=== PATIENT | female | born 1940 | race Caucasian/White ===

== ENCOUNTER → 2017-01-30 | Outpatient (CLI) | payer MEDICARE, BC, OTHER ==
[2016-08-16 10:01] VITALS: BP 105/57
[~2017-01-30] MED LIST: ALPR1TAB2 PO; ASPI-252 PO; ASPI-612 PO; ASPI-630 PO; ATOR10TA PO; ATOR20TA PO; CALC-337 PO; CARV12.5 PO; CHOL100013 PO; ESTR42.53 VG; ESTR50GE TD; IOHEXOL 300 MG/ML 75 ML VIAL. IV ONE; IOHEXOL 300 MG/ML 75 ML VIAL. ONE; IPRA3AMP NEB; IRBE300T PO; LEVO175T2 PO; LEVO75TA PO; MELA1TAB13 PO; MULT-245 PO; NITR50CA11 PO; QUET50TA5 PO; QUET50TA8 PO; RIVA10TA PO; RIVA15TA PO; SERT50TA PO; SPIR25TA PO; TIOT18CA IH
--- NOTE | 2017-01-30 11:18 | RAD ---
CT angiography chest 01/30/2017 at 1054 hours Indication: History of pulmonary embolism. Comparison: CT chest 08/14/2016 Technique: Multiple axial CT images of the chest were obtained after the administration of 75 mL's of Omnipaque 300 intravenously. Coronal and sagittal reformats are provided. Maximum intensity projection images are provided. Findings: The thyroid gland is within normal limits. There are no axillary, mediastinal or hilar lymph nodes that are pathologically enlarged. Heart size is within normal limits. No pericardial effusion. Thoracic aorta is normal in course and caliber. Scattered atherosclerotic calcification is noted. There is adequate opacification of the pulmonary arterial system. Previously noted filling defects within the pulmonary arterial system are not seen on the current examination compatible with resolution of pulmonary emboli. There is mild centrilobular pulmonary emphysema. There is scarring and/or subsegmental atelectasis involving the right middle lobe and posterior basal right lower lobe. No suspicious pulmonary infiltrate. There is groundglass attenuation in the posterior basal right lower lobe (series 4, image 111) which may be related to atelectasis versus inflammatory changes. No suspicious pulmonary nodules. Simple appearing hepatic cysts are identified in the visualized portions of the liver. Simple appearing renal cysts are noted. Otherwise, visualized portions of the upper abdomen are within normal limits. Impression: 1. Interval resolution of filling defects within the pulmonary arterial system compatible with resolution of pulmonary emboli. No significant residual pulmonary was. 2. Patchy areas of subsegmental atelectasis and/or scarring are noted in the right middle and lower lobes. Alternatively, these areas may represent sequela of small pulmonary infarcts. 3. Mild centrilobular pulmonary emphysema. PQRS Compliance Statement: One or more of the following individualized dose reduction techniques were utilized for this examination: 1. Automated exposure control 2. Adjustment of the mA and/or kV according to patient size 3. Use of iterative reconstruction technique
== END | disposition home or self-care (01) ==
LOC: CT 10:29
PROVIDERS: ATTEND Physician Assistant
DX: J43.2 Centrilobular emphysema (principal); I70.0 Atherosclerosis of aorta; J98.11 Atelectasis; K76.89 Other specified diseases of liver; N28.1 Cyst of kidney, acquired; I11.0 Hypertensive heart disease with heart failure; I50.9 Heart failure, unspecified; Z86.711 Personal history of pulmonary embolism
CPT/HCPCS: 71275; Q9967

== ENCOUNTER 2018-01-14 21:39 | Inpatient (IN) | payer MEDICARE, BC, OTHER ==
[~2018-01-14] VITALS: Ht 167.6 cm; Wt 93.0 kg
[~2018-01-14 21:39] MED LIST changes: -IOHEXOL 300 MG/ML 75 ML VIAL. IV ONE; -IOHEXOL 300 MG/ML 75 ML VIAL. ONE; -IPRA3AMP NEB; +IPRA3AMP29 NEB
--- NOTE | 2018-01-14 22:03 | ED.ADGEN ---
Past History Past Medical History: Arthritis, CHF, COPD, Hypertension, Hyperthyroid, Hypothyroid, Other Past Surgical History: Cholecystectomy, Tonsillectomy, Tubal ligation, Other Alcohol Use: None Drug Use: None Adult General Chief Complaint Chief Complaint "... I was leaving my granddaughter birthday republican and I got short of breath.. ".. Then I got really anxious.. I ve been off a little the last couple days... ".. " They recently started reducing my Xanax.. because everyone worried about drug abuse..." HPI HPI Patient is a 77 year old female who presents with above history and complaints. She reports malaise last couple days. Patient attributed to reduction and her Xanax dosages. However tonight when leaving her granddaughter pretty republican developed increased dyspnea. Patient denies any fever, chills, cough. Patient has extensive medical history with history of hypertension, CHF, COPD oxygen dependent 2 lits, elevated cholesterol, hyperparathyroid, pulmonary embolism, DVT, recurrent urinary tract infections,rheumatic fever and arthritis. She recently has had a reduction in her Xanax and started on buspirone . No only other med changes. She normally follows Dr. Michelle. Review of Systems Review of Systems Constitutional: Denies fever or chills [] Eyes: Denies change in visual acuity, redness, or eye pain [] HENT: Denies nasal congestion or sore throat [] Respiratory: Complaitns of shortness of breath [] Cardiovascular: No additional information not addressed in HPI [] GI: Denies abdominal pain, nausea, vomiting, bloody stools or diarrhea [] : Denies dysuria or hematuria [] Musculoskeletal: Denies back pain or joint pain [] Integument: Denies rash or skin lesions [] Neurologic: Denies headache, focal weakness or sensory changes [] Endocrine: Denies polyuria or polydipsia [] All other systems were reviewed and found to be within normal limits, except as documented in this note. Family History Family History Noncontributory Current Medications Current Medications Current Medications Medications (Trade) Dose Ordered Sig/Miguel Start Time Stop Time Status Last Admin Dose Admin Albuterol/ Ipratropium (Duoneb) 3 ml 1X ONCE 01/14/18 23:00 01/14/18 23:01 DC 01/14/18 23:04 3 ML Alprazolam (Xanax) 0.5 mg 1X ONCE 01/14/18 22:15 01/14/18 22:16 DC 01/14/18 22:35 0.5 MG Aspirin (Children'S Aspirin) 324 mg 1X ONCE 01/14/18 22:15 01/14/18 22:16 DC 01/14/18 22:35 324 MG Azithromycin (Zithromax) 500 mg 1X ONCE 01/14/18 23:00 01/14/18 23:01 DC 01/15/18 00:23 500 MG Methylprednisolone Sodium Succinate (SOLU-Medrol 125MG VIAL) 125 mg 1X ONCE 01/14/18 23:00 01/14/18 23:01 DC 01/15/18 00:22 125 MG Ondansetron HCl (Zofran) 4 mg PRN Q4HRS PRN 01/14/18 23:00 01/15/18 22:59 Sodium Chloride 1,000 ml @ 1,000 mls/hr 1X ONCE 01/14/18 22:30 01/15/18 01:20 DC 01/14/18 22:34 1,000 MLS/HR Allergies Allergies Allergies Coded Allergies Type Severity Reaction Last Updated Verified fenofibrate Allergy Severe 10/13/14 Yes simvastatin Allergy Severe 10/13/14 Yes morphine Allergy Intermediate Rash 10/13/14 Yes sulfamethoxazole Allergy Intermediate Rash 10/13/14 Yes trimethoprim Allergy Intermediate Rash 10/13/14 Yes Physical Exam Physical Exam Constitutional: Moderate distress, non-toxic appearance. [] HENT: Normocephalic, atraumatic, bilateral external ears normal, oropharynx moist, no oral exudates, nose normal. [] Eyes: PERRLA, EOMI, conjunctiva normal, no discharge. [] Neck: Normal range of motion, no tenderness, supple, no stridor. [] Cardiovascular: Tachycardia Heart rate regular rhythm, , aortic murmur . Lungs & Thorax: Bilateral breath sounds equal at apexes with scattered wheezes and some basilar crackles on auscultation [] Abdomen: Bowel sounds normal, soft, no tenderness, no masses, no pulsatile masses. [] Multiple old surgery scars. Skin: Warm, dry, no erythema, no rash. Poor turgor Back: No tenderness, no CVA tenderness. [] Extremities: No tenderness, no cyanosis, no clubbing, ROM intact, no edema. [] Arthritic changes Neurologic: Alert and oriented X 3, normal motor function, normal sensory function, no focal deficits noted. [] Psychologic: Affect very anxious, judgement normal, mood normal. [] Current Patient Data Vital Signs Vital Signs Date Time Temp Pulse Resp B/P (MAP) Pulse Ox O2 Delivery O2 Flow Rate FiO2 01/14/18 21:56 98.2 99 20 93 Nasal Cannula 2.0 Lab Results Laboratory Tests Test 01/14/18 22:09 White Blood Count 6.9 x10^3/uL (4.0-11.0) Red Blood Count 3.71 x10^6/uL (3.50-5.40) Hemoglobin 12.0 g/dL (12.0-15.5) Hematocrit 35.0 % (36.0-47.0) L Mean Corpuscular Volume 94 fL (79-100) Mean Corpuscular Hemoglobin 32 pg (25-35) Mean Corpuscular Hemoglobin Concent 34 g/dL (31-37) Red Cell Distribution Width 12.5 % (11.5-14.5) Platelet Count 259 x10^3/uL (140-400) Neutrophils (%) (Auto) 61 % (31-73) Lymphocytes (%) (Auto) 25 % (24-48) Monocytes (%) (Auto) 8 % (0-9) Eosinophils (%) (Auto) 6 % (0-3) H Basophils (%) (Auto) 1 % (0-3) Neutrophils # (Auto) 4.2 x10^3uL (1.8-7.7) Lymphocytes # (Auto) 1.7 x10^3/uL (1.0-4.8) Monocytes # (Auto) 0.5 x10^3/uL (0.0-1.1) Eosinophils # (Auto) 0.4 x10^3/uL (0.0-0.7) Basophils # (Auto) 0.0 x10^3/uL (0.0-0.2) Prothrombin Time 11.9 SEC (9.4-11.4) H Prothrombin Time INR 1.2 (0.9-1.1) H PTT 32 SEC (23-33) D-Dimer (Suly) 0.35 mg/L (0.00-0.50) Sodium Level 130 mmol/L (136-145) L Potassium Level 4.5 mmol/L (3.5-5.1) Chloride Level 95 mmol/L (98-107) L Carbon Dioxide Level 30 mmol/L (21-32) Anion Gap 5 (6-14) L Blood Urea Nitrogen 16 mg/dL (7-20) Creatinine 1.1 mg/dL (0.6-1.0) H Estimated GFR (Cockcroft-Gault) 48.3 BUN/Creatinine Ratio 15 (6-20) Glucose Level 115 mg/dL (70-99) H Calcium Level 9.6 mg/dL (8.5-10.1) Magnesium Level 1.6 mg/dL (1.8-2.4) L Total Bilirubin 0.2 mg/dL (0.2-1.0) Direct Bilirubin 0.1 mg/dL (0.0-0.2) Aspartate Amino Transferase (AST) 21 U/L (15-37) Alanine Aminotransferase (ALT) 29 U/L (14-59) Alkaline Phosphatase 96 U/L (46-116) Creatine Kinase 117 U/L (26-192) Creatine Kinase MB (Mass) 2.5 ng/mL (0.0-3.6) Creatine Kinase MB Relative Index 2.1 % (0-4) Troponin I Quantitative < 0.017 ng/mL (0-0.055) GV-Iyh-I-Type Natriuretic Peptide 105 pg/mL (0-449) Total Protein 8.0 g/dL (6.4-8.2) Albumin 3.5 g/dL (3.4-5.0) Albumin/Globulin Ratio 0.8 (1.0-1.7) L Lipase 248 U/L (73-393) EKG EKG My interpretation EKG shows a sinus rhythm at 91 bpm. With intraventricular block.[] Radiology/Procedures Radiology/Procedures I interpretation of chest x-ray shows COPD changes. Cardiomegaly. Has flattening of the diaphragm and basilar scaring. Vertebral compression fractures and spurring. Has osteopenic findings[] Course & Med Decision Making Course & Med Decision Making Pertinent Labs and Imaging studies reviewed. (See chart for details) Discussed presentation, testing and treatment plan- Will admit to Dr. Wilson for evaluation and treatment. UA still pending at time of admit. [] Final Impression Final Impression 1. Dyspnea 2. Anxiety[] 3. Hyponatremia 4. Hypomagnesemia 5. COPD exacerbation Dragon Disclaimer Dragon Disclaimer This electronic medical record was generated, in whole or in part, using a voice recognition dictation system. RHONDA TSAI MD Jan 14, 2018 22:03
[2018-01-14] MEDS ORDERED: ASPIRIN 81 MG TAB.CHEW PO ONE (22:15)
[2018-01-14] MEDS ORDERED: ALPRAZolam 0.25 MG TABLET PO ONE (22:15)
[2018-01-14 22:26] LABS: BASO % 1 % (0-3); EOS # 0.4 x10^3/uL (0.0-0.7); EOS % 6 % (0-3); LYMPH # 1.7 x10^3/uL (1.0-4.8); LYMPH % 25 % (24-48); MEAN CORPUSCULAR HEMOGLOBIN 32 pg (25-35); MEAN CORPUSCULAR HGB CONC 34 g/dL (31-37); MEAN CORPUSCULAR VOLUME 94 fL (79-100); MONO # 0.5 x10^3/uL (0.0-1.1); MONO % 8 % (0-9); NEUT # 4.2 x10^3uL (1.8-7.7); NEUT % 61 % (31-73); PLATELET COUNT 259 x10^3/uL (140-400); RED BLOOD COUNT 3.71 x10^6/uL (3.50-5.40); RED CELL DISTRIBUTION WIDTH 12.5 % (11.5-14.5); WHITE BLOOD COUNT 6.9 x10^3/uL (4.0-11.0)
[2018-01-14] MEDS ORDERED: IV NORMAL SALINE 1,000ML 1,000 ML IV ONE (22:30)
[2018-01-14] MEDS: IV NORMAL SALINE 1,000ML 1,000 ML IV SCH (22:34)
--- NOTE | 2018-01-14 22:47 | RAD ---
EXAM: CHEST 2 VIEWS. HISTORY: Dyspnea, chronic obstructive pulmonary disease. COMPARISON: August 14, 2016. FINDINGS: Frontal and lateral views of the chest are obtained. Hyperinflation is consistent with chronic obstructive pulmonary disease. An opacity in the left lung base corresponds with an epicardial fat pad and scarring in the lingula on CT of January 30, 2017. There is mild atelectasis or scarring in the bases. Scarring in the right base is stable. There are atherosclerotic calcifications of the aorta. There is no pneumothorax or pleural effusion. The heart is not enlarged. Cholecystectomy clips are noted. IMPRESSION: 1. Chronic obstructive pulmonary disease. Stable bibasilar scarring. Electronically signed by: Avery Ruiz MD (01/14/2018 10:43 PM) [facility]
[2018-01-14 22:50] LABS: ALBUMIN 3.5 g/dL (3.4-5.0); ALBUMIN/GLOBULIN RATIO 0.8 (1.0-1.7); CALCIUM 9.6 mg/dL (8.5-10.1); CREATININE 1.1 mg/dL (0.6-1.0); DIRECT BILIRUBIN 0.1 mg/dL (0.0-0.2); GFR 48.3; MAGNESIUM 1.6 mg/dL (1.8-2.4); POTASSIUM 4.5 mmol/L (3.5-5.1); TOTAL BILIRUBIN 0.2 mg/dL (0.2-1.0)
[2018-01-14] MEDS ORDERED: IPRATRPIUM/ALBUTEROL 0.5/2.5MG 3 ML NEBU. NEB ONE (23:00)
[2018-01-14] MEDS ORDERED: ONDANSETRON PF 4 MG/2 ML VIAL. IV PRN (23:00)
[2018-01-14] MEDS ORDERED: methylPREDNISolone SOD SUCC PF 125 MG/2 ML VIAL. IV ONE (23:00)
[2018-01-14] MEDS ORDERED: AZITHROMYCIN 250 MG TABLET. PO ONE (23:00)
[2018-01-14] MEDS ORDERED: MAGNESIUM SULFATE 2GM 50 ML IV ONE (23:15)
[2018-01-15] MEDS: IV NORMAL SALINE 1,000ML 1,000 ML IV SCH (00:10)
[2018-01-15 00:55] VITALS: BP 158/74
[2018-01-15] MEDS ORDERED: CALCIUM CARBONATE 500 MG TAB.CHEW PO PRN (01:00)
[2018-01-15 01:24] LABS: AMPHETAMINE/METHAMPHETAMINE NEG (NEG); BARBITURATES NEG (NEG); BENZODIAZEPINES POS (NEG); CANNABINOIDS NEG (NEG); COCAINE NEG (NEG); METHADONE NEG (NEG); OPIATES NEG (NEG); PHENCYCLIDINE NEG (NEG)
[2018-01-15 01:30] LABS: BACTERIA,URINE FEW /HPF (0-FEW); BILIRUBIN,URINE NEG (NEG); CLARITY,URINE HAZY; COLOR,URINE YELLOW; GLUCOSE,URINE NEG (NEG); NITRITE,URINE NEG (NEG); RBC,URINE 0 /HPF (0-2); SQUAMOUS EPITHELIAL CELL,UR OCC /LPF; UROBILINOGEN,URINE 0.2 mg/dL (0.2 mg/dL); WBC,URINE OCC /HPF (0-4)
[2018-01-15] MEDS ORDERED: MOME13HF IH (02:06)
[2018-01-15] MEDS ORDERED: BUSP5TAB PO (02:06)
[2018-01-15] MEDS ORDERED: LEVO150T5 PO (02:06)
[2018-01-15] MEDS ORDERED: TIOT4MIS3 IH (02:06)
[2018-01-15] MEDS ORDERED: MELA3TAB2 PO (02:06)
[2018-01-15] MEDS ORDERED: OMEG-33 PO (02:06)
[2018-01-15] MEDS ORDERED: PSYL0.5215 PO (02:06)
[2018-01-15] MEDS ORDERED: IPRATRPIUM/ALBUTEROL 0.5/2.5MG 3 ML NEBU. ONE (04:59)
[2018-01-15] MEDS: LEVOTHYROXINE 150 MCG TABLET PO SCH (06:03)
[2018-01-15] MEDS ORDERED: ESTRADIOL TD SCH (06:30)
--- NOTE | 2018-01-15 06:38 | EKG ---
[address] [address] Test Date: 2018-01-14 Test Time: 22:22:10 Pat Name: MICHELLE MARTINEZ Department: Room: Gender: F Director Process Engineering: : [id number] Requested By: RHONDA TSAI Order Number: [id number] Reading MD: Measurements Intervals [place] Rate: 91 P: 65 [place]: 186 QRS: -41 QRSD: 156 T: 54 QT: 376 QTc: 464 Interpretive Statements SINUS RHYTHM COMPLEX(ES) WITH ABERRANT INTRAVENTRICULAR CONDUCTION ABNORMAL LEFT AXIS DEVIATION NON SPECIFIC INTRAVENTRICULAR BLOCK ABNORMAL ECG RI6.01 Unconfirmed report No previous ECG available for comparison
[2018-01-15] MEDS ORDERED: MELATONIN 3 MG TABLET PO PRN (07:45)
[2018-01-15] MEDS ORDERED: IPRATRPIUM/ALBUTEROL 0.5/2.5MG 3 ML NEBU. NEB SCH ×2 (08:00)
[2018-01-15 08:08] LABS: BASO % 0 % (0-3); EOS % 0 % (0-3); HEMATOCRIT 32.7 % (36.0-47.0); HEMOGLOBIN 11.2 g/dL (12.0-15.5); LYMPH # 0.5 x10^3/uL (1.0-4.8); LYMPH % 12 % (24-48); MEAN CORPUSCULAR HEMOGLOBIN 32 pg (25-35); MEAN CORPUSCULAR HGB CONC 34 g/dL (31-37); MEAN CORPUSCULAR VOLUME 94 fL (79-100); MONO % 1 % (0-9); NEUT # 3.8 x10^3uL (1.8-7.7); NEUT % 87 % (31-73); PLATELET COUNT 222 x10^3/uL (140-400); RED BLOOD COUNT 3.46 x10^6/uL (3.50-5.40); RED CELL DISTRIBUTION WIDTH 12.6 % (11.5-14.5); WHITE BLOOD COUNT 4.4 x10^3/uL (4.0-11.0)
[2018-01-15 08:17] LABS: CALCIUM 8.8 mg/dL (8.5-10.1); CREATININE 1.1 mg/dL (0.6-1.0); GFR 48.3; POTASSIUM 4.6 mmol/L (3.5-5.1)
[2018-01-15] MEDS ORDERED: NON FORMULARY ITEM (Mometasone/Formoterol (Dulera 200 Mcg/5 Mcg Inhaler) 2 PUFF) IH SCH (09:00)
[2018-01-15] MEDS ORDERED: methylPREDNISolone SOD SUCC PF 125 MG/2 ML VIAL. IV SCH (09:00)
[2018-01-15] MEDS ORDERED: NON FORMULARY ITEM (Tiotropium Br/Olodaterol HCl (Stiolto Respimat Inhal Spray) 2 PUFF) IH SCH (09:00)
[2018-01-15 09:01] LABS: % BANDS 3 % (0-9); % LYMPHS 11 % (24-48); % METAS 1 % (0-0); % SEGS 85 % (35-66)
[2018-01-15 09:02] LABS: PLT ESTIMATE ADEQUATE (ADEQUATE); TOXIC GRANULATION SLIGHT
[2018-01-15 09:03] LABS: POLYCHROMASIA SLIGHT
[2018-01-15] MEDS: CALCIUM CARB/VIT D3 500/200 TABLET PO SCH ×2 (09:35→18:35)
[2018-01-15] MEDS: AZITHROMYCIN 250 MG TABLET. PO SCH (09:36)
[2018-01-15] MEDS: busPIRone 5 MG TABLET. PO SCH (09:36)
[2018-01-15] MEDS: OMEGA-3 FATTY ACIDS/FISH OIL 1,000 MG CAPSULE. PO SCH (09:36)
[2018-01-15] MEDS: RIVAROXABAN 10 MG TABLET. PO SCH (09:36)
[2018-01-15] MEDS: MULTIVITAMIN with MINERAL TABLET. PO SCH (09:37)
[2018-01-15] MEDS: CARVEDILOL 12.5 MG TABLET PO SCH ×2 (09:37→18:35)
[2018-01-15] MEDS: ASPIRIN 81 MG TAB.CHEW PO SCH (09:38)
[2018-01-15] MEDS: NITROFURANTOIN MONOHYD/M-CRYST 100 MG CAPSULE. PO SCH (09:38)
[2018-01-15] MEDS: SPIRONOLACTONE 25 MG TABLET PO SCH (09:38)
[2018-01-15] MEDS: PSYLLIUM SEED (WITH SUGAR) PACKET. PO SCH (09:39)
[2018-01-15] MEDS: LACTOBACILLUS RHAMNOSUS GG 1 CAPSULE. PO SCH ×2 (09:40→20:02)
[2018-01-15] MEDS: BUDESONIDE 0.5 MG/2 ML NEBU NEB SCH ×2 (09:45→20:49)
[2018-01-15] MEDS: IPRATRPIUM/ALBUTEROL 0.5/2.5MG 3 ML NEBU. NEB SCH ×3 (09:46→20:48)
--- NOTE | 2018-01-15 09:54 | PDOC2 ---
CONSULT Date of Admission DATE: 01/15/18 TIME: 09:46 Reason for Consult: elevated troponin Problem List Problems Medical Problems: (1) COPD with acute exacerbation Status: Acute History of Present Illness Ms Knowles is a 77 year old female with history of NICM with normalized LV function, heart failure, COPD, Hypertension, who presents with complaints of shortness of breath. She reports of her about 1 year ago and states that she has declined since that time. She reports dyspnea on exertion and fatigue to the point that she is most comfortable in her bed. She denies congestive symptoms such as orthopnea or PND. She reports being at a granddaughters birthday democrat yesterday and feeling at baseline. Upon leaving and walking to the car she had sudden onset of increased shortness of breath unrelieved with inhalers. Her daughter (a nurse) took her blood pressure which was significantly elevated (180's systolic) for her. She was admitted for evaluation and noted to have a mildly elevated troponin so consult was called. She normally follows with [facility] for her cardiology care. She reports normal heart cath >20 years ago, last stress test about 2 years ago and echo at that same time. She denies chest pain or discomfort. She denies palpitations. She does report some lightheadedness associated with increased dyspnea but denies any syncope. Her functional capacity is significantly limited with inability to walk to her mail box and lately dyspnea just moving about in the house. 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 Past Surgical History see above Family History cancer Social History [id number] history of smoking, Denies alcohol or drug use. Current Medications Current Medications Aspirin (Children'S Aspirin) 324 mg 1X ONCE PO Last administered on 01/14/18at 22:35; Start 01/14/18 at 22:15; Stop 01/14/18 at 22:16; Status DC Sodium Chloride 1,000 ml @ 100 mls/hr Q10H IV Last administered on 01/15/18at 00 :10; Start 01/14/18 at 22:30; Stop 01/15/18 at 08:29; Status DC Alprazolam (Xanax) 0.5 mg 1X ONCE PO Last administered on 01/14/18at 22:35; Start 01/14/18 at 22:15; Stop 01/14/18 at 22:16; Status DC Albuterol/ Ipratropium (Duoneb) 3 ml 1X ONCE NEB Last administered on at 23:04; Start 01/14/18 at 23:00; Stop 01/14/18 at 23:01; Status DC Methylprednisolone Sodium Succinate (SOLU-Medrol 125MG VIAL) 125 mg 1X ONCE IV Last administered on 01/15/18at 00:22; Start 01/14/18 at 23:00; Stop 01/14/18 at 23:01; Status DC Azithromycin (Zithromax) 500 mg 1X ONCE PO Last administered on 01/15/18at 00:23 ; Start 01/14/18 at 23:00; Stop 01/14/18 at 23:01; Status DC Ondansetron HCl (Zofran) 4 mg PRN Q4HRS PRN IV NAUSEA/VOMITING; Start 01/14/18 at 23:00; Stop 01/15/18 at 22:59 Albuterol/ Ipratropium (Duoneb) 3 ml RTQID NEB Last administered on 01/15/18at 05 :25; Start 01/15/18 at 08:00; Stop 01/15/18 at 08:00; Status DC Azithromycin (Zithromax) 250 mg DAILY PO Last administered on 01/15/18at 09:36; Start 01/15/18 at 09:00 Methylprednisolone Sodium Succinate (SOLU-Medrol 125MG VIAL) 125 mg DAILY IV ; Start 01/15/18 at 09:00 Aspirin (Children'S Aspirin) 81 mg DAILY PO ; Start 01/15/18 at 09:00 Magnesium Sulfate 50 ml @ 25 mls/hr 1X ONCE IV Last administered on 01/15/18at 00:22; Start 01/14/18 at 23:15; Stop 01/15/18 at 01:14; Status DC Sodium Chloride 1,000 ml @ 1,000 mls/hr 1X ONCE IV Last administered on at 22:34; Start 01/14/18 at 22:30; Stop 01/15/18 at 01:20; Status DC Calcium Carbonate/ Glycine (Tums) 500 mg PRN AFTMEALHC PRN PO INDIGESTION; Start 01/15/18 at 01:00 Levothyroxine Sodium (Synthroid) 150 mcg DAILY07 PO Last administered on at 06:03; Start 01/15/18 at 07:00 Albuterol/ Ipratropium (Duoneb) 3 ml STK-MED ONCE .ROUTE Last administered on at 04:59; Start 01/15/18 at 04:59; Stop 01/15/18 at 05:00; Status DC Atorvastatin Calcium (Lipitor) 20 mg QHS PO ; Start 01/15/18 at 21:00 Albuterol/ Ipratropium (Duoneb) 3 ml RTQID NEB Last administered on 01/15/18at 09 :46; Start 01/15/18 at 08:00 Rivaroxaban (Xarelto) 20 mg DAILY PO Last administered on 01/15/18at 09:36; Start 01/15/18 at 09:00 Alprazolam (Xanax) 1 mg PRN TID PRN PO ANXIETY; Start 01/15/18 at 06:30 Buspirone HCl (Buspar) 7.5 mg DAILY PO Last administered on 01/15/18at 09:36; Start 01/15/18 at 09:00 Calcium/Vitamin D (Oscal D 500mg/ 200uts) 1 tab BIDWMEALS PO Last administered on 01/15/18at 09:35; Start 01/15/18 at 08:00 Carvedilol (Coreg) 12.5 mg BIDWMEALS PO ; Start 01/15/18 at 08:00 Non-Formulary Medication (Estradiol (Estrogel)) 50 gm TWICE WEEKLY TD ; Start at 06:30; Status UNV Losartan Potassium (Cozaar) 100 mg QHS PO ; Start 01/15/18 at 21:00 Melatonin 3 mg PRN QHS PRN PO INSOMNIA; Start 01/15/18 at 07:45; Stop 01/15/18 at 07:45; Status DC Non-Formulary Medication (Mometasone/ Formoterol (Dulera 200 Mcg/5 Mcg Inhaler) ) 2 puff BID IH ; Start 01/15/18 at 09:00; Status UNV Multivitamins/ Calcium (Thera-M Plus) 1 tab DAILY PO ; Start 01/15/18 at 09:00 Nitrofurantoin Macrocrystals (Macrobid) 100 mg QMTH@0900 PO ; Start 01/15/18 at 09:00 Fish Oil (Fish Oil) 1,000 mg DAILY PO Last administered on 01/15/18at 09:36; Start 01/15/18 at 09:00 Psyllium Hydrophilic Mucilloid (Metamucil) 1 pkt DAILY PO ; Start 01/15/18 at 09: 00 Quetiapine Fumarate (SEROquel) 50 mg QHS PO ; Start 01/15/18 at 21:00 Spironolactone (Aldactone) 12.5 mg DAILY PO ; Start 01/15/18 at 09:00 Non-Formulary Medication (Tiotropium Br/ Olodaterol HCl (Stiolto Respimat Inhal [place])) 2 puff DAILY IH ; Start 01/15/18 at 09:00; Status UNV Melatonin 3 mg QHS PO ; Start 01/15/18 at 21:00 Albuterol/ Ipratropium (Duoneb) 3 ml RTQID NEB ; Start 01/15/18 at 08:00; Status Cancel Budesonide (Pulmicort) 0.5 mg RTBID NEB Last administered on 01/15/18at 09:45; Start 01/15/18 at 08:00 Lactobacillus Rhamnosus (Culturelle) 1 cap BID PO ; Start 01/15/18 at 09:00 Active Scripts Active Xarelto (Rivaroxaban) 10 Mg Tablet 20 Mg PO DAILY Duoneb 0.5-3(2.5) Mg/3 Ml (Albuterol/Ipratropium) 3 Ml Ampul.neb 3 Ml NEB RTQID Reported [place] 3 1,000 Mg Softgel ([place]-3 Fatty Acids/Fish Oil) 1 Each Capsule 1 Each PO DAILY Metamucil (Psyllium Husk) 0.52 Gm Capsule 0.52 Gm PO DAILY Stiolto Respimat Inhal [place] (Tiotropium Br/Olodaterol HCl) 4 Gm Mist.inhal 2 Puff IH DAILY Buspirone Hcl 5 Mg Tablet 7.5 Mg PO DAILY Dulera 200 Mcg/5 Mcg Inhaler (Mometasone/Formoterol) 13 Gm Hfa.aer.ad 2 Puff IH BID Levothyroxine Sodium 150 Mcg Tablet 150 Mcg PO DAILY07 Melatonin 3 Mg Tablet 1 Tab PO QHS Seroquel (Quetiapine Fumarate) 50 Mg Tablet 1 Tab PO QHS Avapro (Irbesartan) 300 Mg Tablet 300 Mg PO HS Estrogel (Estradiol) 50 Gm Gel.midlevel provider 50 Gm TD TWICE WEEKLY Lipitor (Atorvastatin Calcium) 20 Mg Tablet 20 Mg PO QHS last dose: yesterday evening next dose: tonight pm Macrodantin (Nitrofurantoin Macrocrystal) 50 Mg Capsule 50 Mg PO TWICE WEEKLY TAKEN ON SATURDAY AND SATURDAY Aldactone (Spironolactone) 25 Mg Tablet 12.5 Mg PO DAILY last dose: today am next dose: tomorrow am Multi Vitamin Daily (Multivitamin) 1 Each Tablet 1 Each PO DAILY Supplement next dose: today am next dose: tomorrow am El-Citrate Plus Vitamin D Tab (Calcium Citrate/Vitamin D2) 1 Each Tablet 1 Each PO BID Last dose: today 9am next dose tonight pm Xanax (Alprazolam) 1 Mg Tablet 1 Tab PO PRN TID PRN last dose this morning next dose this afternoon Coreg (Carvedilol) 12.5 Mg Tablet 1 Tab PO BIDWMEALS for heart and blood pressure last dose: today 9am next dose: tonight pm Allergies: Coded Allergies: fenofibrate (Verified Allergy, Severe, 10/13/14) Lung infection simvastatin (Verified Allergy, Severe, 10/13/14) Lung infection morphine (Verified Allergy, Intermediate, Rash, 10/13/14) sulfamethoxazole (Verified Allergy, Intermediate, Rash, 10/13/14) trimethoprim (Verified Allergy, Intermediate, Rash, 10/13/14) Review of System as per HPI General: Alert, Oriented X3, Cooperative, No acute distress HEENT: Atraumatic, EOMI, Mucous membr. moist/pink, Other (No JVD/HJR) Lungs: Other (decresed bases with no wheezing currently, no rhonchi or crackles ) Heart: Regular rate, Normal S1, Normal S2, Other (no gallops, clicks or rubs) Abdomen: Normal bowel sounds, Soft, No tenderness Extremities: No cyanosis, Other (trace non pitting edema, 2+ pulse left dorsalis pedis, 1+ right dorsalis pedis, 2+ bilateral radial) Neuro: Normal speech, Strength at 5/5 X4 ext Psych/Mental Status: Mental status NL, Mood NL VITALS Vital Signs Date Time Temp Pulse Resp B/P (MAP) Pulse Ox O2 Delivery O2 Flow Rate FiO2 01/15/18 05:26 Nasal Cannula 2.0 01/15/18 00:55 98.4 98 24 158/74 (102) 94 Labs Laboratory Tests Test 01/14/18 22:09 01/15/18 00:45 01/15/18 01:56 01/15/18 07:59 White Blood Count 6.9 x10^3/uL (4.0-11.0) 4.4 x10^3/uL (4.0-11.0) Red Blood Count 3.71 x10^6/uL (3.50-5.40) 3.46 x10^6/uL (3.50-5.40) Hemoglobin 12.0 g/dL (12.0-15.5) 11.2 g/dL (12.0-15.5) Hematocrit 35.0 % (36.0-47.0) 32.7 % (36.0-47.0) Mean Corpuscular Volume 94 fL (79-100) 94 fL (79-100) Mean Corpuscular Hemoglobin 32 pg (25-35) 32 pg (25-35) Mean Corpuscular Hemoglobin Concent 34 g/dL (31-37) 34 g/dL (31-37) Red Cell Distribution Width 12.5 % (11.5-14.5) 12.6 % (11.5-14.5) Platelet Count 259 x10^3/uL (140-400) 222 x10^3/uL (140-400) Neutrophils (%) (Auto) 61 % (31-73) 87 % (31-73) Lymphocytes (%) (Auto) 25 % (24-48) 12 % (24-48) Monocytes (%) (Auto) 8 % (0-9) 1 % (0-9) Eosinophils (%) (Auto) 6 % (0-3) 0 % (0-3) Basophils (%) (Auto) 1 % (0-3) 0 % (0-3) Neutrophils # (Auto) 4.2 x10^3uL (1.8-7.7) 3.8 x10^3uL (1.8-7.7) Lymphocytes # (Auto) 1.7 x10^3/uL (1.0-4.8) 0.5 x10^3/uL (1.0-4.8) Monocytes # (Auto) 0.5 x10^3/uL (0.0-1.1) 0.0 x10^3/uL (0.0-1.1) Eosinophils # (Auto) 0.4 x10^3/uL (0.0-0.7) 0.0 x10^3/uL (0.0-0.7) Basophils # (Auto) 0.0 x10^3/uL (0.0-0.2) 0.0 x10^3/uL (0.0-0.2) Prothrombin Time 11.9 SEC (9.4-11.4) Prothromb Time International Ratio 1.2 (0.9-1.1) Activated Partial Thromboplast Time 32 SEC (23-33) D-Dimer (Suly) 0.35 mg/L (0.00-0.50) Sodium Level 130 mmol/L (136-145) 131 mmol/L (136-145) Potassium Level 4.5 mmol/L (3.5-5.1) 4.6 mmol/L (3.5-5.1) Chloride Level 95 mmol/L (98-107) 100 mmol/L (98-107) Carbon Dioxide Level 30 mmol/L (21-32) 26 mmol/L (21-32) Anion Gap 5 (6-14) 5 (6-14) Blood Urea Nitrogen 16 mg/dL (7-20) 13 mg/dL (7-20) Creatinine 1.1 mg/dL (0.6-1.0) 1.1 mg/dL (0.6-1.0) Estimated GFR (Cockcroft-Gault) 48.3 48.3 BUN/Creatinine Ratio 15 (6-20) Glucose Level 115 mg/dL (70-99) 149 mg/dL (70-99) Calcium Level 9.6 mg/dL (8.5-10.1) 8.8 mg/dL (8.5-10.1) Magnesium Level 1.6 mg/dL (1.8-2.4) Total Bilirubin 0.2 mg/dL (0.2-1.0) Direct Bilirubin 0.1 mg/dL (0.0-0.2) Aspartate Amino Transf (AST/SGOT) 21 U/L (15-37) Alanine Aminotransferase (ALT/SGPT) 29 U/L (14-59) Alkaline Phosphatase 96 U/L (46-116) Creatine Kinase 117 U/L (26-192) Creatine Kinase MB (Mass) 2.5 ng/mL (0.0-3.6) Creatine Kinase MB Relative Index 2.1 % (0-4) Troponin I Quantitative < 0.017 ng/mL (0-0.055) 0.086 ng/mL (0-0.055) 0.071 ng/mL (0-0.055) GT-Abs-N-Type Natriuretic Peptide 105 pg/mL (0-449) Total Protein 8.0 g/dL (6.4-8.2) Albumin 3.5 g/dL (3.4-5.0) Albumin/Globulin Ratio 0.8 (1.0-1.7) Lipase 248 U/L (73-393) Urine Collection Type Unknown Urine Color Yellow Urine Clarity Hazy Urine pH 7.0 Urine Specific [place] 1.010 Urine Protein Neg (NEG-TRACE) Urine Glucose (UA) Neg mg/dL (NEG) Urine Ketones (Stick) Neg mg/dL (NEG) Urine Blood Small (NEG) Urine Nitrite Neg (NEG) Urine Bilirubin Neg (NEG) Urine Urobilinogen Dipstick 0.2 mg/dL (0.2 mg/dL) Urine Leukocyte Esterase Small (NEG) Urine RBC 0 /HPF (0-2) Urine WBC Occ /HPF (0-4) Urine Squamous Epithelial Cells Occ /LPF Urine Bacteria Few /HPF (0-FEW) Urine Opiates Screen Neg (NEG) Urine Methadone Screen Neg (NEG) Urine Barbiturates Neg (NEG) Urine Phencyclidine Screen Neg (NEG) Urine Amphetamine/Methamphetamine Neg (NEG) Urine Benzodiazepines Screen Pos (NEG) Urine Cocaine Screen Neg (NEG) Urine Cannabinoids Screen Neg (NEG) Urine Ethyl Alcohol Neg (NEG) Segmented Neutrophils % 85 % (35-66) Band Neutrophils % 3 % (0-9) Lymphocytes % 11 % (24-48) Metamyelocytes % 1 % (0-0) Toxic Granulation Slight Platelet Estimate Adequate (ADEQUATE) Large Platelets Occ Polychromasia Slight Images EKG - sinus rhythm, ILBBB, no acute ischemic changes CXR - IMPRESSION: 1. Chronic obstructive pulmonary disease. Stable bibasilar scarring. Assessment/Plan 1. elevated troponin - peak 0.086 2. respiratory insufficiency - likely multifactorial. Recent PEs, on anticoagulation and with normal D Dimer. COPD mgmt per PCP. History of congestive heart failure with no overt signs of HF, no congestion on xray, and normal BNP. Progressive dyspnea on exertion, unrelieved with inhalers, possibly an anginal equivalent 3. history of NICM with reportedly normalized EF 4. hypertension - reportedly accelerated prior to arrival with sbp 180's, highest reading since admission 150s systolic, currently well controlled 5. hyperlipidemia - check lipids 6. CKD class 3 - cr 1.1 and stable. 7. anxiety - per PCP Will check echocardiogram, check lipids and request records from [facility]. Discussed options of MPI vs cardiac cath. She prefers MPI first and at this time states desire to transfer to [facility] if cardiac cath is required. Will schedule for dobutamine MPI in am as she reports significant side effects with lexiscan. ZONIA HORN APRN Jan 15, 2018 09:54
[2018-01-15] MEDS: ALPRAZolam 0.5 MG TABLET PO PRN ×2 (10:47→18:37)
[2018-01-15 11:06] VITALS: BP 129/78
[2018-01-15 15:22] VITALS: BP 123/76
--- NOTE | 2018-01-15 17:12 | CARD ---
MR#: [id number] Date of Study: 01/15/2018 Ordering Physician: ZONIA HORN, Referring Physician: JUANIS HERNANDEZ, Tech: JULIA Womack APPROVED REPORT EXAM: Two-dimensional and M-mode echocardiogram with Doppler and color Doppler. Other Information HR: 84bpm INDICATION Elevated Troponin 2D DIMENSIONS RVDd3.3 (2.9-3.5cm)Left Atrium(2D)3.5 (1.6-4.0cm) IVSd1.0 (0.7-1.1cm)Aortic Root(2D)2.9 (2.0-3.7cm) LVDd4.4 (3.9-5.9cm)LVOT Diameter2.0 (1.8-2.4cm) PWd1.1 (0.7-1.1cm)LVDs2.9 (2.5-4.0cm) FS (%) 34.3 %SV57.0 ml LVEF(%)63.5 (>50%) Aortic Valve AoV Peak Vladimir.150.8cm/sAoV VTI26.2cm AO Peak GR.9.1mmHgLVOT Peak Vladimir.116.4cm/s LVOT VTI 19.88cmAO Mean GR.6mmHg JAGJIT (VMAX)2.68rc0EVA (VTI)2.27cm2 AI P 1/2 Gdrm861te Mitral Valve MV E Enmgnynd770.3cm/sMV DECEL MEOD504dx MV A Sbyqeojk01.7cm/sE/A Ratio1.6 Pulmonary Valve PV Peak Gkwdtziq362.6cm/sPV Peak Grad.11mmHg Tricuspid Valve TR P. Fwjrfpml544bj/sRAP VXSETQWE7mdAp TR Peak Gr.86usIlAJSO12ddKi Pulmonary Vein S1 Tbgixqrz62.1cm/sD2 Vfseqrtx32.6cm/s LEFT VENTRICLE The left ventricle is normal size. There is normal left ventricular wall thickness. The left ventricu lar systolic function is normal and the ejection fraction is within normal range. EF65% There is norm al LV segmental wall motion. Tissue Doppler imaging reveals mild left ventricular diastolic dysfuncti on. RIGHT VENTRICLE The right ventricle is normal size. The right ventricular systolic function is normal. ATRIA The left atrium size is normal. The right atrium size is normal. The interatrial septum is intact wit h no evidence for an atrial septal defect or patent foramen ovale as noted on 2-D or Doppler imaging. AORTIC VALVE The aortic valve is thickened but opens well. Doppler and Color Flow revealed no significant aortic r egurgitation. There is no significant aortic valvular stenosis. There is no aortic valvular vegetatio n. MITRAL VALVE The mitral valve is normal in structure. There is no evidence of mitral valve prolapse. There is no m itral valve stenosis. Doppler and Color-flow revealed trace mitral regurgitation. TRICUSPID VALVE The tricuspid valve is not well visualized. Doppler and Color Flow revealed trace tricuspid regurgita tion. There is no pulmonary hypertension. The PA pressure was estimated at 24 mmHg. There is no tricu spid valve stenosis. PULMONIC VALVE The pulmonic valve is not well visualized. Doppler and Color Flow revealed no pulmonic valvular regur gitation. There is no pulmonic valvular stenosis. GREAT VESSELS The aortic root is normal in size. The IVC is dilated. The IVC collapses >50% with inspiration. PERICARDIAL EFFUSION There is no pleural effusion. There is no evidence of significant pericardial effusion. Critical Notification Critical Value: No <Conclusion> The left ventricular systolic function is normal and the ejection fraction is within normal range. EF 65% There is normal LV segmental wall motion. Signed by : Felipe Griffith, Electronically Approved : 01/15/2018 17:10:48
[2018-01-15 19:22] VITALS: BP 101/63
[2018-01-15] MEDS: QUEtiapine 50 MG TABLET. PO SCH (20:02)
[2018-01-15] MEDS: MELATONIN 3 MG TABLET PO SCH (20:02)
[2018-01-15] MEDS: LOSARTAN 50 MG TABLET. PO SCH (20:02)
[2018-01-15] MEDS: ATORVASTATIN CALCIUM 20 MG TABLET PO SCH (20:02)
[2018-01-15 22:38] VITALS: BP 102/65
[2018-01-16] MEDS: ALPRAZolam 0.5 MG TABLET PO PRN ×3 (00:27→18:48)
--- NOTE | 2018-01-16 00:33 | HP ---
ADMIT DATE: 01/14/2018 HISTORY OF PRESENT ILLNESS: A 77-year-old female came in through the Emergency Room with marked increased shortness of breath, dyspnea for the last couple of days prior to admission. The patient claimed that it was related to a decrease of Xanax and the patient was having difficulty in breathing, has a history of exacerbation of COPD. As a result of her increased shortness of breath and the possibility of high risk for coronary artery disease, the patient was admitted to the hospital for evaluation of her acute exacerbation of COPD ____. PAST MEDICAL HISTORY: The patient had a history of cataracts, tonsillectomy, heart murmur, congestive heart failure, cardiomyopathy, hypertension, COPD, pulmonary embolus, abdominal surgery, cholecystectomy, obesity, tubal ligation, urinary tract infection, musculoskeletal disorders. Orthopedic Surgery on the left knee x 2 fractures of the feet, herniated disk, Yaya's disease, hypothyroidism, depression, panic disorder, and anxiety. SOCIAL HISTORY: The patient smokes about 1-2 cigarettes daily for the last 2 years. The patient has dentures. Influenza and pneumococcal vaccinations up-to-date. The patient has also history of anemia. ALLERGIES: To FENOFIBRATE, MORPHINE, SIMVASTATIN, SULFA, TRIMETHOPRIM. HOME MEDICATIONS: Include that of Macrodantin 50 mg twice weekly, DuoNeb treatments 3 times a day, Xarelto 20 mg daily, Lipitor 20 mg daily, omega 3 one capsule daily, Coreg 12.5 mg b.i.d., Avapro 300 mg at bedtime, spironolactone 25 mg, Seroquel 50 mg daily, Xanax 1 mg, buspirone 7.5 mg 3 times a day, calcium citrate nasal spray, ____ oral spray, estradiol 50 g gel pump, Metamucil, levothyroxine 150 mcg, multivitamins, melatonin 3 mg at bedtime. FAMILY HISTORY: Cancer in her daughter, father, and brother. REVIEW OF SYSTEMS: Outside of her shortness of breath, some chest tightness. The patient denies any headaches, visual changes, blurred vision, double vision. Denies abdominal pain. Denies any melena, hematochezia, or hematemesis and neurologically stable. PHYSICAL EXAMINATION: GENERAL: This is a pleasant white female in moderate amount of distress, having difficulty with her breathing with minimal exertion. VITAL SIGNS: The patient's blood pressure 100/58, respiratory rate 26, pulse 98, afebrile. HEENT: The patient's head was atraumatic, normocephalic. Eyes: PERRLA without jaundice. Mouth and throat were normal. NECK: Supple, without JVD, carotid bruits. No thyromegaly. LUNGS: Diminished throughout, poor movement of air, decreased in the bases. CARDIOVASCULAR: Regular sinus rhythm, S1, S2, without murmur, rub, or extra heart sounds. ABDOMEN: Soft, nontender, no rebound or guarding. Positive bowel sounds, no hepatosplenomegaly. EXTREMITIES: No clubbing, cyanosis, some pitting edema in the feet, ankle area, otherwise unremarkable. NEUROLOGIC: The patient is alert and oriented x 3. Speech fluent, spontaneous, appropriate. Cranial nerves 2-12 are grossly intact. The patient was admitted for acute exacerbation of COPD, chest tightness. Echocardiogram with ejection fraction of 65%. The patient continued to be monitored carefully, make further evaluation on her acute exacerbation of COPD, and we will make adjustments accordingly on medication as deemed necessary. JUANIS HERNANDEZ MD DR: SABINO/molly JOB#: [id number] / [id number]
[2018-01-16] MEDS: BUDESONIDE 0.5 MG/2 ML NEBU NEB SCH ×2 (05:32→21:37)
[2018-01-16] MEDS: IPRATRPIUM/ALBUTEROL 0.5/2.5MG 3 ML NEBU. NEB SCH ×4 (05:32→21:36)
[2018-01-16] MEDS: LEVOTHYROXINE 150 MCG TABLET PO SCH (05:38)
[2018-01-16 05:57] VITALS: BP 108/66
[2018-01-16] MEDS: OMEGA-3 FATTY ACIDS/FISH OIL 1,000 MG CAPSULE. PO SCH (08:47)
[2018-01-16] MEDS: MULTIVITAMIN with MINERAL TABLET. PO SCH (08:48)
[2018-01-16] MEDS: CALCIUM CARB/VIT D3 500/200 TABLET PO SCH ×2 (08:48→18:42)
[2018-01-16] MEDS: ASPIRIN 81 MG TAB.CHEW PO SCH (08:48)
[2018-01-16] MEDS: AZITHROMYCIN 250 MG TABLET. PO SCH (08:49)
[2018-01-16] MEDS: LACTOBACILLUS RHAMNOSUS GG 1 CAPSULE. PO SCH ×2 (08:49→22:11)
[2018-01-16] MEDS: RIVAROXABAN 10 MG TABLET. PO SCH (08:49)
[2018-01-16] MEDS: NITROFURANTOIN MONOHYD/M-CRYST 100 MG CAPSULE. PO SCH (08:49)
[2018-01-16] MEDS: busPIRone 5 MG TABLET. PO SCH (08:49)
[2018-01-16] MEDS: SPIRONOLACTONE 25 MG TABLET PO SCH (08:49)
[2018-01-16] MEDS: CARVEDILOL 12.5 MG TABLET PO SCH ×2 (08:49→18:42)
[2018-01-16] MEDS: PSYLLIUM SEED (WITH SUGAR) PACKET. PO SCH (08:53)
[2018-01-16] MEDS ORDERED: methylPREDNISolone SOD SUCC PF 125 MG/2 ML VIAL. IV SCH (09:00)
--- NOTE | 2018-01-16 09:09 | PDOC ---
PROGRESS NOTES Diagnosis Problem Problems Medical Problems: (1) COPD with acute exacerbation Status: Acute Assessment Problems Medical Problems: (1) COPD with acute exacerbation Status: Acute 1. elevated troponin - peak 0.086. Normal EF and wall motion by Echo. no acute EKG changes. 2. respiratory insufficiency - improved. 3. history of NICM with EF now 65% 4. hypertension - well controlled 5. hyperlipidemia - well controlled, continue current therapy. 6. CKD class 3 - stable 7. anxiety - per PCP Continue current medical mgmt. follow up with primary crystallographer for further evaluation. Subjective feeling better, "ready to go home", no chest pain and breathing easily. Objective Vital Signs Date Time Temp Pulse Resp B/P (MAP) Pulse Ox O2 Delivery O2 Flow Rate FiO2 01/16/18 08:49 82 108/66 01/16/18 05:57 97.8 18 92 Room Air 01/16/18 05:33 2.0 Intake and Output 01/16/18 07:00 Intake Total 1080 ml Output Total 900 ml Balance 180 ml Intake Oral 1080 ml Output Urine Total 900 ml # Voids 4 Abdomen: Normal bowel sounds, Soft Heart: Regular rate, Normal S1, Normal S2 Extremities: No cyanosis, Normal pulses, Other (trace pedal edema) General: Alert, Oriented X3, Cooperative HEENT: Atraumatic, EOMI, Mucous membr. moist/pink Lungs: Clear to auscultation Neuro: Normal speech, Strength at 5/5 X4 ext Psych/Mental Status: Mental status NL, Mood NL Review of Relevant I have reviewed the following items toshia (where applicable) has been applied. Labs Laboratory Tests Test 01/14/18 22:09 01/15/18 00:45 01/15/18 01:56 01/15/18 07:59 White Blood Count 6.9 x10^3/uL (4.0-11.0) 4.4 x10^3/uL (4.0-11.0) Red Blood Count 3.71 x10^6/uL (3.50-5.40) 3.46 x10^6/uL (3.50-5.40) Hemoglobin 12.0 g/dL (12.0-15.5) 11.2 g/dL (12.0-15.5) Hematocrit 35.0 % (36.0-47.0) 32.7 % (36.0-47.0) Mean Corpuscular Volume 94 fL (79-100) 94 fL (79-100) Mean Corpuscular Hemoglobin 32 pg (25-35) 32 pg (25-35) Mean Corpuscular Hemoglobin Concent 34 g/dL (31-37) 34 g/dL (31-37) Red Cell Distribution Width 12.5 % (11.5-14.5) 12.6 % (11.5-14.5) Platelet Count 259 x10^3/uL (140-400) 222 x10^3/uL (140-400) Neutrophils (%) (Auto) 61 % (31-73) 87 % (31-73) Lymphocytes (%) (Auto) 25 % (24-48) 12 % (24-48) Monocytes (%) (Auto) 8 % (0-9) 1 % (0-9) Eosinophils (%) (Auto) 6 % (0-3) 0 % (0-3) Basophils (%) (Auto) 1 % (0-3) 0 % (0-3) Neutrophils # (Auto) 4.2 x10^3uL (1.8-7.7) 3.8 x10^3uL (1.8-7.7) Lymphocytes # (Auto) 1.7 x10^3/uL (1.0-4.8) 0.5 x10^3/uL (1.0-4.8) Monocytes # (Auto) 0.5 x10^3/uL (0.0-1.1) 0.0 x10^3/uL (0.0-1.1) Eosinophils # (Auto) 0.4 x10^3/uL (0.0-0.7) 0.0 x10^3/uL (0.0-0.7) Basophils # (Auto) 0.0 x10^3/uL (0.0-0.2) 0.0 x10^3/uL (0.0-0.2) Prothrombin Time 11.9 SEC (9.4-11.4) Prothromb Time International Ratio 1.2 (0.9-1.1) Activated Partial Thromboplast Time 32 SEC (23-33) D-Dimer (Suly) 0.35 mg/L (0.00-0.50) Sodium Level 130 mmol/L (136-145) 131 mmol/L (136-145) Potassium Level 4.5 mmol/L (3.5-5.1) 4.6 mmol/L (3.5-5.1) Chloride Level 95 mmol/L (98-107) 100 mmol/L (98-107) Carbon Dioxide Level 30 mmol/L (21-32) 26 mmol/L (21-32) Anion Gap 5 (6-14) 5 (6-14) Blood Urea Nitrogen 16 mg/dL (7-20) 13 mg/dL (7-20) Creatinine 1.1 mg/dL (0.6-1.0) 1.1 mg/dL (0.6-1.0) Estimated GFR (Cockcroft-Gault) 48.3 48.3 BUN/Creatinine Ratio 15 (6-20) Glucose Level 115 mg/dL (70-99) 149 mg/dL (70-99) Calcium Level 9.6 mg/dL (8.5-10.1) 8.8 mg/dL (8.5-10.1) Magnesium Level 1.6 mg/dL (1.8-2.4) Total Bilirubin 0.2 mg/dL (0.2-1.0) Direct Bilirubin 0.1 mg/dL (0.0-0.2) Aspartate Amino Transf (AST/SGOT) 21 U/L (15-37) Alanine Aminotransferase (ALT/SGPT) 29 U/L (14-59) Alkaline Phosphatase 96 U/L (46-116) Creatine Kinase 117 U/L (26-192) Creatine Kinase MB (Mass) 2.5 ng/mL (0.0-3.6) Creatine Kinase MB Relative Index 2.1 % (0-4) Troponin I Quantitative < 0.017 ng/mL (0-0.055) 0.086 ng/mL (0-0.055) 0.071 ng/mL (0-0.055) HJ-Cis-O-Type Natriuretic Peptide 105 pg/mL (0-449) Total Protein 8.0 g/dL (6.4-8.2) Albumin 3.5 g/dL (3.4-5.0) Albumin/Globulin Ratio 0.8 (1.0-1.7) Lipase 248 U/L (73-393) Thyroid Stimulating Hormone (TSH) 0.543 uIU/mL (0.358-3.740) Urine Collection Type Unknown Urine Color Yellow Urine Clarity Hazy Urine pH 7.0 Urine Specific [place] 1.010 Urine Protein Neg (NEG-TRACE) Urine Glucose (UA) Neg mg/dL (NEG) Urine Ketones (Stick) Neg mg/dL (NEG) Urine Blood Small (NEG) Urine Nitrite Neg (NEG) Urine Bilirubin Neg (NEG) Urine Urobilinogen Dipstick 0.2 mg/dL (0.2 mg/dL) Urine Leukocyte Esterase Small (NEG) Urine RBC 0 /HPF (0-2) Urine WBC Occ /HPF (0-4) Urine Squamous Epithelial Cells Occ /LPF Urine Bacteria Few /HPF (0-FEW) Urine Opiates Screen Neg (NEG) Urine Methadone Screen Neg (NEG) Urine Barbiturates Neg (NEG) Urine Phencyclidine Screen Neg (NEG) Urine Amphetamine/Methamphetamine Neg (NEG) Urine Benzodiazepines Screen Pos (NEG) Urine Cocaine Screen Neg (NEG) Urine Cannabinoids Screen Neg (NEG) Urine Ethyl Alcohol Neg (NEG) Segmented Neutrophils % 85 % (35-66) Band Neutrophils % 3 % (0-9) Lymphocytes % 11 % (24-48) Metamyelocytes % 1 % (0-0) Toxic Granulation Slight Platelet Estimate Adequate (ADEQUATE) Large Platelets Occ Polychromasia Slight Triglycerides Level 25 mg/dL (0-150) Cholesterol Level 144 mg/dL (0-200) LDL Cholesterol, Calculated 61 mg/dL (0-100) VLDL Cholesterol, Calculated 5 mg/dL (0-40) Non-HDL Cholesterol Calculated 66 mg/dL (0-129) HDL Cholesterol 78 mg/dL (40-60) Cholesterol/HDL Ratio 1.0 Vitamin B12 Level 1162 pg/mL (247-911) Medications Current Medications Aspirin (Children'S Aspirin) 324 mg 1X ONCE PO Last administered on 01/14/18at 22:35; Start 01/14/18 at 22:15; Stop 01/14/18 at 22:16; Status DC Sodium Chloride 1,000 ml @ 100 mls/hr Q10H IV Last administered on 01/15/18at 00 :10; Start 01/14/18 at 22:30; Stop 01/15/18 at 08:29; Status DC Alprazolam (Xanax) 0.5 mg 1X ONCE PO Last administered on 01/14/18at 22:35; Start 01/14/18 at 22:15; Stop 01/14/18 at 22:16; Status DC Albuterol/ Ipratropium (Duoneb) 3 ml 1X ONCE NEB Last administered on at 23:04; Start 01/14/18 at 23:00; Stop 01/14/18 at 23:01; Status DC Methylprednisolone Sodium Succinate (SOLU-Medrol 125MG VIAL) 125 mg 1X ONCE IV Last administered on 01/15/18at 00:22; Start 01/14/18 at 23:00; Stop 01/14/18 at 23:01; Status DC Azithromycin (Zithromax) 500 mg 1X ONCE PO Last administered on 01/15/18at 00:23 ; Start 01/14/18 at 23:00; Stop 01/14/18 at 23:01; Status DC Ondansetron HCl (Zofran) 4 mg PRN Q4HRS PRN IV NAUSEA/VOMITING; Start 01/14/18 at 23:00; Stop 01/15/18 at 23:00; Status DC Albuterol/ Ipratropium (Duoneb) 3 ml RTQID NEB Last administered on 01/15/18at 05 :25; Start 01/15/18 at 08:00; Stop 01/15/18 at 08:00; Status DC Azithromycin (Zithromax) 250 mg DAILY PO Last administered on 01/16/18at 08:49; Start 01/15/18 at 09:00 Methylprednisolone Sodium Succinate (SOLU-Medrol 125MG VIAL) 125 mg DAILY IV Last administered on 01/15/18at 09:38; Start 01/15/18 at 09:00; Stop 01/15/18 at 21: 44; Status DC Aspirin (Children'S Aspirin) 81 mg DAILY PO Last administered on 01/16/18at 08:48 ; Start 01/15/18 at 09:00 Magnesium Sulfate 50 ml @ 25 mls/hr 1X ONCE IV Last administered on 01/15/18at 00:22; Start 01/14/18 at 23:15; Stop 01/15/18 at 01:14; Status DC Sodium Chloride 1,000 ml @ 1,000 mls/hr 1X ONCE IV Last administered on at 22:34; Start 01/14/18 at 22:30; Stop 01/15/18 at 01:20; Status DC Calcium Carbonate/ Glycine (Tums) 500 mg PRN AFTMEALHC PRN PO INDIGESTION; Start 01/15/18 at 01:00 Levothyroxine Sodium (Synthroid) 150 mcg DAILY07 PO Last administered on at 05:38; Start 01/15/18 at 07:00 Albuterol/ Ipratropium (Duoneb) 3 ml STK-MED ONCE .ROUTE Last administered on 04:59; Start 01/15/18 at 04:59; Stop 01/15/18 at 05:00; Status DC Atorvastatin Calcium (Lipitor) 20 mg QHS PO Last administered on 01/15/18 20:02 ; Start 01/15/18 at 21:00 Albuterol/ Ipratropium (Duoneb) 3 ml RTQID NEB Last administered on 01/16/18 05 :32; Start 01/15/18 at 08:00 Rivaroxaban (Xarelto) 20 mg DAILY PO Last administered on 01/16/18 08:49; Start 01/15/18 at 09:00 Alprazolam (Xanax) 1 mg PRN TID PRN PO ANXIETY Last administered on 01/16/18 08 :49; Start 01/15/18 at 06:30 Buspirone HCl (Buspar) 7.5 mg DAILY PO Last administered on 01/16/18 08:49; Start 01/15/18 at 09:00 Calcium/Vitamin D (Oscal D 500mg/ 200uts) 1 tab BIDWMEALS PO Last administered on 01/16/18 08:48; Start 01/15/18 at 08:00 Carvedilol (Coreg) 12.5 mg BIDWMEALS PO Last administered on 01/16/18 08:49; Start 01/15/18 at 08:00 Non-Formulary Medication (Estradiol (Estrogel)) 50 gm TWICE WEEKLY TD ; Start at 06:30; Status UNV Losartan Potassium (Cozaar) 100 mg QHS PO Last administered on 01/15/18at 20:02; Start 01/15/18 at 21:00 Melatonin 3 mg PRN QHS PRN PO INSOMNIA; Start 01/15/18 at 07:45; Stop 01/15/18 at 07:45; Status DC Non-Formulary Medication (Mometasone/ Formoterol (Dulera 200 Mcg/5 Mcg Inhaler) ) 2 puff BID IH ; Start 01/15/18 at 09:00; Status UNV Multivitamins/ Calcium (Thera-M Plus) 1 tab DAILY PO Last administered on 08:48; Start 01/15/18 at 09:00 Nitrofurantoin Macrocrystals (Macrobid) 100 mg QMTH@0900 PO Last administered on 01/16/18 08:49; Start 01/15/18 at 09:00 Fish Oil (Fish Oil) 1,000 mg DAILY PO Last administered on 01/16/18 08:47; Start 01/15/18 at 09:00 Psyllium Hydrophilic Mucilloid (Metamucil) 1 pkt DAILY PO Last administered on 01/15/18at 09:39; Start 01/15/18 at 09:00 Quetiapine Fumarate (SEROquel) 50 mg QHS PO Last administered on 01/15/18 20:02 ; Start 01/15/18 at 21:00 Spironolactone (Aldactone) 12.5 mg DAILY PO Last administered on 01/16/18 08:49 ; Start 01/15/18 at 09:00 Non-Formulary Medication (Tiotropium Br/ Olodaterol HCl (Stiolto Respimat Inhal [place])) 2 puff DAILY IH ; Start 01/15/18 at 09:00; Status UNV Melatonin 3 mg QHS PO Last administered on 01/15/18at 20:02; Start 01/15/18 at 21: 00 Albuterol/ Ipratropium (Duoneb) 3 ml RTQID NEB ; Start 01/15/18 at 08:00; Status Cancel Budesonide (Pulmicort) 0.5 mg RTBID NEB Last administered on 01/16/18 05:32; Start 01/15/18 at 08:00 Lactobacillus Rhamnosus (Culturelle) 1 cap BID PO Last administered on at 08:49; Start 01/15/18 at 09:00 Methylprednisolone Sodium Succinate (SOLU-Medrol 125MG VIAL) 40 mg BID IV Last administered on 01/16/18at 08:50; Start 01/16/18 at 09:00 Active Scripts Active Xarelto (Rivaroxaban) 10 Mg Tablet 20 Mg PO DAILY Duoneb 0.5-3(2.5) Mg/3 Ml (Albuterol/Ipratropium) 3 Ml Ampul.neb 3 Ml NEB RTQID Reported [place] 3 1,000 Mg Softgel ([place]-3 Fatty Acids/Fish Oil) 1 Each Capsule 1 Each PO DAILY Metamucil (Psyllium Husk) 0.52 Gm Capsule 0.52 Gm PO DAILY Stiolto Respimat Inhal [place] (Tiotropium Br/Olodaterol HCl) 4 Gm Mist.inhal 2 Puff IH DAILY Buspirone Hcl 5 Mg Tablet 7.5 Mg PO DAILY Dulera 200 Mcg/5 Mcg Inhaler (Mometasone/Formoterol) 13 Gm Hfa.aer.ad 2 Puff IH BID Levothyroxine Sodium 150 Mcg Tablet 150 Mcg PO DAILY07 Melatonin 3 Mg Tablet 1 Tab PO QHS Seroquel (Quetiapine Fumarate) 50 Mg Tablet 1 Tab PO QHS Avapro (Irbesartan) 300 Mg Tablet 300 Mg PO HS Estrogel (Estradiol) 50 Gm Gel.grievance coordinator 50 Gm TD TWICE WEEKLY Lipitor (Atorvastatin Calcium) 20 Mg Tablet 20 Mg PO QHS last dose: yesterday evening next dose: tonight pm Macrodantin (Nitrofurantoin Macrocrystal) 50 Mg Capsule 50 Mg PO TWICE WEEKLY TAKEN ON SATURDAY AND SATURDAY Aldactone (Spironolactone) 25 Mg Tablet 12.5 Mg PO DAILY last dose: today am next dose: tomorrow am Multi Vitamin Daily (Multivitamin) 1 Each Tablet 1 Each PO DAILY Supplement next dose: today am next dose: tomorrow am El-Citrate Plus Vitamin D Tab (Calcium Citrate/Vitamin D2) 1 Each Tablet 1 Each PO BID Last dose: today 9am next dose tonight pm Xanax (Alprazolam) 1 Mg Tablet 1 Tab PO PRN TID PRN last dose this morning next dose this afternoon Coreg (Carvedilol) 12.5 Mg Tablet 1 Tab PO BIDWMEALS for heart and blood pressure last dose: today 9am next dose: tonight pm Vitals/I & O Vital Sign - Last 24 Hours 01/15/18 01/15/18 01/15/18 01/15/18 09:37 09:48 11:06 15:22 Temp 97.7 99.0 Pulse 98 94 88 Resp 24 24 B/P (MAP) 158/74 129/78 (95) 123/76 (92) Pulse Ox 97 96 95 O2 Delivery Nasal Cannula Nasal Cannula Nasal Cannula O2 Flow Rate 2.0 2.0 2.0 01/15/18 01/15/18 01/15/18 01/15/18 16:01 18:35 19:22 20:00 Temp 99.0 Pulse 88 91 Resp 20 B/P (MAP) 123/76 101/63 (76) Pulse Ox 95 95 O2 Delivery Nasal Cannula Nasal Cannula Nasal Cannula O2 Flow Rate 2.0 2.0 2.0 01/15/18 01/15/18 01/15/18 01/16/18 20:02 20:50 22:38 05:33 Temp 98.5 Pulse 91 91 Resp 24 B/P (MAP) 101/63 102/65 (77) Pulse Ox 94 O2 Delivery Nasal Cannula Nasal Cannula Nasal Cannula O2 Flow Rate 2.0 2.0 2.0 01/16/18 01/16/18 05:57 08:49 Temp 97.8 Pulse 18 82 Resp 18 B/P (MAP) 108/66 (80) 108/66 Pulse Ox 92 O2 Delivery Room Air Intake and Output 01/15/18 01/15/18 01/16/18 15:00 23:00 07:00 Intake Total 480 ml 240 ml 360 ml Output Total 600 ml 300 ml Balance -120 ml -60 ml 360 ml ZONIA HORN APRN Jan 16, 2018 09:09
[2018-01-16 10:53] VITALS: BP 118/71
[2018-01-16 15:19] VITALS: BP 105/64
[2018-01-16 20:27] VITALS: BP 132/72
[2018-01-16] MEDS: buPROPion SR 150 MG TABLET.SA PO SCH (22:11)
[2018-01-16] MEDS: QUEtiapine 50 MG TABLET. PO SCH (22:11)
[2018-01-16] MEDS: MELATONIN 3 MG TABLET PO SCH (22:11)
[2018-01-16] MEDS: ATORVASTATIN CALCIUM 20 MG TABLET PO SCH (22:11)
[2018-01-16] MEDS: LOSARTAN 50 MG TABLET. PO SCH (22:15)
--- NOTE | 2018-01-16 22:59 | PN ---
DATE: 01/16/2018 SUBJECTIVE: The patient is in with acute exacerbation of chronic obstructive pulmonary disease, generalized malaise, depression. OBJECTIVE: VITAL SIGNS: Blood pressure 105/60, pulse 110, respiratory rate 20, afebrile. GENERAL: The patient is alert and oriented. LUNGS: Diminished, somewhat improved breathing. Prednisone has been helping her, she says. She is making fairly good progress. We will try to get her up and move around, start her on Wellbutrin. IMPRESSION: Acute on top of chronic COPD as well as acute bronchitis, anemia of chronic disease, elevated troponin levels, chronic kidney disease, stage 3. PLAN: Continue to monitor the patient and accordingly make further evaluation on her COPD. Taper down on prednisone and hopefully ready for discharge here soon. JUANIS HERNANDEZ MD DR: SABINO/molly JOB#: [id number] / [id number]
[2018-01-16 23:43] VITALS: BP 119/69
[2018-01-17] MEDS: ALPRAZolam 0.5 MG TABLET PO PRN ×2 (02:48→08:45)
[2018-01-17] MEDS: IPRATRPIUM/ALBUTEROL 0.5/2.5MG 3 ML NEBU. NEB SCH ×2 (05:01→11:33)
[2018-01-17 05:42] VITALS: BP 115/70
[2018-01-17] MEDS: LEVOTHYROXINE 150 MCG TABLET PO SCH (06:15)
[2018-01-17] MEDS: BUDESONIDE 0.5 MG/2 ML NEBU NEB SCH (08:00)
[2018-01-17] MEDS: SPIRONOLACTONE 25 MG TABLET PO SCH (08:33)
[2018-01-17] MEDS: busPIRone 5 MG TABLET. PO SCH (08:33)
[2018-01-17] MEDS: RIVAROXABAN 10 MG TABLET. PO SCH (08:34)
[2018-01-17] MEDS: LACTOBACILLUS RHAMNOSUS GG 1 CAPSULE. PO SCH (08:34)
[2018-01-17] MEDS: buPROPion SR 150 MG TABLET.SA PO SCH (08:34)
[2018-01-17] MEDS: ASPIRIN 81 MG TAB.CHEW PO SCH (08:34)
[2018-01-17] MEDS: OMEGA-3 FATTY ACIDS/FISH OIL 1,000 MG CAPSULE. PO SCH (08:35)
[2018-01-17] MEDS: MULTIVITAMIN with MINERAL TABLET. PO SCH (08:35)
[2018-01-17] MEDS: AZITHROMYCIN 250 MG TABLET. PO SCH (08:35)
[2018-01-17] MEDS: PSYLLIUM SEED (WITH SUGAR) PACKET. PO SCH (08:36)
[2018-01-17 08:44] VITALS: BP 115/70
[2018-01-17] MEDS: CARVEDILOL 12.5 MG TABLET PO SCH (08:44)
[2018-01-17] MEDS: CALCIUM CARB/VIT D3 500/200 TABLET PO SCH (08:44)
[2018-01-17] MEDS ORDERED: predniSONE 20 MG TABLET PO SCH (09:00)
[2018-01-17] MEDS ORDERED: PRED-220 PO (09:45)
== END 2018-01-17 10:45 | disposition home or self-care (01) | DRG 189 ==
LOC: ER 21:39 → 1 SOUTH 23:00
PROVIDERS: ADMIT Family Medicine; ATTEND Family Medicine
DX: J96.20 Acute and chronic respiratory failure, unspecified whether with hypoxia or hypercapnia (principal); J44.1 Chronic obstructive pulmonary disease with (acute) exacerbation; I42.9 Cardiomyopathy, unspecified; I13.0 Hypertensive heart and chronic kidney disease with heart failure and stage 1 through stage 4 chronic kidney disease, or unspecified chronic kidney disease; E87.1 Hypo-osmolality and hyponatremia; J44.0 Chronic obstructive pulmonary disease with (acute) lower respiratory infection; J20.9 Acute bronchitis, unspecified; D63.8 Anemia in other chronic diseases classified elsewhere; E06.3 Autoimmune thyroiditis; E78.5 Hyperlipidemia, unspecified; F17.210 Nicotine dependence, cigarettes, uncomplicated; F32.9 Major depressive disorder, single episode, unspecified; F41.0 Panic disorder [episodic paroxysmal anxiety]; G47.33 Obstructive sleep apnea (adult) (pediatric); I50.9 Heart failure, unspecified; N18.3 Chronic kidney disease, stage 3 (moderate); E66.9 Obesity, unspecified; H26.9 Unspecified cataract; M19.90 Unspecified osteoarthritis, unspecified site; E83.42 Hypomagnesemia; E03.9 Hypothyroidism, unspecified; Z90.49 Acquired absence of other specified parts of digestive tract; Z98.51 Tubal ligation status; Z90.89 Acquired absence of other organs; Z88.1 Allergy status to other antibiotic agents; Z88.5 Allergy status to narcotic agent; Z88.8 Allergy status to other drugs, medicaments and biological substances; Z86.711 Personal history of pulmonary embolism; Z87.440 Personal history of urinary (tract) infections; Z99.81 Dependence on supplemental oxygen; Z68.33 Body mass index [BMI] 33.0-33.9, adult; Z79.899 Other long term (current) drug therapy; Z88.2 Allergy status to sulfonamides; Z80.9 Family history of malignant neoplasm, unspecified
CPT/HCPCS: 36415; 71046; 80048; 80053; 80061; 80076; 80307; 81001; 82553; 82607; 83690; 83735; 83880; 84443; 84484; 85007; 85025; 85379; 85610; 85730; 87086; 93005; 93306; 94640; 96361; 96374; 96375; 99406; J0456; J2930; J3475; J7512; J7620; J7626; 99285-25; G0479; J7030

== ENCOUNTER 2018-02-21 13:15 | Inpatient (IN) | payer MEDICARE, BC, OTHER ==
[~2018-02-21] VITALS: Ht 167.6 cm; Wt 93.2 kg
[~2018-02-21 13:15] MED LIST changes: +BUSP5TAB PO; +LEVO150T5 PO; +MELA3TAB2 PO; +MOME13HF IH; +OMEG-33 PO; +PRED-220 PO; +PSYL0.5215 PO; +TIOT4MIS3 IH
--- NOTE | 2018-02-21 14:11 | PHYS DOC ---
Past History Past Medical History: Anxiety, CHF, COPD, High Cholesterol, Hypertension, Other Past Surgical History: Cholecystectomy, Tonsillectomy, Tubal ligation, Other Alcohol Use: None Drug Use: None Adult General Chief Complaint Chief Complaint: BACK PAIN OR INJURY [facility] HPI Patient is a 77 year old female who presents with complaining of thoracic back pain. Patient states she has had history of thoracic compression fracture and chronic back pain. Patient states 4 days ago she tried to change his sheets and felt pain and a pop in her upper lumbar and lower thoracic area as a constant and sharp pain without radiation. Patient said the pain getting force with movement and denies fever and chills, urinary and bowel incontinence, abdominal pain. Patient states she feels nauseous because of the pain and also states she had 1 episode of numbness of her left leg that resolved with movement. She rated her pain 8/10 and states she took some leftover of hydrocodone without change of pain. Review of Systems Review of Systems Constitutional: Denies fever or chills [] Eyes: Denies change in visual acuity, redness, or eye pain [] HENT: Denies nasal congestion or sore throat [] Respiratory: Denies cough or shortness of breath [] Cardiovascular: No additional information not addressed in HPI [] GI: Denies abdominal pain, nausea, vomiting, bloody stools or diarrhea [] : Denies dysuria or hematuria [] Musculoskeletal: Reports back pain, denies joint pain [] Integument: Denies rash or skin lesions [] Neurologic: Denies headache, focal weakness or sensory changes [] Endocrine: Denies polyuria or polydipsia [] All other systems were reviewed and found to be within normal limits, except as documented in this note. Current Medications Current Medications Current Medications Medications (Trade) Dose Ordered Sig/[facility] Start Time Stop Time Status Last Admin Dose Admin Fentanyl Citrate (Fentanyl 2ml Vial) 50 mcg 1X ONCE 02/21/18 14:00 02/21/18 14:01 DC 02/21/18 13:55 50 MCG Allergies Allergies Allergies Coded Allergies Type Severity Reaction Last Updated Verified fenofibrate Allergy Severe 10/13/14 Yes simvastatin Allergy Severe 10/13/14 Yes morphine Allergy Intermediate Rash 10/13/14 Yes sulfamethoxazole Allergy Intermediate Rash 10/13/14 Yes trimethoprim Allergy Intermediate Rash 10/13/14 Yes amoxicillin Allergy Unknown 02/21/18 Yes clavulanic acid Allergy Unknown 02/21/18 Yes Physical Exam Physical Exam Constitutional: Well developed, well nourished, moderate distress, non-toxic appearance. [] HENT: Normocephalic, atraumatic Eyes: PERRLA, EOMI, conjunctiva normal, no discharge. [] Neck: Normal range of motion, no tenderness, supple, no stridor. [] Cardiovascular:Heart rate regular rhythm, no murmur [] Lungs & Thorax: Bilateral breath sounds clear to auscultation [] Abdomen: Bowel sounds normal, soft, no tenderness, no masses, no pulsatile masses. [] Skin: Warm, dry, no erythema, no rash. [] Back: No midline tenderness, limited range of motion due to pain, no CVA tenderness. [] Extremities: No tenderness, no cyanosis, no clubbing, ROM intact, no edema. [] Neurologic: Alert and oriented X 3, normal motor function, normal sensory function, no focal deficits noted. [] Psychologic: Affect normal, judgement normal, mood normal. [] Current Patient Data Vital Signs Vital Signs Date Time Temp Pulse Resp B/P (MAP) Pulse Ox O2 Delivery O2 Flow Rate FiO2 02/21/18 13:55 Room Air 02/21/18 13:30 98.5 78 18 94 EKG EKG [] Radiology/Procedures Radiology/Procedures [][place] [address] IMAGING REPORT Signed PATIENT: MICHELLE MARTINEZ ACCOUNT: [id number] : 1940 LOCATION: ER AGE: 77 SEX: F EXAM STATUS: REG ER ORD. PHYSICIAN: DIANA SHARMA MD REASON: pain PROCEDURE: CT LUMBAR SPINE WO CONTRAST CT THORACIC SPINE WO CONTRAST, CT LUMBAR SPINE WO CONTRAST Indication: CT TORACIC SPINE W/O CONTRAST PT INJURED BACK 3 DAYS AGO WHILE CHANGING BED LINENS Exposure: One or more of the following individualized dose reduction techniques were utilized for this examination: 1. Automated exposure control 2. Adjustment of the mA and/or kV according to patient size 3. Use of iterative reconstruction technique. Comparison: Limited comparison with prior CT chest of January 30, 2017 Contrast: None THORACIC SPINE: Fracture: Mild depressed fracture of the superior endplate of T7 vertebral body, new since the prior CT chest exam. Other thoracic vertebrae maintain normal height. Spondylosis: Multilevel degenerative spondylosis with osteophytes. Alignment exaggerated kyphosis. No significant subluxation. Bones: Osteolytic lesion within the T10 vertebral body, compatible with a benign hemangioma. No aggressive bone destruction. Paraspinal soft tissues: Unremarkable Visualized aorta: Calcified, no evidence of aneurysm. Visualized lungs: Noncalcified nodule in the left lower lobe measures 7 mm, series 2, image 63. Emphysematous changes. Diffuse emphysema. Linear scarring or atelectasis in the lung bases, greater on the right. There is a small area of nodularity in the posterior right upper lobe, nonspecific. Impression: 1. Mild superior endplate compression fracture of T7 vertebral body. Age-indeterminate, but new since January 30, 2017. MR thoracic spine could more accurately characterize the age, if that would be helpful. 2. Noncalcified 7 mm pulmonary nodule in the left lung base. As per Fleischner Society guidelines, recommend CT chest follow-up at 6-12 months. Note there are some additional irregular nodular opacities in the right upper lobe, uncertain etiology but could be infectious or inflammatory. If there is clinical concern for active disease in the chest, CT chest could be obtained at this time for complete evaluation of the lungs. There is also some linear atelectasis or fibrosis in the lung bases. LUMBAR SPINE: Fracture: Note that the right transverse processes are not completely included in the [id number]. No evidence of left transverse process fracture. Vertebral body height is maintained. Spondylosis: Multilevel degenerative spondylosis with vacuum. Mild anterior subluxation of L5 relative to S1 and L4. There is neural foraminal and lateral recess narrowing, greatest at L2-L3. Facet joint degenerative hypertrophy. Bones: No destructive lesion. Degenerative changes at the partially seen sacroiliac joints. Paraspinal soft tissues: Unremarkable Visualized aorta: Calcified and ectatic. No evidence of aneurysm. Visualized kidneys: Numerous lesions are identified at the partially included left kidney. Some of these are hyperdense or complex appearance. Right kidney is not included in the [id number]. Impression: 1. Degenerative spondylosis. 2. No definite evidence of acute fracture. 3. The partially visualized left kidney demonstrates numerous lesions, some of which measure cystic density, but others are hyperdense and do not represent simple cysts. These could represent hemorrhagic cysts, but other etiology including solid renal mass is not excludable. Recommend further evaluation with renal ultrasound and/or multiphase CT scan. Electronically signed by: Wesley Garcia MD (02/21/2018 3:07 PM) [facility] DICTATED AND SIGNED BY: WESLEY GARCIA MD DATE: 02/21/18 1428 CC: JUANIS HERNANDEZ MD; DIANA SHARMA MD ~ Course & Med Decision Making Course & Med Decision Making Pertinent Labs and Imaging studies reviewed. (See chart for details) Evaluation of patient in ER showed 77-year-old male patient with complaining of severe thoracic back pain for several days that getting worse with movement. Patient treated with fentanyl and felt better. Dipstick UA showed moderate WBC and patient treated with Rocephin but later on UA did not show WBC. Patient had intractable back pain and plan to admit at Hospital for pain management. Patient otherwise concern for her depression and wants evaluation. Patient denies suicidal or homicidal ideation. Dr. Hernandez was informed at 1520 and plans to admit the patient and evaluates for her depression. Dragon Disclaimer Dragon Disclaimer This electronic medical record was generated, in whole or in part, using a voice recognition dictation system. Departure Departure: Impression: Primary Impression: Intractable back pain Additional Impressions: Renal cyst, left Hematuria Compression fracture of body of thoracic vertebra Depression Disposition: ADMITTED INPATIENT (at 1523) Admitting Physician: Juanis Hernandez (at 1521) Condition: IMPROVED Referrals: JUANIS HERNANDEZ MD (PCP) Problem Qualifiers DIANA SHARMA MD Feb 21, 2018 14:11
[2018-02-21 14:57] LABS: CLARITY,URINE CLEAR; COLOR,URINE YELLOW
[2018-02-21 14:58] LABS: BILIRUBIN,URINE NEG (NEG); GLUCOSE,URINE NEG (NEG); NITRITE,URINE NEG (NEG); UROBILINOGEN,URINE 0.2 mg/dL (0.2 mg/dL)
--- NOTE | 2018-02-21 15:11 | RAD ---
CT THORACIC SPINE WO CONTRAST, CT LUMBAR SPINE WO CONTRAST Indication: CT TORACIC SPINE W/O CONTRAST PT INJURED BACK 3 DAYS AGO WHILE CHANGING BED LINENS Exposure: One or more of the following individualized dose reduction techniques were utilized for this examination: 1. Automated exposure control 2. Adjustment of the mA and/or kV according to patient size 3. Use of iterative reconstruction technique. Comparison: Limited comparison with prior CT chest of January 30, 2017 Contrast: None THORACIC SPINE: Fracture: Mild depressed fracture of the superior endplate of T7 vertebral body, new since the prior CT chest exam. Other thoracic vertebrae maintain normal height. Spondylosis: Multilevel degenerative spondylosis with osteophytes. Alignment exaggerated kyphosis. No significant subluxation. Bones: Osteolytic lesion within the T10 vertebral body, compatible with a benign hemangioma. No aggressive bone destruction. Paraspinal soft tissues: Unremarkable Visualized aorta: Calcified, no evidence of aneurysm. Visualized lungs: Noncalcified nodule in the left lower lobe measures 7 mm, series 2, image 63. Emphysematous changes. Diffuse emphysema. Linear scarring or atelectasis in the lung bases, greater on the right. There is a small area of nodularity in the posterior right upper lobe, nonspecific. Impression: 1. Mild superior endplate compression fracture of T7 vertebral body. Age-indeterminate, but new since January 30, 2017. MR thoracic spine could more accurately characterize the age, if that would be helpful. 2. Noncalcified 7 mm pulmonary nodule in the left lung base. As per Fleischner Society guidelines, recommend CT chest follow-up at 6-12 months. Note there are some additional irregular nodular opacities in the right upper lobe, uncertain etiology but could be infectious or inflammatory. If there is clinical concern for active disease in the chest, CT chest could be obtained at this time for complete evaluation of the lungs. There is also some linear atelectasis or fibrosis in the lung bases. LUMBAR SPINE: Fracture: Note that the right transverse processes are not completely included in the [id number]. No evidence of left transverse process fracture. Vertebral body height is maintained. Spondylosis: Multilevel degenerative spondylosis with vacuum. Mild anterior subluxation of L5 relative to S1 and L4. There is neural foraminal and lateral recess narrowing, greatest at L2-L3. Facet joint degenerative hypertrophy. Bones: No destructive lesion. Degenerative changes at the partially seen sacroiliac joints. Paraspinal soft tissues: Unremarkable Visualized aorta: Calcified and ectatic. No evidence of aneurysm. Visualized kidneys: Numerous lesions are identified at the partially included left kidney. Some of these are hyperdense or complex appearance. Right kidney is not included in the [id number]. Impression: 1. Degenerative spondylosis. 2. No definite evidence of acute fracture. 3. The partially visualized left kidney demonstrates numerous lesions, some of which measure cystic density, but others are hyperdense and do not represent simple cysts. These could represent hemorrhagic cysts, but other etiology including solid renal mass is not excludable. Recommend further evaluation with renal ultrasound and/or multiphase CT scan. Electronically signed by: Wesley Garcia MD (02/21/2018 3:07 PM) [facility]
[2018-02-21] MEDS ORDERED: cefTRIAXone IV Push 1 GM VIAL. IVP ONE (15:15)
[2018-02-21 15:35] LABS: BASO % 1 % (0-3); EOS # 0.1 x10^3/uL (0.0-0.7); EOS % 2 % (0-3); HEMATOCRIT 32.1 % (36.0-47.0); LYMPH # 1.3 x10^3/uL (1.0-4.8); LYMPH % 22 % (24-48); MEAN CORPUSCULAR HEMOGLOBIN 33 pg (25-35); MEAN CORPUSCULAR HGB CONC 34 g/dL (31-37); MEAN CORPUSCULAR VOLUME 95 fL (79-100); MONO # 0.4 x10^3/uL (0.0-1.1); MONO % 7 % (0-9); NEUT % 67 % (31-73); PLATELET COUNT 271 x10^3/uL (140-400); RED BLOOD COUNT 3.39 x10^6/uL (3.50-5.40); RED CELL DISTRIBUTION WIDTH 12.9 % (11.5-14.5); WHITE BLOOD COUNT 5.9 x10^3/uL (4.0-11.0)
[2018-02-21] MEDS ORDERED: IPRATRPIUM/ALBUTEROL 0.5/2.5MG 3 ML NEBU. ONE (15:43)
[2018-02-21 15:47] LABS: ALBUMIN 3.2 g/dL (3.4-5.0); ALBUMIN/GLOBULIN RATIO 0.8 (1.0-1.7); CREATININE 1.1 mg/dL (0.6-1.0); GFR 48.3; POTASSIUM 4.9 mmol/L (3.5-5.1); TOTAL BILIRUBIN 0.3 mg/dL (0.2-1.0); TOTAL PROTEIN 7.2 g/dL (6.4-8.2)
[2018-02-21 15:48] LABS: BACTERIA,URINE FEW /HPF (0-FEW); BILIRUBIN,URINE NEG (NEG); CLARITY,URINE CLEAR; COLOR,URINE YELLOW; GLUCOSE,URINE NEG (NEG); NITRITE,URINE NEG (NEG); SQUAMOUS EPITHELIAL CELL,UR FEW /LPF; UROBILINOGEN,URINE 0.2 mg/dL (0.2 mg/dL)
[2018-02-21 16:28] VITALS: BP 141/64
[2018-02-21] MEDS ORDERED: BUPR150T8 PO (16:42)
[2018-02-21 19:00] VITALS: BP 117/75
[2018-02-21] MEDS ORDERED: NITROFURANTOIN MACROCRYSTAL 50 MG PO SCH (19:00)
[2018-02-21] MEDS ORDERED: MORPHINE SULFATE 2 MG/ML DISP.SYRIN. IV PRN (19:00)
[2018-02-21] MEDS: BUDESONIDE 0.5 MG/2 ML NEBU NEB SCH (20:00)
[2018-02-21] MEDS: MELATONIN 3 MG TABLET PO SCH (20:54)
[2018-02-21] MEDS: QUEtiapine 50 MG TABLET. PO SCH (20:55)
[2018-02-21] MEDS: ATORVASTATIN CALCIUM 20 MG TABLET PO SCH (20:55)
[2018-02-21] MEDS ORDERED: NON FORMULARY ITEM (Mometasone/Formoterol (Dulera 200 Mcg/5 Mcg Inhaler) 2 PUFF) IH SCH (21:00)
[2018-02-21] MEDS: buPROPion SR 150 MG TABLET.SA PO SCH (21:00)
[2018-02-21] MEDS: CARVEDILOL 12.5 MG TABLET PO SCH (21:12)
[2018-02-21] MEDS: HYDROmorphone PF 2 MG/ML VIAL IV PRN (21:13)
[2018-02-21] MEDS: IPRATRPIUM/ALBUTEROL 0.5/2.5MG 3 ML NEBU. NEB SCH (21:13)
[2018-02-21] MEDS: ALBUTEROL SULFATE 2.5 MG/3 ML NEBU. NEB SCH (21:14)
[2018-02-21 23:00] VITALS: BP 92/57
[2018-02-22 04:16] VITALS: BP 84/59
[2018-02-22] MEDS ORDERED: IV NORMAL SALINE 1,000ML 1,000 ML IV ONE (04:30)
[2018-02-22 05:06] VITALS: BP 103/71
[2018-02-22] MEDS: HYDROmorphone PF 2 MG/ML VIAL IV PRN (05:08)
[2018-02-22] MEDS: LEVOTHYROXINE 150 MCG TABLET PO SCH (05:35)
[2018-02-22] MEDS: IPRATRPIUM/ALBUTEROL 0.5/2.5MG 3 ML NEBU. NEB SCH ×4 (05:50→20:58)
[2018-02-22] MEDS: BUDESONIDE 0.5 MG/2 ML NEBU NEB SCH ×2 (05:53→15:36)
[2018-02-22 06:21] LABS: CALCIUM 8.4 mg/dL (8.5-10.1); CREATININE 1.2 mg/dL (0.6-1.0); GFR 43.7; POTASSIUM 4.2 mmol/L (3.5-5.1)
[2018-02-22 06:22] LABS: BASO # 0.1 x10^3/uL (0.0-0.2); BASO % 1 % (0-3); EOS # 0.1 x10^3/uL (0.0-0.7); EOS % 2 % (0-3); HEMATOCRIT 29.7 % (36.0-47.0); HEMOGLOBIN 10.2 g/dL (12.0-15.5); LYMPH # 1.5 x10^3/uL (1.0-4.8); LYMPH % 28 % (24-48); MEAN CORPUSCULAR HEMOGLOBIN 33 pg (25-35); MEAN CORPUSCULAR HGB CONC 34 g/dL (31-37); MEAN CORPUSCULAR VOLUME 95 fL (79-100); MONO # 0.4 x10^3/uL (0.0-1.1); MONO % 7 % (0-9); NEUT # 3.2 x10^3uL (1.8-7.7); NEUT % 61 % (31-73); PLATELET COUNT 235 x10^3/uL (140-400); RED BLOOD COUNT 3.14 x10^6/uL (3.50-5.40); RED CELL DISTRIBUTION WIDTH 12.8 % (11.5-14.5); WHITE BLOOD COUNT 5.3 x10^3/uL (4.0-11.0)
[2018-02-22] MEDS: ALBUTEROL SULFATE 2.5 MG/3 ML NEBU. NEB SCH ×4 (08:00→20:00)
[2018-02-22] MEDS: CALCIUM CARB/VIT D3 500/200 TABLET PO SCH ×2 (08:13→17:14)
[2018-02-22] MEDS ORDERED: PSYLLIUM SEED (WITH SUGAR) PACKET. PO SCH (09:00)
[2018-02-22] MEDS ORDERED: NON FORMULARY ITEM (Tiotropium Br/Olodaterol HCl (Stiolto Respimat Inhal Spray) 2 PUFF) IH SCH (09:00)
[2018-02-22] MEDS ORDERED: SPIRONOLACTONE 25 MG TABLET PO SCH (09:00)
[2018-02-22] MEDS: MULTIVITAMIN with MINERAL TABLET. PO SCH (09:13)
[2018-02-22] MEDS: RIVAROXABAN 10 MG TABLET. PO SCH (09:14)
[2018-02-22] MEDS: buPROPion SR 150 MG TABLET.SA PO SCH ×3 (09:14→20:44)
[2018-02-22] MEDS: OMEGA-3 FATTY ACIDS/FISH OIL 1,000 MG CAPSULE. PO SCH (09:14)
[2018-02-22] MEDS: CARVEDILOL 12.5 MG TABLET PO SCH (09:17)
[2018-02-22] MEDS: busPIRone 15 MG TABLET. PO SCH (09:22)
[2018-02-22] MEDS: ALPRAZolam 0.5 MG TABLET PO PRN ×3 (09:27→20:52)
[2018-02-22] MEDS: CALCIUM POLYCARBOPHIL 625 MG TABLET PO SCH (10:30)
[2018-02-22] MEDS ORDERED: fentaNYL 12MCG/HR 1 PATCH PATCH TD SCH (11:00)
[2018-02-22 11:11] VITALS: BP 97/64
[2018-02-22] MEDS: LIDOCAINE (700MG/PATCH) PATCH. TD SCH (11:48)
--- NOTE | 2018-02-22 14:23 | RAD ---
EXAM: Renal ultrasound CLINICAL HISTORY: RENAL MASSES COMPARISON: None available. TECHNIQUE: Ultrasound examination of the bilateral kidneys and urinary bladder was performed. FINDINGS: The right kidney measures 6.9 cm in bipolar length. The renal cortex is normal in thickness. Renal echogenicity is normal. Multiple bilateral renal cysts are seen. A administrative representative right lower pole renal cystic lesion measures 9 x 6.9 x 8 cm. No definite solid mass is identified. No hydronephrosis. The left kidney measures 14.4 cm in bipolar length. The renal cortex is normal in thickness. Renal echogenicity is normal. Multiple left renal cysts are seen including a 5.1 x 5.1 x 5 cm cyst. No definite solid mass is identified. No hydronephrosis Images of the partially filled urinary bladder are unremarkable. IMPRESSION: Multiple bilateral renal cystic lesions are seen including a right renal cyst measuring 9 cm. No definite solid mass is identified. No hydronephrosis. Electronically signed by: Tal Da Silva MD (02/22/2018 2:20 PM) [facility]
[2018-02-22 15:12] VITALS: BP 112/72
[2018-02-22] MEDS: CARVEDILOL 3.125 MG TABLET PO SCH (17:13)
[2018-02-22 19:30] VITALS: BP 118/79
[2018-02-22] MEDS: QUEtiapine 50 MG TABLET. PO SCH (20:52)
[2018-02-22] MEDS: PATCH REMOVAL. MC SCH (20:52)
[2018-02-22] MEDS: MELATONIN 3 MG TABLET PO SCH (20:52)
[2018-02-22] MEDS: LOSARTAN 25 MG TABLET. PO SCH (20:52)
[2018-02-22] MEDS: ATORVASTATIN CALCIUM 20 MG TABLET PO SCH (20:52)
[2018-02-22] MEDS ORDERED: LOSARTAN 50 MG TABLET. PO SCH (21:00)
[2018-02-22 23:05] VITALS: BP 116/81
[2018-02-23] MEDS: LEVOTHYROXINE 150 MCG TABLET PO SCH (05:21)
[2018-02-23] MEDS: IPRATRPIUM/ALBUTEROL 0.5/2.5MG 3 ML NEBU. NEB SCH ×4 (05:35→20:52)
[2018-02-23] MEDS: ALBUTEROL SULFATE 2.5 MG/3 ML NEBU. NEB SCH ×4 (06:00→20:00)
[2018-02-23 06:04] VITALS: BP 112/80
[2018-02-23] MEDS: CARVEDILOL 3.125 MG TABLET PO SCH (08:37)
[2018-02-23] MEDS: busPIRone 15 MG TABLET. PO SCH ×2 (08:37→20:58)
[2018-02-23] MEDS: CALCIUM CARB/VIT D3 500/200 TABLET PO SCH ×2 (08:37→17:16)
[2018-02-23] MEDS: CALCIUM POLYCARBOPHIL 625 MG TABLET PO SCH (08:38)
[2018-02-23] MEDS: MULTIVITAMIN with MINERAL TABLET. PO SCH (08:38)
[2018-02-23] MEDS: OMEGA-3 FATTY ACIDS/FISH OIL 1,000 MG CAPSULE. PO SCH (08:38)
[2018-02-23] MEDS: buPROPion SR 150 MG TABLET.SA PO SCH ×2 (08:39→20:00)
[2018-02-23] MEDS: RIVAROXABAN 10 MG TABLET. PO SCH (08:39)
[2018-02-23] MEDS: ALPRAZolam 0.5 MG TABLET PO PRN ×3 (08:39→20:00)
[2018-02-23] MEDS: LIDOCAINE (700MG/PATCH) PATCH. TD SCH (08:40)
[2018-02-23] MEDS: BUDESONIDE 0.5 MG/2 ML NEBU NEB SCH ×2 (09:38→20:52)
[2018-02-23 11:03] VITALS: BP 97/58
[2018-02-23 16:39] VITALS: BP 113/74
[2018-02-23] MEDS: CARVEDILOL 6.25 MG TABLET PO SCH (17:16)
[2018-02-23 19:55] VITALS: BP 111/70
[2018-02-23] MEDS: QUEtiapine 50 MG TABLET. PO SCH (20:00)
[2018-02-23] MEDS: MELATONIN 3 MG TABLET PO SCH (20:00)
[2018-02-23] MEDS: ATORVASTATIN CALCIUM 20 MG TABLET PO SCH (20:00)
[2018-02-23] MEDS: LOSARTAN 25 MG TABLET. PO SCH (20:00)
[2018-02-23] MEDS: PATCH REMOVAL. MC SCH (20:01)
--- NOTE | 2018-02-23 21:26 | PN ---
DATE: CHIEF COMPLAINT: Thoracic pain. SUBJECTIVE: The patient still being treated for intractable pain. She is making a little bit of progress, but still having problems with her blood pressure running on the low side and lightheadedness and the like, we were still adjusting her medications and making further attempts there. PHYSICAL EXAMINATION: VITAL SIGNS: Last blood pressure is 97/58, so she has some orthostatic drop. Pulse of 80, respiratory rate 20, afebrile. GENERAL: The patient is alert and oriented. LUNGS: Diminished, but clear. CARDIOVASCULAR: Irregular irregular rhythm. ABDOMEN: Soft, nontender. BACK: The patient has back pain 8-910, somewhat improved down to 5 at times. IMPRESSION: Intractable pain. Hypotension, orthostatic. Chronic anemia, chronic atrial fibrillation, hyponatremia. PLAN: The patient, otherwise, continues to be monitored and adjust her medication. JUANIS HERNANDEZ MD DR: SABINO/molly JOB#: [id number] / [id number]
[2018-02-24 05:24] VITALS: BP 120/72
[2018-02-24] MEDS: IPRATRPIUM/ALBUTEROL 0.5/2.5MG 3 ML NEBU. NEB SCH (05:28)
[2018-02-24] MEDS: LEVOTHYROXINE 150 MCG TABLET PO SCH (05:43)
[2018-02-24 06:16] LABS: CALCIUM 8.8 mg/dL (8.5-10.1); CREATININE 1.5 mg/dL (0.6-1.0); GFR 33.8; POTASSIUM 4.8 mmol/L (3.5-5.1)
[2018-02-24 08:52] VITALS: BP 120/72
[2018-02-24] MEDS: CALCIUM CARB/VIT D3 500/200 TABLET PO SCH (08:52)
[2018-02-24] MEDS: CARVEDILOL 6.25 MG TABLET PO SCH (08:52)
[2018-02-24] MEDS: RIVAROXABAN 10 MG TABLET. PO SCH (08:52)
[2018-02-24] MEDS: MULTIVITAMIN with MINERAL TABLET. PO SCH (08:52)
[2018-02-24] MEDS: CALCIUM POLYCARBOPHIL 625 MG TABLET PO SCH (08:52)
[2018-02-24] MEDS: OMEGA-3 FATTY ACIDS/FISH OIL 1,000 MG CAPSULE. PO SCH (08:54)
[2018-02-24] MEDS: busPIRone 15 MG TABLET. PO SCH (08:54)
[2018-02-24] MEDS: LIDOCAINE (700MG/PATCH) PATCH. TD SCH (08:55)
[2018-02-24] MEDS ORDERED: FENT-73 TD (08:56)
[2018-02-24] MEDS ORDERED: LIDO700A39 TD (08:56)
[2018-02-24] MEDS ORDERED: buPROPion SR 150 MG TABLET.SA PO SCH (09:00)
[2018-02-24] MEDS ORDERED: SPIRONOLACTONE 25 MG TABLET PO SCH (09:00)
[2018-02-24] MEDS: ALPRAZolam 0.5 MG TABLET PO PRN (09:33)
[2018-02-24] MEDS ORDERED: ESTRADIOL 0.01% VAGINAL CREAM 42.5GM TUBE. VG SCH (16:00)
--- NOTE | 2018-02-24 20:37 | DS ---
DATE OF DISCHARGE: 02/24/2018 HOSPITAL COURSE: The patient had severe intractable pain to the thoracic spine. The patient in turn was placed on IV pain medication as well as Lidoderm patches. The patient has made a good progress. She was discharged home. She will be followed up by pain management for possible vertebroplasty. Otherwise, her labs look basically stable, a little bit anemic. Calcium was basically within range. Renal function was diminished somewhat so she did have some renal tubular stasis there. In any case, the patient continues to be monitored. She will be discharged home. Follow up as an outpatient. IMPRESSION: Intractable pain, acute renal insufficiency, osteoporosis and compression fracture. JUANIS HERNANDEZ MD DR: SABINO/molly JOB#: [id number] / [id number]
== END 2018-02-24 10:20 | disposition home or self-care (01) | DRG 543 ==
LOC: ER 13:15 → 1 SOUTH 15:50
PROVIDERS: ADMIT Family Medicine; ATTEND Family Medicine
DX: M48.54XA Collapsed vertebra, not elsewhere classified, thoracic region, initial encounter for fracture (principal); E87.1 Hypo-osmolality and hyponatremia; J98.11 Atelectasis; I48.2 Chronic atrial fibrillation; D64.9 Anemia, unspecified; E78.00 Pure hypercholesterolemia, unspecified; F32.9 Major depressive disorder, single episode, unspecified; I11.0 Hypertensive heart disease with heart failure; I50.9 Heart failure, unspecified; I95.1 Orthostatic hypotension; J44.9 Chronic obstructive pulmonary disease, unspecified; M47.9 Spondylosis, unspecified; N28.9 Disorder of kidney and ureter, unspecified; M81.0 Age-related osteoporosis without current pathological fracture; N28.1 Cyst of kidney, acquired; F41.9 Anxiety disorder, unspecified; G89.29 Other chronic pain; Z90.89 Acquired absence of other organs; Z98.51 Tubal ligation status; Z88.1 Allergy status to other antibiotic agents; Z88.5 Allergy status to narcotic agent; Z88.8 Allergy status to other drugs, medicaments and biological substances
CPT/HCPCS: 36415; 72128; 72131; 76770; 80048; 80053; 81001; 83605; 84484; 85025; 87086; 94640; 94760; 96372; 96374; J0696; J1170; J3010; J7613; J7620; J7626; 99285-25; J7030

== ENCOUNTER 2018-08-21 15:15 | Inpatient (IN) | payer MEDICARE, BC, OTHER ==
[~2018-08-21] VITALS: Ht 160 cm; Wt 89.0 kg
[~2018-08-21 15:15] MED LIST changes: +BUPR150T8 PO; +FENT-73 TD; +LIDO700A39 TD; -QUET50TA8 PO; +QUET50TA9 PO
[2018-08-21 15:51] VITALS: BP 141/84
[2018-08-21 16:42] LABS: BASO % 1 % (0-3); EOS # 0.3 x10^3/uL (0.0-0.7); EOS % 6 % (0-3); HEMATOCRIT 34.5 % (36.0-47.0); HEMOGLOBIN 11.6 g/dL (12.0-15.5); LYMPH # 1.3 x10^3/uL (1.0-4.8); LYMPH % 26 % (24-48); MEAN CORPUSCULAR HEMOGLOBIN 31 pg (25-35); MEAN CORPUSCULAR HGB CONC 34 g/dL (31-37); MEAN CORPUSCULAR VOLUME 94 fL (79-100); MONO # 0.4 x10^3/uL (0.0-1.1); MONO % 8 % (0-9); NEUT # 3.2 x10^3uL (1.8-7.7); NEUT % 60 % (31-73); PLATELET COUNT 201 x10^3/uL (140-400); RED BLOOD COUNT 3.68 x10^6/uL (3.50-5.40); RED CELL DISTRIBUTION WIDTH 13.1 % (11.5-14.5); WHITE BLOOD COUNT 5.2 x10^3/uL (4.0-11.0)
[2018-08-21] MEDS: IPRATRPIUM/ALBUTEROL 0.5/2.5MG 3 ML NEBU. NEB SCH ×2 (16:49→20:43)
[2018-08-21 16:57] LABS: ALBUMIN 3.4 g/dL (3.4-5.0); ALBUMIN/GLOBULIN RATIO 0.8 (1.0-1.7); CALCIUM 9.9 mg/dL (8.5-10.1); CREATININE 1.2 mg/dL (0.6-1.0); GFR 43.7; POTASSIUM 4.3 mmol/L (3.5-5.1); TOTAL BILIRUBIN 0.5 mg/dL (0.2-1.0); TOTAL PROTEIN 7.7 g/dL (6.4-8.2)
--- NOTE | 2018-08-21 17:13 | NUR ---
NURSING NOTE ADMIT PT DIRECT ADMIT TO ROOM [address]NANDEZ OFFICE WITH DX OF COPD AND PNEUMONIA. PT STATES SHE HAD CXR AT THE OFFICE AND WAS TOLD SHE HAS PNEUMONIA. PT SETTLED IN ROOM. NO COMPLICATIONS. [place].
[2018-08-21] MEDS: AZITHROMYCIN 500 MG in IV NORMAL SALINE 250ML 250 ML IV SCH (17:25)
[2018-08-21 18:17] LABS: BILIRUBIN,URINE NEG (NEG); CLARITY,URINE CLEAR; COLOR,URINE STRAW; GLUCOSE,URINE NEG (NEG)
[2018-08-21 18:18] LABS: BACTERIA,URINE 0 /HPF (0-FEW); NITRITE,URINE NEG (NEG); SQUAMOUS EPITHELIAL CELL,UR OCC /LPF; UROBILINOGEN,URINE 0.2 mg/dL (0.2 mg/dL); WBC,URINE OCC /HPF (0-4)
[2018-08-21 19:27] VITALS: BP 109/70
[2018-08-21] MEDS: CARVEDILOL 12.5 MG TABLET PO SCH (19:51)
[2018-08-21] MEDS ORDERED: IPRATRPIUM/ALBUTEROL 0.5/2.5MG 3 ML NEBU. NEB SCH (20:00)
[2018-08-21] MEDS: BUDESONIDE 0.5 MG/2 ML NEBU NEB SCH (20:00)
[2018-08-21] MEDS ORDERED: NON FORMULARY ITEM (Mometasone/Formoterol (Dulera 200 Mcg/5 Mcg Inhaler) 2 PUFF) IH SCH (21:00)
[2018-08-21] MEDS: ALPRAZolam 0.5 MG TABLET PO SCH (21:03)
[2018-08-21] MEDS: methylPREDNISolone SOD SUCC PF 40 MG/ML VIAL. IV SCH (21:03)
[2018-08-21] MEDS: MELATONIN 3 MG TABLET PO SCH (21:03)
[2018-08-21] MEDS: ATORVASTATIN CALCIUM 20 MG TABLET PO SCH (21:03)
[2018-08-21] MEDS: QUEtiapine 50 MG TABLET. PO SCH (21:03)
[2018-08-21 22:50] VITALS: BP 92/62
[2018-08-22] MEDS: methylPREDNISolone SOD SUCC PF 40 MG/ML VIAL. IV SCH ×3 (05:07→21:18)
[2018-08-22] MEDS: LEVOTHYROXINE 150 MCG TABLET PO SCH (05:07)
[2018-08-22 05:23] VITALS: BP 105/71
[2018-08-22] MEDS: IPRATRPIUM/ALBUTEROL 0.5/2.5MG 3 ML NEBU. NEB SCH ×4 (05:38→20:24)
[2018-08-22 06:26] LABS: BASO % 0 % (0-3); EOS % 0 % (0-3); HEMATOCRIT 33.3 % (36.0-47.0); LYMPH # 0.6 x10^3/uL (1.0-4.8); LYMPH % 17 % (24-48); MEAN CORPUSCULAR HEMOGLOBIN 31 pg (25-35); MEAN CORPUSCULAR HGB CONC 33 g/dL (31-37); MEAN CORPUSCULAR VOLUME 94 fL (79-100); MONO % 2 % (0-9); NEUT # 2.7 x10^3uL (1.8-7.7); NEUT % 81 % (31-73); PLATELET COUNT 190 x10^3/uL (140-400); RED BLOOD COUNT 3.54 x10^6/uL (3.50-5.40); WHITE BLOOD COUNT 3.3 x10^3/uL (4.0-11.0)
[2018-08-22 06:32] LABS: CREATININE 1.2 mg/dL (0.6-1.0); GFR 43.7; POTASSIUM 4.6 mmol/L (3.5-5.1)
[2018-08-22] MEDS: ALPRAZolam 0.5 MG TABLET PO SCH ×3 (07:55→20:07)
[2018-08-22] MEDS: OMEGA-3 FATTY ACIDS/FISH OIL 1,000 MG CAPSULE. PO SCH (07:55)
[2018-08-22] MEDS: PSYLLIUM SEED (WITH SUGAR) PACKET. PO SCH ×2 (07:55→08:02)
[2018-08-22] MEDS: CALCIUM CARB/VIT D3 500/200 TABLET PO SCH ×2 (07:55→17:12)
[2018-08-22] MEDS: MULTIVITAMIN with MINERAL TABLET. PO SCH (07:56)
[2018-08-22] MEDS: SPIRONOLACTONE 25 MG TABLET PO SCH (07:56)
[2018-08-22] MEDS: RIVAROXABAN 10 MG TABLET. PO SCH (07:56)
[2018-08-22] MEDS: CARVEDILOL 12.5 MG TABLET PO SCH ×2 (07:56→17:12)
--- NOTE | 2018-08-22 08:04 | RAD ---
CT of the chest without contrast, 08/21/2018: HISTORY: Shortness of breath Noncontrast scans were obtained and compared to a study from 01/30/2017. There is mild calcific plaquing of the thoracic aorta and its branches without evidence of aneurysm. The heart size is normal. A trace amount of pericardial fluid is present. No mediastinal adenopathy is seen. There are moderate emphysematous changes in the lungs. There are moderate scattered linear pulmonary opacities compatible with atelectasis and/or scarring. Similar streaky opacities were present on the previous study. A 5 mm peripheral nodule seen laterally in the left lower lobe on image 41 of series #2 is unchanged since 07/07/2016. There is a 1.7 cm semisolid opacity in the posterior aspect of the right lower lobe which has progressed since the previous study. It is best seen on axial image 39 of series #2. It is predominately of groundglass density. This is a nonspecific appearance which could be inflammatory or represent low-grade adenocarcinoma. There is no evidence of pleural fluid. Incidental note is again made of a hepatic and renal cysts. A moderate midthoracic vertebral compression fracture is evident at approximately the T7 level. It has progressed since 02/21/2018. There are mild to moderate scattered degenerative changes. IMPRESSION: 1. Emphysema with moderate streaky parenchymal scarring and/or chronic atelectasis. 2. Stable small left lower lobe pulmonary nodule. 3. Small semisolid opacity in the right lower lobe which has progressed. This could be inflammatory or neoplastic. Further CT surveillance is suggested. 4. Worsening moderate T7 vertebral compression fracture. PQRS Compliance Statement: One or more of the following individualized dose reduction techniques were utilized for this examination: 1. Automated exposure control 2. Adjustment of the mA and/or kV according to patient size 3. Use of iterative reconstruction technique Electronically signed by: Luis Armando Zamora MD (08/22/2018 8:01 AM) [facility]
[2018-08-22] MEDS ORDERED: BUPROPION HCL PO SCH (09:00)
[2018-08-22] MEDS ORDERED: LOSARTAN 50 MG TABLET. PO SCH (09:00)
[2018-08-22] MEDS ORDERED: NON FORMULARY ITEM (Tiotropium Br/Olodaterol HCl (Stiolto Respimat Inhal Spray) 2 PUFF) IH SCH (09:00)
[2018-08-22] MEDS ORDERED: LIDOCAINE (700MG/PATCH) PATCH. TD SCH (09:00)
[2018-08-22] MEDS: BUDESONIDE 0.5 MG/2 ML NEBU NEB SCH ×2 (10:37→20:24)
[2018-08-22 11:32] VITALS: BP 129/78
--- NOTE | 2018-08-22 13:54 | PN ---
DATE: 08/22/2018 SUBJECTIVE: The patient with acute on top of chronic COPD with hypoxia. The patient is resting carefully, says she is breathing a little bit easier today than she has been. The patient still not moving air very well, still using some accessory muscles, failed outpatient therapy as well. The patient otherwise seemed to be doing fairly well. I had a lengthy discussion about her recent CT scan that demonstrate possible new finding in her right lower lobe and will need to be followed up as an outpatient. OBJECTIVE: VITAL SIGNS: Otherwise, blood pressure 105/70, respiratory rate 20, pulse 75, afebrile. GENERAL: The patient is alert and oriented. LUNGS: Diminished throughout, poor movement of air. CARDIOVASCULAR: Regular sinus rhythm. ABDOMEN: Soft, nontender, no rebound or guarding. Positive bowel sounds. IMPRESSION: Therefore, acute on top of chronic COPD with hypoxia and respiratory infection, pulmonary nodule new onset, anemia of chronic disease, hypotension. PLAN: Continue to monitor the patient accordingly and make further evaluation on her as indicated. JUANIS HERNANDEZ MD DR: SABINO/molly JOB#: [id number] / [id number]
[2018-08-22 16:25] VITALS: BP 115/70
[2018-08-22] MEDS: AZITHROMYCIN 500 MG in IV NORMAL SALINE 250ML 250 ML IV SCH (16:29)
[2018-08-22] MEDS ORDERED: ACETAMINOPHEN 325 MG TABLET PO PRN (17:45)
[2018-08-22 19:24] VITALS: BP 102/67
[2018-08-22] MEDS: LACTOBACILLUS RHAMNOSUS GG 1 CAPSULE. PO SCH (20:06)
[2018-08-22] MEDS: ATORVASTATIN CALCIUM 20 MG TABLET PO SCH (20:06)
[2018-08-22] MEDS: MELATONIN 3 MG TABLET PO SCH (20:06)
[2018-08-22] MEDS: QUEtiapine 50 MG TABLET. PO SCH (20:06)
[2018-08-22] MEDS: IRBESARTAN 300MG TABLET PO SCH (20:06)
[2018-08-22 23:11] VITALS: BP 102/66
[2018-08-23] MEDS: IPRATRPIUM/ALBUTEROL 0.5/2.5MG 3 ML NEBU. NEB SCH ×4 (04:57→20:06)
[2018-08-23] MEDS: LEVOTHYROXINE 150 MCG TABLET PO SCH (05:06)
[2018-08-23] MEDS: methylPREDNISolone SOD SUCC PF 40 MG/ML VIAL. IV SCH ×3 (05:06→21:16)
[2018-08-23 05:23] VITALS: BP 116/65
[2018-08-23] MEDS: CALCIUM CARB/VIT D3 500/200 TABLET PO SCH ×2 (08:13→17:25)
[2018-08-23] MEDS: CARVEDILOL 12.5 MG TABLET PO SCH ×2 (08:13→17:26)
[2018-08-23] MEDS: PSYLLIUM SEED (WITH SUGAR) PACKET. PO SCH (09:13)
[2018-08-23] MEDS: SPIRONOLACTONE 25 MG TABLET PO SCH (09:13)
[2018-08-23] MEDS: ALPRAZolam 0.5 MG TABLET PO SCH ×3 (09:13→20:22)
[2018-08-23] MEDS: MULTIVITAMIN with MINERAL TABLET. PO SCH (09:13)
[2018-08-23] MEDS: OMEGA-3 FATTY ACIDS/FISH OIL 1,000 MG CAPSULE. PO SCH (09:13)
[2018-08-23] MEDS: RIVAROXABAN 10 MG TABLET. PO SCH (09:13)
[2018-08-23] MEDS: LACTOBACILLUS RHAMNOSUS GG 1 CAPSULE. PO SCH ×2 (09:13→20:22)
[2018-08-23 11:14] VITALS: BP 149/88
[2018-08-23] MEDS: BUDESONIDE 0.5 MG/2 ML NEBU NEB SCH ×2 (11:14→20:06)
[2018-08-23 14:54] VITALS: BP 109/55
[2018-08-23] MEDS: AZITHROMYCIN 250 MG TABLET. PO SCH (17:25)
[2018-08-23 19:44] VITALS: BP 130/83
[2018-08-23] MEDS: ATORVASTATIN CALCIUM 20 MG TABLET PO SCH (20:22)
[2018-08-23] MEDS: MELATONIN 3 MG TABLET PO SCH (20:22)
[2018-08-23] MEDS: IRBESARTAN 300MG TABLET PO SCH (20:22)
[2018-08-23] MEDS: QUEtiapine 50 MG TABLET. PO SCH (20:23)
--- NOTE | 2018-08-23 22:37 | PN ---
DATE: SUBJECTIVE: A 77-year-old female in with acute exacerbation of COPD, respiratory distress failure. The patient is doing somewhat better overall. The patient does not have any use of accessory muscles, improved. OBJECTIVE: VITAL SIGNS: Blood pressure 149/80, respiratory rate 24, pulse 82, afebrile. GENERAL: The patient is alert and oriented, talking freely. LUNGS: Diminished, but markedly improved. CARDIOVASCULAR: Regular sinus rhythm, S1, S2. ABDOMEN: Protuberant: Soft, nontender. EXTREMITIES: No clubbing, cyanosis or edema. IMPRESSION: Acute respiratory distress, acute exacerbation of chronic obstructive pulmonary disease, centrilobular emphysema, compression fracture. PLAN: Continue with aggressive pulmonary toilet, steroid therapy and make further evaluation on her as indicated. JUANIS HERNANDEZ MD DR: SABINO/molly JOB#: [id number] / [id number]
[2018-08-23 23:29] VITALS: BP 104/65
[2018-08-24 04:53] VITALS: BP 108/63
[2018-08-24] MEDS: LEVOTHYROXINE 150 MCG TABLET PO SCH (05:21)
[2018-08-24] MEDS: methylPREDNISolone SOD SUCC PF 40 MG/ML VIAL. IV SCH ×2 (05:21→20:41)
[2018-08-24] MEDS: IPRATRPIUM/ALBUTEROL 0.5/2.5MG 3 ML NEBU. NEB SCH ×4 (05:46→20:07)
[2018-08-24 07:11] LABS: BASO % 0 % (0-3); EOS % 0 % (0-3); HEMATOCRIT 35.1 % (36.0-47.0); HEMOGLOBIN 11.7 g/dL (12.0-15.5); LYMPH # 0.8 x10^3/uL (1.0-4.8); LYMPH % 10 % (24-48); MEAN CORPUSCULAR HEMOGLOBIN 31 pg (25-35); MEAN CORPUSCULAR HGB CONC 33 g/dL (31-37); MEAN CORPUSCULAR VOLUME 94 fL (79-100); MONO # 0.2 x10^3/uL (0.0-1.1); MONO % 3 % (0-9); NEUT # 6.6 x10^3uL (1.8-7.7); NEUT % 87 % (31-73); PLATELET COUNT 220 x10^3/uL (140-400); RED BLOOD COUNT 3.74 x10^6/uL (3.50-5.40); RED CELL DISTRIBUTION WIDTH 13.3 % (11.5-14.5); WHITE BLOOD COUNT 7.6 x10^3/uL (4.0-11.0)
[2018-08-24 07:22] LABS: ALBUMIN 3.2 g/dL (3.4-5.0); ALBUMIN/GLOBULIN RATIO 0.8 (1.0-1.7); CALCIUM 8.5 mg/dL (8.5-10.1); CREATININE 1.1 mg/dL (0.6-1.0); GFR 48.3; POTASSIUM 4.4 mmol/L (3.5-5.1); TOTAL BILIRUBIN 0.2 mg/dL (0.2-1.0); TOTAL PROTEIN 7.4 g/dL (6.4-8.2)
[2018-08-24] MEDS: CALCIUM CARB/VIT D3 500/200 TABLET PO SCH ×2 (07:50→16:46)
[2018-08-24] MEDS: CARVEDILOL 12.5 MG TABLET PO SCH ×2 (07:51→16:46)
[2018-08-24 08:16] LABS: % BANDS 2 % (0-9); % LYMPHS 8 % (24-48); % MONOS 3 % (0-10); % SEGS 87 % (35-66); PLT ESTIMATE ADEQUATE (ADEQUATE); TOXIC GRANULATION PRESENT
[2018-08-24 08:18] LABS: POLYCHROMASIA PRESENT
[2018-08-24] MEDS: PSYLLIUM SEED (WITH SUGAR) PACKET. PO SCH (09:00)
[2018-08-24] MEDS ORDERED: fentaNYL 12MCG/HR 1 PATCH PATCH TD SCH (09:00)
[2018-08-24] MEDS: ALPRAZolam 0.5 MG TABLET PO SCH ×3 (09:43→20:41)
[2018-08-24] MEDS: OMEGA-3 FATTY ACIDS/FISH OIL 1,000 MG CAPSULE. PO SCH (09:44)
[2018-08-24] MEDS: MULTIVITAMIN with MINERAL TABLET. PO SCH (09:44)
[2018-08-24] MEDS: LACTOBACILLUS RHAMNOSUS GG 1 CAPSULE. PO SCH ×2 (09:44→20:41)
[2018-08-24] MEDS: RIVAROXABAN 10 MG TABLET. PO SCH (09:44)
[2018-08-24] MEDS: SPIRONOLACTONE 25 MG TABLET PO SCH (09:46)
[2018-08-24 11:00] VITALS: BP 110/57
[2018-08-24] MEDS: BUDESONIDE 0.5 MG/2 ML NEBU NEB SCH ×2 (11:05→20:08)
[2018-08-24 16:05] VITALS: BP 117/70
[2018-08-24] MEDS: AZITHROMYCIN 250 MG TABLET. PO SCH (16:46)
--- NOTE | 2018-08-24 17:22 | PN ---
DATE: 08/24/2018 SUBJECTIVE: The patient in with acute on top of chronic exacerbation of chronic obstructive pulmonary disease with hypoxia. The patient is resting fairly comfortably, making fairly good progress overall. She has had some jitteriness with the steroids, will taper down on that. OBJECTIVE: VITAL SIGNS: Blood pressure 110/60, respiratory rate 20, pulse 80, afebrile. GENERAL: The patient is alert and oriented. LUNGS: Diminished throughout, poor movement of air, but much, much, much improved from where they were. CARDIOVASCULAR: Stable. ABDOMEN: Soft, nontender. We will go ahead and taper down on Solu-Medrol and hopefully ready for discharge here soon. IMPRESSION: Acute respiratory failure with hypoxia. PLAN: Continue with tapering and hopefully ready for discharge in the a.m. JUANIS HERNANDEZ MD DR: SABINO/molly JOB#: [id number] / [id number]
[2018-08-24 19:15] VITALS: BP 113/69
[2018-08-24] MEDS: ATORVASTATIN CALCIUM 20 MG TABLET PO SCH (20:41)
[2018-08-24] MEDS: QUEtiapine 50 MG TABLET. PO SCH (20:41)
[2018-08-24] MEDS: MELATONIN 3 MG TABLET PO SCH (20:41)
[2018-08-24] MEDS: IRBESARTAN 300MG TABLET PO SCH (20:41)
[2018-08-25] MEDS: IPRATRPIUM/ALBUTEROL 0.5/2.5MG 3 ML NEBU. NEB SCH ×2 (05:34→09:19)
[2018-08-25] MEDS: LEVOTHYROXINE 150 MCG TABLET PO SCH (05:35)
[2018-08-25 06:04] VITALS: BP 99/58
[2018-08-25 06:48] LABS: CALCIUM 7.8 mg/dL (8.5-10.1); CREATININE 1.1 mg/dL (0.6-1.0); GFR 48.3; POTASSIUM 4.4 mmol/L (3.5-5.1)
[2018-08-25 08:00] VITALS: BP 99/58
[2018-08-25] MEDS: CARVEDILOL 12.5 MG TABLET PO SCH (08:00)
[2018-08-25] MEDS: BUDESONIDE 0.5 MG/2 ML NEBU NEB SCH (09:19)
[2018-08-25] MEDS: OMEGA-3 FATTY ACIDS/FISH OIL 1,000 MG CAPSULE. PO SCH (10:01)
[2018-08-25] MEDS: LACTOBACILLUS RHAMNOSUS GG 1 CAPSULE. PO SCH (10:01)
[2018-08-25] MEDS: RIVAROXABAN 10 MG TABLET. PO SCH (10:02)
[2018-08-25] MEDS: SPIRONOLACTONE 25 MG TABLET PO SCH (10:02)
[2018-08-25] MEDS: CALCIUM CARB/VIT D3 500/200 TABLET PO SCH (10:02)
[2018-08-25] MEDS: ALPRAZolam 0.5 MG TABLET PO SCH (10:02)
[2018-08-25] MEDS: PSYLLIUM SEED (WITH SUGAR) PACKET. PO SCH (10:03)
[2018-08-25] MEDS: methylPREDNISolone SOD SUCC PF 40 MG/ML VIAL. IV SCH (10:03)
[2018-08-25] MEDS: MULTIVITAMIN with MINERAL TABLET. PO SCH (10:03)
[2018-08-25] MEDS ORDERED: AZIT500T PO (10:05)
[2018-08-25] MEDS ORDERED: PRED-299 PO (10:05)
--- NOTE | 2018-08-25 10:26 | NUR ---
Pt provided discharge instructions and prescriptions, pt verbalized understanding. Pt's IV d/c'd as well. Pt getting dressed and awaiting transportation. Will CTM.
--- NOTE | 2018-08-25 11:14 | NUR ---
Pt off the unit via wheelchair accompanied by family.
[2018-08-25 13:15] LABS: FREE T4 1.35 ng/dL (0.76-1.46); THYROID STIM HORMONE (TSH) 0.044 uIU/mL (0.358-3.740)
[2018-08-25] MEDS ORDERED: NITROFURANTOIN MONOHYD/M-CRYST 100 MG CAPSULE. PO SCH (16:00)
--- NOTE | 2018-08-27 16:55 | DS ---
DATE OF DISCHARGE: 08/25/2018 HOSPITAL COURSE: A 77-year-old female who came in through the office. She was in acute respiratory distress. The patient was markedly hypoxic requiring aggressive pulmonary toilet as well as oxygen that she could not handle as an outpatient. The patient was using some accessory muscles on her admission. The patient's CT scan showed a possibility of some new findings in her right lower lobe that needed to be evaluated further as an outpatient, hopefully by her carpet mechanic. In any case, the patient's also TSH was slightly low at 0.044, which was low. The patient's albumin was slightly low. The patient made good progress during the rest of her hospitalization with aggressive pulmonary toilet and made good progress in that regard. IMPRESSION: Therefore, acute exacerbation of chronic obstructive pulmonary disease with respiratory tract infection with acute respiratory distress, centrilobular emphysema, old compression fracture, abnormality of the lung in the right lower lobe, possible hyperthyroidism and also problem with [id number] protein malnutrition, chronic kidney disease stage 3. PLAN: As above, continue to monitor the patient accordingly, make further evaluation on her as indicated. JUANIS HERNANDEZ MD DR: SABINO/molly JOB#: [id number] / [id number]
== END 2018-08-25 11:15 | disposition home or self-care (01) | DRG 177 ==
LOC: 1 SOUTH 15:16
PROVIDERS: ADMIT Family Medicine; ATTEND Family Medicine
DX: J15.8 Pneumonia due to other specified bacteria (principal); J96.01 Acute respiratory failure with hypoxia; J44.1 Chronic obstructive pulmonary disease with (acute) exacerbation; J44.0 Chronic obstructive pulmonary disease with (acute) lower respiratory infection; E44.0 Moderate protein-calorie malnutrition; D63.8 Anemia in other chronic diseases classified elsewhere; I95.9 Hypotension, unspecified; R91.1 Solitary pulmonary nodule; I25.10 Atherosclerotic heart disease of native coronary artery without angina pectoris; F41.9 Anxiety disorder, unspecified; M81.0 Age-related osteoporosis without current pathological fracture; E78.00 Pure hypercholesterolemia, unspecified; M48.54XD Collapsed vertebra, not elsewhere classified, thoracic region, subsequent encounter for fracture with routine healing; I10 Essential (primary) hypertension; Z98.51 Tubal ligation status; Z87.440 Personal history of urinary (tract) infections; Z80.0 Family history of malignant neoplasm of digestive organs; Z68.34 Body mass index [BMI] 34.0-34.9, adult; N18.3 Chronic kidney disease, stage 3 (moderate)
CPT/HCPCS: 36415; 71250; 80048; 80053; 80061; 81001; 83605; 83880; 84439; 84443; 85007; 85025; 87086; 94640; J0456; J0696; J2920; J7050; J7620; J7626

== ENCOUNTER 2018-11-14 20:19 | Inpatient (IN) | payer MEDICARE, BC, OTHER ==
[~2018-11-14] VITALS: Ht 162.6 cm; Wt 90.8 kg
[~2018-11-14 20:19] MED LIST changes: +AZIT500T PO; +PRED-299 PO
[2018-11-14] MEDS ORDERED: IV RINGERS SOLUTION,LACTATED 1,000 ML IV SCH (20:23)
--- NOTE | 2018-11-14 20:26 | ED.ADGEN ---
Past History Past Medical History: Anxiety, Arthritis, CHF, COPD, High Cholesterol, Hypertension, Other Past Surgical History: Cholecystectomy, Tonsillectomy, Tubal ligation, Other Alcohol Use: None Drug Use: None Adult General Chief Complaint Chief Complaint ..." Sick a week.. cough ,... fever.. sore throat..". and ear ache here on the Lt is where it started.. and then chad went down into my chest.. ..". " I tried to call Steve office .. but all I got was a message machine...and never heard back..." HPI HPI Patient is a 78 year old female who presents with above hx and complaints cough productive sputum, sore throat, fever and chills, and shortness of breath. Patient has a significant medical history for's CHF aortic dysfunction, COPD and dependent at 2 L, hypertension, and de conditioning .Follow s with Dr. Wilson as primary and Dr. frankel at for cardiac issues. Review of Systems Review of Systems Constitutional:Complaints of fever and chills [] Eyes: Denies change in visual acuity, redness, or eye pain [] HENT: Hx. of nasal congestion , Rt. ear ache, and sore throat [] Respiratory: Complaints of cough and shortness of breath [] Cardiovascular: No additional information not addressed in HPI [] GI: Denies abdominal pain, nausea, vomiting, bloody stools or diarrhea [] : Denies dysuria or hematuria [] Musculoskeletal: Denies back pain or joint pain [] Integument: Denies rash or skin lesions [] Neurologic: Denies headache, focal weakness or sensory changes [] Endocrine: Denies polyuria or polydipsia [] All other systems were reviewed and found to be within normal limits, except as documented in this note. Family History Family History Non-contributory Current Medications Current Medications Current Medications Medications (Trade) Dose Ordered Sig/Miguel Start Time Stop Time Status Last Admin Dose Admin Acetaminophen (Tylenol) 1,000 mg 1X ONCE 11/14/18 21:00 11/14/18 21:01 DC 11/14/18 21:24 1,000 MG Albuterol/ Ipratropium (Duoneb) 3 ml 1X ONCE 11/14/18 21:00 11/14/18 21:01 DC 11/14/18 21:23 3 ML Azithromycin (Zithromax) 500 mg 1X ONCE 11/14/18 21:00 11/14/18 21:01 DC 11/14/18 21:24 500 MG Ceftriaxone Sodium 1 gm/ Sodium Chloride 50 ml @ 100 mls/hr 1X ONCE 11/14/18 21:00 11/14/18 21:29 DC 11/14/18 21:24 100 MLS/HR Ceftriaxone Sodium (Rocephin) 1 gm STK-MED ONCE 11/14/18 21:21 11/14/18 21:22 DC Lactated Ringer's 1,000 ml @ 100 mls/hr Q10H 11/14/18 20:23 11/15/18 06:22 DC 11/14/18 21:25 100 MLS/HR Methylprednisolone Sodium Succinate (SOLU-Medrol 125MG VIAL) 125 mg 1X ONCE 11/14/18 21:00 11/14/18 21:01 DC 11/14/18 21:23 125 MG Sodium Chloride 50 ml @ As Directed STK-MED ONCE 11/14/18 21:20 11/14/18 21:21 DC Allergies Allergies Allergies Coded Allergies Type Severity Reaction Last Updated Verified fenofibrate Allergy Severe 10/13/14 Yes simvastatin Allergy Severe 10/13/14 Yes amoxicillin Allergy Intermediate 02/22/18 Yes clavulanic acid Allergy Intermediate 02/22/18 Yes morphine Allergy Intermediate Rash 10/13/14 Yes sulfamethoxazole Allergy Intermediate Rash 10/13/14 Yes trimethoprim Allergy Intermediate Rash 10/13/14 Yes Physical Exam Physical Exam Constitutional: moderately acute distress, non-toxic appearance. [] HENT: Normocephalic, atraumatic, bilateral external ears normal, oropharynx moist,injected pharynx., no oral exudates, nose swollen turbinates and rhinorrhea- clear. Eyes: PERRLA, EOMI, conjunctiva normal, no discharge. [] Neck: Normal range of motion, no tenderness, supple, no stridor. [] Cardiovascular:Heart rate regular rhythm, no murmur []PMI to Lt. Lungs & Thorax: Bilateral breath sounds equal apexes with scattered wheezes on auscultation []Basilar rhonchi on Rt. Abdomen: Bowel sounds normal, soft, no tenderness, no masses, no pulsatile masses. [] Obese. Old surgery scar.s Skin: Warm, dry, no erythema, no rash. [] Back: No tenderness, no CVA tenderness. [] Extremities: No tenderness, no cyanosis, no clubbing, ROM intact, no edema. [] No cording appreciated. Neurologic: Alert and oriented X 3, normal motor function, normal sensory function, no focal deficits noted. [] Psychologic: Affect anxious, judgement normal, mood normal. [] Current Patient Data Vital Signs Vital Signs Date Time Temp Pulse Resp B/P (MAP) Pulse Ox O2 Delivery O2 Flow Rate FiO2 11/14/18 22:06 101.1 90 18 149/75 (99) 92 Nasal Cannula 2.0 Lab Results Laboratory Tests Test 11/14/18 20:46 11/14/18 21:14 Influenza Type A (Rapid) Negative (NEGATIVE) Influenza Type B (Rapid) Negative (NEGATIVE) White Blood Count 9.1 x10^3/uL (4.0-11.0) Red Blood Count 3.61 x10^6/uL (3.50-5.40) Hemoglobin 11.5 g/dL (12.0-15.5) L Hematocrit 34.3 % (36.0-47.0) L Mean Corpuscular Volume 95 fL (79-100) Mean Corpuscular Hemoglobin 32 pg (25-35) Mean Corpuscular Hemoglobin Concent 34 g/dL (31-37) Red Cell Distribution Width 12.7 % (11.5-14.5) Platelet Count 222 x10^3/uL (140-400) Neutrophils (%) (Auto) 78 % (31-73) H Lymphocytes (%) (Auto) 10 % (24-48) L Monocytes (%) (Auto) 9 % (0-9) Eosinophils (%) (Auto) 3 % (0-3) Basophils (%) (Auto) 0 % (0-3) Neutrophils # (Auto) 7.1 x10^3uL (1.8-7.7) Lymphocytes # (Auto) 0.9 x10^3/uL (1.0-4.8) L Monocytes # (Auto) 0.8 x10^3/uL (0.0-1.1) Eosinophils # (Auto) 0.2 x10^3/uL (0.0-0.7) Basophils # (Auto) 0.0 x10^3/uL (0.0-0.2) Prothrombin Time 12.3 SEC (9.4-11.4) H Prothrombin Time INR 1.2 (0.9-1.1) H PTT 47 SEC (23-33) H D-Dimer (Suly) 0.20 mg/L (0.00-0.50) Urine Collection Type Unknown Urine Color Yellow Urine Clarity Cloudy Urine pH 7.5 Urine Specific [place] 1.015 Urine Protein Neg (NEG-TRACE) Urine Glucose (UA) Neg mg/dL (NEG) Urine Ketones (Stick) Neg mg/dL (NEG) Urine Blood Small (NEG) Urine Nitrite Neg (NEG) Urine Bilirubin Neg (NEG) Urine Urobilinogen Dipstick 0.2 mg/dL (0.2 mg/dL) Urine Leukocyte Esterase Mod (NEG) Urine RBC Occ /HPF (0-2) Urine WBC 1-4 /HPF (0-4) Urine Squamous Epithelial Cells Occ /LPF Urine Bacteria Few /HPF (0-FEW) Sodium Level 133 mmol/L (136-145) L Potassium Level 4.5 mmol/L (3.5-5.1) Chloride Level 96 mmol/L (98-107) L Carbon Dioxide Level 32 mmol/L (21-32) Anion Gap 5 (6-14) L Blood Urea Nitrogen 19 mg/dL (7-20) Creatinine 1.3 mg/dL (0.6-1.0) H Estimated GFR (Cockcroft-Gault) 39.7 Glucose Level 97 mg/dL (70-99) Calcium Level 9.0 mg/dL (8.5-10.1) Magnesium Level 1.6 mg/dL (1.8-2.4) L Total Bilirubin 0.5 mg/dL (0.2-1.0) Direct Bilirubin 0.2 mg/dL (0.0-0.2) Aspartate Amino Transferase (AST) 21 U/L (15-37) Alanine Aminotransferase (ALT) 27 U/L (14-59) Alkaline Phosphatase 102 U/L (46-116) Creatine Kinase 60 U/L (26-192) Troponin I Quantitative < 0.017 ng/mL (0-0.055) XF-Jpc-I-Type Natriuretic Peptide 460 pg/mL (0-449) H Total Protein 7.4 g/dL (6.4-8.2) Albumin 3.3 g/dL (3.4-5.0) L Lipase 204 U/L (73-393) Group A Streptococcus Rapid Negative (NEGATIVE) EKG EKG My interpretation of EKG shows a sinus rhythm at a rate of 83 with left axis deviation and intraventricular block. This EKG was compared to prior on file and shows no acute changes.[] Radiology/Procedures Radiology/Procedures Interpretation of chest x-ray shows a right lower infiltrate, atelectasis/scarring. Does have cardiomegaly. COPD and Emphysema changes. This patient has a right lower infiltrate that was present on prior films but seems more pronounced at night.[] Does have bibasilar atelectasis. Course & Med Decision Making Course & Med Decision Making Pertinent Labs and Imaging studies reviewed. (See chart for details) discussed presentation, testing and treatment plan with Dr. Wilson. Patient will be admitted to Dr. Wilson. Will repeat CT of chest in a.m. after adequate hydration. Patient has followed with Dr. Sheriff [facility] in the past at [facility]. [] Final Impression Final Impression 1. Fever 2. COPD/Emphysema Exacerbation 3. Pneumonia- Rt. Lower Lobe Infiltrate 4. Hypomagnesium 5. Hyponatremia 133 6. Elevated Creat. 1.3 [] Dragon Disclaimer Dragon Disclaimer This electronic medical record was generated, in whole or in part, using a voice recognition dictation system. Discharge Summary Brief Hospital Course Allergies Allergies Coded Allergies Type Severity Reaction Last Updated Verified fenofibrate Allergy Severe 10/13/14 Yes simvastatin Allergy Severe 10/13/14 Yes amoxicillin Allergy Intermediate 02/22/18 Yes clavulanic acid Allergy Intermediate 02/22/18 Yes morphine Allergy Intermediate Rash 10/13/14 Yes sulfamethoxazole Allergy Intermediate Rash 10/13/14 Yes trimethoprim Allergy Intermediate Rash 10/13/14 Yes Vital Signs Vital Signs Date Time Temp Pulse Resp B/P (MAP) Pulse Ox O2 Delivery O2 Flow Rate FiO2 11/14/18 22:06 101.1 90 18 149/75 (99) 92 Nasal Cannula 2.0 Lab Results Laboratory Tests Test 11/14/18 20:46 11/14/18 21:14 Influenza Type A (Rapid) Negative (NEGATIVE) Influenza Type B (Rapid) Negative (NEGATIVE) White Blood Count 9.1 x10^3/uL (4.0-11.0) Red Blood Count 3.61 x10^6/uL (3.50-5.40) Hemoglobin 11.5 g/dL (12.0-15.5) Hematocrit 34.3 % (36.0-47.0) Mean Corpuscular Volume 95 fL (79-100) Mean Corpuscular Hemoglobin 32 pg (25-35) Mean Corpuscular Hemoglobin Concent 34 g/dL (31-37) Red Cell Distribution Width 12.7 % (11.5-14.5) Platelet Count 222 x10^3/uL (140-400) Neutrophils (%) (Auto) 78 % (31-73) Lymphocytes (%) (Auto) 10 % (24-48) Monocytes (%) (Auto) 9 % (0-9) Eosinophils (%) (Auto) 3 % (0-3) Basophils (%) (Auto) 0 % (0-3) Neutrophils # (Auto) 7.1 x10^3uL (1.8-7.7) Lymphocytes # (Auto) 0.9 x10^3/uL (1.0-4.8) Monocytes # (Auto) 0.8 x10^3/uL (0.0-1.1) Eosinophils # (Auto) 0.2 x10^3/uL (0.0-0.7) Basophils # (Auto) 0.0 x10^3/uL (0.0-0.2) Prothrombin Time 12.3 SEC (9.4-11.4) Prothromb Time International Ratio 1.2 (0.9-1.1) Activated Partial Thromboplast Time 47 SEC (23-33) D-Dimer (Suly) 0.20 mg/L (0.00-0.50) Urine Collection Type Unknown Urine Color Yellow Urine Clarity Cloudy Urine pH 7.5 Urine Specific [place] 1.015 Urine Protein Neg (NEG-TRACE) Urine Glucose (UA) Neg mg/dL (NEG) Urine Ketones (Stick) Neg mg/dL (NEG) Urine Blood Small (NEG) Urine Nitrite Neg (NEG) Urine Bilirubin Neg (NEG) Urine Urobilinogen Dipstick 0.2 mg/dL (0.2 mg/dL) Urine Leukocyte Esterase Mod (NEG) Urine RBC Occ /HPF (0-2) Urine WBC 1-4 /HPF (0-4) Urine Squamous Epithelial Cells Occ /LPF Urine Bacteria Few /HPF (0-FEW) Sodium Level 133 mmol/L (136-145) Potassium Level 4.5 mmol/L (3.5-5.1) Chloride Level 96 mmol/L (98-107) Carbon Dioxide Level 32 mmol/L (21-32) Anion Gap 5 (6-14) Blood Urea Nitrogen 19 mg/dL (7-20) Creatinine 1.3 mg/dL (0.6-1.0) Estimated GFR (Cockcroft-Gault) 39.7 Glucose Level 97 mg/dL (70-99) Calcium Level 9.0 mg/dL (8.5-10.1) Magnesium Level 1.6 mg/dL (1.8-2.4) Total Bilirubin 0.5 mg/dL (0.2-1.0) Direct Bilirubin 0.2 mg/dL (0.0-0.2) Aspartate Amino Transf (AST/SGOT) 21 U/L (15-37) Alanine Aminotransferase (ALT/SGPT) 27 U/L (14-59) Alkaline Phosphatase 102 U/L (46-116) Creatine Kinase 60 U/L (26-192) Troponin I Quantitative < 0.017 ng/mL (0-0.055) CR-Hmo-W-Type Natriuretic Peptide 460 pg/mL (0-449) Total Protein 7.4 g/dL (6.4-8.2) Albumin 3.3 g/dL (3.4-5.0) Lipase 204 U/L (73-393) Group A Streptococcus Rapid Negative (NEGATIVE) Brief Hospital Course Ms. Knowles is a 78 old female who presented with COPD /Emphysema exacerbation. Admit to Dr. Wilson. CT in Am after adequate hydration. Discharge Information Condition at Discharge: Improved Dischare Medications Current Medications Lactated Ringer's 1,000 ml @ 100 mls/hr Q10H IV Last administered on 11/14/18at 21:25; Admin Dose 100 MLS/HR; Start 11/14/18 at 20:23; Stop 11/15/18 at 06:22; Status DC Methylprednisolone Sodium Succinate (SOLU-Medrol 125MG VIAL) 125 mg 1X ONCE IV Last administered on 11/14/18at 21:23; Admin Dose 125 MG; Start 11/14/18 at 21:00; Stop 11/14/18 at 21:01; Status DC Ceftriaxone Sodium 1 gm/ Sodium Chloride 50 ml @ 100 mls/hr 1X ONCE IV Last administered on 11/14/18at 21:24; Admin Dose 100 MLS/HR; Start 11/14/18 at 21:00; Stop 11/14/18 at 21:29; Status DC Azithromycin (Zithromax) 500 mg 1X ONCE PO Last administered on 11/14/18at 21:24; Admin Dose 500 MG; Start 11/14/18 at 21:00; Stop 11/14/18 at 21:01; Status DC Acetaminophen (Tylenol) 1,000 mg 1X ONCE PO Last administered on 11/14/18at 21:24; Admin Dose 1,000 MG; Start 11/14/18 at 21:00; Stop 11/14/18 at 21:01; Status DC Albuterol/ Ipratropium (Duoneb) 3 ml 1X ONCE NEB Last administered on 11/14/18at 21:23; Admin Dose 3 ML; Start 11/14/18 at 21:00; Stop 11/14/18 at 21:01; Status DC Sodium Chloride 50 ml @ As Directed STK-MED ONCE .ROUTE ; Start 11/14/18 at 21:20; Stop 11/14/18 at 21:21; Status DC Ceftriaxone Sodium (Rocephin) 1 gm STK-MED ONCE .ROUTE ; Start 11/14/18 at 21:21; Stop 11/14/18 at 21:22; Status DC Active Scripts Active Xarelto (Rivaroxaban) 10 Mg Tablet 20 Mg PO DAILY Duoneb 0.5-3(2.5) Mg/3 Ml (Albuterol/Ipratropium) 3 Ml Ampul.neb 3 Ml NEB RTQID Reported Warrior 3 1,000 Mg Softgel (Warrior-3 Fatty Acids/Fish Oil) 1 Each Capsule 1 Each PO DAILY LAST DOSE GIVEN: DATE: TODAY TIME: AM NEXT DOSE DUE: DATE: TOMORROW TIME: AM Metamucil (Psyllium Husk) 0.52 Gm Capsule 0.52 Gm PO DAILY LAST DOSE GIVEN: DATE: TODAY TIME: AM NEXT DOSE DUE: DATE: TOMORROW TIME: AM Stiolto Respimat Inhal [place] (Tiotropium Br/Olodaterol HCl) 4 Gm Mist.inhal 2 Puff IH DAILY RESP TREATMENTS GIVEN IN THE HOSPITAL NEXT DOSE DUE: DATE: RESTART TOMORROW TIME: AM Seroquel (Quetiapine Fumarate) 50 Mg Tablet 1 Tab PO QHS LAST DOSE GIVEN: DATE: YESTERDAY TIME: AT BEDTIME NEXT DOSE DUE: DATE: TODAY TIME: AT BEDTIME Avapro (Irbesartan) 300 Mg Tablet 300 Mg PO HS LAST DOSE GIVEN: DATE: YESTERDAY TIME: AT BEDTIME NEXT DOSE DUE: DATE: TODAY TIME: AT BEDTIME Lipitor (Atorvastatin Calcium) 20 Mg Tablet 20 Mg PO QHS last dose: yesterday evening next dose: tonight pm Macrodantin (Nitrofurantoin Macrocrystal) 50 Mg Capsule 50 Mg PO TWICE WEEKLY RESTART TODAY AND SATURDAY Aldactone (Spironolactone) 25 Mg Tablet 12.5 Mg PO DAILY NOT TAKEN TODAY NEXT DOSE DUE: DATE: TOMORROW TIME: AM Multi Vitamin Daily (Multivitamin) 1 Each Tablet 1 Each PO DAILY LAST DOSE GIVEN: DATE: TIME: AM NEXT DOSE DUE: DATE: TOMORROW TIME: AM El-Citrate Plus Vitamin D Tab (Calcium Citrate/Vitamin D2) 1 Each Tablet 1 Each PO BID LAST DOSE GIVEN: DATE: TODAY TIME: AM NEXT DOSE DUE: DATE: TOMORROW TIME: AM Xanax (Alprazolam) 1 Mg Tablet 1 Tab PO TID LAST DOSE GIVEN: DATE: TIME: AM NEXT DOSE DUE: DATE: TIME: AFTERNOON Coreg (Carvedilol) 12.5 Mg Tablet 1 Tab PO BIDWMEALS LAST DOSE GIVEN: DATE: TODAY TIME: WITH BREAKFAST NEXT DOSE DUE: DATE: TODAY TIME: WITH DINNER Dragon Disclaimer This chart was dictated in whole or in part using Voice Recognition software in a busy, high-work load, and often noisy Emergency Department environment. It may contain unintended and wholly unrecognized errors or omissions. RHONDA TSAI MD November 14, 2018 20:26
[2018-11-14] MEDS ORDERED: ACETAMINOPHEN 500 MG TABLET PO ONE (21:00)
[2018-11-14] MEDS ORDERED: IPRATRPIUM/ALBUTEROL 0.5/2.5MG 3 ML NEBU. NEB ONE (21:00)
[2018-11-14] MEDS ORDERED: methylPREDNISolone SOD SUCC PF 125 MG/2 ML VIAL. IV ONE (21:00)
[2018-11-14] MEDS ORDERED: AZITHROMYCIN 250 MG TABLET. PO ONE ×2 (21:00→23:45)
[2018-11-14] MEDS ORDERED: IV NORMAL SALINE 50ML 50 ML ONE (21:20)
[2018-11-14] MEDS ORDERED: cefTRIAXone SODIUM 1 GM VIAL ONE (21:21)
[2018-11-14 21:37] LABS: BILIRUBIN,URINE NEG (NEG); CLARITY,URINE CLOUDY; COLOR,URINE YELLOW; GLUCOSE,URINE NEG (NEG)
[2018-11-14 21:39] LABS: NITRITE,URINE NEG (NEG); RBC,URINE OCC /HPF (0-2); UROBILINOGEN,URINE 0.2 mg/dL (0.2 mg/dL)
[2018-11-14 21:40] LABS: BACTERIA,URINE FEW /HPF (0-FEW); SQUAMOUS EPITHELIAL CELL,UR OCC /LPF
[2018-11-14 21:48] LABS: INFLUENZA A PATIENT NEGATIVE (NEGATIVE); INFLUENZA B PATIENT NEGATIVE (NEGATIVE)
[2018-11-14 21:52] LABS: BASO % 0 % (0-3); EOS # 0.2 x10^3/uL (0.0-0.7); EOS % 3 % (0-3); HEMATOCRIT 34.3 % (36.0-47.0); HEMOGLOBIN 11.5 g/dL (12.0-15.5); LYMPH # 0.9 x10^3/uL (1.0-4.8); LYMPH % 10 % (24-48); MEAN CORPUSCULAR HEMOGLOBIN 32 pg (25-35); MEAN CORPUSCULAR HGB CONC 34 g/dL (31-37); MEAN CORPUSCULAR VOLUME 95 fL (79-100); MONO # 0.8 x10^3/uL (0.0-1.1); MONO % 9 % (0-9); NEUT # 7.1 x10^3uL (1.8-7.7); NEUT % 78 % (31-73); PLATELET COUNT 222 x10^3/uL (140-400); RED BLOOD COUNT 3.61 x10^6/uL (3.50-5.40); RED CELL DISTRIBUTION WIDTH 12.7 % (11.5-14.5); WHITE BLOOD COUNT 9.1 x10^3/uL (4.0-11.0)
[2018-11-14 22:08] LABS: ALBUMIN 3.3 g/dL (3.4-5.0); CREATININE 1.3 mg/dL (0.6-1.0); DIRECT BILIRUBIN 0.2 mg/dL (0.0-0.2); GFR 39.7; MAGNESIUM 1.6 mg/dL (1.8-2.4); POTASSIUM 4.5 mmol/L (3.5-5.1); TOTAL BILIRUBIN 0.5 mg/dL (0.2-1.0); TOTAL PROTEIN 7.4 g/dL (6.4-8.2)
[2018-11-14] MEDS ORDERED: MAGNESIUM SULFATE 2GM 50 ML IV ONE (23:30)
[2018-11-14] MEDS ORDERED: ONDANSETRON PF 4 MG/2 ML VIAL. IV PRN (23:30)
--- NOTE | 2018-11-14 23:37 | EKG ---
[address] [address] Test Date: 2018-11-14 Test Time: 20:58:31 Pat Name: MICHELLE MARTINEZ Department: Room: Gender: F [employer]: : 1940 Requested By: RHONDA TSAI Order Number: [id number] Reading MD: Measurements Intervals [place] Rate: 83 P: 17 NE: 174 QRS: -48 QRSD: 156 T: 111 QT: 370 QTc: 435 Interpretive Statements SINUS RHYTHM ABNORMAL LEFT AXIS DEVIATION NON SPECIFIC INTRAVENTRICULAR BLOCK ABNORMAL ECG RI6.01 No previous ECG available for comparison
--- NOTE | 2018-11-15 00:13 | RAD ---
PA and lateral chest radiographs 11/14/2018 CLINICAL HISTORY: Cough for one week. PA and lateral digital radiographs of the chest were obtained. Comparison study is dated 01/14/2018. The cardiac silhouette is borderline enlarged. The thoracic aorta is mildly tortuous. Linear bands of subsegmental atelectasis are seen involving both lower lobes. No area of consolidation is seen. No pleural effusion or pneumothorax is noted. There is diffuse osteopenia of the visualized bony structures. Degenerative changes are seen involving the thoracic spine and both shoulders. An old compression fracture of the midthoracic vertebral body is noted. IMPRESSION: Areas of subsegmental atelectasis are seen involving both lower lobes. Electronically signed by: Maurizio Martinez MD (11/15/2018 12:10 AM) [facility]
[2018-11-15] MEDS ORDERED: IV NORMAL SALINE 1,000ML 1,000 ML IV ONE (00:30)
[2018-11-15 00:50] VITALS: BP 130/78
[2018-11-15] MEDS ORDERED: LEVO125T5 PO (02:37)
[2018-11-15] MEDS ORDERED: MELA1TAB11 PO (02:37)
[2018-11-15] MEDS ORDERED: ESTR42.53 VG (02:45)
[2018-11-15] MEDS ORDERED: ALEN70TA3 PO (02:45)
[2018-11-15] MEDS ORDERED: FLUT12AE IH (02:45)
[2018-11-15 05:40] VITALS: BP 107/67
[2018-11-15 06:31] LABS: BASO % 0 % (0-3); EOS % 0 % (0-3); HEMATOCRIT 31.5 % (36.0-47.0); HEMOGLOBIN 10.7 g/dL (12.0-15.5); LYMPH # 0.5 x10^3/uL (1.0-4.8); LYMPH % 6 % (24-48); MEAN CORPUSCULAR HEMOGLOBIN 32 pg (25-35); MEAN CORPUSCULAR HGB CONC 34 g/dL (31-37); MEAN CORPUSCULAR VOLUME 95 fL (79-100); MONO # 0.1 x10^3/uL (0.0-1.1); MONO % 1 % (0-9); NEUT # 8.5 x10^3uL (1.8-7.7); NEUT % 92 % (31-73); PLATELET COUNT 200 x10^3/uL (140-400); RED BLOOD COUNT 3.33 x10^6/uL (3.50-5.40); RED CELL DISTRIBUTION WIDTH 12.5 % (11.5-14.5); WHITE BLOOD COUNT 9.2 x10^3/uL (4.0-11.0)
[2018-11-15] MEDS ORDERED: BUPR150T11 PO (06:33)
[2018-11-15 06:38] LABS: CALCIUM 8.9 mg/dL (8.5-10.1); CREATININE 1.2 mg/dL (0.6-1.0); GFR 43.6; POTASSIUM 4.6 mmol/L (3.5-5.1)
[2018-11-15] MEDS ORDERED: IPRATRPIUM/ALBUTEROL 0.5/2.5MG 3 ML NEBU. NEB SCH ×2 (08:00→12:00)
[2018-11-15] MEDS ORDERED: IV RINGERS SOLUTION,LACTATED 1,000 ML IV SCH (09:00)
[2018-11-15] MEDS ORDERED: ENOXAPARIN ** NOTE DOSE ** SYRINGE SQ SCH (09:00)
[2018-11-15] MEDS ORDERED: NON FORMULARY ITEM (Tiotropium Br/Olodaterol HCl (Stiolto Respimat Inhal Spray) 2 PUFF) IH SCH (09:00)
[2018-11-15] MEDS ORDERED: LOSARTAN 50 MG TABLET. PO SCH (09:00)
--- NOTE | 2018-11-15 10:05 | HP ---
ADMIT DATE: 11/14/2018 HISTORY OF PRESENT ILLNESS: A 78-year-old female who for last 3-4 days has been running a temperature of 101 degrees during the middle of the night with increased coughing and shortness of breath. The patient has a long history of emphysema and follows some mason helper down at [place]. In any case, the patient became increasingly short of breath with increased coughing. PAST MEDICAL HISTORY: Thyroid disease; cataracts with implants; tonsillectomy; CHF; left bundle-branch block; rheumatic fever as a child; heart murmur from rheumatic fever; CHF; cardiac catheterization; hypercholesterolemia; hypertension; COPD; chronic bronchitis; history of PE; pneumonia; sleep apnea; cholecystectomy in 2009; tubal ligation; polycystic kidney disease; urinary tract infections; hematuria; urinary retention; osteoporosis of left foot, two pins were removed; chronic back pain; hypothyroidism; menopause at 37, been on hormones by her private investigator surveillance, I guess; steroid therapy continuous for COPD. She has panic attacks, depression, and anxiety. She also was noted to have shingles fairly frequently related to her stress and prednisone, chronic anemia. IMMUNIZATIONS: For tetanus, diphtheria, pneumococcal vaccinations ____ up-to-date. FAMILY HISTORY: Father had hypertension and some form of cancer. Mother had hypertension and a brother with some form of cancer. ALLERGIES: SHE HAS ALLERGIES TO AMOXICILLIN, AUGMENTIN; FENOFIBRATE; MORPHINE; ZOCOR; SULFA DRUGS; TRIMETHOPRIM. SOCIAL HISTORY: She used to be a smoker, although has quit recently, but had about a [id number] history of smoking. The patient denies any alcohol or drug use. She is a full code. REVIEW OF SYSTEMS: Increased shortness of breath, depression. The patient is feeling pretty helpless with the situation and that she is making her life very difficult because of her breathing difficulties. The patient, otherwise, denies chest pain, abdominal pain, nausea, vomiting, melena, hematochezia, hematemesis and neurologically baseline. PHYSICAL EXAMINATION: GENERAL: A pleasant white female. VITAL SIGNS: Blood pressure 150/75; pulse 85; respiratory rate 18; temperature 101.1; oxygen saturation, she is on continuous oxygen, at 92%. HEENT: The patient's head was atraumatic, normocephalic. Eyes: PERRLA without jaundice. Mouth and throat were normal. NECK: Supple. LUNGS: Diminished throughout. No rales or rhonchi noted. CARDIOVASCULAR: Regular sinus rhythm, S1, S2, without murmur, rub, thrill, or extra heart sounds. ABDOMEN: Soft, nontender, no rebound or guarding. Positive bowel sounds. EXTREMITIES: No clubbing, cyanosis nor edema. Pulses noted distally. NEUROLOGIC: The patient was alert and oriented x 3. LABORATORY DATA: White count 9, hemoglobin 11 and 34. Chemistries show sodium slightly low at 131, BUN and creatinine of 18 and 1.2, and GFR 43.6. UA was unremarkable. Serology for influenza negative, group A strep was negative. IMPRESSION AND PLAN: Therefore of pneumonia, right lower lobe atelectasis, exacerbation of chronic obstructive pulmonary disease with hypoxia, history of shingles, multiple other problems as noted in the past medical history. Otherwise, medications were reconciled, see that list. The patient continued to be monitored carefully and make further evaluation on her. Steroids, IV antibiotic therapy, aggressive pulmonary toilet. JUANIS HERNANDEZ MD DR: SABINO/molly JOB#: [id number] / [id number]
[2018-11-15] MEDS: MULTIVITAMIN with MINERAL TABLET. PO SCH (10:11)
[2018-11-15] MEDS: buPROPion XL 150 MG TAB.ER.24H PO SCH (10:12)
[2018-11-15] MEDS: PSYLLIUM SEED (WITH SUGAR) PACKET. PO SCH (10:12)
[2018-11-15] MEDS: RIVAROXABAN 10 MG TABLET. PO SCH (10:13)
[2018-11-15] MEDS: ALPRAZolam 0.5 MG TABLET PO SCH ×3 (10:13→20:55)
[2018-11-15] MEDS: SPIRONOLACTONE 25 MG TABLET PO SCH (10:13)
[2018-11-15] MEDS: methylPREDNISolone SOD SUCC PF 40 MG/ML VIAL. IV SCH (10:14)
[2018-11-15] MEDS: IPRATRPIUM/ALBUTEROL 0.5/2.5MG 3 ML NEBU. NEB SCH ×3 (11:23→20:05)
[2018-11-15 11:26] VITALS: BP 120/60
[2018-11-15] MEDS: ACYCLOVIR 200 MG CAPSULE PO SCH ×2 (15:16→20:51)
[2018-11-15 16:01] VITALS: BP 120/69
[2018-11-15] MEDS: CALCIUM CARB/VIT D3 500/200 TABLET PO SCH (18:36)
[2018-11-15] MEDS: CARVEDILOL 12.5 MG TABLET PO SCH (18:37)
[2018-11-15 19:20] VITALS: BP 116/68
[2018-11-15] MEDS: LOSARTAN 50 MG TABLET. PO SCH (20:55)
[2018-11-15] MEDS: MELATONIN 3 MG TABLET PO SCH (20:55)
[2018-11-15] MEDS: LACTOBACILLUS RHAMNOSUS GG 1 CAPSULE. PO SCH (20:56)
[2018-11-15] MEDS: QUEtiapine 50 MG TABLET. PO SCH (20:56)
[2018-11-15] MEDS: ATORVASTATIN CALCIUM 20 MG TABLET PO SCH (20:57)
[2018-11-15] MEDS: guaiFENesin DM 200MG/20MG 10 ML SYRUP PO PRN (21:00)
[2018-11-15 23:06] VITALS: BP 121/72
[2018-11-16] MEDS: IPRATRPIUM/ALBUTEROL 0.5/2.5MG 3 ML NEBU. NEB SCH ×4 (04:35→19:52)
[2018-11-16 05:31] VITALS: BP 92/52
[2018-11-16] MEDS: LEVOTHYROXINE 125 MCG TABLET PO SCH (06:00)
[2018-11-16] MEDS: IV RINGERS SOLUTION,LACTATED 1,000 ML IV SCH ×2 (06:14→16:50)
[2018-11-16 06:52] LABS: BASO % 0 % (0-3); EOS % 0 % (0-3); HEMOGLOBIN 9.5 g/dL (12.0-15.5); LYMPH # 0.9 x10^3/uL (1.0-4.8); LYMPH % 9 % (24-48); MEAN CORPUSCULAR HEMOGLOBIN 32 pg (25-35); MEAN CORPUSCULAR HGB CONC 34 g/dL (31-37); MEAN CORPUSCULAR VOLUME 95 fL (79-100); MONO # 0.6 x10^3/uL (0.0-1.1); MONO % 7 % (0-9); NEUT # 8.1 x10^3uL (1.8-7.7); NEUT % 84 % (31-73); PLATELET COUNT 220 x10^3/uL (140-400); RED BLOOD COUNT 2.96 x10^6/uL (3.50-5.40); RED CELL DISTRIBUTION WIDTH 12.7 % (11.5-14.5); WHITE BLOOD COUNT 9.6 x10^3/uL (4.0-11.0)
[2018-11-16 07:02] LABS: CALCIUM 8.2 mg/dL (8.5-10.1); CREATININE 0.9 mg/dL (0.6-1.0); GFR 60.7; POTASSIUM 4.5 mmol/L (3.5-5.1)
[2018-11-16] MEDS ORDERED: IOHEXOL 350 MG/ML 100 ML VIAL. IV ONE (07:30)
[2018-11-16] MEDS: ACYCLOVIR 200 MG CAPSULE PO SCH ×3 (08:27→20:39)
[2018-11-16] MEDS: RIVAROXABAN 10 MG TABLET. PO SCH (08:28)
[2018-11-16] MEDS: methylPREDNISolone SOD SUCC PF 40 MG/ML VIAL. IV SCH (08:28)
[2018-11-16] MEDS: PSYLLIUM SEED (WITH SUGAR) PACKET. PO SCH (08:28)
[2018-11-16] MEDS: MULTIVITAMIN with MINERAL TABLET. PO SCH (08:28)
[2018-11-16] MEDS: LACTOBACILLUS RHAMNOSUS GG 1 CAPSULE. PO SCH ×2 (08:29→20:37)
[2018-11-16] MEDS: ALPRAZolam 0.5 MG TABLET PO SCH ×3 (08:29→20:36)
[2018-11-16] MEDS: CALCIUM CARB/VIT D3 500/200 TABLET PO SCH ×2 (08:29→16:52)
[2018-11-16] MEDS: buPROPion XL 150 MG TAB.ER.24H PO SCH (08:30)
[2018-11-16] MEDS ORDERED: CITALOPRAM 10 MG TABLET. PO SCH (09:00)
--- NOTE | 2018-11-16 09:58 | RAD ---
Examination: CT angiography chest history: History of shortness of breath Comparison: 08/21/2018 Technique: Axial CT and radiographic images of the chest was performed with IV contrast with coronal and sagittal reformats are performed PQRS Compliance Statement: One or more of the following individualized dose reduction techniques were utilized for this examination: 1. Automated exposure control 2. Adjustment of the mA and/or kV according to patient size 3. Use of iterative reconstruction technique Findings: The central airways are patent. There is no evidence of filling defect identified in the main pulmonary arterial trunk and right and left main pulmonary arteries. The visualized lobar, segmental branch of the pulmonary arteries. Moderate bilateral lung emphysematous changes. There is focus of airspace opacity identified in the right middle lobe of the lung. There is a focus of airspace opacity identified in the right lower lobe of the lung measuring 1.9 cm could be atelectasis or infiltrate or mass. Small right pleural effusion is identified. Mild left lung base airspace opacity with tree-in-bud airspace opacities identified in the left lower lobe of the lung and in the lingula of the lung likely infiltrates or atelectasis. Cystic structures identified in the liver similar to prior exam probably cysts. Partially visualized left renal cysts are evident. Moderate degenerative changes identified in the thoracic spine. Severe compression change of the vertebral body similar to prior exam. Impression: 1. No evidence of pulmonary embolism. 2. 1.9 cm focal airspace opacity identified in the right lower lobe of the lung could be atelectasis or infiltrate or mass. Close interval follow-up examination is recommended. 3. Patchy airspace opacities identified in the right middle lobe and in the left lower lobe of the lung with tree-in-bud airspace opacities identified in the lingula of the left lung and in the left lower lobe lung likely atelectasis or infiltrates. Follow-up to resolution. 4. Lung emphysematous changes.
[2018-11-16] MEDS: CARVEDILOL 12.5 MG TABLET PO SCH ×2 (10:16→16:52)
[2018-11-16] MEDS: SPIRONOLACTONE 25 MG TABLET PO SCH (10:17)
[2018-11-16 10:37] VITALS: BP 120/71
[2018-11-16 14:37] VITALS: BP 120/67
--- NOTE | 2018-11-16 14:40 | PDOC2 ---
CONSULT Date of Admission DATE: 11/16/18 TIME: 14:32 Reason for Consult: SOB, possible heart failure Referring Physician: Dr. Wilson Chief Complaint cough and SOB Source: Chart review, Patient History of Present Illness The patient is a 78-year-old female who was admitted through the emergency room 2 days ago for increasingly productive cough, fever and shortness of breath for 2-3 days. Patient's chest x-ray showed a right lower lobe infiltrate, bibasilar atelectasis and cardiomegaly. EKG showed a sinus rhythm with no acute ischemic changes. Troponin was less than 0.017. The patient was treated for pneumonia and acute exacerbation of COPD has improved since admission. This morning she states her shortness of breath is significantly less. Her cough is also significantly less. Her history is significant for COPD with home O2 as well as hypertension and hyperlipidemia. She is also followed by Dr. Koroma at for heart failure and valvular disease although the patient does not know the details of heart valve disease. Cardiovascular: CHF, HTN, Other (valvular heart disease) Pulmonary: COPD Musculoskeletal: Osteoarthritis Past Surgical History: Cholecystectomy, Tubal Ligation, Tonsillectomy Family History: Hypertension Smoke: No ALCOHOL: none Current Medications Current Medications Lactated Ringer's 1,000 ml @ 100 mls/hr Q10H IV Last administered on 11/14/18at 21:25; Start 11/14/18 at 20:23; Stop 11/15/18 at 06:22; Status DC Methylprednisolone Sodium Succinate (SOLU-Medrol 125MG VIAL) 125 mg 1X ONCE IV Last administered on 11/14/18at 21:23; Start 11/14/18 at 21:00; Stop 11/14/18 at 21:01; Status DC Ceftriaxone Sodium 1 gm/ Sodium Chloride 50 ml @ 100 mls/hr 1X ONCE IV Last administered on 11/14/18at 21:24; Start 11/14/18 at 21:00; Stop 11/14/18 at 21:29; Status DC Azithromycin (Zithromax) 500 mg 1X ONCE PO Last administered on 11/14/18at 21:24; Start 11/14/18 at 21:00; Stop 11/14/18 at 21:01; Status DC Acetaminophen (Tylenol) 1,000 mg 1X ONCE PO Last administered on 11/14/18at 21:24; Start 11/14/18 at 21:00; Stop 11/14/18 at 21:01; Status DC Albuterol/ Ipratropium (Duoneb) 3 ml 1X ONCE NEB Last administered on 11/14/18at 21:23; Start 11/14/18 at 21:00; Stop 11/14/18 at 21:01; Status DC Sodium Chloride 50 ml @ As Directed STK-MED ONCE .ROUTE ; Start 11/14/18 at 21:20; Stop 11/14/18 at 21:21; Status DC Ceftriaxone Sodium (Rocephin) 1 gm STK-MED ONCE .ROUTE ; Start 11/14/18 at 21:21; Stop 11/14/18 at 21:22; Status DC Ondansetron HCl (Zofran) 4 mg PRN Q4HRS PRN IV NAUSEA/VOMITING; Start 11/14/18 at 23:30; Stop 11/15/18 at 23:29; Status DC Albuterol/ Ipratropium (Duoneb) 3 ml RTQID NEB ; Start 11/15/18 at 08:00; Stop 11/15/18 at 08:59; Status DC Methylprednisolone Sodium Succinate (SOLU-Medrol 40MG VIAL) 40 mg DAILY IV Last administered on 11/16/18at 08:28; Start 11/15/18 at 09:00 Ceftriaxone Sodium 1 gm/ Sodium Chloride 50 ml @ 100 mls/hr Q24H IV Last administered on 11/15/18at 20:51; Start 11/15/18 at 21:00 Azithromycin (Zithromax) 250 mg 1X ONCE PO Last administered on 11/14/18at 23:45; Start 11/14/18 at 23:45; Stop 11/14/18 at 23:49; Status DC Lactated Ringer's 1,000 ml @ 100 mls/hr [id number] IV Last administered on 11/15/18at 19:28; Start 11/15/18 at 09:00; Stop 11/16/18 at 06:11; Status DC Magnesium Sulfate 50 ml @ 25 mls/hr 1X ONCE IV Last administered on 11/14/18at 23:48; Start 11/14/18 at 23:30; Stop 11/15/18 at 01:29; Status DC Enoxaparin Sodium (Lovenox 80mg Syringe) 80 mg BID SQ ; Start 11/15/18 at 09:00; Stop 11/15/18 at 09:00; Status DC Sodium Chloride 1,000 ml @ 1,000 mls/hr 1X ONCE IV ; Start 11/15/18 at 00:30; Stop 11/15/18 at 01:51; Status DC Atorvastatin Calcium (Lipitor) 20 mg QHS PO Last administered on 11/15/18at 20:57; Start 11/15/18 at 21:00 Albuterol/ Ipratropium (Duoneb) 3 ml RTQID NEB ; Start 11/15/18 at 12:00; Stop 11/15/18 at 12:00; Status DC Rivaroxaban (Xarelto) 20 mg DAILY PO Last administered on 11/16/18at 08:28; Start 11/15/18 at 09:00 Alendronate Sodium (Fosamax) 70 mg WEEKLY PO ; Start 11/22/18 at 09:00 Alprazolam (Xanax) 1 mg TID PO Last administered on 11/16/18at 08:29; Start 11/15/18 at 09:00 Bupropion HCl (Wellbutrin Xl) 150 mg DAILY PO Last administered on 11/16/18at 08:30; Start 11/15/18 at 09:00 Calcium/Vitamin D (Oscal D 500mg/ 200uts) 1 tab BIDWMEALS PO Last administered on 11/16/18at 08:29; Start 11/15/18 at 17:00 Carvedilol (Coreg) 12.5 mg BIDWMEALS PO Last administered on 11/16/18at 10:16; Start 11/15/18 at 17:00 Losartan Potassium (Cozaar) 100 mg DAILY PO ; Start 11/15/18 at 09:00; Stop 11/15/18 at 09:00; Status DC Levothyroxine Sodium (Synthroid) 125 mcg DAILY06 PO Last administered on 11/16/18at 06:00; Start 11/16/18 at 06:00 Melatonin 6 mg QHS PO Last administered on 11/15/18at 20:55; Start 11/15/18 at 21:00 Multivitamins/ Calcium (Thera-M Plus) 1 tab DAILY PO Last administered on 11/16/18at 08:28; Start 11/15/18 at 09:00 Nitrofurantoin Macrocrystals (Macrobid) 100 mg QMTH PO ; Start 11/17/18 at 16:00 Psyllium Hydrophilic Mucilloid (Metamucil) 1 pkt DAILY PO Last administered on 11/16/18 08:28; Start 11/15/18 at 09:00 Quetiapine Fumarate (SEROquel) 50 mg QHS PO Last administered on 11/15/18 20:56; Start 11/15/18 at 21:00 Spironolactone (Aldactone) 12.5 mg DAILY PO Last administered on 11/16/18 10:17; Start 11/15/18 at 09:00 Non-Formulary Medication (Tiotropium Br/ Olodaterol HCl (Stiolto Respimat Inhal [place])) 2 puff DAILY IH ; Start 11/15/18 at 09:00; Stop 11/15/18 at 09:00; Status DC Losartan Potassium (Cozaar) 100 mg HS PO Last administered on 11/15/18at 20:55; Start 11/15/18 at 21:00 Albuterol/ Ipratropium (Duoneb) 3 ml RTQID NEB Last administered on 11/16/18 10:56; Start 11/15/18 at 12:00 Guaifenesin (Robitussin Dm) 10 ml PRN Q6HRS PRN PO COUGH Last administered on 11/15/18 21:00; Start 11/15/18 at 09:15 Acyclovir (Zovirax) 200 mg [id number] PO Last administered on 11/16/18 08:27; Start 11/15/18 at 14:00 Citalopram Hydrobromide (CeleXA) 10 mg DAILY PO Last administered on 11/16/18 08:29; Start 11/16/18 at 09:00; Stop 11/16/18 at 13:56; Status DC Lactobacillus Rhamnosus (Culturelle) 1 cap BID PO Last administered on 11/16/18 08:29; Start 11/15/18 at 21:00 Lactated Ringer's 1,000 ml @ 100 mls/hr Q10H IV Last administered on 11/16/18 06:14; Start 11/16/18 at 06:15 Iohexol (Omnipaque 350 Mg/ml) 100 ml 1X ONCE IV Last administered on 11/16/18at 08:22; Start 11/16/18 at 07:30; Stop 11/16/18 at 07:37; Status DC Citalopram Hydrobromide (CeleXA) 20 mg DAILY PO ; Start 11/17/18 at 09:00; Status UNV Active Scripts Active Xarelto (Rivaroxaban) 10 Mg Tablet 20 Mg PO DAILY Duoneb 0.5-3(2.5) Mg/3 Ml (Albuterol/Ipratropium) 3 Ml Ampul.neb 3 Ml NEB RTQID Reported Bupropion Hcl Sr (Bupropion Hcl) 150 Mg Tablet.er 1 Tab PO DAILY Estrace (Estradiol) 42.5 Gm Cream.appl 1 Gm VG TWICE WEEKLY Flovent 110MCG Hfa (Fluticasone Propionate) 12 Gm Aer.w.adap 2 Puff IH BID Fosamax (Alendronate Sodium) 70 Mg Tablet 1 Tab PO QSA Levothyroxine Sodium 125 Mcg Tablet 1 Tab PO DAILY Melatonin 5 Mg Tablet (Melatonin/Pyridoxine Hcl (B6)) 1 Each Tablet 1 Each PO HS [place] 3 1,000 Mg Softgel ([place]-3 Fatty Acids/Fish Oil) 1 Each Capsule 1 Each PO DAILY LAST DOSE GIVEN: DATE: TODAY TIME: AM NEXT DOSE DUE: DATE: TOMORROW TIME: AM Metamucil (Psyllium Husk) 0.52 Gm Capsule 0.52 Gm PO DAILY LAST DOSE GIVEN: DATE: TODAY TIME: AM NEXT DOSE DUE: DATE: TOMORROW TIME: AM Stiolto Respimat Inhal [place] (Tiotropium Br/Olodaterol HCl) 4 Gm Mist.inhal 2 Puff IH DAILY RESP TREATMENTS GIVEN IN THE HOSPITAL NEXT DOSE DUE: DATE: RESTART TOMORROW TIME: AM Seroquel (Quetiapine Fumarate) 50 Mg Tablet 1 Tab PO QHS LAST DOSE GIVEN: DATE: YESTERDAY TIME: AT BEDTIME NEXT DOSE DUE: DATE: TODAY TIME: AT BEDTIME Avapro (Irbesartan) 300 Mg Tablet 300 Mg PO HS LAST DOSE GIVEN: DATE: YESTERDAY TIME: AT BEDTIME NEXT DOSE DUE: DATE: TODAY TIME: AT BEDTIME Lipitor (Atorvastatin Calcium) 20 Mg Tablet 20 Mg PO QHS last dose: yesterday evening next dose: tonight pm Macrodantin (Nitrofurantoin Macrocrystal) 50 Mg Capsule 50 Mg PO TWICE WEEKLY RESTART TODAY AND SATURDAY Aldactone (Spironolactone) 25 Mg Tablet 12.5 Mg PO DAILY NOT TAKEN TODAY NEXT DOSE DUE: DATE: TOMORROW TIME: AM Multi Vitamin Daily (Multivitamin) 1 Each Tablet 1 Each PO DAILY LAST DOSE GIVEN: DATE: TODAY TIME: AM NEXT DOSE DUE: DATE: TOMORROW TIME: AM El-Citrate Plus Vitamin D Tab (Calcium Citrate/Vitamin D2) 1 Each Tablet 1 Each PO BID LAST DOSE GIVEN: DATE: TODAY TIME: AM NEXT DOSE DUE: DATE: TOMORROW TIME: AM Xanax (Alprazolam) 1 Mg Tablet 1 Tab PO TID LAST DOSE GIVEN: DATE: TIME: AM NEXT DOSE DUE: DATE: TIME: AFTERNOON Coreg (Carvedilol) 12.5 Mg Tablet 1 Tab PO BIDWMEALS LAST DOSE GIVEN: DATE: TIME: WITH BREAKFAST NEXT DOSE DUE: DATE: TODAY TIME: WITH DINNER Allergies: Coded Allergies: fenofibrate (Verified Allergy, Severe, 10/13/14) Lung infection simvastatin (Verified Allergy, Severe, 10/13/14) Lung infection amoxicillin (Verified Allergy, Intermediate, 02/22/18) clavulanic acid (Verified Allergy, Intermediate, 02/22/18) morphine (Verified Allergy, Intermediate, Rash, 10/13/14) sulfamethoxazole (Verified Allergy, Intermediate, Rash, 10/13/14) trimethoprim (Verified Allergy, Intermediate, Rash, 10/13/14) General: YES: Fatigue Respiratory: YES: Cough, Shortness of breath, SOB with excertion General: No acute distress, mild distress Lungs: Other (mildly decreased breath sounds) Heart: Other (regular rate and rhythm with a 2/6 systolic murmur) Abdomen: Normal bowel sounds VITALS Vital Signs Date Time Temp Pulse Resp B/P (MAP) Pulse Ox O2 Delivery O2 Flow Rate FiO2 11/16/18 10:56 94 Nasal Cannula 2.0 11/16/18 10:37 98.0 81 20 120/71 (87) Labs Laboratory Tests Test 11/14/18 20:46 11/14/18 21:14 11/15/18 06:01 11/16/18 06:15 Influenza Type A (Rapid) Negative (NEGATIVE) Influenza Type B (Rapid) Negative (NEGATIVE) White Blood Count 9.1 x10^3/uL (4.0-11.0) 9.2 x10^3/uL (4.0-11.0) 9.6 x10^3/uL (4.0-11.0) Red Blood Count 3.61 x10^6/uL (3.50-5.40) 3.33 x10^6/uL (3.50-5.40) 2.96 x10^6/uL (3.50-5.40) Hemoglobin 11.5 g/dL (12.0-15.5) 10.7 g/dL (12.0-15.5) 9.5 g/dL (12.0-15.5) Hematocrit 34.3 % (36.0-47.0) 31.5 % (36.0-47.0) 28.0 % (36.0-47.0) Mean Corpuscular Volume 95 fL (79-100) 95 fL (79-100) 95 fL (79-100) Mean Corpuscular Hemoglobin 32 pg (25-35) 32 pg (25-35) 32 pg (25-35) Mean Corpuscular Hemoglobin Concent 34 g/dL (31-37) 34 g/dL (31-37) 34 g/dL (31-37) Red Cell Distribution Width 12.7 % (11.5-14.5) 12.5 % (11.5-14.5) 12.7 % (11.5-14.5) Platelet Count 222 x10^3/uL (140-400) 200 x10^3/uL (140-400) 220 x10^3/uL (140-400) Neutrophils (%) (Auto) 78 % (31-73) 92 % (31-73) 84 % (31-73) Lymphocytes (%) (Auto) 10 % (24-48) 6 % (24-48) 9 % (24-48) Monocytes (%) (Auto) 9 % (0-9) 1 % (0-9) 7 % (0-9) Eosinophils (%) (Auto) 3 % (0-3) 0 % (0-3) 0 % (0-3) Basophils (%) (Auto) 0 % (0-3) 0 % (0-3) 0 % (0-3) Neutrophils # (Auto) 7.1 x10^3uL (1.8-7.7) 8.5 x10^3uL (1.8-7.7) 8.1 x10^3uL (1.8-7.7) Lymphocytes # (Auto) 0.9 x10^3/uL (1.0-4.8) 0.5 x10^3/uL (1.0-4.8) 0.9 x10^3/uL (1.0-4.8) Monocytes # (Auto) 0.8 x10^3/uL (0.0-1.1) 0.1 x10^3/uL (0.0-1.1) 0.6 x10^3/uL (0.0-1.1) Eosinophils # (Auto) 0.2 x10^3/uL (0.0-0.7) 0.0 x10^3/uL (0.0-0.7) 0.0 x10^3/uL (0.0-0.7) Basophils # (Auto) 0.0 x10^3/uL (0.0-0.2) 0.0 x10^3/uL (0.0-0.2) 0.0 x10^3/uL (0.0-0.2) Prothrombin Time 12.3 SEC (9.4-11.4) Prothromb Time International Ratio 1.2 (0.9-1.1) Activated Partial Thromboplast Time 47 SEC (23-33) D-Dimer (Suly) 0.20 mg/L (0.00-0.50) Urine Collection Type Unknown Urine Color Yellow Urine Clarity Cloudy Urine pH 7.5 Urine Specific [place] 1.015 Urine Protein Neg (NEG-TRACE) Urine Glucose (UA) Neg mg/dL (NEG) Urine Ketones (Stick) Neg mg/dL (NEG) Urine Blood Small (NEG) Urine Nitrite Neg (NEG) Urine Bilirubin Neg (NEG) Urine Urobilinogen Dipstick 0.2 mg/dL (0.2 mg/dL) Urine Leukocyte Esterase Mod (NEG) Urine RBC Occ /HPF (0-2) Urine WBC 1-4 /HPF (0-4) Urine Squamous Epithelial Cells Occ /LPF Urine Bacteria Few /HPF (0-FEW) Sodium Level 133 mmol/L (136-145) 131 mmol/L (136-145) 134 mmol/L (136-145) Potassium Level 4.5 mmol/L (3.5-5.1) 4.6 mmol/L (3.5-5.1) 4.5 mmol/L (3.5-5.1) Chloride Level 96 mmol/L (98-107) 97 mmol/L (98-107) 99 mmol/L (98-107) Carbon Dioxide Level 32 mmol/L (21-32) 31 mmol/L (21-32) 31 mmol/L (21-32) Anion Gap 5 (6-14) 3 (6-14) 4 (6-14) Blood Urea Nitrogen 19 mg/dL (7-20) 18 mg/dL (7-20) 20 mg/dL (7-20) Creatinine 1.3 mg/dL (0.6-1.0) 1.2 mg/dL (0.6-1.0) 0.9 mg/dL (0.6-1.0) Estimated GFR (Cockcroft-Gault) 39.7 43.6 60.7 Glucose Level 97 mg/dL (70-99) 142 mg/dL (70-99) 118 mg/dL (70-99) Calcium Level 9.0 mg/dL (8.5-10.1) 8.9 mg/dL (8.5-10.1) 8.2 mg/dL (8.5-10.1) Magnesium Level 1.6 mg/dL (1.8-2.4) Total Bilirubin 0.5 mg/dL (0.2-1.0) Direct Bilirubin 0.2 mg/dL (0.0-0.2) Aspartate Amino Transf (AST/SGOT) 21 U/L (15-37) Alanine Aminotransferase (ALT/SGPT) 27 U/L (14-59) Alkaline Phosphatase 102 U/L (46-116) Creatine Kinase 60 U/L (26-192) Troponin I Quantitative < 0.017 ng/mL (0-0.055) VU-[id number]-Type Natriuretic Peptide 460 pg/mL (0-449) Total Protein 7.4 g/dL (6.4-8.2) Albumin 3.3 g/dL (3.4-5.0) Lipase 204 U/L (73-393) Thyroid Stimulating Hormone (TSH) 0.886 uIU/mL (0.358-3.740) Group A Streptococcus Rapid Negative (NEGATIVE) Procalcitonin < 0.10 ng/mL (0.00-0.10) Images Chest x-ray with cardiomegaly, right lower lobe infiltrate and bilateral ate lectasis. Assessment/Plan 1. Pneumonia. Treated with antibiotics. Patient also on pulmonary treatment. Co ntinues to slowly improve. 2. Exacerbation of COPD. Continuing pulmonary medications. Treated with steroids. Feeling significant better. 3. Possible contribution of heart failure. Patient is followed at for valvular disease and heart failure. Would continue present treatment. We'll attempt to obtain records from . We'll check an echocardiogram. 4. Hypertension. Reasonable control. Continue present treatment. 5. History of hyperlipidemia. We'll continue present medications. Thank you for allowing us to participate in the care of your patient. TAMIE NAYLOR MD Nov 16, 2018 14:40
[2018-11-16 19:02] VITALS: BP 119/71
[2018-11-16] MEDS: guaiFENesin DM 200MG/20MG 10 ML SYRUP PO PRN (20:35)
[2018-11-16] MEDS: QUEtiapine 50 MG TABLET. PO SCH (20:36)
[2018-11-16] MEDS: LOSARTAN 50 MG TABLET. PO SCH (20:36)
[2018-11-16] MEDS: MELATONIN 3 MG TABLET PO SCH (20:37)
[2018-11-16] MEDS: ATORVASTATIN CALCIUM 20 MG TABLET PO SCH (20:37)
[2018-11-16 22:52] VITALS: BP 112/72
--- NOTE | 2018-11-17 03:20 | PN ---
DATE: 11/16/2018 SUBJECTIVE: A 78-year-old female in with acute exacerbation of COPD. The patient had been running a temperature. She seems to be improving gradually. She is still very weak. PHYSICAL EXAMINATION: VITAL SIGNS: Blood pressure presently 120/70, respiratory rate 20, pulse 80, afebrile. GENERAL: The patient is alert and oriented. LUNGS: Diminished, some crackles in the bases otherwise. CARDIOVASCULAR: Regular sinus rhythm. ABDOMEN: Soft, nontender. EXTREMITIES: No clubbing, cyanosis or edema. NEUROLOGIC: Stable. LABORATORY DATA: Hemoglobin and hematocrit 9.5 and 28. White count 9. Her BUN and creatinine show marked improvement and the creatinine going from actually 1.3 down to 0.9. So other than that, she is making good progress and we will continue on present drug regimen and taper down on her Solu-Medrol and make further evaluation on her as indicated. IMPRESSION: Acute exacerbation of chronic obstructive pulmonary disease secondary to an infection, acute respiratory distress with hypoxia, acute renal failure due to tubular stasis. JUANIS HERNANDEZ MD DR: SABINO/molly JOB#: [id number] / [id number]
[2018-11-17] MEDS: IV RINGERS SOLUTION,LACTATED 1,000 ML IV SCH ×2 (03:34→12:31)
[2018-11-17] MEDS: IPRATRPIUM/ALBUTEROL 0.5/2.5MG 3 ML NEBU. NEB SCH ×4 (04:47→20:23)
[2018-11-17 04:53] VITALS: BP 125/62
[2018-11-17] MEDS: LEVOTHYROXINE 125 MCG TABLET PO SCH (05:36)
[2018-11-17] MEDS: methylPREDNISolone SOD SUCC PF 40 MG/ML VIAL. IV SCH (08:35)
[2018-11-17] MEDS: SPIRONOLACTONE 25 MG TABLET PO SCH (08:36)
[2018-11-17] MEDS: RIVAROXABAN 10 MG TABLET. PO SCH (08:36)
[2018-11-17] MEDS: LACTOBACILLUS RHAMNOSUS GG 1 CAPSULE. PO SCH ×2 (08:37→21:28)
[2018-11-17] MEDS: MULTIVITAMIN with MINERAL TABLET. PO SCH (08:37)
[2018-11-17] MEDS: buPROPion XL 150 MG TAB.ER.24H PO SCH (08:37)
[2018-11-17] MEDS: CALCIUM CARB/VIT D3 500/200 TABLET PO SCH ×2 (08:37→17:56)
[2018-11-17] MEDS: ALPRAZolam 0.5 MG TABLET PO SCH ×3 (08:37→21:29)
[2018-11-17] MEDS: ACYCLOVIR 200 MG CAPSULE PO SCH ×3 (08:37→21:29)
[2018-11-17] MEDS: CARVEDILOL 12.5 MG TABLET PO SCH ×2 (08:38→17:56)
[2018-11-17] MEDS: PSYLLIUM SEED (WITH SUGAR) PACKET. PO SCH (08:46)
[2018-11-17] MEDS: CITALOPRAM 20 MG TABLET. PO SCH (08:47)
[2018-11-17 10:54] VITALS: BP 118/78
--- NOTE | 2018-11-17 14:15 | CARD ---
MR#: [id number] Date of Study: 11/17/2018 Ordering Physician: TAMIE WERNER, Referring Physician: JUANIS HERNANDEZ, Tech: Shelby Upton LINN APPROVED REPORT EXAM: Two-dimensional and M-mode echocardiogram with Doppler and color Doppler. Other Information Quality : Good INDICATION Mitral Valve Disease 2D DIMENSIONS Left Atrium(2D)3.8 (1.6-4.0cm)IVSd1.2 (0.7-1.1cm) Aortic Root(2D)2.9 (2.0-3.7cm)LVDd4.7 (3.9-5.9cm) LVOT Diameter2.1 (1.8-2.4cm)PWd1.0 (0.7-1.1cm) LVDs3.3 (2.5-4.0cm)FS (%) 29.4 % SV57.7 mlLVEF(%)56.2 (>50%) Aortic Valve AoV Peak Vladimir.165.2cm/sAoV VTI34.2cm AO Peak GR.10.9mmHgAO Mean GR.6mmHg JAGJIT (VTI)2.10sw1TO P 1/2 [id number] Mitral Valve MV E Fzlisdhc53.4cm/sMV DECEL SOYT529kl MV A Vfwbbqxf533.0cm/sE/A Ratio0.8 Tricuspid Valve TR P. Wetefysn052tz/sRAP SONAPOPC3muXk TR Peak Gr.67pfVkTGOD39aeXh LEFT VENTRICLE The left ventricle is normal size. There is mild concentric left ventricular hypertrophy. The left ve ntricular systolic function is normal and the ejection fraction is within normal range. The Ejection Fraction is 50-55%. There is normal LV segmental wall motion. Transmitral Doppler flow pattern is Gra de I-abnormal relaxation pattern. RIGHT VENTRICLE The right ventricle is normal size. The right ventricular systolic function is normal. ATRIA The left atrium size is normal. The right atrium size is normal. The interatrial septum is intact wit h no evidence for an atrial septal defect or patent foramen ovale as noted on 2-D or Doppler imaging. AORTIC VALVE The aortic valve is not well visualized. Doppler and Color Flow revealed moderate aortic regurgitatio n. There is no significant aortic valvular stenosis. MITRAL VALVE The mitral valve is calcified but opens well. Mitral annular calcification is mild. There is no evide nce of mitral valve prolapse. There is no mitral valve stenosis. Doppler and Color-flow revealed mild mitral regurgitation. TRICUSPID VALVE The tricuspid valve is normal in structure and function. Doppler and Color Flow revealed trace to mil d tricuspid regurgitation. The PA pressure was estimated at 42 mmHg. There is no tricuspid valve sten osis. PULMONIC VALVE The pulmonic valve is not well visualized but appears to be functioniong normally by Doppler interrog ation. Doppler and Color Flow revealed no pulmonic valvular regurgitation. There is no pulmonic valvu lar stenosis. GREAT VESSELS The aortic root is normal in size. The ascending aorta is not well seen. The IVC is normal in size an d collapses >50% with inspiration. PERICARDIAL EFFUSION There is no evidence of significant pericardial effusion. Critical Notification Critical Value: No <Conclusion> The left ventricle is normal size. The left ventricular systolic function is normal and the ejection fraction is within normal range. The Ejection Fraction is 50-55%. There is mild concentric left ventricular hypertrophy. There is no significant aortic valvular stenosis. Doppler and Color Flow revealed moderate aortic regurgitation. Doppler and Color-flow revealed mild mitral regurgitation. Doppler and Color Flow revealed trace to mild tricuspid regurgitation. The PA pressure was estimated at 42 mmHg. Signed by : Tamie Werner MD Electronically Approved : 11/17/2018 14:15:26
[2018-11-17] MEDS ORDERED: ACETAMINOPHEN 325 MG TABLET PO PRN (14:45)
--- NOTE | 2018-11-17 15:23 | RAD ---
PA and lateral chest x-ray compared to similar study dated 11/14/2018 for shortness of air. FINDINGS: Bibasilar discoid atelectasis is redemonstrated. No new lung parenchymal abnormalities are identified. There is tortuosity of the aorta. Old compression fracture of the midthoracic spine is seen. IMPRESSION: 1. Stable chest x-ray with bibasilar discoid atelectasis. Electronically signed by: Olaf Cristina MD (11/17/2018 3:20 PM) [id number]
[2018-11-17 15:37] VITALS: BP 133/82
[2018-11-17] MEDS ORDERED: NITROFURANTOIN MONOHYD/M-CRYST 100 MG CAPSULE. PO SCH (16:00)
[2018-11-17 19:47] VITALS: BP 132/70
[2018-11-17] MEDS: ATORVASTATIN CALCIUM 20 MG TABLET PO SCH (21:29)
[2018-11-17] MEDS: QUEtiapine 50 MG TABLET. PO SCH (21:29)
[2018-11-17] MEDS: MELATONIN 3 MG TABLET PO SCH (21:29)
[2018-11-17] MEDS: LOSARTAN 50 MG TABLET. PO SCH (21:29)
[2018-11-17 23:05] VITALS: BP 106/60
--- NOTE | 2018-11-18 02:47 | PN ---
DATE: SUBJECTIVE: A 78-year-old female, not feeling well this morning with acute exacerbation of COPD. Said she is having trouble getting her air. The patient does have trouble breathing, although her oxygen saturation seems to be good. She says with minimal exertion, she is exhausted. The patient otherwise resting fairly comfortably and we will repeat another x-ray on her and make further evaluation once that has returned. Otherwise, we will continue breathing treatment. She is on prednisone and we will monitor her accordingly. OBJECTIVE: LUNGS: Diminished throughout, poor movement of air. CARDIOVASCULAR: Regular sinus rhythm. EXTREMITIES: No clubbing, cyanosis, or edema. NEUROLOGIC: Intact. IMPRESSION: Acute dyspnea. Will continued to be monitored, to get another chest x-ray, make further evaluation on her as indicated. JUANIS HERNANDEZ MD DR: SABINO/molly JOB#: [id number] / [id number]
[2018-11-18] MEDS: LEVOTHYROXINE 125 MCG TABLET PO SCH (05:24)
[2018-11-18] MEDS: IPRATRPIUM/ALBUTEROL 0.5/2.5MG 3 ML NEBU. NEB SCH (05:37)
[2018-11-18 05:41] VITALS: BP 126/70
[2018-11-18 06:16] LABS: BASO % 0 % (0-3); EOS % 1 % (0-3); HEMATOCRIT 30.6 % (36.0-47.0); HEMOGLOBIN 10.2 g/dL (12.0-15.5); LYMPH # 1.6 x10^3/uL (1.0-4.8); LYMPH % 22 % (24-48); MEAN CORPUSCULAR HEMOGLOBIN 32 pg (25-35); MEAN CORPUSCULAR HGB CONC 34 g/dL (31-37); MEAN CORPUSCULAR VOLUME 95 fL (79-100); MONO # 0.9 x10^3/uL (0.0-1.1); MONO % 12 % (0-9); NEUT # 4.8 x10^3uL (1.8-7.7); NEUT % 65 % (31-73); PLATELET COUNT 257 x10^3/uL (140-400); RED BLOOD COUNT 3.21 x10^6/uL (3.50-5.40); RED CELL DISTRIBUTION WIDTH 12.6 % (11.5-14.5); WHITE BLOOD COUNT 7.3 x10^3/uL (4.0-11.0)
[2018-11-18 06:23] LABS: CALCIUM 8.5 mg/dL (8.5-10.1); CREATININE 0.9 mg/dL (0.6-1.0); GFR 60.7; POTASSIUM 4.6 mmol/L (3.5-5.1)
[2018-11-18] MEDS: methylPREDNISolone SOD SUCC PF 40 MG/ML VIAL. IV SCH (08:18)
[2018-11-18] MEDS: RIVAROXABAN 10 MG TABLET. PO SCH (08:19)
[2018-11-18] MEDS: buPROPion XL 150 MG TAB.ER.24H PO SCH (08:19)
[2018-11-18] MEDS: CITALOPRAM 20 MG TABLET. PO SCH (08:19)
[2018-11-18] MEDS: CALCIUM CARB/VIT D3 500/200 TABLET PO SCH (08:19)
[2018-11-18] MEDS: ALPRAZolam 0.5 MG TABLET PO SCH (08:19)
[2018-11-18] MEDS: MULTIVITAMIN with MINERAL TABLET. PO SCH (08:19)
[2018-11-18] MEDS: CARVEDILOL 12.5 MG TABLET PO SCH (08:20)
[2018-11-18] MEDS: ACYCLOVIR 200 MG CAPSULE PO SCH (08:21)
[2018-11-18] MEDS: LACTOBACILLUS RHAMNOSUS GG 1 CAPSULE. PO SCH (08:21)
[2018-11-18] MEDS: SPIRONOLACTONE 25 MG TABLET PO SCH (08:21)
[2018-11-18] MEDS: PSYLLIUM SEED (WITH SUGAR) PACKET. PO SCH (08:35)
[2018-11-18 10:11] VITALS: BP 130/81
[2018-11-18] MEDS ORDERED: LACT1CAP19 PO (10:17)
[2018-11-18] MEDS ORDERED: CITA20TA9 PO (10:17)
[2018-11-18] MEDS ORDERED: ACET325T9 PO (10:17)
[2018-11-18] MEDS ORDERED: PRED5TAB PO (10:17)
[2018-11-18] MEDS ORDERED: ACYC-63 PO (10:17)
[2018-11-18] MEDS ORDERED: DOXY100C2 PO (10:17)
[2018-11-18] MEDS ORDERED: GUAI5SYR PO (10:18)
--- NOTE | 2018-11-18 14:13 | DS ---
DATE OF DISCHARGE: 11/18/2018 HOSPITAL COURSE: A 78-year-old female, who came in with acute exacerbation of chronic obstructive pulmonary disease with some type of respiratory infection on top of that. The patient made good progress overall, but still very weak, still requiring aggressive pulmonary toilet. She was placed on the skilled unit for continued PT, OT as well as respiratory therapy treatments. The patient had complications while on this medical floor. Her hemoglobin remained about 10.2 and 30, white count 7. Chemistries were basically stable including her renal function was normal at 0.9, 60 GFR, magnesium low at 1.7. Urine was negative and serology was negative for flu or group A strep. The patient is feeling very depressed and Dr. Soriano will see her for that. She had been started on Celexa, but she still perseverating or reverberating over old losses and she has had several here in the last 10 years. She will be on a heart healthy diet. Activity as tolerated and continued her MRAD. JUANIS HERNANDEZ MD DR: SABINO/molly JOB#: [id number] / [id number]
== END 2018-11-18 10:33 | disposition swing bed (61) | DRG 682 ==
LOC: ER 20:19 → 1 SOUTH 23:00
PROVIDERS: ADMIT Family Medicine; ATTEND Family Medicine
DX: N17.0 Acute kidney failure with tubular necrosis (principal); J18.9 Pneumonia, unspecified organism; R65.11 Systemic inflammatory response syndrome (SIRS) of non-infectious origin with acute organ dysfunction; J98.11 Atelectasis; E78.00 Pure hypercholesterolemia, unspecified; E78.5 Hyperlipidemia, unspecified; F41.0 Panic disorder [episodic paroxysmal anxiety]; I11.0 Hypertensive heart disease with heart failure; I50.9 Heart failure, unspecified; J43.9 Emphysema, unspecified; M19.90 Unspecified osteoarthritis, unspecified site; R09.02 Hypoxemia; Z82.49 Family history of ischemic heart disease and other diseases of the circulatory system; Z86.19 Personal history of other infectious and parasitic diseases; Z87.891 Personal history of nicotine dependence; F32.9 Major depressive disorder, single episode, unspecified; F41.9 Anxiety disorder, unspecified; Z88.8 Allergy status to other drugs, medicaments and biological substances; Z79.899 Other long term (current) drug therapy; Z98.51 Tubal ligation status
CPT/HCPCS: 36415; 71046; 71275; 80048; 80076; 81001; 82550; 83690; 83735; 83880; 84145; 84443; 84484; 85025; 85379; 85610; 85730; 87040; 87070; 87086; 87804; 87880; 93005; 93306; 94640; 96361; 96365; 96375; J0456; J0696; J2920; J2930; J3475; J7120; J7620; Q9967; 99285-25

== ENCOUNTER 2018-11-18 09:26 | Inpatient (IN) | payer MEDICARE, BC, OTHER ==
[~2018-11-18] VITALS: Ht 162.6 cm; Wt 89.1 kg
[~2018-11-18 09:26] MED LIST changes: +ALEN70TA3 PO; +BUPR150T11 PO; +FLUT12AE IH; +LEVO125T5 PO; +LIDO700A21 TD; -LIDO700A39 TD; +MELA1TAB11 PO
[2018-11-18] MEDS ORDERED: DOXY100C2 PO (10:17)
[2018-11-18] MEDS ORDERED: ACET325T9 PO (10:17)
[2018-11-18] MEDS ORDERED: ACYC-63 PO (10:17)
[2018-11-18] MEDS ORDERED: CITA20TA9 PO (10:17)
[2018-11-18] MEDS ORDERED: LACT1CAP19 PO (10:17)
[2018-11-18] MEDS ORDERED: PRED5TAB PO (10:17)
[2018-11-18] MEDS ORDERED: GUAI5SYR PO (10:18)
[2018-11-18] MEDS: IPRATRPIUM/ALBUTEROL 0.5/2.5MG 3 ML NEBU. NEB SCH ×3 (10:45→20:02)
[2018-11-18 11:07] VITALS: BP 127/72
[2018-11-18] MEDS ORDERED: guaiFENesin DM 200MG/20MG 10 ML SYRUP PO PRN (11:15)
[2018-11-18] MEDS ORDERED: ACETAMINOPHEN 325 MG TABLET PO PRN (11:15)
[2018-11-18] MEDS: ACYCLOVIR 200 MG CAPSULE PO SCH ×2 (14:10→20:45)
[2018-11-18] MEDS: ALPRAZolam 0.5 MG TABLET PO SCH ×2 (14:10→20:45)
[2018-11-18] MEDS: CARVEDILOL 12.5 MG TABLET PO SCH (17:07)
[2018-11-18] MEDS: CALCIUM CARB/VIT D3 500/200 TABLET PO SCH (17:07)
[2018-11-18 17:10] VITALS: BP 151/93
[2018-11-18] MEDS: ATORVASTATIN CALCIUM 20 MG TABLET PO SCH (20:44)
[2018-11-18] MEDS: QUEtiapine 50 MG TABLET. PO SCH (20:44)
[2018-11-18] MEDS: LACTOBACILLUS RHAMNOSUS GG 1 CAPSULE. PO SCH (20:44)
[2018-11-18] MEDS: MELATONIN 3 MG TABLET PO SCH (20:45)
[2018-11-18] MEDS: DOXYCYCLINE HYCLATE 100 MG TABLET PO SCH (20:45)
[2018-11-18] MEDS: LOSARTAN 50 MG TABLET. PO SCH (20:45)
--- NOTE | 2018-11-18 22:44 | PDOC ---
Exam Note: Josh Note: Please also refer to the separate dictated note~for this date of service dictated separately.~Patient seen individually. Discussed the patient with Nursing staff reviewed the chart.~Reviewed interim history and current functioning. Reviewed vital signs,~Labs/ Radiology~and current medications noted below. Continue current treatment with the changes noted in the dictated addendum note Assessment: Vital Signs: Vital Signs Date Time Temp Pulse Resp B/P (MAP) Pulse Ox O2 Delivery O2 Flow Rate FiO2 11/18/18 20:45 84 151/93 11/18/18 20:02 96 Nasal Cannula 2.0 11/18/18 17:10 99.1 20 Current Medications: Meds: Current Medications Acetaminophen (Tylenol) 650 mg PRN Q6HRS PRN PO PAIN / TEMP; Start 11/18/18 at 11:15 Atorvastatin Calcium (Lipitor) 20 mg QHS PO Last administered on 11/18/18at 20:44; Start 11/18/18 at 21:00 Citalopram Hydrobromide (CeleXA) 20 mg DAILY PO ; Start 11/19/18 at 09:00 Estradiol (Estrace) 1 jose QMTH VG ; Start 11/20/18 at 16:00 Guaifenesin (Robitussin Dm) 10 ml PRN Q6HRS PRN PO COUGH; Start 11/18/18 at 11:15 Albuterol/ Ipratropium (Duoneb) 3 ml RTQID NEB Last administered on 11/18/18at 20:02; Start 11/18/18 at 12:00 Lactobacillus Rhamnosus (Culturelle) 1 cap BID PO Last administered on 11/18/18at 20:44; Start 11/18/18 at 21:00 Prednisone (Prednisone) 5 mg DAILY PO ; Start 11/19/18 at 09:00 Rivaroxaban (Xarelto) 20 mg DAILY PO ; Start 11/19/18 at 09:00 Acyclovir (Zovirax) 200 mg [id number] PO Last administered on 11/18/18at 20:45; Start 11/18/18 at 14:00; Stop 11/25/18 at 13:59 Alendronate Sodium (Fosamax) 70 mg WEEKLY PO ; Start 11/22/18 at 09:00 Alprazolam (Xanax) 1 mg TID PO Last administered on 11/18/18 20:45; Start 11/18/18 at 14:00 Bupropion HCl (Wellbutrin Xl) 150 mg DAILY PO ; Start 11/19/18 at 09:00 Calcium/Vitamin D (Oscal D 500mg/ 200uts) 1 tab BIDWMEALS PO Last administered on 11/18/18 17:07; Start 11/18/18 at 17:00 Carvedilol (Coreg) 12.5 mg BIDWMEALS PO Last administered on 11/18/18at 17:07; Start 11/18/18 at 17:00 Doxycycline Hyclate (Vibra-Tab) 100 mg BID PO Last administered on 11/18/18 20:45; Start 11/18/18 at 21:00; Stop 11/25/18 at 20:59 Fluticasone Propionate (Flonase) 2 spray BID NS ; Start 11/19/18 at 09:00 Losartan Potassium (Cozaar) 100 mg QHS PO Last administered on 11/18/18 20:45; Start 11/18/18 at 21:00 Levothyroxine Sodium (Synthroid) 125 mcg DAILY06 PO ; Start 11/19/18 at 06:00 Melatonin 6 mg QHS PO Last administered on 11/18/18at 20:45; Start 11/18/18 at 21:00 Multivitamins/ Calcium (Thera-M Plus) 1 tab DAILY PO ; Start 11/19/18 at 09:00 Nitrofurantoin Macrocrystals (Macrobid) 100 mg QMTH PO ; Start 11/20/18 at 16:00 Fish Oil (Fish Oil) 1,000 mg DAILY PO ; Start 11/19/18 at 09:00 Psyllium Hydrophilic Mucilloid (Metamucil) 1 pkt DAILY PO ; Start 11/19/18 at 09:00 Quetiapine Fumarate (SEROquel) 50 mg QHS PO Last administered on 11/18/18at 20:44; Start 11/18/18 at 21:00 Spironolactone (Aldactone) 12.5 mg DAILY PO ; Start 11/19/18 at 09:00 Non-Formulary Medication (Tiotropium Br/ Olodaterol HCl (Stiolto Respimat Inhal [place])) 2 puff DAILY IH ; Start 11/19/18 at 09:00; Stop 11/19/18 at 09:00; Status DC Active Scripts Active Prednisone 5 Mg Tablet 5 Mg PO DAILY take 7 tablets daily and decrease by 1 tablet every third day until gone Doxycycline Hyclate 100 Mg Capsule 1 Cap PO BID Culturelle (Lactobacillus Rhamnosus Gg) 1 Each Cap.sprink 1 Cap PO BID 14 Days Celexa (Citalopram Hydrobromide) 20 Mg Tablet 20 Mg PO DAILY Tylenol (Acetaminophen) 325 Mg Tablet 650 Mg PO PRN Q6HRS PRN 30 Days Acyclovir 200 Mg Capsule 200 Mg PO [id number] 7 Days Xarelto (Rivaroxaban) 10 Mg Tablet 20 Mg PO DAILY Duoneb 0.5-3(2.5) Mg/3 Ml (Albuterol/Ipratropium) 3 Ml Ampul.neb 3 Ml NEB RTQID Guaifenesin Dm Syrup (Guaifenesin/Dextromethorphan) 5 Ml Syrup 10 Ml PO PRN Q6HRS PRN 30 Days Reported Bupropion Hcl Sr (Bupropion Hcl) 150 Mg Tablet.er 1 Tab PO DAILY LAST DOSE GIVEN: DATE: TODAY TIME: AM NEXT DOSE DUE: DATE: TOMORR TIME: AM Estrace (Estradiol) 42.5 Gm Cream.appl 1 Gm VG TWICE WEEKLY LAST DOSE GIVEN: NOT GIVEN THIS ADMISSION NEXT DOSE DUE: PER HOME SCHEDULE Flovent 110MCG Hfa (Fluticasone Propionate) 12 Gm Aer.w.adap 2 Puff IH BID SUBSTITUTED FOR BREATHING TREATMENTS NEXT DOSE DUE: DATE: TOM TIME: AM Fosamax (Alendronate Sodium) 70 Mg Tablet 1 Tab PO QSA LAST DOSE GIVEN: DATE: SATURDAY TIME: AM NEXT DOSE DUE: DATE: SATURDAY TIME: AM Levothyroxine Sodium 125 Mcg Tablet 1 Tab PO DAILY06 LAST DOSE GIVEN: DATE: TODAY TIME: BEFORE BREAKFAST NEXT DOSE DUE: DATE: TOMORR TIME: BEFORE BREAKFAST Melatonin 5 Mg Tablet (Melatonin/Pyridoxine Hcl (B6)) 1 Each Tablet 1 Each PO HS LAST DOSE GIVEN: DATE: YESTER TIME: AT BEDTIME NEXT DOSE DUE: DATE: TODAY TIME: AT BEDTIME [place] 3 1,000 Mg Softgel ([place]-3 Fatty Acids/Fish Oil) 1 Each Capsule 1 Each PO DAILY LAST DOSE GIVEN: DATE: TODAY TIME: AM NEXT DOSE DUE: DATE: TIME: AM Metamucil (Psyllium Husk) 0.52 Gm Capsule 0.52 Gm PO DAILY LAST DOSE GIVEN: REFUSED NEXT DOSE DUE: DATE: TIME: AM Stiolto Respimat Inhal [place] (Tiotropium Br/Olodaterol HCl) 4 Gm Mist.inhal 2 Puff IH DAILY SUBSTITUTED FOR BREATHING TREATMENTS NEXT DOSE DUE: DATE: RESTART TOMORROW TIME: AM Seroquel (Quetiapine Fumarate) 50 Mg Tablet 1 Tab PO QHS LAST DOSE GIVEN: DATE: YESTER TIME: AT BEDTIME NEXT DOSE DUE: DATE: TODAY TIME: AT BEDTIME Avapro (Irbesartan) 300 Mg Tablet 300 Mg PO HS LAST DOSE GIVEN: DATE: YES TIME: AT BEDTIME NEXT DOSE DUE: DATE: TODAY TIME: AT BEDTIME Lipitor (Atorvastatin Calcium) 20 Mg Tablet 20 Mg PO QHS LAST DOSE GIVEN: DATE: YES TIME: AT BEDTIME NEXT DOSE DUE: DATE: TODAY TIME: AT BEDTIME Macrodantin (Nitrofurantoin Macrocrystal) 50 Mg Capsule 50 Mg PO TWICE WEEKLY LAST DOSE GIVEN: DATE: SATURDAY TIME: 4 PM NEXT DOSE DUE: DATE: SATURDAY TIME: 4 PM Aldactone (Spironolactone) 25 Mg Tablet 12.5 Mg PO DAILY LAST DOSE GIVEN: DATE: TODAY TIME: AM NEXT DOSE DUE: DATE: TIME: AM Multi Vitamin Daily (Multivitamin) 1 Each Tablet 1 Each PO DAILY LAST DOSE GIVEN: DATE: TIME: AM NEXT DOSE DUE: DATE: TIME: AM El-Citrate Plus Vitamin D Tab (Calcium Citrate/Vitamin D2) 1 Each Tablet 1 Each PO BID LAST DOSE GIVEN: DATE: TODAY TIME: WITH BREAKFAST NEXT DOSE DUE: DATE: TODAY TIME: WITH DINNER Xanax (Alprazolam) 1 Mg Tablet 1 Tab PO TID LAST DOSE GIVEN: DATE: TODAY TIME: AM NEXT DOSE DUE: DATE: TODAY TIME: AFTERNOON Coreg (Carvedilol) 12.5 Mg Tablet 1 Tab PO BIDWMEALS LAST DOSE GIVEN: DATE: TIME: WITH BREAKFAST NEXT DOSE DUE: DATE: TODAY TIME: WITH DINNER I have reviewed the current psychotropics carefully including drug interactions. Risk benefit ratio favors no change other than as noted in my dictated progress note. Diagnosis: Problems: (1) Dizzy (2) Pneumonia (3) COPD (chronic obstructive pulmonary disease) with emphysema (4) Pulmonary embolism (5) COPD with acute exacerbation LIEN LIU MD Nov 18, 2018 22:44
[2018-11-19] MEDS: IPRATRPIUM/ALBUTEROL 0.5/2.5MG 3 ML NEBU. NEB SCH ×4 (04:30→19:40)
[2018-11-19] MEDS: LEVOTHYROXINE 125 MCG TABLET PO SCH (05:45)
[2018-11-19 05:54] VITALS: BP 109/68
[2018-11-19] MEDS: CARVEDILOL 12.5 MG TABLET PO SCH ×2 (08:44→17:26)
[2018-11-19] MEDS: MULTIVITAMIN with MINERAL TABLET. PO SCH (08:44)
[2018-11-19] MEDS: CITALOPRAM 20 MG TABLET. PO SCH (08:44)
[2018-11-19] MEDS: CALCIUM CARB/VIT D3 500/200 TABLET PO SCH ×2 (08:44→17:26)
[2018-11-19] MEDS: predniSONE 5 MG TABLET PO SCH (08:44)
[2018-11-19] MEDS: OMEGA-3 FATTY ACIDS/FISH OIL 1,000 MG CAPSULE. PO SCH (08:44)
[2018-11-19] MEDS: LACTOBACILLUS RHAMNOSUS GG 1 CAPSULE. PO SCH ×2 (08:45→20:30)
[2018-11-19] MEDS: ACYCLOVIR 200 MG CAPSULE PO SCH ×3 (08:45→20:30)
[2018-11-19] MEDS: SPIRONOLACTONE 25 MG TABLET PO SCH (08:45)
[2018-11-19] MEDS: buPROPion XL 150 MG TAB.ER.24H PO SCH (08:46)
[2018-11-19] MEDS: DOXYCYCLINE HYCLATE 100 MG TABLET PO SCH ×2 (08:46→20:31)
[2018-11-19] MEDS: ALPRAZolam 0.5 MG TABLET PO SCH ×3 (08:46→20:30)
[2018-11-19] MEDS: RIVAROXABAN 10 MG TABLET. PO SCH (08:46)
[2018-11-19] MEDS: PSYLLIUM SEED (WITH SUGAR) PACKET. PO SCH (08:46)
[2018-11-19] MEDS: FLUTICASONE 50MCG/NASAL SPRAY 16GM BOTTLE. NS SCH ×2 (08:52→20:29)
[2018-11-19] MEDS ORDERED: NON FORMULARY ITEM (Tiotropium Br/Olodaterol HCl (Stiolto Respimat Inhal Spray) 2 PUFF) IH SCH (09:00)
[2018-11-19 18:08] VITALS: BP 127/80
--- NOTE | 2018-11-19 18:30 | PDOC ---
Exam Note: Josh Note: Please also refer to the separate dictated note~for this date of service dictated separately.~Patient seen individually. Discussed the patient with Nursing staff reviewed the chart.~Reviewed interim history and current functioning. Reviewed vital signs,~Labs/ Radiology~and current medications noted below. Continue current treatment with the changes noted in the dictated addendum note Assessment: Vital Signs: Vital Signs Date Time Temp Pulse Resp B/P (MAP) Pulse Ox O2 Delivery O2 Flow Rate FiO2 11/19/18 18:08 98.1 64 20 127/80 (96) 92 Nasal Cannula 11/19/18 17:19 2.0 I&O Intake and Output 11/19/18 07:00 Intake Total 1510 ml Balance 1510 ml Intake Oral 1510 ml # Voids 3 Current Medications: Meds: Current Medications Acetaminophen (Tylenol) 650 mg PRN Q6HRS PRN PO PAIN / TEMP; Start 11/18/18 at 11:15 Atorvastatin Calcium (Lipitor) 20 mg QHS PO Last administered on 11/18/18at 20:44; Start 11/18/18 at 21:00 Citalopram Hydrobromide (CeleXA) 20 mg DAILY PO Last administered on 11/19/18at 08:44; Start 11/19/18 at 09:00 Estradiol (Estrace) 1 jose QMTH VG ; Start 11/20/18 at 16:00 Guaifenesin (Robitussin Dm) 10 ml PRN Q6HRS PRN PO COUGH; Start 11/18/18 at 11:15 Albuterol/ Ipratropium (Duoneb) 3 ml RTQID NEB Last administered on 11/19/18at 17:19; Start 11/18/18 at 12:00 Lactobacillus Rhamnosus (Culturelle) 1 cap BID PO Last administered on 11/19/18at 08:45; Start 11/18/18 at 21:00 Prednisone (Prednisone) 5 mg DAILY PO Last administered on 11/19/18at 08:44; Start 11/19/18 at 09:00 Rivaroxaban (Xarelto) 20 mg DAILY PO Last administered on 11/19/18at 08:46; Start 11/19/18 at 09:00 Acyclovir (Zovirax) 200 mg [id number] PO Last administered on 11/19/18at 14:46; Start 11/18/18 at 14:00; Stop 11/25/18 at 13:59 Alendronate Sodium (Fosamax) 70 mg WEEKLY PO ; Start 11/22/18 at 09:00 Alprazolam (Xanax) 1 mg TID PO Last administered on 11/19/18 14:45; Start 11/18/18 at 14:00 Bupropion HCl (Wellbutrin Xl) 150 mg DAILY PO Last administered on 11/19/18 08:46; Start 11/19/18 at 09:00 Calcium/Vitamin D (Oscal D 500mg/ 200uts) 1 tab BIDWMEALS PO Last administered on 11/19/18 17:26; Start 11/18/18 at 17:00 Carvedilol (Coreg) 12.5 mg BIDWMEALS PO Last administered on 11/19/18 17:26; Start 11/18/18 at 17:00 Doxycycline Hyclate (Vibra-Tab) 100 mg BID PO Last administered on 11/19/18 08:46; Start 11/18/18 at 21:00; Stop 11/25/18 at 20:59 Fluticasone Propionate (Flonase) 2 spray BID NS Last administered on 11/19/18 08:52; Start 11/19/18 at 09:00 Losartan Potassium (Cozaar) 100 mg QHS PO Last administered on 11/18/18 20:45; Start 11/18/18 at 21:00 Levothyroxine Sodium (Synthroid) 125 mcg DAILY06 PO Last administered on 11/19/18 05:45; Start 11/19/18 at 06:00 Melatonin 6 mg QHS PO Last administered on 11/18/18 20:45; Start 11/18/18 at 21:00 Multivitamins/ Calcium (Thera-M Plus) 1 tab DAILY PO Last administered on 11/19/18 08:44; Start 11/19/18 at 09:00 Nitrofurantoin Macrocrystals (Macrobid) 100 mg QMTH PO ; Start 11/20/18 at 16:00 Fish Oil (Fish Oil) 1,000 mg DAILY PO Last administered on 11/19/18 08:44; Start 11/19/18 at 09:00 Psyllium Hydrophilic Mucilloid (Metamucil) 1 pkt DAILY PO ; Start 11/19/18 at 09:00 Quetiapine Fumarate (SEROquel) 50 mg QHS PO Last administered on 11/18/18at 20:44; Start 11/18/18 at 21:00 Spironolactone (Aldactone) 12.5 mg DAILY PO Last administered on 11/19/18at 08:45; Start 11/19/18 at 09:00 Non-Formulary Medication (Tiotropium Br/ Olodaterol HCl (Stiolto Respimat Inhal [place])) 2 puff DAILY IH ; Start 11/19/18 at 09:00; Stop 11/19/18 at 09:00; Status DC Active Scripts Active Prednisone 5 Mg Tablet 5 Mg PO DAILY take 7 tablets daily and decrease by 1 tablet every third day until gone Doxycycline Hyclate 100 Mg Capsule 1 Cap PO BID Culturelle (Lactobacillus Rhamnosus Gg) 1 Each Cap.sprink 1 Cap PO BID 14 Days Celexa (Citalopram Hydrobromide) 20 Mg Tablet 20 Mg PO DAILY Tylenol (Acetaminophen) 325 Mg Tablet 650 Mg PO PRN Q6HRS PRN 30 Days Acyclovir 200 Mg Capsule 200 Mg PO [id number] 7 Days Xarelto (Rivaroxaban) 10 Mg Tablet 20 Mg PO DAILY Duoneb 0.5-3(2.5) Mg/3 Ml (Albuterol/Ipratropium) 3 Ml Ampul.neb 3 Ml NEB RTQID Guaifenesin Dm Syrup (Guaifenesin/Dextromethorphan) 5 Ml Syrup 10 Ml PO PRN Q6HRS PRN 30 Days Reported Bupropion Hcl Sr (Bupropion Hcl) 150 Mg Tablet.er 1 Tab PO DAILY LAST DOSE GIVEN: DATE: TODAY TIME: AM NEXT DOSE DUE: DATE: TOMORROW TIME: AM Estrace (Estradiol) 42.5 Gm Cream.appl 1 Gm VG TWICE WEEKLY LAST DOSE GIVEN: NOT GIVEN THIS ADMISSION NEXT DOSE DUE: PER HOME SCHEDULE Flovent 110MCG Hfa (Fluticasone Propionate) 12 Gm Aer.w.adap 2 Puff IH BID SUBSTITUTED FOR BREATHING TREATMENTS NEXT DOSE DUE: DATE: TOMORROW TIME: AM Fosamax (Alendronate Sodium) 70 Mg Tablet 1 Tab PO QSA LAST DOSE GIVEN: DATE: SATURDAY TIME: AM NEXT DOSE DUE: DATE: SATURDAY TIME: AM Levothyroxine Sodium 125 Mcg Tablet 1 Tab PO DAILY06 LAST DOSE GIVEN: DATE: TODAY TIME: BEFORE BREAKFAST NEXT DOSE DUE: DATE: TOM TIME: BEFORE BREAKFAST Melatonin 5 Mg Tablet (Melatonin/Pyridoxine Hcl (B6)) 1 Each Tablet 1 Each PO HS LAST DOSE GIVEN: DATE: TIME: AT BEDTIME NEXT DOSE DUE: DATE: TODAY TIME: AT BEDTIME [place] 3 1,000 Mg Softgel ([place]-3 Fatty Acids/Fish Oil) 1 Each Capsule 1 Each PO DAILY LAST DOSE GIVEN: DATE: TODAY TIME: AM NEXT DOSE DUE: DATE: TOMORR TIME: AM Metamucil (Psyllium Husk) 0.52 Gm Capsule 0.52 Gm PO DAILY LAST DOSE GIVEN: REFUSED NEXT DOSE DUE: DATE: TIME: AM Stiolto Respimat Inhal [place] (Tiotropium Br/Olodaterol HCl) 4 Gm Mist.inhal 2 Puff IH DAILY SUBSTITUTED FOR BREATHING TREATMENTS NEXT DOSE DUE: DATE: RESTART TOMORR TIME: AM Seroquel (Quetiapine Fumarate) 50 Mg Tablet 1 Tab PO QHS LAST DOSE GIVEN: DATE: YES TIME: AT BEDTIME NEXT DOSE DUE: DATE: TODAY TIME: AT BEDTIME Avapro (Irbesartan) 300 Mg Tablet 300 Mg PO HS LAST DOSE GIVEN: DATE: TIME: AT BEDTIME NEXT DOSE DUE: DATE: TODAY TIME: AT BEDTIME Lipitor (Atorvastatin Calcium) 20 Mg Tablet 20 Mg PO QHS LAST DOSE GIVEN: DATE: TIME: AT BEDTIME NEXT DOSE DUE: DATE: TODAY TIME: AT BEDTIME Macrodantin (Nitrofurantoin Macrocrystal) 50 Mg Capsule 50 Mg PO TWICE WEEKLY LAST DOSE GIVEN: DATE: SATURDAY TIME: 4 PM NEXT DOSE DUE: DATE: SATURDAY TIME: 4 PM Aldactone (Spironolactone) 25 Mg Tablet 12.5 Mg PO DAILY LAST DOSE GIVEN: DATE: TODAY TIME: AM NEXT DOSE DUE: DATE: TOMORR TIME: AM Multi Vitamin Daily (Multivitamin) 1 Each Tablet 1 Each PO DAILY LAST DOSE GIVEN: DATE: TIME: AM NEXT DOSE DUE: DATE: TIME: AM El-Citrate Plus Vitamin D Tab (Calcium Citrate/Vitamin D2) 1 Each Tablet 1 Each PO BID LAST DOSE GIVEN: DATE: TODAY TIME: WITH BREAKFAST NEXT DOSE DUE: DATE: TODAY TIME: WITH DINNER Xanax (Alprazolam) 1 Mg Tablet 1 Tab PO TID LAST DOSE GIVEN: DATE: TODAY TIME: AM NEXT DOSE DUE: DATE: TODAY TIME: AFTERNOON Coreg (Carvedilol) 12.5 Mg Tablet 1 Tab PO BIDWMEALS LAST DOSE GIVEN: DATE: TODAY TIME: WITH BREAKFAST NEXT DOSE DUE: DATE: TODAY TIME: WITH DINNER I have reviewed the current psychotropics carefully including drug interactions. Risk benefit ratio favors no change other than as noted in my dictated progress note. Diagnosis: Problems: (1) Anxiety disorder (2) Major depressive disorder, recurrent episode (3) COPD (chronic obstructive pulmonary disease) with emphysema LIEN LIU MD Nov 19, 2018 18:30
[2018-11-19] MEDS: MELATONIN 3 MG TABLET PO SCH (20:30)
[2018-11-19] MEDS: LOSARTAN 50 MG TABLET. PO SCH (20:31)
[2018-11-19] MEDS: QUEtiapine 50 MG TABLET. PO SCH (20:31)
[2018-11-19] MEDS: ATORVASTATIN CALCIUM 20 MG TABLET PO SCH (20:31)
--- NOTE | 2018-11-19 21:01 | CONS ---
DATE OF CONSULTATION: 11/18/2018 PSYCHIATRIC CONSULTATION This late entry 11/18/2018 covers elements not covered in my initial note. I met with the patient in the evening of 11/18/2018 in her room and her daughter was present during my evaluation of the patient at the patient's request. IDENTIFYING DATA: The patient is a 78-year-old female referred by Dr. Wilson for her worsening symptoms of depression and anxiety. The patient was seen individually, discussed with nursing staff, reviewed the chart. CHIEF COMPLAINT: "Yes, I have been depressed. Dr. Wilson started me on Celexa and Wellbutrin. I take Xanax for anxiety." HISTORY OF PRESENT ILLNESS: The patient relates multiple losses over the past 8 years including of various family members. She has a longstanding history of depression, anxiety and had been on Prozac for 20 years and was treated by Dr. Chris oMmin and later Dr. Ada Choe, psychiatrist, but has not seen a psychiatrist in the past several years. She has also been on Zoloft and recently started on Celexa, currently 20 mg a day and Wellbutrin-XL 150 mg a day and takes Xanax 1 mg 3 times a day as needed for anxiety. PAST PSYCHIATRIC HISTORY: As above. MEDICAL HISTORY: Positive for hypothyroidism; hypertension, on losartan. Rest diagnoses per her medical records. DRUG ALLERGIES: CLAVULANIC ACID, FENOFIBRATE, MORPHINE, SIMVASTATIN, SULFAMETHOXAZOLE, TRIMETHOPRIM. FAMILY HISTORY: Noncontributory. SOCIAL HISTORY: The patient has been about 2 years. The patient lives by herself, but her daughters help out with grocery shopping and taking care of the home. No alcohol or drug abuse history noted. MENTAL STATUS EXAMINATION: The patient is seen individually at length in her room. She is reasonably oriented and seemed to remember me from prior a visit in the distant past. She is anxious, somewhat depressed, but denies psychotic symptoms, suicidal or homicidal ideation. She talked about having panic attacks in social situations in the past, getting very emotional. Intellect average. Insight good. Judgment intact. No psychotic symptoms, suicidal or homicidal ideation. IMPRESSION: Major depressive disorder, recurrent; adjustment disorder with depressed mood and anxiety; anxiety disorder, unspecified. Rest as above. RECOMMENDATIONS: From a psychiatric standpoint, the patient seems to be tolerating her current Celexa and Wellbutrin together with Xanax p.r.n. for anxiety. I would suggest we continue these unchanged for now and then reassess depending on her response to this. I have addressed this with her at length and answered her questions. Dr. Wilson, thank you for the opportunity to participate in your patient's care. We will follow with you. LIEN LIU MD DR: WILDER/molly JOB#: [id number] / [id number]
[2018-11-20] MEDS: IPRATRPIUM/ALBUTEROL 0.5/2.5MG 3 ML NEBU. NEB SCH ×4 (04:36→19:10)
[2018-11-20] MEDS: LEVOTHYROXINE 125 MCG TABLET PO SCH (05:28)
[2018-11-20 05:46] VITALS: BP 116/73
[2018-11-20] MEDS: buPROPion XL 150 MG TAB.ER.24H PO SCH (07:51)
[2018-11-20] MEDS: ACYCLOVIR 200 MG CAPSULE PO SCH ×3 (07:51→21:24)
[2018-11-20] MEDS: OMEGA-3 FATTY ACIDS/FISH OIL 1,000 MG CAPSULE. PO SCH (07:51)
[2018-11-20] MEDS: DOXYCYCLINE HYCLATE 100 MG TABLET PO SCH ×2 (07:52→21:24)
[2018-11-20] MEDS: CARVEDILOL 12.5 MG TABLET PO SCH ×2 (07:52→16:30)
[2018-11-20] MEDS: predniSONE 5 MG TABLET PO SCH (07:52)
[2018-11-20] MEDS: RIVAROXABAN 10 MG TABLET. PO SCH (07:52)
[2018-11-20] MEDS: ALPRAZolam 0.5 MG TABLET PO SCH ×3 (07:53→21:24)
[2018-11-20] MEDS: SPIRONOLACTONE 25 MG TABLET PO SCH (07:53)
[2018-11-20] MEDS: CITALOPRAM 20 MG TABLET. PO SCH (07:53)
[2018-11-20] MEDS: CALCIUM CARB/VIT D3 500/200 TABLET PO SCH ×2 (07:53→21:23)
[2018-11-20] MEDS: MULTIVITAMIN with MINERAL TABLET. PO SCH (07:53)
[2018-11-20] MEDS: LACTOBACILLUS RHAMNOSUS GG 1 CAPSULE. PO SCH ×2 (07:53→21:24)
[2018-11-20] MEDS: PSYLLIUM SEED (WITH SUGAR) PACKET. PO SCH (07:54)
[2018-11-20] MEDS: FLUTICASONE 50MCG/NASAL SPRAY 16GM BOTTLE. NS SCH ×2 (09:00→21:25)
[2018-11-20] MEDS: NITROFURANTOIN MONOHYD/M-CRYST 100 MG CAPSULE. PO SCH (16:20)
[2018-11-20] MEDS: ESTRADIOL 0.01% VAGINAL CREAM 42.5GM TUBE. VG SCH (16:33)
[2018-11-20 18:28] VITALS: BP 122/74
[2018-11-20] MEDS: MELATONIN 3 MG TABLET PO SCH (21:24)
[2018-11-20] MEDS: QUEtiapine 50 MG TABLET. PO SCH (21:24)
[2018-11-20] MEDS: LOSARTAN 50 MG TABLET. PO SCH (21:24)
[2018-11-20] MEDS: ATORVASTATIN CALCIUM 20 MG TABLET PO SCH (21:24)
[2018-11-21] MEDS: IPRATRPIUM/ALBUTEROL 0.5/2.5MG 3 ML NEBU. NEB SCH ×4 (04:31→20:19)
[2018-11-21] MEDS: LEVOTHYROXINE 125 MCG TABLET PO SCH (05:32)
[2018-11-21 06:15] VITALS: BP 104/66
[2018-11-21 07:37] VITALS: BP 127/73
[2018-11-21] MEDS: CALCIUM CARB/VIT D3 500/200 TABLET PO SCH ×2 (07:52→17:46)
[2018-11-21] MEDS: ACYCLOVIR 200 MG CAPSULE PO SCH ×3 (07:53→21:17)
[2018-11-21] MEDS: OMEGA-3 FATTY ACIDS/FISH OIL 1,000 MG CAPSULE. PO SCH (07:53)
[2018-11-21] MEDS: CARVEDILOL 12.5 MG TABLET PO SCH ×2 (07:53→17:49)
[2018-11-21] MEDS: FLUTICASONE 50MCG/NASAL SPRAY 16GM BOTTLE. NS SCH ×2 (07:53→21:21)
[2018-11-21] MEDS: SPIRONOLACTONE 25 MG TABLET PO SCH (07:54)
[2018-11-21] MEDS: RIVAROXABAN 10 MG TABLET. PO SCH (07:54)
[2018-11-21] MEDS: predniSONE 5 MG TABLET PO SCH (07:55)
[2018-11-21] MEDS: MULTIVITAMIN with MINERAL TABLET. PO SCH (07:55)
[2018-11-21] MEDS: CITALOPRAM 20 MG TABLET. PO SCH (07:55)
[2018-11-21] MEDS: LACTOBACILLUS RHAMNOSUS GG 1 CAPSULE. PO SCH ×2 (07:55→21:17)
[2018-11-21] MEDS: DOXYCYCLINE HYCLATE 100 MG TABLET PO SCH ×2 (07:55→21:17)
[2018-11-21] MEDS: PSYLLIUM SEED (WITH SUGAR) PACKET. PO SCH (07:56)
[2018-11-21] MEDS: buPROPion XL 150 MG TAB.ER.24H PO SCH (07:56)
[2018-11-21] MEDS: ALPRAZolam 0.5 MG TABLET PO SCH ×3 (07:56→21:16)
--- NOTE | 2018-11-21 12:42 | PN ---
DATE: 11/19/2018 PSYCHIATRIC PROGRESS NOTE This late entry 11/19/2018 covers elements not covered in my initial note 11/19/2018. SUBJECTIVE: I met with the patient in the evening of 11/19/2018. The patient's daughter was initially in the room, but left shortly into our visit. Overall, the patient seems to be tolerating her Celexa and Wellbutrin. Sleep and appetite are fair, and she denies any other side effects and no GI side effects are noted. She still admits to feeling somewhat anxious, depressed at times, but a little better than before. REVIEW OF SYSTEMS: Positive for some tiredness. No CV, , pulmonary, eye, ENT system symptoms on review. MENTAL STATUS EXAM: Reasonably oriented. Speech is coherent, abstraction fair, computation reasonable, language function intact, attention span short. Mood and affect still dysphoric, anxious, but improved. No suicidal or homicidal ideation. LABORATORY DATA: Reviewed. IMPRESSION: Unchanged from initial note. Major depressive disorder, recurrent, in partial remission; anxiety disorder, unspecified. PLAN: No change from initial note. LIEN LIU MD DR: WILDER/molly JOB#: [id number] / [id number]
[2018-11-21 17:58] VITALS: BP 101/70
[2018-11-21] MEDS: QUEtiapine 50 MG TABLET. PO SCH (21:17)
[2018-11-21] MEDS: ATORVASTATIN CALCIUM 20 MG TABLET PO SCH (21:21)
[2018-11-21] MEDS: MELATONIN 3 MG TABLET PO SCH (21:21)
[2018-11-21] MEDS: LOSARTAN 50 MG TABLET. PO SCH (21:21)
[2018-11-21 21:29] VITALS: BP 127/80
--- NOTE | 2018-11-21 22:22 | PDOC ---
Exam Note: Josh Note: Please also refer to the separate dictated note~for this date of service dictated separately.~Patient seen individually. Discussed the patient with Nursing staff reviewed the chart.~Reviewed interim history and current functioning. Reviewed vital signs,~Labs/ Radiology~and current medications noted below. Continue current treatment with the changes noted in the dictated addendum note Assessment: Vital Signs: Vital Signs Date Time Temp Pulse Resp B/P (MAP) Pulse Ox O2 Delivery O2 Flow Rate FiO2 11/21/18 21:29 98.2 73 18 127/80 (96) 91 Nasal Cannula 2.0 I&O Intake and Output 11/21/18 07:00 Intake Total 1020 ml Output Total 0 ml Balance 1020 ml Intake Oral 1020 ml Output Urine Total 0 ml # Voids 4 Current Medications: Meds: Current Medications Acetaminophen (Tylenol) 650 mg PRN Q6HRS PRN PO PAIN / TEMP; Start 11/18/18 at 11:15 Atorvastatin Calcium (Lipitor) 20 mg QHS PO Last administered on 11/21/18 21 :21; Start 11/18/18 at 21:00 Citalopram Hydrobromide (CeleXA) 20 mg DAILY PO Last administered on 11/21/18 07:55; Start 11/19/18 at 09:00 Estradiol (Estrace) 1 jose QMTH VG Last administered on 11/20/18at 16:33; Start 11/20/18 at 16:00 Guaifenesin (Robitussin Dm) 10 ml PRN Q6HRS PRN PO COUGH; Start 11/18/18 at 11:15 Albuterol/ Ipratropium (Duoneb) 3 ml RTQID NEB Last administered on 11/21/18 20:19; Start 11/18/18 at 12:00 Lactobacillus Rhamnosus (Culturelle) 1 cap BID PO Last administered on 11/21/18 21:17; Start 11/18/18 at 21:00 Prednisone (Prednisone) 5 mg DAILY PO Last administered on 11/21/18 07:55; Start 11/19/18 at 09:00 Rivaroxaban (Xarelto) 20 mg DAILY PO Last administered on 11/21/18 07:54; Start 11/19/18 at 09:00 Acyclovir (Zovirax) 200 mg [id number] PO Last administered on 11/21/18 21:17; Start 11/18/18 at 14:00; Stop 11/25/18 at 13:59 Alendronate Sodium (Fosamax) 70 mg WEEKLY PO ; Start 11/22/18 at 09:00 Alprazolam (Xanax) 1 mg TID PO Last administered on 11/21/18 21:16; Start 11/18/18 at 14:00 Bupropion HCl (Wellbutrin Xl) 150 mg DAILY PO Last administered on 11/21/18 07:56; Start 11/19/18 at 09:00 Calcium/Vitamin D (Oscal D 500mg/ 200uts) 1 tab BIDWMEALS PO Last administered on 11/21/18 17:46; Start 11/18/18 at 17:00 Carvedilol (Coreg) 12.5 mg BIDWMEALS PO Last administered on 11/21/18 17:49; Start 11/18/18 at 17:00 Doxycycline Hyclate (Vibra-Tab) 100 mg BID PO Last administered on 11/21/18 21:17; Start 11/18/18 at 21:00; Stop 11/25/18 at 20:59 Fluticasone Propionate (Flonase) 2 spray BID NS Last administered on 11/21/18 21:21; Start 11/19/18 at 09:00 Losartan Potassium (Cozaar) 100 mg QHS PO Last administered on 11/21/18 21:21; Start 11/18/18 at 21:00 Levothyroxine Sodium (Synthroid) 125 mcg DAILY06 PO Last administered on 11/21/18 05:32; Start 11/19/18 at 06:00 Melatonin 6 mg QHS PO Last administered on 11/21/18 21:21; Start 11/18/18 at 21:00 Multivitamins/ Calcium (Thera-M Plus) 1 tab DAILY PO Last administered on 11/21/18 07:55; Start 11/19/18 at 09:00 Nitrofurantoin Macrocrystals (Macrobid) 100 mg QMTH PO Last administered on 11/20/18 16:20; Start 11/20/18 at 16:00 Fish Oil (Fish Oil) 1,000 mg DAILY PO Last administered on 6/7/19at 07:53; Start 11/19/18 at 09:00 Psyllium Hydrophilic Mucilloid (Metamucil) 1 pkt DAILY PO ; Start 11/19/18 at 09:00 Quetiapine Fumarate (SEROquel) 50 mg QHS PO Last administered on 11/21/18at 21:17; Start 11/18/18 at 21:00 Spironolactone (Aldactone) 12.5 mg DAILY PO Last administered on 11/21/18at 07:54; Start 11/19/18 at 09:00 Non-Formulary Medication (Tiotropium Br/ Olodaterol HCl (Stiolto Respimat Inhal [place])) 2 puff DAILY IH ; Start 11/19/18 at 09:00; Stop 11/19/18 at 09:00; Status DC Active Scripts Active Prednisone 5 Mg Tablet 5 Mg PO DAILY take 7 tablets daily and decrease by 1 tablet every third day until gone Doxycycline Hyclate 100 Mg Capsule 1 Cap PO BID Culturelle (Lactobacillus Rhamnosus Gg) 1 Each Cap.sprink 1 Cap PO BID 14 Days Celexa (Citalopram Hydrobromide) 20 Mg Tablet 20 Mg PO DAILY Tylenol (Acetaminophen) 325 Mg Tablet 650 Mg PO PRN Q6HRS PRN 30 Days Acyclovir 200 Mg Capsule 200 Mg PO [id number] Days Xarelto (Rivaroxaban) 10 Mg Tablet 20 Mg PO DAILY Duoneb 0.5-3(2.5) Mg/3 Ml (Albuterol/Ipratropium) 3 Ml Ampul.neb 3 Ml NEB RTQID Guaifenesin Dm Syrup (Guaifenesin/Dextromethorphan) 5 Ml Syrup 10 Ml PO PRN Q6HRS PRN 30 Days Reported Bupropion Hcl Sr (Bupropion Hcl) 150 Mg Tablet.er 1 Tab PO DAILY LAST DOSE GIVEN: DATE: TODAY TIME: AM NEXT DOSE DUE: DATE: TOMORROW TIME: AM Estrace (Estradiol) 42.5 Gm Cream.appl 1 Gm VG TWICE WEEKLY LAST DOSE GIVEN: NOT GIVEN THIS ADMISSION NEXT DOSE DUE: PER HOME SCHEDULE Flovent 110MCG Hfa (Fluticasone Propionate) 12 Gm Aer.w.adap 2 Puff IH BID SUBSTITUTED FOR BREATHING TREATMENTS NEXT DOSE DUE: DATE: TOMORROW TIME: AM Fosamax (Alendronate Sodium) 70 Mg Tablet 1 Tab PO QSA LAST DOSE GIVEN: DATE: SATURDAY TIME: AM NEXT DOSE DUE: DATE: SATURDAY TIME: AM Levothyroxine Sodium 125 Mcg Tablet 1 Tab PO DAILY06 LAST DOSE GIVEN: DATE: TODAY TIME: BEFORE BREAKFAST NEXT DOSE DUE: DATE: TOMORR TIME: BEFORE BREAKFAST Melatonin 5 Mg Tablet (Melatonin/Pyridoxine Hcl (B6)) 1 Each Tablet 1 Each PO HS LAST DOSE GIVEN: DATE: YES TIME: AT BEDTIME NEXT DOSE DUE: DATE: TODAY TIME: AT BEDTIME Agar 3 1,000 Mg Softgel (Agar-3 Fatty Acids/Fish Oil) 1 Each Capsule 1 Each PO DAILY LAST DOSE GIVEN: DATE: TODAY TIME: AM NEXT DOSE DUE: DATE: TOM TIME: AM Metamucil (Psyllium Husk) 0.52 Gm Capsule 0.52 Gm PO DAILY LAST DOSE GIVEN: REFUSED NEXT DOSE DUE: DATE: TIME: AM Stiolto Respimat Inhal [place] (Tiotropium Br/Olodaterol HCl) 4 Gm Mist.inhal 2 Puff IH DAILY SUBSTITUTED FOR BREATHING TREATMENTS NEXT DOSE DUE: DATE: RESTART TOMORR TIME: AM Seroquel (Quetiapine Fumarate) 50 Mg Tablet 1 Tab PO QHS LAST DOSE GIVEN: DATE: TIME: AT BEDTIME NEXT DOSE DUE: DATE: TODAY TIME: AT BEDTIME Avapro (Irbesartan) 300 Mg Tablet 300 Mg PO HS LAST DOSE GIVEN: DATE: TIME: AT BEDTIME NEXT DOSE DUE: DATE: TODAY TIME: AT BEDTIME Lipitor (Atorvastatin Calcium) 20 Mg Tablet 20 Mg PO QHS LAST DOSE GIVEN: DATE: TIME: AT BEDTIME NEXT DOSE DUE: DATE: TODAY TIME: AT BEDTIME Macrodantin (Nitrofurantoin Macrocrystal) 50 Mg Capsule 50 Mg PO TWICE WEEKLY LAST DOSE GIVEN: DATE: SATURDAY TIME: 4 PM NEXT DOSE DUE: DATE: SATURDAY TIME: 4 PM Aldactone (Spironolactone) 25 Mg Tablet 12.5 Mg PO DAILY LAST DOSE GIVEN: DATE: TODAY TIME: AM NEXT DOSE DUE: DATE: TOMORR TIME: AM Multi Vitamin Daily (Multivitamin) 1 Each Tablet 1 Each PO DAILY LAST DOSE GIVEN: DATE: TODAY TIME: AM NEXT DOSE DUE: DATE: TOMORROW TIME: AM El-Citrate Plus Vitamin D Tab (Calcium Citrate/Vitamin D2) 1 Each Tablet 1 Each PO BID LAST DOSE GIVEN: DATE: TODAY TIME: WITH BREAKFAST NEXT DOSE DUE: DATE: TODAY TIME: WITH DINNER Xanax (Alprazolam) 1 Mg Tablet 1 Tab PO TID LAST DOSE GIVEN: DATE: TODAY TIME: AM NEXT DOSE DUE: DATE: TODAY TIME: AFTERNOON Coreg (Carvedilol) 12.5 Mg Tablet 1 Tab PO BIDWMEALS LAST DOSE GIVEN: DATE: TODAY TIME: WITH BREAKFAST NEXT DOSE DUE: DATE: TODAY TIME: WITH DINNER I have reviewed the current psychotropics carefully including drug interactions. Risk benefit ratio favors no change other than as noted in my dictated progress note. Diagnosis: Problems: (1) Pulmonary embolism (2) Pneumonia (3) Dizzy (4) COPD with acute exacerbation (5) COPD (chronic obstructive pulmonary disease) with emphysema (6) Anxiety disorder (7) Major depressive disorder, recurrent episode LIEN LIU MD Nov 21, 2018 22:22
--- NOTE | 2018-11-22 01:50 | PN ---
DATE: 11/21/2018 SUBJECTIVE: The patient was seen on rounds evening of 11/21/2018. Discussed with nursing staff, reviewed the chart. I also met with the patient's daughter in her room with the patient. The patient states she has had some sedation with daytime Celexa and wants to change it to the night. We will go ahead and do this. Otherwise, she denies any side effects. She is still somewhat depressed, anxious, but less so than before and was pleased that she had a very good physical therapy session on 11/21/2018. REVIEW OF SYSTEMS: No CV, , pulmonary, eye system symptoms on review. She is somewhat weak. MENTAL STATUS EXAM: Reasonably oriented. Speech is coherent, abstraction fair, computation somewhat impaired, language function intact. Mood and affect is improved, still depressed, anxious, but better than before. No suicidal ideation. LABORATORY DATA: Reviewed. IMPRESSION: Unchanged from initial note. PLAN: No change from initial note. LIEN LIU MD DR: WILDER/molly JOB#: [id number] / [id number]
[2018-11-22] MEDS: IPRATRPIUM/ALBUTEROL 0.5/2.5MG 3 ML NEBU. NEB SCH ×4 (05:24→20:51)
[2018-11-22 05:25] VITALS: BP 95/62
[2018-11-22] MEDS: LEVOTHYROXINE 125 MCG TABLET PO SCH (05:37)
[2018-11-22] MEDS: CARVEDILOL 12.5 MG TABLET PO SCH ×3 (08:00→17:00)
[2018-11-22] MEDS: buPROPion XL 150 MG TAB.ER.24H PO SCH (09:00)
[2018-11-22] MEDS: PSYLLIUM SEED (WITH SUGAR) PACKET. PO SCH (09:00)
[2018-11-22] MEDS ORDERED: ALENDRONATE SODIUM 35 MG TABLET PO SCH (09:00)
[2018-11-22] MEDS: OMEGA-3 FATTY ACIDS/FISH OIL 1,000 MG CAPSULE. PO SCH (09:31)
[2018-11-22] MEDS: predniSONE 5 MG TABLET PO SCH (09:31)
[2018-11-22] MEDS: LACTOBACILLUS RHAMNOSUS GG 1 CAPSULE. PO SCH ×2 (09:31→20:48)
[2018-11-22] MEDS: SPIRONOLACTONE 25 MG TABLET PO SCH (09:31)
[2018-11-22] MEDS: RIVAROXABAN 10 MG TABLET. PO SCH (09:31)
[2018-11-22] MEDS: DOXYCYCLINE HYCLATE 100 MG TABLET PO SCH ×2 (09:32→20:45)
[2018-11-22] MEDS: CALCIUM CARB/VIT D3 500/200 TABLET PO SCH ×2 (09:32→18:09)
[2018-11-22] MEDS: ACYCLOVIR 200 MG CAPSULE PO SCH ×3 (09:32→20:44)
[2018-11-22] MEDS: ALPRAZolam 0.5 MG TABLET PO SCH ×3 (09:32→20:45)
[2018-11-22] MEDS: MULTIVITAMIN with MINERAL TABLET. PO SCH (09:32)
[2018-11-22] MEDS: FLUTICASONE 50MCG/NASAL SPRAY 16GM BOTTLE. NS SCH ×2 (09:39→20:48)
[2018-11-22 10:47] VITALS: BP 119/73
[2018-11-22 18:13] VITALS: BP 95/65
--- NOTE | 2018-11-22 20:39 | PDOC ---
Exam Note: Josh Note: Please also refer to the separate dictated note~for this date of service dictated separately.~Patient seen individually. Discussed the patient with Nursing staff reviewed the chart.~Reviewed interim history and current functioning. Reviewed vital signs,~Labs/ Radiology~and current medications noted below. Continue current treatment with the changes noted in the dictated addendum note Assessment: Vital Signs: Vital Signs Date Time Temp Pulse Resp B/P (MAP) Pulse Ox O2 Delivery O2 Flow Rate FiO2 11/22/18 19:31 Nasal Cannula 2.0 11/22/18 18:13 98.6 81 20 95/65 (75 93 I&O Intake and Output 11/22/18 07:00 Intake Total 1460 ml Balance 1460 ml Intake Oral 1460 ml # Voids 3 # Bowel Movements 1 Current Medications: Meds: Current Medications Acetaminophen (Tylenol) 650 mg PRN Q6HRS PRN PO PAIN / TEMP; Start 11/18/18 at 11:15 Atorvastatin Calcium (Lipitor) 20 mg QHS PO Last administered on 11/21/18 21:2 1; Start 11/18/18 at 21:00 Citalopram Hydrobromide (CeleXA) 20 mg DAILY PO Last administered on 11/21/18 07:55; Start 11/19/18 at 09:00; Stop 11/21/18 at 23:35; Status DC Estradiol (Estrace) 1 jose QMTH VG Last administered on 11/20/18 16:33; Start 11/20/18 at 16:00 Guaifenesin (Robitussin Dm) 10 ml PRN Q6HRS PRN PO COUGH; Start 11/18/18 at 11:15 Albuterol/ Ipratropium (Duoneb) 3 ml RTQID NEB Last administered on 11/22/18 15:25; Start 11/18/18 at 12:00 Lactobacillus Rhamnosus (Culturelle) 1 cap BID PO Last administered on 11/22/18 09:31; Start 11/18/18 at 21:00 Prednisone (Prednisone) 5 mg DAILY PO Last administered on 11/22/18 09:31; Start 11/19/18 at 09:00 Rivaroxaban (Xarelto) 20 mg DAILY PO Last administered on 11/22/18 09:31; Start 11/19/18 at 09:00 Acyclovir (Zovirax) 200 mg [id number] PO Last administered on 11/22/18 13:18; Start 11/18/18 at 14:00; Stop 11/25/18 at 13:59 Alendronate Sodium (Fosamax) 70 mg WEEKLY PO ; Start 11/22/18 at 09:00 Alprazolam (Xanax) 1 mg TID PO Last administered on 11/22/18 13:18; Start 11/18/18 at 14:00 Bupropion HCl (Wellbutrin Xl) 150 mg DAILY PO Last administered on 11/22/18 09:00; Start 11/19/18 at 09:00 Calcium/Vitamin D (Oscal D 500mg/ 200uts) 1 tab BIDWMEALS PO Last administered on 11/22/18 18:09; Start 11/18/18 at 17:00 Carvedilol (Coreg) 12.5 mg BIDWMEALS PO Last administered on 11/22/18 13:18; Start 11/18/18 at 17:00 Doxycycline Hyclate (Vibra-Tab) 100 mg BID PO Last administered on 11/22/18 09:32; Start 11/18/18 at 21:00; Stop 11/25/18 at 20:59 Fluticasone Propionate (Flonase) 2 spray BID NS Last administered on 11/22/18 09:39; Start 11/19/18 at 09:00; Stop 11/22/18 at 14:31; Status DC Losartan Potassium (Cozaar) 100 mg QHS PO Last administered on 11/21/18 21:21; Start 11/18/18 at 21:00 Levothyroxine Sodium (Synthroid) 125 mcg DAILY06 PO Last administered on 11/22/18 05:37; Start 11/19/18 at 06:00 Melatonin 6 mg QHS PO Last administered on 11/21/18 21:21; Start 11/18/18 at 21:00 Multivitamins/ Calcium (Thera-M Plus) 1 tab DAILY PO Last administered on 11/22/18 09:32; Start 11/19/18 at 09:00 Nitrofurantoin Macrocrystals (Macrobid) 100 mg QMTH PO Last administered on 6/6/19at 16:20; Start 11/20/18 at 16:00 Fish Oil (Fish Oil) 1,000 mg DAILY PO Last administered on 11/22/18at 09:31; Start 11/19/18 at 09:00 Psyllium Hydrophilic Mucilloid (Metamucil) 1 pkt DAILY PO ; Start 11/19/18 at 09:00 Quetiapine Fumarate (SEROquel) 50 mg QHS PO Last administered on 11/21/18at 21:17; Start 11/18/18 at 21:00 Spironolactone (Aldactone) 12.5 mg DAILY PO Last administered on 11/22/18at 09:31; Start 11/19/18 at 09:00 Non-Formulary Medication (Tiotropium Br/ Olodaterol HCl (Stiolto Respimat Inhal [place])) 2 puff DAILY IH ; Start 11/19/18 at 09:00; Stop 11/19/18 at 09:00; Status DC Citalopram Hydrobromide (CeleXA) 20 mg HS PO ; Start 11/22/18 at 21:00 Fluticasone Propionate (Flonase) 2 spray BID NS ; Start 11/22/18 at 14:31 Active Scripts Active Prednisone 5 Mg Tablet 5 Mg PO DAILY take 7 tablets daily and decrease by 1 tablet every third day until gone Doxycycline Hyclate 100 Mg Capsule 1 Cap PO BID Culturelle (Lactobacillus Rhamnosus Gg) 1 Each Cap.sprink 1 Cap PO BID 14 Days Celexa (Citalopram Hydrobromide) 20 Mg Tablet 20 Mg PO DAILY Tylenol (Acetaminophen) 325 Mg Tablet 650 Mg PO PRN Q6HRS PRN 30 Days Acyclovir 200 Mg Capsule 200 Mg PO [id number] 7 Days Xarelto (Rivaroxaban) 10 Mg Tablet 20 Mg PO DAILY Duoneb 0.5-3(2.5) Mg/3 Ml (Albuterol/Ipratropium) 3 Ml Ampul.neb 3 Ml NEB RTQID Guaifenesin Dm Syrup (Guaifenesin/Dextromethorphan) 5 Ml Syrup 10 Ml PO PRN Q6HRS PRN 30 Days Reported Bupropion Hcl Sr (Bupropion Hcl) 150 Mg Tablet.er 1 Tab PO DAILY LAST DOSE GIVEN: DATE: TODAY TIME: AM NEXT DOSE DUE: DATE: TOMORROW TIME: AM Estrace (Estradiol) 42.5 Gm Cream.appl 1 Gm VG TWICE WEEKLY LAST DOSE GIVEN: NOT GIVEN THIS ADMISSION NEXT DOSE DUE: PER HOME SCHEDULE Flovent 110MCG Hfa (Fluticasone Propionate) 12 Gm Aer.w.adap 2 Puff IH BID SUBSTITUTED FOR BREATHING TREATMENTS NEXT DOSE DUE: DATE: TIME: AM Fosamax (Alendronate Sodium) 70 Mg Tablet 1 Tab PO QSA LAST DOSE GIVEN: DATE: SATURDAY TIME: AM NEXT DOSE DUE: DATE: SATURDAY TIME: AM Levothyroxine Sodium 125 Mcg Tablet 1 Tab PO DAILY06 LAST DOSE GIVEN: DATE: TODAY TIME: BEFORE BREAKFAST NEXT DOSE DUE: DATE: TIME: BEFORE BREAKFAST Melatonin 5 Mg Tablet (Melatonin/Pyridoxine Hcl (B6)) 1 Each Tablet 1 Each PO HS LAST DOSE GIVEN: DATE: TIME: AT BEDTIME NEXT DOSE DUE: DATE: TODAY TIME: AT BEDTIME Point 3 1,000 Mg Softgel (Point-3 Fatty Acids/Fish Oil) 1 Each Capsule 1 Each PO DAILY LAST DOSE GIVEN: DATE: TODAY TIME: AM NEXT DOSE DUE: DATE: TIME: AM Metamucil (Psyllium Husk) 0.52 Gm Capsule 0.52 Gm PO DAILY LAST DOSE GIVEN: REFUSED NEXT DOSE DUE: DATE: TIME: AM Stiolto Respimat Inhal [place] (Tiotropium Br/Olodaterol HCl) 4 Gm Mist.inhal 2 Puff IH DAILY SUBSTITUTED FOR BREATHING TREATMENTS NEXT DOSE DUE: DATE: RESTART TOM TIME: AM Seroquel (Quetiapine Fumarate) 50 Mg Tablet 1 Tab PO QHS LAST DOSE GIVEN: DATE: YES TIME: AT BEDTIME NEXT DOSE DUE: DATE: TODAY TIME: AT BEDTIME Avapro (Irbesartan) 300 Mg Tablet 300 Mg PO HS LAST DOSE GIVEN: DATE: YES TIME: AT BEDTIME NEXT DOSE DUE: DATE: TODAY TIME: AT BEDTIME Lipitor (Atorvastatin Calcium) 20 Mg Tablet 20 Mg PO QHS LAST DOSE GIVEN: DATE: YES TIME: AT BEDTIME NEXT DOSE DUE: DATE: TODAY TIME: AT BEDTIME Macrodantin (Nitrofurantoin Macrocrystal) 50 Mg Capsule 50 Mg PO TWICE WEEKLY LAST DOSE GIVEN: DATE: SATURDAY TIME: 4 PM NEXT DOSE DUE: DATE: SATURDAY TIME: 4 PM Aldactone (Spironolactone) 25 Mg Tablet 12.5 Mg PO DAILY LAST DOSE GIVEN: DATE: TODAY TIME: AM NEXT DOSE DUE: DATE: TOMORROW TIME: AM Multi Vitamin Daily (Multivitamin) 1 Each Tablet 1 Each PO DAILY LAST DOSE GIVEN: DATE: TIME: AM NEXT DOSE DUE: DATE: TOMORROW TIME: AM El-Citrate Plus Vitamin D Tab (Calcium Citrate/Vitamin D2) 1 Each Tablet 1 Each PO BID LAST DOSE GIVEN: DATE: TIME: WITH BREAKFAST NEXT DOSE DUE: DATE: TODAY TIME: WITH DINNER Xanax (Alprazolam) 1 Mg Tablet 1 Tab PO TID LAST DOSE GIVEN: DATE: TIME: AM NEXT DOSE DUE: DATE: TIME: AFTERNOON Coreg (Carvedilol) 12.5 Mg Tablet 1 Tab PO BIDWMEALS LAST DOSE GIVEN: DATE: TIME: WITH BREAKFAST NEXT DOSE DUE: DATE: TODAY TIME: WITH DINNER I have reviewed the current psychotropics carefully including drug interactions. Risk benefit ratio favors no change other than as noted in my dictated progress note. Diagnosis: Problems: (1) Pulmonary embolism (2) Pneumonia (3) Dizzy (4) COPD with acute exacerbation (5) COPD (chronic obstructive pulmonary disease) with emphysema (6) Anxiety disorder (7) Major depressive disorder, recurrent episode LIEN LIU MD Nov 22, 2018 20:39
[2018-11-22] MEDS: MELATONIN 3 MG TABLET PO SCH (20:44)
[2018-11-22] MEDS: QUEtiapine 50 MG TABLET. PO SCH (20:45)
[2018-11-22] MEDS: CITALOPRAM 20 MG TABLET. PO SCH (20:45)
[2018-11-22] MEDS: ATORVASTATIN CALCIUM 20 MG TABLET PO SCH (20:45)
[2018-11-22] MEDS: LOSARTAN 50 MG TABLET. PO SCH (20:47)
[2018-11-23] MEDS: IPRATRPIUM/ALBUTEROL 0.5/2.5MG 3 ML NEBU. NEB SCH ×4 (05:57→21:25)
[2018-11-23] MEDS: LEVOTHYROXINE 125 MCG TABLET PO SCH (05:58)
[2018-11-23 06:09] VITALS: BP 108/73
[2018-11-23] MEDS: SPIRONOLACTONE 25 MG TABLET PO SCH (08:31)
[2018-11-23] MEDS: MULTIVITAMIN with MINERAL TABLET. PO SCH (08:31)
[2018-11-23] MEDS: OMEGA-3 FATTY ACIDS/FISH OIL 1,000 MG CAPSULE. PO SCH (08:32)
[2018-11-23] MEDS: ALPRAZolam 0.5 MG TABLET PO SCH ×3 (08:32→21:17)
[2018-11-23] MEDS: CALCIUM CARB/VIT D3 500/200 TABLET PO SCH ×2 (08:32→17:12)
[2018-11-23] MEDS: predniSONE 5 MG TABLET PO SCH (08:32)
[2018-11-23] MEDS: CARVEDILOL 12.5 MG TABLET PO SCH ×2 (08:32→17:12)
[2018-11-23] MEDS: RIVAROXABAN 10 MG TABLET. PO SCH (08:32)
[2018-11-23] MEDS: DOXYCYCLINE HYCLATE 100 MG TABLET PO SCH ×2 (08:33→21:17)
[2018-11-23] MEDS: LACTOBACILLUS RHAMNOSUS GG 1 CAPSULE. PO SCH ×2 (08:33→21:17)
[2018-11-23] MEDS: ACYCLOVIR 200 MG CAPSULE PO SCH ×3 (08:33→21:17)
[2018-11-23] MEDS: buPROPion XL 150 MG TAB.ER.24H PO SCH (08:33)
[2018-11-23] MEDS: PSYLLIUM SEED (WITH SUGAR) PACKET. PO SCH (08:34)
[2018-11-23] MEDS: FLUTICASONE 50MCG/NASAL SPRAY 16GM BOTTLE. NS SCH ×2 (09:00→21:19)
--- NOTE | 2018-11-23 12:54 | PN ---
DATE: SUBJECTIVE: She is resting fairly comfortably, making fairly good progress with her breathing. The patient is alert and oriented, says she feels a little bit better overall and we are making progress. PHYSICAL EXAMINATION: VITAL SIGNS: Blood pressure 110/70, respiratory rate 20, pulse 80, and afebrile. GENERAL: The patient is alert and oriented x 3. Speech fluent, spontaneous, appropriate. Cranial nerves 2-12 are grossly intact. LUNGS: Diminished, but clear than they have been. CARDIOVASCULAR: Regular sinus rhythm, S1, S2, without murmur, rub, thrill, or extra heart sounds. The patient otherwise seemed to be making good progress overall and will be continued to be monitored accordingly. IMPRESSION: Acute exacerbation of chronic obstructive pulmonary disease with hypoxia. PLAN: As above. Continue with aggressive pulmonary toilet. JUANIS HERNANDEZ MD DR: SABINO/molly JOB#: [id number] / [id number]
[2018-11-23 17:38] VITALS: BP 110/73
--- NOTE | 2018-11-23 19:03 | PDOC ---
Exam Note: Josh Note: Please also refer to the separate dictated note~for this date of service dictated separately.~Patient seen individually. Discussed the patient with Nursing staff reviewed the chart.~Reviewed interim history and current functioning. Reviewed vital signs,~Labs/ Radiology~and current medications noted below. Continue current treatment with the changes noted in the dictated addendum note Assessment: Vital Signs: Vital Signs Date Time Temp Pulse Resp B/P (MAP) Pulse Ox O2 Delivery O2 Flow Rate FiO2 11/23/18 17:38 98.3 88 20 110/73 (85) 91 Nasal Cannula 2.0 I&O Intake and Output 11/23/18 07:00 Intake Total 2190 ml Balance 2190 ml Intake Oral 2190 ml # Voids 2 Current Medications: Meds: Current Medications Acetaminophen (Tylenol) 650 mg PRN Q6HRS PRN PO PAIN / TEMP; Start 11/18/18 at 1 1:15 Atorvastatin Calcium (Lipitor) 20 mg QHS PO Last administered on 11/22/18at 20:45; Start 11/18/18 at 21:00 Citalopram Hydrobromide (CeleXA) 20 mg DAILY PO Last administered on 11/21/18at 07:55; Start 11/19/18 at 09:00; Stop 11/21/18 at 23:35; Status DC Estradiol (Estrace) 1 jose QMTH VG Last administered on 11/20/18at 16:33; Start 11/20/18 at 16:00 Guaifenesin (Robitussin Dm) 10 ml PRN Q6HRS PRN PO COUGH; Start 11/18/18 at 11:15 Albuterol/ Ipratropium (Duoneb) 3 ml RTQID NEB Last administered on 11/23/18at 15:19; Start 11/18/18 at 12:00 Lactobacillus Rhamnosus (Culturelle) 1 cap BID PO Last administered on 11/23/18 08:33; Start 11/18/18 at 21:00 Prednisone (Prednisone) 5 mg DAILY PO Last administered on 11/23/18at 08:32; Start 11/19/18 at 09:00 Rivaroxaban (Xarelto) 20 mg DAILY PO Last administered on 11/23/18at 08:32; Start 11/19/18 at 09:00 Acyclovir (Zovirax) 200 mg [id number] PO Last administered on 11/23/18 14:52; Start 11/18/18 at 14:00; Stop 11/25/18 at 13:59 Alendronate Sodium (Fosamax) 70 mg WEEKLY PO ; Start 11/22/18 at 09:00 Alprazolam (Xanax) 1 mg TID PO Last administered on 11/23/18 14:52; Start 11/18/18 at 14:00 Bupropion HCl (Wellbutrin Xl) 150 mg DAILY PO Last administered on 11/23/18 08:33; Start 11/19/18 at 09:00 Calcium/Vitamin D (Oscal D 500mg/ 200uts) 1 tab BIDWMEALS PO Last administered on 11/23/18 17:12; Start 11/18/18 at 17:00 Carvedilol (Coreg) 12.5 mg BIDWMEALS PO Last administered on 11/23/18 17:12; Start 11/18/18 at 17:00 Doxycycline Hyclate (Vibra-Tab) 100 mg BID PO Last administered on 11/23/18 08:33; Start 11/18/18 at 21:00; Stop 11/25/18 at 20:59 Fluticasone Propionate (Flonase) 2 spray BID NS Last administered on 11/22/18 09:39; Start 11/19/18 at 09:00; Stop 11/22/18 at 14:31; Status DC Losartan Potassium (Cozaar) 100 mg QHS PO Last administered on 11/21/18 21:21; Start 11/18/18 at 21:00 Levothyroxine Sodium (Synthroid) 125 mcg DAILY06 PO Last administered on 11/23/18 05:58; Start 11/19/18 at 06:00 Melatonin 6 mg QHS PO Last administered on 11/22/18 20:44; Start 11/18/18 at 21:00 Multivitamins/ Calcium (Thera-M Plus) 1 tab DAILY PO Last administered on 11/23/18 08:31; Start 11/19/18 at 09:00 Nitrofurantoin Macrocrystals (Macrobid) 100 mg QMTH PO Last administered on 11/20/18 16:20; Start 11/20/18 at 16:00 Fish Oil (Fish Oil) 1,000 mg DAILY PO Last administered on 11/23/18at 08:32; Start 11/19/18 at 09:00 Psyllium Hydrophilic Mucilloid (Metamucil) 1 pkt DAILY PO ; Start 11/19/18 at 09:00 Quetiapine Fumarate (SEROquel) 50 mg QHS PO Last administered on 11/22/18at 20:45; Start 11/18/18 at 21:00 Spironolactone (Aldactone) 12.5 mg DAILY PO Last administered on 11/23/18at 08:31; Start 11/19/18 at 09:00 Non-Formulary Medication (Tiotropium Br/ Olodaterol HCl (Stiolto Respimat Inhal [place])) 2 puff DAILY IH ; Start 11/19/18 at 09:00; Stop 11/19/18 at 09:00; Status DC Citalopram Hydrobromide (CeleXA) 20 mg HS PO Last administered on 11/22/18at 20:45; Start 11/22/18 at 21:00 Fluticasone Propionate (Flonase) 2 spray BID NS Last administered on 11/23/18at 09:00; Start 11/22/18 at 14:31 Active Scripts Active Prednisone 5 Mg Tablet 5 Mg PO DAILY take 7 tablets daily and decrease by 1 tablet every third day until gone Doxycycline Hyclate 100 Mg Capsule 1 Cap PO BID Culturelle (Lactobacillus Rhamnosus Gg) 1 Each Cap.sprink 1 Cap PO BID 14 Days Celexa (Citalopram Hydrobromide) 20 Mg Tablet 20 Mg PO DAILY Tylenol (Acetaminophen) 325 Mg Tablet 650 Mg PO PRN Q6HRS PRN 30 Days Acyclovir 200 Mg Capsule 200 Mg PO [id number] 7 Days Xarelto (Rivaroxaban) 10 Mg Tablet 20 Mg PO DAILY Duoneb 0.5-3(2.5) Mg/3 Ml (Albuterol/Ipratropium) 3 Ml Ampul.neb 3 Ml NEB RTQID Guaifenesin Dm Syrup (Guaifenesin/Dextromethorphan) 5 Ml Syrup 10 Ml PO PRN Q6HRS PRN 30 Days Reported Bupropion Hcl Sr (Bupropion Hcl) 150 Mg Tablet.er 1 Tab PO DAILY LAST DOSE GIVEN: DATE: TODAY TIME: AM NEXT DOSE DUE: DATE: TOMORROW TIME: AM Estrace (Estradiol) 42.5 Gm Cream.appl 1 Gm VG TWICE WEEKLY LAST DOSE GIVEN: NOT GIVEN THIS ADMISSION NEXT DOSE DUE: PER HOME SCHEDULE Flovent 110MCG Hfa (Fluticasone Propionate) 12 Gm Aer.w.adap 2 Puff IH BID SUBSTITUTED FOR BREATHING TREATMENTS NEXT DOSE DUE: DATE: TIME: AM Fosamax (Alendronate Sodium) 70 Mg Tablet 1 Tab PO QSA LAST DOSE GIVEN: DATE: SATURDAY TIME: AM NEXT DOSE DUE: DATE: SATURDAY TIME: AM Levothyroxine Sodium 125 Mcg Tablet 1 Tab PO DAILY06 LAST DOSE GIVEN: DATE: TODAY TIME: BEFORE BREAKFAST NEXT DOSE DUE: DATE: TIME: BEFORE BREAKFAST Melatonin 5 Mg Tablet (Melatonin/Pyridoxine Hcl (B6)) 1 Each Tablet 1 Each PO HS LAST DOSE GIVEN: DATE: YES TIME: AT BEDTIME NEXT DOSE DUE: DATE: TODAY TIME: AT BEDTIME [place] 3 1,000 Mg Softgel ([place]-3 Fatty Acids/Fish Oil) 1 Each Capsule 1 Each PO DAILY LAST DOSE GIVEN: DATE: TODAY TIME: AM NEXT DOSE DUE: DATE: TOM TIME: AM Metamucil (Psyllium Husk) 0.52 Gm Capsule 0.52 Gm PO DAILY LAST DOSE GIVEN: REFUSED NEXT DOSE DUE: DATE: TIME: AM Stiolto Respimat Inhal [place] (Tiotropium Br/Olodaterol HCl) 4 Gm Mist.inhal 2 Puff IH DAILY SUBSTITUTED FOR BREATHING TREATMENTS NEXT DOSE DUE: DATE: RESTART TOMORROW TIME: AM Seroquel (Quetiapine Fumarate) 50 Mg Tablet 1 Tab PO QHS LAST DOSE GIVEN: DATE: YES TIME: AT BEDTIME NEXT DOSE DUE: DATE: TODAY TIME: AT BEDTIME Avapro (Irbesartan) 300 Mg Tablet 300 Mg PO HS LAST DOSE GIVEN: DATE: YES TIME: AT BEDTIME NEXT DOSE DUE: DATE: TODAY TIME: AT BEDTIME Lipitor (Atorvastatin Calcium) 20 Mg Tablet 20 Mg PO QHS LAST DOSE GIVEN: DATE: YES TIME: AT BEDTIME NEXT DOSE DUE: DATE: TODAY TIME: AT BEDTIME Macrodantin (Nitrofurantoin Macrocrystal) 50 Mg Capsule 50 Mg PO TWICE WEEKLY LAST DOSE GIVEN: DATE: SATURDAY TIME: 4 PM NEXT DOSE DUE: DATE: SATURDAY TIME: 4 PM Aldactone (Spironolactone) 25 Mg Tablet 12.5 Mg PO DAILY LAST DOSE GIVEN: DATE: TODAY TIME: AM NEXT DOSE DUE: DATE: TOMORROW TIME: AM Multi Vitamin Daily (Multivitamin) 1 Each Tablet 1 Each PO DAILY LAST DOSE GIVEN: DATE: TIME: AM NEXT DOSE DUE: DATE: TOMORR TIME: AM El-Citrate Plus Vitamin D Tab (Calcium Citrate/Vitamin D2) 1 Each Tablet 1 Each PO BID LAST DOSE GIVEN: DATE: TODAY TIME: WITH BREAKFAST NEXT DOSE DUE: DATE: TODAY TIME: WITH DINNER Xanax (Alprazolam) 1 Mg Tablet 1 Tab PO TID LAST DOSE GIVEN: DATE: TIME: AM NEXT DOSE DUE: DATE: TIME: AFTERNOON Coreg (Carvedilol) 12.5 Mg Tablet 1 Tab PO BIDWMEALS LAST DOSE GIVEN: DATE: TIME: WITH BREAKFAST NEXT DOSE DUE: DATE: TODAY TIME: WITH DINNER I have reviewed the current psychotropics carefully including drug interactions. Risk benefit ratio favors no change other than as noted in my dictated progress note. Diagnosis: Problems: (1) Major depressive disorder, recurrent episode (2) Anxiety disorder LIEN LIU MD Nov 23, 2018 19:03
[2018-11-23] MEDS: MELATONIN 3 MG TABLET PO SCH (21:17)
[2018-11-23] MEDS: ATORVASTATIN CALCIUM 20 MG TABLET PO SCH (21:17)
[2018-11-23] MEDS: CITALOPRAM 20 MG TABLET. PO SCH (21:17)
[2018-11-23] MEDS: LOSARTAN 50 MG TABLET. PO SCH (21:18)
[2018-11-23] MEDS: QUEtiapine 50 MG TABLET. PO SCH (21:30)
[2018-11-24] MEDS: IPRATRPIUM/ALBUTEROL 0.5/2.5MG 3 ML NEBU. NEB SCH ×4 (05:57→20:10)
[2018-11-24 06:04] VITALS: BP 85/56
[2018-11-24] MEDS: LEVOTHYROXINE 125 MCG TABLET PO SCH (06:07)
[2018-11-24] MEDS: CARVEDILOL 12.5 MG TABLET PO SCH ×3 (08:00→17:24)
[2018-11-24] MEDS: buPROPion XL 150 MG TAB.ER.24H PO SCH (08:47)
[2018-11-24] MEDS: ALPRAZolam 0.5 MG TABLET PO SCH ×3 (08:47→21:09)
[2018-11-24] MEDS: RIVAROXABAN 10 MG TABLET. PO SCH (08:47)
[2018-11-24] MEDS: CALCIUM CARB/VIT D3 500/200 TABLET PO SCH ×2 (08:48→16:28)
[2018-11-24] MEDS: DOXYCYCLINE HYCLATE 100 MG TABLET PO SCH ×2 (08:48→21:09)
[2018-11-24] MEDS: LACTOBACILLUS RHAMNOSUS GG 1 CAPSULE. PO SCH ×2 (08:48→21:11)
[2018-11-24] MEDS: OMEGA-3 FATTY ACIDS/FISH OIL 1,000 MG CAPSULE. PO SCH (08:48)
[2018-11-24] MEDS: SPIRONOLACTONE 25 MG TABLET PO SCH (08:49)
[2018-11-24] MEDS: MULTIVITAMIN with MINERAL TABLET. PO SCH (08:49)
[2018-11-24] MEDS: FLUTICASONE 50MCG/NASAL SPRAY 16GM BOTTLE. NS SCH ×2 (08:50→21:12)
[2018-11-24] MEDS: ACYCLOVIR 200 MG CAPSULE PO SCH ×3 (08:50→21:11)
[2018-11-24] MEDS: predniSONE 5 MG TABLET PO SCH (08:50)
[2018-11-24] MEDS: PSYLLIUM SEED (WITH SUGAR) PACKET. PO SCH (09:00)
[2018-11-24 09:05] VITALS: BP 96/62
--- NOTE | 2018-11-24 12:38 | PN ---
DATE: 11/23/2018 PSYCHIATRIC PROGRESS NOTE This is a late entry 11/23/2018 covers elements not covered in my initial note of 11/23/2018. SUBJECTIVE: Met with the patient in the evening in her room. Overall, the patient states her mood is better. She is less anxious. She was working on her computer as I entered the room, but very pleasant, interactive. REVIEW OF SYSTEMS: No CV, , pulmonary, eye system symptoms on review. She denies any side effects from her Celexa and Wellbutrin. MENTAL STATUS EXAM: Reasonably oriented. Speech is coherent, abstraction fair, computation somewhat impaired, but reasonable. Mood and affect is improved, less anxious. LABORATORY DATA: Reviewed. IMPRESSION: Major depressive disorder, recurrent; anxiety disorder, unspecified. PLAN: Continue psychotropics from initial note. May need to increase Celexa in time, but for now, this seems to be adequate. LIEN LIU MD DR: WILDER/molly JOB#: [id number] / [id number]
[2018-11-24] MEDS: NITROFURANTOIN MONOHYD/M-CRYST 100 MG CAPSULE. PO SCH (16:28)
[2018-11-24] MEDS: ESTRADIOL 0.01% VAGINAL CREAM 42.5GM TUBE. VG SCH (16:31)
[2018-11-24] MEDS: LOSARTAN 50 MG TABLET. PO SCH (21:00)
[2018-11-24] MEDS: MELATONIN 3 MG TABLET PO SCH (21:09)
[2018-11-24] MEDS: ATORVASTATIN CALCIUM 20 MG TABLET PO SCH (21:09)
[2018-11-24] MEDS: QUEtiapine 50 MG TABLET. PO SCH (21:10)
[2018-11-24] MEDS: CITALOPRAM 20 MG TABLET. PO SCH (21:11)
[2018-11-25] MEDS: IPRATRPIUM/ALBUTEROL 0.5/2.5MG 3 ML NEBU. NEB SCH ×4 (05:06→19:26)
[2018-11-25 05:52] VITALS: BP 107/71
[2018-11-25] MEDS: LEVOTHYROXINE 125 MCG TABLET PO SCH (05:59)
[2018-11-25] MEDS: buPROPion XL 150 MG TAB.ER.24H PO SCH (07:30)
[2018-11-25 07:31] VITALS: BP 104/72
[2018-11-25] MEDS: LACTOBACILLUS RHAMNOSUS GG 1 CAPSULE. PO SCH ×2 (07:31→20:45)
[2018-11-25] MEDS: OMEGA-3 FATTY ACIDS/FISH OIL 1,000 MG CAPSULE. PO SCH (07:31)
[2018-11-25] MEDS: ALPRAZolam 0.5 MG TABLET PO SCH ×3 (07:31→20:45)
[2018-11-25 07:32] VITALS: BP 99/61
[2018-11-25] MEDS: SPIRONOLACTONE 25 MG TABLET PO SCH (07:32)
[2018-11-25] MEDS: DOXYCYCLINE HYCLATE 100 MG TABLET PO SCH (07:32)
[2018-11-25] MEDS: MULTIVITAMIN with MINERAL TABLET. PO SCH (07:33)
[2018-11-25] MEDS: RIVAROXABAN 10 MG TABLET. PO SCH (07:33)
[2018-11-25] MEDS: ACYCLOVIR 200 MG CAPSULE PO SCH (07:33)
[2018-11-25] MEDS: predniSONE 5 MG TABLET PO SCH (07:33)
[2018-11-25] MEDS: FLUTICASONE 50MCG/NASAL SPRAY 16GM BOTTLE. NS SCH ×2 (07:34→20:46)
[2018-11-25] MEDS: CALCIUM CARB/VIT D3 500/200 TABLET PO SCH ×2 (07:34→14:42)
[2018-11-25] MEDS: CARVEDILOL 12.5 MG TABLET PO SCH ×2 (07:34→14:42)
[2018-11-25] MEDS: PSYLLIUM SEED (WITH SUGAR) PACKET. PO SCH (07:35)
[2018-11-25 09:10] VITALS: BP 107/66
[2018-11-25 14:43] VITALS: BP 105/69
[2018-11-25 18:22] VITALS: BP 105/70
[2018-11-25] MEDS: QUEtiapine 50 MG TABLET. PO SCH (20:45)
[2018-11-25] MEDS: CITALOPRAM 20 MG TABLET. PO SCH (20:45)
[2018-11-25] MEDS: ATORVASTATIN CALCIUM 20 MG TABLET PO SCH (20:45)
[2018-11-25] MEDS: MELATONIN 3 MG TABLET PO SCH (20:45)
[2018-11-25] MEDS: LOSARTAN 50 MG TABLET. PO SCH (20:46)
[2018-11-26] MEDS: IPRATRPIUM/ALBUTEROL 0.5/2.5MG 3 ML NEBU. NEB SCH ×4 (05:25→20:09)
[2018-11-26 05:36] VITALS: BP 106/67
[2018-11-26 05:37] VITALS: BP 105/70
[2018-11-26] MEDS: LEVOTHYROXINE 125 MCG TABLET PO SCH (05:38)
[2018-11-26] MEDS: CARVEDILOL 12.5 MG TABLET PO SCH ×2 (08:00→17:10)
[2018-11-26] MEDS: OMEGA-3 FATTY ACIDS/FISH OIL 1,000 MG CAPSULE. PO SCH (08:07)
[2018-11-26] MEDS: RIVAROXABAN 10 MG TABLET. PO SCH (08:08)
[2018-11-26] MEDS: CALCIUM CARB/VIT D3 500/200 TABLET PO SCH ×2 (08:08→17:09)
[2018-11-26] MEDS: ALPRAZolam 0.5 MG TABLET PO SCH ×3 (08:08→19:59)
[2018-11-26] MEDS: LACTOBACILLUS RHAMNOSUS GG 1 CAPSULE. PO SCH ×2 (08:09→19:59)
[2018-11-26] MEDS: predniSONE 5 MG TABLET PO SCH (08:09)
[2018-11-26] MEDS: buPROPion XL 150 MG TAB.ER.24H PO SCH (08:09)
[2018-11-26] MEDS: MULTIVITAMIN with MINERAL TABLET. PO SCH (08:09)
[2018-11-26] MEDS: SPIRONOLACTONE 25 MG TABLET PO SCH (08:10)
[2018-11-26] MEDS: FLUTICASONE 50MCG/NASAL SPRAY 16GM BOTTLE. NS SCH ×2 (08:12→19:58)
[2018-11-26] MEDS: PSYLLIUM SEED (WITH SUGAR) PACKET. PO SCH (08:12)
[2018-11-26 12:50] VITALS: BP 101/69
[2018-11-26 16:20] VITALS: BP 142/82
--- NOTE | 2018-11-26 18:11 | PDOC ---
Exam Note: Josh Note: Please also refer to the separate dictated note~for this date of service dictated separately.~Patient seen individually. Discussed the patient with Nursing staff reviewed the chart.~Reviewed interim history and current functioning. Reviewed vital signs,~Labs/ Radiology~and current medications noted below. Continue current treatment with the changes noted in the dictated addendum note Assessment: Vital Signs: Vital Signs Date Time Temp Pulse Resp B/P (MAP) Pulse Ox O2 Delivery O2 Flow Rate FiO2 11/26/18 17:10 63 142/82 11/26/18 12:50 98.6 20 93 Nasal Cannula 2.0 I&O Intake and Output 11/26/18 07:00 Intake Total 1200 ml Balance 1200 ml Intake Oral 1200 ml # Bowel Movements 1 Current Medications: Meds: Current Medications Acetaminophen (Tylenol) 650 mg PRN Q6HRS PRN PO PAIN / TEMP; Start 11/18/18 at 11:15 Atorvastatin Calcium (Lipitor) 20 mg QHS PO Last administered on 11/25/18at 20:45; Start 11/18/18 at 21:00 Citalopram Hydrobromide (CeleXA) 20 mg DAILY PO Last administered on 11/21/18 07:55; Start 11/19/18 at 09:00; Stop 11/21/18 at 23:35; Status DC Estradiol (Estrace) 1 ojse QMTH VG Last administered on 11/24/18at 16:31; Start 11/20/18 at 16:00 Guaifenesin (Robitussin Dm) 10 ml PRN Q6HRS PRN PO COUGH; Start 11/18/18 at 11:15 Albuterol/ Ipratropium (Duoneb) 3 ml RTQID NEB Last administered on 11/26/18at 10:01; Start 11/18/18 at 12:00 Lactobacillus Rhamnosus (Culturelle) 1 cap BID PO Last administered on 11/26/18at 08:09; Start 11/18/18 at 21:00 Prednisone (Prednisone) 5 mg DAILY PO Last administered on 11/26/18 08:09; Start 11/19/18 at 09:00 Rivaroxaban (Xarelto) 20 mg DAILY PO Last administered on 11/26/18at 08:08; Start 11/19/18 at 09:00 Acyclovir (Zovirax) 200 mg [id number] PO Last administered on 11/25/18 07:33; Start 11/18/18 at 14:00; Stop 11/25/18 at 13:59; Status DC Alendronate Sodium (Fosamax) 70 mg WEEKLY PO ; Start 11/22/18 at 09:00 Alprazolam (Xanax) 1 mg TID PO Last administered on 11/26/18 14:51; Start 11/18/18 at 14:00 Bupropion HCl (Wellbutrin Xl) 150 mg DAILY PO Last administered on 11/26/18 08:09; Start 11/19/18 at 09:00 Calcium/Vitamin D (Oscal D 500mg/ 200uts) 1 tab BIDWMEALS PO Last administered on 11/26/18 17:09; Start 11/18/18 at 17:00 Carvedilol (Coreg) 12.5 mg BIDWMEALS PO Last administered on 11/25/18 14:42; Start 11/18/18 at 17:00; Stop 11/26/18 at 10:06; Status DC Doxycycline Hyclate (Vibra-Tab) 100 mg BID PO Last administered on 11/25/18 07:32; Start 11/18/18 at 21:00; Stop 11/25/18 at 21:00; Status DC Fluticasone Propionate (Flonase) 2 spray BID NS Last administered on 11/22/18 09:39; Start 11/19/18 at 09:00; Stop 11/22/18 at 14:31; Status DC Losartan Potassium (Cozaar) 100 mg QHS PO Last administered on 11/23/18 21:18; Start 11/18/18 at 21:00; Stop 11/26/18 at 10:06; Status DC Levothyroxine Sodium (Synthroid) 125 mcg DAILY06 PO Last administered on 11/26/18 05:38; Start 11/19/18 at 06:00 Melatonin 6 mg QHS PO Last administered on 11/25/18 20:45; Start 11/18/18 at 21:00 Multivitamins/ Calcium (Thera-M Plus) 1 tab DAILY PO Last administered on 11/26/18 08:09; Start 11/19/18 at 09:00 Nitrofurantoin Macrocrystals (Macrobid) 100 mg QMTH PO Last administered on 11/24/18at 16:28; Start 11/20/18 at 16:00 Fish Oil (Fish Oil) 1,000 mg DAILY PO Last administered on 11/26/18at 08:07; Start 11/19/18 at 09:00 Psyllium Hydrophilic Mucilloid (Metamucil) 1 pkt DAILY PO ; Start 11/19/18 at 09:00 Quetiapine Fumarate (SEROquel) 50 mg QHS PO Last administered on 11/25/18at 20:45; Start 11/18/18 at 21:00 Spironolactone (Aldactone) 12.5 mg DAILY PO Last administered on 11/26/18at 08:10; Start 11/19/18 at 09:00 Non-Formulary Medication (Tiotropium Br/ Olodaterol HCl (Stiolto Respimat Inhal [place])) 2 puff DAILY IH ; Start 11/19/18 at 09:00; Stop 11/19/18 at 09:00; Status DC Citalopram Hydrobromide (CeleXA) 20 mg HS PO Last administered on 11/25/18at 20:45; Start 11/22/18 at 21:00 Fluticasone Propionate (Flonase) 2 spray BID NS Last administered on 11/25/18at 20:46; Start 11/22/18 at 14:31 Carvedilol (Coreg) 6.25 mg BIDWMEALS PO Last administered on 11/26/18at 17:10; Start 11/26/18 at 17:00 Losartan Potassium (Cozaar) 25 mg QHS PO ; Start 11/26/18 at 21:00 Active Scripts Active Prednisone 5 Mg Tablet 5 Mg PO DAILY take 7 tablets daily and decrease by 1 tablet every third day until gone Doxycycline Hyclate 100 Mg Capsule 1 Cap PO BID Culturelle (Lactobacillus Rhamnosus Gg) 1 Each Cap.sprink 1 Cap PO BID 14 Days Celexa (Citalopram Hydrobromide) 20 Mg Tablet 20 Mg PO DAILY Tylenol (Acetaminophen) 325 Mg Tablet 650 Mg PO PRN Q6HRS PRN 30 Days Acyclovir 200 Mg Capsule 200 Mg PO [id number] 7 Days Xarelto (Rivaroxaban) 10 Mg Tablet 20 Mg PO DAILY Duoneb 0.5-3(2.5) Mg/3 Ml (Albuterol/Ipratropium) 3 Ml Ampul.neb 3 Ml NEB RTQID Guaifenesin Dm Syrup (Guaifenesin/Dextromethorphan) 5 Ml Syrup 10 Ml PO PRN Q6HRS PRN 30 Days Reported Bupropion Hcl Sr (Bupropion Hcl) 150 Mg Tablet.er 1 Tab PO DAILY LAST DOSE GIVEN: DATE: TODAY TIME: AM NEXT DOSE DUE: DATE: TOMORROW TIME: AM Estrace (Estradiol) 42.5 Gm Cream.appl 1 Gm VG TWICE WEEKLY LAST DOSE GIVEN: NOT GIVEN THIS ADMISSION NEXT DOSE DUE: PER HOME SCHEDULE Flovent 110MCG Hfa (Fluticasone Propionate) 12 Gm Aer.w.adap 2 Puff IH BID SUBSTITUTED FOR BREATHING TREATMENTS NEXT DOSE DUE: DATE: TOMORR TIME: AM Fosamax (Alendronate Sodium) 70 Mg Tablet 1 Tab PO QSA LAST DOSE GIVEN: DATE: SATURDAY TIME: AM NEXT DOSE DUE: DATE: SATURDAY TIME: AM Levothyroxine Sodium 125 Mcg Tablet 1 Tab PO DAILY06 LAST DOSE GIVEN: DATE: TODAY TIME: BEFORE BREAKFAST NEXT DOSE DUE: DATE: TOMORROW TIME: BEFORE BREAKFAST Melatonin 5 Mg Tablet (Melatonin/Pyridoxine Hcl (B6)) 1 Each Tablet 1 Each PO HS LAST DOSE GIVEN: DATE: YESTER TIME: AT BEDTIME NEXT DOSE DUE: DATE: TODAY TIME: AT BEDTIME [place] 3 1,000 Mg Softgel ([place]-3 Fatty Acids/Fish Oil) 1 Each Capsule 1 Each PO DAILY LAST DOSE GIVEN: DATE: TODAY TIME: AM NEXT DOSE DUE: DATE: TOMORROW TIME: AM Metamucil (Psyllium Husk) 0.52 Gm Capsule 0.52 Gm PO DAILY LAST DOSE GIVEN: REFUSED NEXT DOSE DUE: DATE: TOMORROW TIME: AM Stiolto Respimat Inhal [place] (Tiotropium Br/Olodaterol HCl) 4 Gm Mist.inhal 2 Puff IH DAILY SUBSTITUTED FOR BREATHING TREATMENTS NEXT DOSE DUE: DATE: RESTART TOMORROW TIME: AM Seroquel (Quetiapine Fumarate) 50 Mg Tablet 1 Tab PO QHS LAST DOSE GIVEN: DATE: YESTERDAY TIME: AT BEDTIME NEXT DOSE DUE: DATE: TODAY TIME: AT BEDTIME Avapro (Irbesartan) 300 Mg Tablet 300 Mg PO HS LAST DOSE GIVEN: DATE: YES TIME: AT BEDTIME NEXT DOSE DUE: DATE: TODAY TIME: AT BEDTIME Lipitor (Atorvastatin Calcium) 20 Mg Tablet 20 Mg PO QHS LAST DOSE GIVEN: DATE: YES TIME: AT BEDTIME NEXT DOSE DUE: DATE: TODAY TIME: AT BEDTIME Macrodantin (Nitrofurantoin Macrocrystal) 50 Mg Capsule 50 Mg PO TWICE WEEKLY LAST DOSE GIVEN: DATE: SATURDAY TIME: 4 PM NEXT DOSE DUE: DATE: SATURDAY TIME: 4 PM Aldactone (Spironolactone) 25 Mg Tablet 12.5 Mg PO DAILY LAST DOSE GIVEN: DATE: TIME: AM NEXT DOSE DUE: DATE: TOMORROW TIME: AM Multi Vitamin Daily (Multivitamin) 1 Each Tablet 1 Each PO DAILY LAST DOSE GIVEN: DATE: TIME: AM NEXT DOSE DUE: DATE: TOMORR TIME: AM El-Citrate Plus Vitamin D Tab (Calcium Citrate/Vitamin D2) 1 Each Tablet 1 Each PO BID LAST DOSE GIVEN: DATE: TIME: WITH BREAKFAST NEXT DOSE DUE: DATE: TODAY TIME: WITH DINNER Xanax (Alprazolam) 1 Mg Tablet 1 Tab PO TID LAST DOSE GIVEN: DATE: TIME: AM NEXT DOSE DUE: DATE: TIME: AFTERNOON Coreg (Carvedilol) 12.5 Mg Tablet 1 Tab PO BIDWMEALS LAST DOSE GIVEN: DATE: TIME: WITH BREAKFAST NEXT DOSE DUE: DATE: TIME: WITH DINNER I have reviewed the current psychotropics carefully including drug interactions. Risk benefit ratio favors no change other than as noted in my dictated progress note. Diagnosis: Problems: (1) Major depressive disorder, recurrent episode (2) Anxiety disorder LIEN LUI MD Nov 26, 2018 18:10
[2018-11-26 19:48] VITALS: BP 107/70
[2018-11-26] MEDS: MELATONIN 3 MG TABLET PO SCH (19:58)
[2018-11-26] MEDS: QUEtiapine 50 MG TABLET. PO SCH (19:58)
[2018-11-26] MEDS: CITALOPRAM 20 MG TABLET. PO SCH (19:59)
[2018-11-26] MEDS: ATORVASTATIN CALCIUM 20 MG TABLET PO SCH (19:59)
[2018-11-26] MEDS ORDERED: LOSARTAN 50 MG TABLET. PO SCH (21:00)
[2018-11-27 05:35] VITALS: BP 98/63
[2018-11-27] MEDS: IPRATRPIUM/ALBUTEROL 0.5/2.5MG 3 ML NEBU. NEB SCH ×2 (06:10→11:21)
[2018-11-27] MEDS: LEVOTHYROXINE 125 MCG TABLET PO SCH (06:16)
[2018-11-27 08:00] VITALS: BP 98/63
[2018-11-27] MEDS: CARVEDILOL 12.5 MG TABLET PO SCH (08:00)
[2018-11-27] MEDS: RIVAROXABAN 10 MG TABLET. PO SCH (08:08)
[2018-11-27] MEDS: LACTOBACILLUS RHAMNOSUS GG 1 CAPSULE. PO SCH (08:08)
[2018-11-27] MEDS: CALCIUM CARB/VIT D3 500/200 TABLET PO SCH (08:08)
[2018-11-27] MEDS: buPROPion XL 150 MG TAB.ER.24H PO SCH (08:08)
[2018-11-27] MEDS: predniSONE 5 MG TABLET PO SCH (08:09)
[2018-11-27] MEDS: PSYLLIUM SEED (WITH SUGAR) PACKET. PO SCH (08:09)
[2018-11-27] MEDS: OMEGA-3 FATTY ACIDS/FISH OIL 1,000 MG CAPSULE. PO SCH (08:09)
[2018-11-27] MEDS: MULTIVITAMIN with MINERAL TABLET. PO SCH (08:09)
[2018-11-27] MEDS: SPIRONOLACTONE 25 MG TABLET PO SCH (08:09)
[2018-11-27] MEDS: FLUTICASONE 50MCG/NASAL SPRAY 16GM BOTTLE. NS SCH (08:09)
[2018-11-27] MEDS: ALPRAZolam 0.5 MG TABLET PO SCH (08:09)
[2018-11-27] MEDS ORDERED: CARV6.2541 PO (10:22)
--- NOTE | 2018-11-27 16:18 | DS ---
DATE OF DISCHARGE: 11/27/2018 HOSPITAL COURSE: A 78-year-old female discharged from the skilled unit today. She has been in there for acute exacerbation of COPD. The patient has been making fairly good progress overall. She has also been severely depressed, but doing better with the Celexa. The patient otherwise will be tapered down on her medication. Her blood pressure was on the low side, 98/63. She is concerned about dropping her Coreg down to 6.25, but I told her she needs to be monitored carefully on that and she will talk with her machine fancy stitcher. Otherwise, pulses in the 70s, afebrile. PHYSICAL EXAMINATION: GENERAL: The patient is alert and oriented. LUNGS: Diminished, but clear. CARDIOVASCULAR: Regular sinus rhythm. ABDOMEN: Soft, nontender. EXTREMITIES: No clubbing, cyanosis, edema. NEUROLOGIC: Intact. The patient, otherwise blood pressure was in the upper 90s as indicated. IMPRESSION: Therefore, acute exacerbation of chronic obstructive pulmonary disease. Acute on top of chronic exacerbation of chronic obstructive pulmonary disease, hypotension, history of congestive heart failure, left bundle branch block, history of rheumatic fever as a child. JUANIS HERNANDEZ MD DR: SABINO/molly JOB#: [id number] / [id number]
[2018-11-27] MEDS ORDERED: CARVEDILOL 6.25 MG TABLET PO SCH (17:00)
[2018-11-27] MEDS ORDERED: LOSARTAN 25 MG TABLET. PO SCH (21:00)
--- NOTE | 2018-11-29 00:08 | PN ---
DATE: 11/26/2018 PSYCHIATRIC PROGRESS NOTE This is a late entry 11/26, covers elements are not covered in my initial note. SUBJECTIVE: I met with the patient in the evening. Overall, the patient states her mood is better. She states she feels stronger and anxiety is better as well. She was seated on a chair and not lying in bed, which is where she has been in the past when I have seen her and reflective of her improved mood, energy as well. No CV, , pulmonary, eye system symptoms on review. MENTAL STATUS EXAM: Reasonably oriented. Speech is coherent, abstraction fair, computation impaired, language function intact, attention span fair. Mood and affect is improved. IMPRESSION: Unchanged from initial note. PLAN: Continue Celexa and Wellbutrin at current dosage. Discussed outpatient follow up with her. MAN Chino LIU MD DR: WILDER/molly JOB#: [id number] / [id number]
== END 2018-11-27 13:01 | disposition home or self-care (01) | DRG 190 ==
LOC: LND 10:35
PROVIDERS: ADMIT Family Medicine; ATTEND Family Medicine
DX: J43.9 Emphysema, unspecified (principal); I26.99 Other pulmonary embolism without acute cor pulmonale; J18.9 Pneumonia, unspecified organism; E03.9 Hypothyroidism, unspecified; I11.0 Hypertensive heart disease with heart failure; I44.7 Left bundle-branch block, unspecified; I95.9 Hypotension, unspecified; F33.41 Major depressive disorder, recurrent, in partial remission; I50.9 Heart failure, unspecified; F41.0 Panic disorder [episodic paroxysmal anxiety]; F43.23 Adjustment disorder with mixed anxiety and depressed mood; R09.02 Hypoxemia; Z79.899 Other long term (current) drug therapy; Z88.8 Allergy status to other drugs, medicaments and biological substances
CPT/HCPCS: 94640; 94760; J7512; J7620; 97110; 97112; 97116; 97530; 97535

== ENCOUNTER → 2018-12-29 | Outpatient (CLI) | payer MEDICARE, BC, OTHER ==
[~2018-12-29] MED LIST changes: +ACET325T9 PO; +ACYC-63 PO; +CARV6.2541 PO; +CITA20TA9 PO; +DOXY100C2 PO; +GUAI5SYR PO; +LACT1CAP19 PO; +PRED5TAB PO
--- NOTE | 2018-12-29 13:20 | RAD ---
PQRS Compliance statement: One or more of the following individualized dose reduction techniques were utilized for this examination: 1. Automated exposure control. 2. Adjustment of the mA and/or kV according to patient size. 3. Use of iterative reconstruction technique. Indication:Lung nodule follow-up. TECHNIQUE: CT chest without IV contrast with multiplanar reformats. COMPARISON: Multiple previous CT chest the latest from 11/16/2018. FINDINGS: Heart is normal in size. No pericardial or pleural effusion. Clear neck base. No enlarged axillary, mediastinal adenopathy. Evaluation of hilar lymphadenopathy is limited due to lack of IV contrast. Mild emphysema. Mild subsegmental atelectasis in the right middle lobe and lingula. Interval decrease in the size of as defined opacity in the superior segment of the right upper lobe measuring 1.8 x 1.3 cm, previously 2.3 x [address] from 11/16/2018 and 1.8 x [address] from 08/21/2018. Right lung base scarring or subsegmental atelectasis noted. Stable triangular opacity in the left lower lobe (series 2 image 59). Scattered low attenuating liver lesions, the largest in the right hepatic dome measuring 2.1 x 2.0 cm. Bilateral simple and minimally corticated cysts are seen in the kidneys. Noncontrast appearance of the visualized spleen, pancreas and adrenals within normal limits. No suspicious bony lesion. Stable compression deformity of the T7 vertebral body. IMPRESSION: 1. Interval decrease in the size of ill-defined right lower lobe opacity. Findings may be secondary to infection although pulmonary malignancy is not entirely ruled out. Follow-up CT recommended. See above for change in size. 2. Mild emphysema. 3. Bilateral simple and minimally complicated renal cysts. RCC is not ruled out out IV contrast. Electronically signed by: Arturo Anderson DO (12/29/2018 1:17 PM) [facility]
== END | disposition home or self-care (01) ==
LOC: CT 12:21
PROVIDERS: ATTEND Internal Medicine Critical Care Medicine
DX: J43.9 Emphysema, unspecified (principal); J98.11 Atelectasis; R91.8 Other nonspecific abnormal finding of lung field; K76.89 Other specified diseases of liver; N28.1 Cyst of kidney, acquired; M43.8X4 Other specified deforming dorsopathies, thoracic region
CPT/HCPCS: 71250

== ENCOUNTER 2019-03-05 14:49 | Inpatient (IN) | payer MEDICARE, BC, OTHER ==
[~2019-03-05] VITALS: Ht 162.6 cm; Wt 87.7 kg
[~2019-03-05 14:49] MED LIST changes: -MELA3TAB2 PO; +MELA3TAB56 PO
[2019-03-05 15:17] VITALS: BP 131/81
[2019-03-05] MEDS ORDERED: ALPRAZolam 0.5 MG TABLET PO PRN (16:15)
[2019-03-05 16:42] LABS: BASO # 0.1 x10^3/uL (0.0-0.2); BASO % 1 % (0-3); EOS # 0.2 x10^3/uL (0.0-0.7); EOS % 3 % (0-3); HEMATOCRIT 31.1 % (36.0-47.0); HEMOGLOBIN 10.4 g/dL (12.0-15.5); LYMPH % 13 % (24-48); MEAN CORPUSCULAR HEMOGLOBIN 32 pg (25-35); MEAN CORPUSCULAR HGB CONC 34 g/dL (31-37); MEAN CORPUSCULAR VOLUME 96 fL (79-100); MONO # 0.6 x10^3/uL (0.0-1.1); MONO % 8 % (0-9); NEUT % 75 % (31-73); PLATELET COUNT 202 x10^3/uL (140-400); RED BLOOD COUNT 3.23 x10^6/uL (3.50-5.40); RED CELL DISTRIBUTION WIDTH 12.7 % (11.5-14.5)
[2019-03-05] MEDS: IV NORMAL SALINE 1,000ML 1,000 ML IV SCH (16:59)
[2019-03-05 17:01] LABS: ALBUMIN 3.2 g/dL (3.4-5.0); ALBUMIN/GLOBULIN RATIO 0.7 (1.0-1.7); CREATININE 1.2 mg/dL (0.6-1.0); GFR 43.6; POTASSIUM 4.4 mmol/L (3.5-5.1); TOTAL BILIRUBIN 0.7 mg/dL (0.2-1.0); TOTAL PROTEIN 7.6 g/dL (6.4-8.2)
--- NOTE | 2019-03-05 17:57 | RAD ---
CHEST PA LATERAL History: Shortness of breath Comparison: November 17, 2018 Findings: Bibasilar linear atelectasis or scarring. No pleural effusion. No new consolidation. Unchanged heart size. No pneumothorax. Impression: 1. Bibasilar linear atelectasis or scarring. No new consolidation. Electronically signed by: Simeon Swanson DO (03/05/2019 5:54 PM) [id number]
[2019-03-05] MEDS: methylPREDNISolone SOD SUCC PF 40 MG/ML VIAL. IV SCH (17:58)
[2019-03-05] MEDS ORDERED: ZOLPIDEM 5 MG TABLET. PO PRN (18:00)
[2019-03-05 19:30] VITALS: BP 124/74
[2019-03-05] MEDS ORDERED: IPRATRPIUM/ALBUTEROL 0.5/2.5MG 3 ML NEBU. NEB SCH ×2 (20:00)
[2019-03-05] MEDS ORDERED: NON FORMULARY ITEM (Fluticasone Propionate (Flovent 110MCG Hfa) 2 PUFF) IH SCH (21:00)
[2019-03-05] MEDS: BUDESONIDE 0.5 MG/2 ML NEBU NEB SCH (21:07)
[2019-03-05] MEDS: IPRATRPIUM/ALBUTEROL 0.5/2.5MG 3 ML NEBU. NEB SCH (21:07)
[2019-03-05] MEDS: DOXYCYCLINE HYCLATE 100 MG TABLET PO SCH (21:21)
[2019-03-05] MEDS: ATORVASTATIN CALCIUM 20 MG TABLET PO SCH (21:21)
[2019-03-05] MEDS: ACYCLOVIR 200 MG CAPSULE PO SCH (21:21)
[2019-03-05] MEDS: MELATONIN 3 MG TABLET PO SCH (21:21)
[2019-03-05] MEDS: QUEtiapine 50 MG TABLET. PO SCH (21:22)
[2019-03-05] MEDS: ALPRAZolam 0.5 MG TABLET PO SCH (21:22)
[2019-03-05 23:30] VITALS: BP 111/70
[2019-03-06] MEDS: IPRATRPIUM/ALBUTEROL 0.5/2.5MG 3 ML NEBU. NEB SCH ×4 (05:08→20:46)
[2019-03-06] MEDS: LEVOTHYROXINE 125 MCG TABLET PO SCH (05:17)
[2019-03-06] MEDS: methylPREDNISolone SOD SUCC PF 40 MG/ML VIAL. IV SCH ×2 (05:17→10:00)
[2019-03-06] MEDS: IV NORMAL SALINE 1,000ML 1,000 ML IV SCH (05:22)
[2019-03-06 05:27] VITALS: BP 108/68
[2019-03-06 06:31] LABS: CALCIUM 8.6 mg/dL (8.5-10.1); CREATININE 1.3 mg/dL (0.6-1.0); GFR 39.7; POTASSIUM 4.3 mmol/L (3.5-5.1)
[2019-03-06 06:45] LABS: BASO % 0 % (0-3); EOS % 0 % (0-3); HEMATOCRIT 31.6 % (36.0-47.0); HEMOGLOBIN 10.6 g/dL (12.0-15.5); LYMPH # 0.6 x10^3/uL (1.0-4.8); LYMPH % 10 % (24-48); MEAN CORPUSCULAR HEMOGLOBIN 32 pg (25-35); MEAN CORPUSCULAR HGB CONC 34 g/dL (31-37); MEAN CORPUSCULAR VOLUME 97 fL (79-100); MONO # 0.2 x10^3/uL (0.0-1.1); MONO % 3 % (0-9); NEUT % 88 % (31-73); PLATELET COUNT 217 x10^3/uL (140-400); RED BLOOD COUNT 3.27 x10^6/uL (3.50-5.40); RED CELL DISTRIBUTION WIDTH 12.3 % (11.5-14.5); WHITE BLOOD COUNT 6.8 x10^3/uL (4.0-11.0)
[2019-03-06] MEDS: ACYCLOVIR 200 MG CAPSULE PO SCH ×3 (07:54→21:02)
[2019-03-06] MEDS: CALCIUM CARB/VIT D3 500/200 TABLET PO SCH ×2 (07:54→17:15)
[2019-03-06] MEDS: DOXYCYCLINE HYCLATE 100 MG TABLET PO SCH ×2 (07:54→21:02)
[2019-03-06] MEDS: MULTIVITAMIN with MINERAL TABLET. PO SCH (07:55)
[2019-03-06] MEDS: buPROPion SR 150 MG TABLET.SA PO SCH (07:55)
[2019-03-06] MEDS: LACTOBACILLUS RHAMNOSUS GG 1 CAPSULE. PO SCH ×2 (07:55→21:02)
[2019-03-06] MEDS: OMEGA-3 FATTY ACIDS/FISH OIL 1,000 MG CAPSULE. PO SCH (07:55)
[2019-03-06] MEDS: RIVAROXABAN 10 MG TABLET. PO SCH (07:56)
[2019-03-06] MEDS: ALPRAZolam 0.5 MG TABLET PO SCH ×3 (07:56→21:02)
[2019-03-06] MEDS: CARVEDILOL 6.25 MG TABLET PO SCH ×2 (07:57→17:15)
[2019-03-06] MEDS ORDERED: PSYLLIUM SEED (WITH SUGAR) PACKET. PO SCH (09:00)
[2019-03-06] MEDS ORDERED: PSYLLIUM SEED (WITH SUGAR) PACKET. PO PRN (09:00)
[2019-03-06] MEDS ORDERED: SPIRONOLACTONE 25 MG TABLET PO SCH (09:00)
[2019-03-06] MEDS ORDERED: FLU VAX QS 2019-20 (36MOS+)/PF 0.5 ML SYRINGE. VAX IM ONE (09:00)
[2019-03-06] MEDS ORDERED: SPIRONOLACTONE 25 MG TABLET PO PRN (09:00)
[2019-03-06] MEDS ORDERED: NITROFURANTOIN MONOHYD/M-CRYST 100 MG CAPSULE. PO SCH (09:00)
[2019-03-06] MEDS ORDERED: NON FORMULARY ITEM (Tiotropium Br/Olodaterol HCl (Stiolto Respimat Inhal Spray) 2 PUFF) IH SCH (09:00)
[2019-03-06] MEDS ORDERED: LOSARTAN 50 MG TABLET. PO SCH ×2 (09:00→21:00)
[2019-03-06] MEDS: BUDESONIDE 0.5 MG/2 ML NEBU NEB SCH ×2 (10:20→20:46)
[2019-03-06 10:44] VITALS: BP 115/68
[2019-03-06 15:22] VITALS: BP 113/58
[2019-03-06 19:28] VITALS: BP 126/77
[2019-03-06] MEDS: ATORVASTATIN CALCIUM 20 MG TABLET PO SCH (21:02)
[2019-03-06] MEDS: MELATONIN 3 MG TABLET PO SCH (21:03)
[2019-03-06] MEDS: QUEtiapine 50 MG TABLET. PO SCH (21:03)
--- NOTE | 2019-03-06 23:03 | PN ---
DATE: SUBJECTIVE: A 78-year-old female who came in with acute exacerbation of COPD, asthma like with acute bronchitis. The patient is resting fairly comfortably, making fairly good progress breathing a little bit easier. Sodium has come up from 129 to 130. OBJECTIVE: VITAL SIGNS: She is still on 2 liters of oxygen and has brought up on that. She was running a low-grade temperature of 99.5. Blood pressure 120/70, respirations 18, pulse 88, afebrile. The patient presently is running 99.5. GENERAL: The patient is alert and oriented. LUNGS: Diminished, but clear when they were. CARDIOVASCULAR: Regular sinus rhythm, S1, S2, without murmur, rub, thrill, or extra heart sound. ABDOMEN: Soft, nontender. EXTREMITIES: No clubbing, cyanosis or edema. NEUROLOGIC: Intact. IMPRESSION: Acute exacerbation of chronic obstructive pulmonary disease with acute bronchitis, history of emphysema and mild respiratory failure. PLAN: The patient continued to be monitored carefully, make further evaluation on her and hopefully ready for discharge in the a.m. JUANIS HERNANDEZ MD DR: SABINO/molly JOB#: [id number] / [id number]
[2019-03-07] MEDS: IPRATRPIUM/ALBUTEROL 0.5/2.5MG 3 ML NEBU. NEB SCH ×2 (05:21→09:30)
[2019-03-07 05:32] VITALS: BP 98/63
[2019-03-07] MEDS: LEVOTHYROXINE 125 MCG TABLET PO SCH (06:04)
[2019-03-07 08:42] VITALS: BP 116/73
[2019-03-07] MEDS: ALPRAZolam 0.5 MG TABLET PO SCH (08:52)
[2019-03-07] MEDS: MULTIVITAMIN with MINERAL TABLET. PO SCH (08:52)
[2019-03-07 08:53] VITALS: BP 116/73
[2019-03-07] MEDS: DOXYCYCLINE HYCLATE 100 MG TABLET PO SCH (08:53)
[2019-03-07] MEDS: CALCIUM CARB/VIT D3 500/200 TABLET PO SCH (08:53)
[2019-03-07] MEDS: OMEGA-3 FATTY ACIDS/FISH OIL 1,000 MG CAPSULE. PO SCH (08:53)
[2019-03-07] MEDS: ACYCLOVIR 200 MG CAPSULE PO SCH (08:53)
[2019-03-07] MEDS: CARVEDILOL 6.25 MG TABLET PO SCH (08:53)
[2019-03-07] MEDS: LACTOBACILLUS RHAMNOSUS GG 1 CAPSULE. PO SCH (08:53)
[2019-03-07] MEDS: buPROPion SR 150 MG TABLET.SA PO SCH (08:54)
[2019-03-07] MEDS: methylPREDNISolone SOD SUCC PF 40 MG/ML VIAL. IV SCH (08:55)
[2019-03-07] MEDS: BUDESONIDE 0.5 MG/2 ML NEBU NEB SCH (09:30)
[2019-03-07] MEDS: RIVAROXABAN 10 MG TABLET. PO SCH (09:59)
[2019-03-07] MEDS ORDERED: ACYC-63 PO (11:02)
[2019-03-07] MEDS ORDERED: PRED-220 PO (11:02)
[2019-03-07] MEDS ORDERED: IRBE300T PO (11:02)
[2019-03-07] MEDS ORDERED: DOXY100T PO (11:02)
--- NOTE | 2019-03-07 13:50 | DS ---
DATE OF DISCHARGE: 03/07/2019 HOSPITAL COURSE: The patient came in with increased shortness of breath, difficulty in breathing, acute exacerbation of her emphysema with acute respiratory failure. The patient made good progress. She was placed on some IV antibiotic therapy as well as some steroids. The patient made excellent progress. Hemoglobin was 10.6 and 31. Chemistries showed sodium slightly low at 131. BUN and creatinine 18 and 1.3, which is baseline for this individual. We will continue to monitor that as an outpatient. In any case, the patient made excellent progress and she was discharged home and to be followed up as an outpatient. IMPRESSION: Acute respiratory failure, hyponatremia, chronic kidney disease stage 3, anemia of chronic disease, emphysema, centrilobular, mild protein malnutrition. DISPOSITION: The patient will be discharged home, followed up as an outpatient and make further evaluation as an outpatient. JUANIS HERNANDEZ MD DR: SABINO/molly JOB#: [id number] / [id number]
== END 2019-03-07 12:05 | disposition home or self-care (01) | DRG 189 ==
LOC: 1 SOUTH 14:49
PROVIDERS: ADMIT Family Medicine; ATTEND Family Medicine
DX: J96.00 Acute respiratory failure, unspecified whether with hypoxia or hypercapnia (principal); E44.1 Mild protein-calorie malnutrition; E87.1 Hypo-osmolality and hyponatremia; J45.901 Unspecified asthma with (acute) exacerbation; D63.8 Anemia in other chronic diseases classified elsewhere; J20.9 Acute bronchitis, unspecified; J43.9 Emphysema, unspecified; N18.3 Chronic kidney disease, stage 3 (moderate); Z68.33 Body mass index [BMI] 33.0-33.9, adult; Z88.1 Allergy status to other antibiotic agents; Z88.8 Allergy status to other drugs, medicaments and biological substances
CPT/HCPCS: 36415; 71046; 80048; 80053; 83605; 84145; 85025; 90471; 90686; 94640; J1956; J2920; J7620; J7626; J7030

== ENCOUNTER 2019-04-19 05:35 | Emergency (ER) | payer MEDICARE, BC, OTHER ==
[~2019-04-19] VITALS: Ht 162.6 cm; Wt 88.9 kg
[~2019-04-19 05:35] MED LIST changes: +DOXY100T PO
[2019-04-19] MEDS ORDERED: IV RINGERS SOLUTION,LACTATED 1,000 ML IV SCH (05:42)
--- NOTE | 2019-04-19 05:42 | ED.ADGEN ---
Past History Past Medical History: Anxiety, Arthritis, Cancer, CHF, COPD, High Cholesterol, Hypertension, Other (RHONDA TSAI MD) Past Surgical History: Cholecystectomy, Tonsillectomy, Tubal ligation, Other (RHONDA TSAI MD) Alcohol Use: None Drug Use: None (RHONDA TSAI MD) Adult General Chief Complaint Chief Complaint "I tripped over my oxygen tubbing.. and fell.. messed up my wrist (rt)... " (RHONDA TSAI MD) [facility] HPI Patient is a 78 year old female who presents with above hx and complaints of trip with fall.. FOOSH injury to Rt. wrist.. Obvious angulated deformity. Patient is able to move her fingers. Capillary refill is somewhat comparable to her left for fingers. Pt. normally follows with Dr. Wilson. Patient has somewhat extensive medical history with thyroid disease cataract with implants, tonsillectomy, recent evaluation for skin cancer on her nose with skin biopsies 1 which was positive for basal cell. Patient has history of CHF, (#, rheumatic fever as a child, aortic murmur, coronary artery disease, hypertension, COPD, chronic bronchiolitis, no history of pulmonary embolisms 2, pneumonia, sleep apnea, cholecystectomy, tubal ligation, polycystic kidney disease, recurrent urinary tract infections, hematuria, urinary retention, osteoporosis, fractures of left foot, chronic back pain, hypothyroidism, early menopause, chronic steroid therapy, anxiety, depression, recurrent zoster when on stress or on prednisone, and chronic anemia. She did receive 100 mics of fentanyl by paramedics in her transport to the emergency department. (RHONDA TSAI MD) Review of Systems Review of Systems Constitutional: Denies fever or chills [] Eyes: Denies change in visual acuity, redness, or eye pain [] HENT: Denies nasal congestion or sore throat [] Respiratory: Denies cough or shortness of breath [] Cardiovascular: No additional information not addressed in HPI [] GI: Denies abdominal pain, nausea, vomiting, bloody stools or diarrhea [] : Denies dysuria or hematuria [] Musculoskeletal: Denies back pain or joint pain [. The patient]primary complaint is pain in right wrist. Integument: Denies rash or skin lesions [] Neurologic: Denies headache, focal weakness or sensory changes [] Endocrine: Denies polyuria or polydipsia [] All other systems were reviewed and found to be within normal limits, except as documented in this note. (RHONDA TSAI MD) Family History Family History Family history positive for hypertension and a cancer in his father, mother had hypertension and a brother had a cancer. (RHONDA TSAI MD) Current Medications Current Medications Current Medications Medications (Trade) Dose Ordered Sig/Miguel Start Time Stop Time Status Last Admin Dose Admin Albuterol/ Ipratropium (Duoneb) 3 ml 1X ONCE 04/19/19 08:30 04/19/19 08:31 DC 04/19/19 08:23 3 ML Fentanyl Citrate (Fentanyl 2ml Vial) 50 mcg 1X ONCE 04/19/19 06:45 04/19/19 06:46 DC 04/19/19 06:45 50 MCG Lactated Ringer's 1,000 ml @ 100 mls/hr Q10H 04/19/19 05:42 04/19/19 15:41 04/19/19 05:59 100 MLS/HR Lidocaine HCl 10 ml 1X ONCE 04/19/19 06:30 04/19/19 06:31 DC 04/19/19 06:44 10 ML Methylprednisolone Sodium Succinate (SOLU-Medrol 40MG VIAL) 40 mg 1X ONCE 04/19/19 06:30 04/19/19 06:31 DC Propofol 20 ml @ 0 mls/hr 1X ONCE 04/19/19 06:00 04/19/19 06:30 DC (CHANDRIKA PALOMARES DO) Current Medications See nursing for home meds (RHONDA TSAI MD) Allergies Allergies Allergies Coded Allergies Type Severity Reaction Last Updated Verified fenofibrate Allergy Severe 10/13/14 Yes simvastatin Allergy Severe 10/13/14 Yes amoxicillin Allergy Intermediate 02/22/18 Yes clavulanic acid Allergy Intermediate 02/22/18 Yes morphine Allergy Intermediate Rash 10/13/14 Yes sulfamethoxazole Allergy Intermediate Rash 10/13/14 Yes trimethoprim Allergy Intermediate Rash 10/13/14 Yes (CHANDRIKA PALOMARES DO) Physical Exam Physical Exam Constitutional: Moderate acute distress, non-toxic appearance. [] HENT: Normocephalic, atraumatic, bilateral external ears normal, oropharynx moist, no oral exudates, nose bleeds and biopsy scars on nose-1 was positive for basal cell carcinoma Eyes: PERRLA, EOMI, conjunctiva normal, no discharge. Wears glasses Neck: Normal range of motion, no tenderness, supple, no stridor. Mild kyphosis Cardiovascular: Tachycardia Heart rate regular rhythm, aortic flow murmur murmur [] Lungs & Thorax: Bilateral breath sounds scattered wheezes throughout on auscultation [] Abdomen: Bowel sounds normal, soft, no tenderness, no masses, no pulsatile masses. Old surgery scars Skin: Warm, dry, no erythema, no rash. Poor turgor Back: No tenderness, no CVA tenderness. [] Extremities: No tenderness, no cyanosis, no clubbing, ROM intact, ankle edema. Arthritic changes. Except Tenderness in right wrist as per history of present illness- and angulation Neurologic: Alert and oriented X 3, moves extremities on request my has distal sensory function, no gross focal deficits noted. [] Psychologic: Affect anxious, judgement normal, mood normal. [] (RHONDA TSAI MD) Current Patient Data Vital Signs Vital Signs Date Time Temp Pulse Resp B/P (MAP) Pulse Ox O2 Delivery O2 Flow Rate FiO2 04/19/19 08:15 83 18 138/57 (84) 97 Nasal Cannula 2.0 04/19/19 05:44 97.4 (EIDENBERG,CHANDRIKA DO) Lab Results Laboratory Tests Test 04/19/19 05:53 04/19/19 06:33 White Blood Count 5.6 x10^3/uL (4.0-11.0) Red Blood Count 3.38 x10^6/uL (3.50-5.40) L Hemoglobin 10.8 g/dL (12.0-15.5) L Hematocrit 33.1 % (36.0-47.0) L Mean Corpuscular Volume 98 fL (79-100) Mean Corpuscular Hemoglobin 32 pg (25-35) Mean Corpuscular Hemoglobin Concent 33 g/dL (31-37) Red Cell Distribution Width 13.1 % (11.5-14.5) Platelet Count 199 x10^3/uL (140-400) Neutrophils (%) (Auto) 54 % (31-73) Lymphocytes (%) (Auto) 28 % (24-48) Monocytes (%) (Auto) 8 % (0-9) Eosinophils (%) (Auto) 9 % (0-3) H Basophils (%) (Auto) 1 % (0-3) Neutrophils # (Auto) 3.0 x10^3uL (1.8-7.7) Lymphocytes # (Auto) 1.5 x10^3/uL (1.0-4.8) Monocytes # (Auto) 0.4 x10^3/uL (0.0-1.1) Eosinophils # (Auto) 0.5 x10^3/uL (0.0-0.7) Basophils # (Auto) 0.1 x10^3/uL (0.0-0.2) Prothrombin Time 11.3 SEC (9.4-11.4) Prothrombin Time INR 1.1 (0.9-1.1) Activated Partial Thromboplast Time 33 SEC (23-33) Sodium Level 139 mmol/L (136-145) Potassium Level 4.0 mmol/L (3.5-5.1) Chloride Level 102 mmol/L (98-107) Carbon Dioxide Level 30 mmol/L (21-32) Anion Gap 7 (6-14) Blood Urea Nitrogen 16 mg/dL (7-20) Creatinine 1.2 mg/dL (0.6-1.0) H Estimated GFR (Cockcroft-Gault) 43.6 Glucose Level 114 mg/dL (70-99) H Calcium Level 9.3 mg/dL (8.5-10.1) Magnesium Level 1.6 mg/dL (1.8-2.4) L Total Bilirubin 0.4 mg/dL (0.2-1.0) Direct Bilirubin 0.1 mg/dL (0.0-0.2) Aspartate Amino Transferase (AST) 13 U/L (15-37) L Alanine Aminotransferase (ALT) 13 U/L (14-59) L Alkaline Phosphatase 75 U/L (46-116) Creatine Kinase 58 U/L (26-192) Troponin I Quantitative < 0.017 ng/mL (0-0.055) BX-Von-M-Type Natriuretic Peptide 108 pg/mL (0-449) Total Protein 7.2 g/dL (6.4-8.2) Albumin 3.1 g/dL (3.4-5.0) L ([facility],CHANDRIKA DO) Lab Results Laboratory Tests Test 11/3/19 05:53 04/19/19 06:33 04/19/19 07:55 White Blood Count 5.6 x10^3/uL (4.0-11.0) Red Blood Count 3.38 x10^6/uL (3.50-5.40) L Hemoglobin 10.8 g/dL (12.0-15.5) L Hematocrit 33.1 % (36.0-47.0) L Mean Corpuscular Volume 98 fL (79-100) Mean Corpuscular Hemoglobin 32 pg (25-35) Mean Corpuscular Hemoglobin Concent 33 g/dL (31-37) Red Cell Distribution Width 13.1 % (11.5-14.5) Platelet Count 199 x10^3/uL (140-400) Neutrophils (%) (Auto) 54 % (31-73) Lymphocytes (%) (Auto) 28 % (24-48) Monocytes (%) (Auto) 8 % (0-9) Eosinophils (%) (Auto) 9 % (0-3) H Basophils (%) (Auto) 1 % (0-3) Neutrophils # (Auto) 3.0 x10^3uL (1.8-7.7) Lymphocytes # (Auto) 1.5 x10^3/uL (1.0-4.8) Monocytes # (Auto) 0.4 x10^3/uL (0.0-1.1) Eosinophils # (Auto) 0.5 x10^3/uL (0.0-0.7) Basophils # (Auto) 0.1 x10^3/uL (0.0-0.2) Prothrombin Time 11.3 SEC (9.4-11.4) Prothrombin Time INR 1.1 (0.9-1.1) Activated Partial Thromboplast Time 33 SEC (23-33) Sodium Level 139 mmol/L (136-145) Potassium Level 4.0 mmol/L (3.5-5.1) Chloride Level 102 mmol/L (98-107) Carbon Dioxide Level 30 mmol/L (21-32) Anion Gap 7 (6-14) Blood Urea Nitrogen 16 mg/dL (7-20) Creatinine 1.2 mg/dL (0.6-1.0) H Estimated GFR (Cockcroft-Gault) 43.6 Glucose Level 114 mg/dL (70-99) H Calcium Level 9.3 mg/dL (8.5-10.1) Magnesium Level 1.6 mg/dL (1.8-2.4) L Total Bilirubin 0.4 mg/dL (0.2-1.0) Direct Bilirubin 0.1 mg/dL (0.0-0.2) Aspartate Amino Transferase (AST) 13 U/L (15-37) L Alanine Aminotransferase (ALT) 13 U/L (14-59) L Alkaline Phosphatase 75 U/L (46-116) Creatine Kinase 58 U/L (26-192) Troponin I Quantitative < 0.017 ng/mL (0-0.055) JW-Oim-F-Type Natriuretic Peptide 108 pg/mL (0-449) Total Protein 7.2 g/dL (6.4-8.2) Albumin 3.1 g/dL (3.4-5.0) L Urine Collection Type Unknown Urine Color Yellow Urine Clarity Clear Urine pH 7.0 Urine Specific [place] 1.015 Urine Protein Neg (NEG-TRACE) Urine Glucose (UA) Neg mg/dL (NEG) Urine Ketones (Stick) Neg mg/dL (NEG) Urine Blood Trace (NEG) Urine Nitrite Neg (NEG) Urine Bilirubin Neg (NEG) Urine Urobilinogen Dipstick 0.2 mg/dL (0.2 mg/dL) Urine Leukocyte Esterase Mod (NEG) Urine RBC 0 /HPF (0-2) Urine WBC 5-10 /HPF (0-4) Urine Squamous Epithelial Cells Few /LPF Urine Bacteria Few /HPF (0-FEW) Urine Mucus Slight /LPF Urine Opiates Screen Neg (NEG) Urine Methadone Screen Neg (NEG) Urine Barbiturates Neg (NEG) Urine Phencyclidine Screen Neg (NEG) Urine Amphetamine/Methamphetamine Neg (NEG) Urine Benzodiazepines Screen Pos (NEG) Urine Cocaine Screen Neg (NEG) Urine Cannabinoids Screen Neg (NEG) Urine Ethyl Alcohol Neg (NEG) (RHONDA TSAI MD) EKG EKG EKG pending at shift change[] (RHONDA TSAI MD) EKG EKG shows a sinus rhythm at 83 bpm, left axis, QTC of 452 ms, intraventricular conduction delay, no ST elevation. Interpreted by me at 0727 (CHANDRIKA PALOMARES DO) Radiology/Procedures Radiology/Procedures X-rays pending at shift change[] (RHONDA TSAI MD) Radiology/Procedures PROCEDURE: PORTABLE CHEST 1V AP chest. HISTORY: Wrist injury, FOOSH injury AP view was taken of the chest. Heart is normal in size. The aorta is tortuous. There is linear scarring or atelectasis in the right lung base. Patient's taken a poor inspiration. IMPRESSION: 1. Right basilar linear scarring or atelectasis with little change from the recent study. PROCEDURE: WRIST 3V RIGHT Right wrist 3 views. History wrist injury 3 views were taken of the right wrist. There is a displaced comminuted angulated fracture of the distal radius. There is dorsal displacement and impaction of the dorsal cortex creating the angulation. IMPRESSION: 1. Fracture distal right radius. (CHANDRIKA PALOMARES DO) Course & Med Decision Making Course & Med Decision Making Pertinent Labs and Imaging studies reviewed. (See chart for details) Endorse patient to Dr. Palomares at shift change. [] (RHONDA TSAI MD) Course & Med Decision Making Received patient at 6 AM. Agree with previous H&P. After verbal consent with risks and benefits explained and patient verbalized understanding, closed reduction was attempted utilizing hematoma block and 50 g of fentanyl. Hematoma block was performed in sterile fashion, 10 mL of 1% lidocaine was infused. She tolerated the procedure well however there was instability noted on completion of the reduction. She was splinted. Post reduction x-rays were obtained that did not show any significant improvement. Consultation was made with orthopedic surgery. Consultation additionally was made with her primary care physician. Due to the need for orthopedic intervention, and her primary care physician not admitting patients at [facility], the hospitalist, Dr. Hammonds, graciously accepted the patient for admission. Patient will most likely need an ORIF of the distal radius. She is being transferred for the higher level of care available. At approximately 745, patient's daughter calls requesting the patient be transferred to or to [facility] since that is where she receives her care. Consultation was made with [facility], , in orthopedic surgery accepted for the patient to be seen in the emergency department at . (CHANDRIKA PALOMARES DO) Final Impression Final Impression 1. Rt. Wrist Fx[] 2. Hx. Oxygen Dependent COPD and Steroid Dependent 3. Hx. CADZ, with CHF 4. Hx. of PE- on Anticoagulation 5. Recent Dx of Basal Cell Carcinoma 6. Multiple Chronic Medical Issues. (RHONDA TSAI MD) Dragon Disclaimer Dragon Disclaimer This electronic medical record was generated, in whole or in part, using a voice recognition dictation system. (RHONDA TSAI MD) Dragon Disclaimer This chart was dictated in whole or in part using Voice Recognition software in a busy, high-work load, and often noisy Emergency Department environment. It may contain unintended and wholly unrecognized errors or omissions. (RHONDA TSAI MD) RHONDA TSAI MD Apr 19, 2019 05:42 CHANDRIKA PALOMARES DO Apr 19, 2019 07:30
[2019-04-19] MEDS ORDERED: PROPOFOL 20 ML IV ONE (06:00)
[2019-04-19 06:23] LABS: BASO # 0.1 x10^3/uL (0.0-0.2); BASO % 1 % (0-3); EOS # 0.5 x10^3/uL (0.0-0.7); EOS % 9 % (0-3); HEMATOCRIT 33.1 % (36.0-47.0); HEMOGLOBIN 10.8 g/dL (12.0-15.5); LYMPH # 1.5 x10^3/uL (1.0-4.8); LYMPH % 28 % (24-48); MEAN CORPUSCULAR HEMOGLOBIN 32 pg (25-35); MEAN CORPUSCULAR HGB CONC 33 g/dL (31-37); MEAN CORPUSCULAR VOLUME 98 fL (79-100); MONO # 0.4 x10^3/uL (0.0-1.1); MONO % 8 % (0-9); NEUT % 54 % (31-73); PLATELET COUNT 199 x10^3/uL (140-400); RED BLOOD COUNT 3.38 x10^6/uL (3.50-5.40); RED CELL DISTRIBUTION WIDTH 13.1 % (11.5-14.5); WHITE BLOOD COUNT 5.6 x10^3/uL (4.0-11.0)
[2019-04-19] MEDS ORDERED: methylPREDNISolone SOD SUCC PF 40 MG/ML VIAL. IV ONE (06:30)
[2019-04-19] MEDS ORDERED: LIDOCAINE 1% Multi-Dose 20 ML VIAL. IJ ONE (06:30)
--- NOTE | 2019-04-19 06:48 | RAD ---
AP chest. HISTORY: Wrist injury, FOOSH injury AP view was taken of the chest. Heart is normal in size. The aorta is tortuous. There is linear scarring or atelectasis in the right lung base. Patient's taken a poor inspiration. IMPRESSION: 1. Right basilar linear scarring or atelectasis with little change from the recent study. Electronically signed by: Damien Miranda MD (04/19/2019 6:46 AM) [id number]
--- NOTE | 2019-04-19 06:50 | RAD ---
Right wrist 3 views. History wrist injury 3 views were taken of the right wrist. There is a displaced comminuted angulated fracture of the distal radius. There is dorsal displacement and impaction of the dorsal cortex creating the angulation. IMPRESSION: 1. Fracture distal right radius. Electronically signed by: Damien Miranda MD (04/19/2019 6:47 AM) [facility]
[2019-04-19 07:08] LABS: ALBUMIN 3.1 g/dL (3.4-5.0); CALCIUM 9.3 mg/dL (8.5-10.1); CREATININE 1.2 mg/dL (0.6-1.0); DIRECT BILIRUBIN 0.1 mg/dL (0.0-0.2); GFR 43.6; MAGNESIUM 1.6 mg/dL (1.8-2.4); TOTAL BILIRUBIN 0.4 mg/dL (0.2-1.0); TOTAL PROTEIN 7.2 g/dL (6.4-8.2)
--- NOTE | 2019-04-19 07:28 | RAD ---
WRIST 3V RIGHT DATE: 04/19/2019 5:42 AM INDICATION: Fracture status post splinting COMPARISON: 04/19/2019. FINDINGS/ IMPRESSION: Interval splinting of the previously described acute, comminuted, displaced, and dorsally angulated distal radius fracture. Fracture fragments are in similar alignment. Electronically signed by: Francisco Yanes MD (04/19/2019 7:25 AM) [id number]
[2019-04-19 08:15] VITALS: BP 138/57
[2019-04-19] MEDS ORDERED: IPRATRPIUM/ALBUTEROL 0.5/2.5MG 3 ML NEBU. NEB ONE (08:30)
[2019-04-19] MEDS ORDERED: HYDROmorphone PF 1 MG/ML DISP.SYRIN IM ONE (09:00)
[2019-04-19 09:21] LABS: BARBITURATES NEG (NEG); BENZODIAZEPINES POS (NEG); CANNABINOIDS NEG (NEG); COCAINE NEG (NEG); METHADONE NEG (NEG); OPIATES NEG (NEG); PHENCYCLIDINE NEG (NEG)
[2019-04-19 09:22] LABS: AMPHETAMINE/METHAMPHETAMINE NEG (NEG); BILIRUBIN,URINE NEG (NEG); CLARITY,URINE CLEAR; COLOR,URINE YELLOW; GLUCOSE,URINE NEG (NEG)
[2019-04-19 09:23] LABS: BACTERIA,URINE FEW /HPF (0-FEW); NITRITE,URINE NEG (NEG); RBC,URINE 0 /HPF (0-2); SQUAMOUS EPITHELIAL CELL,UR FEW /LPF; UROBILINOGEN,URINE 0.2 mg/dL (0.2 mg/dL)
== END 2019-04-19 10:20 | disposition short-term general hospital (02) ==
LOC: ER 05:35
DX: S52.591A Other fractures of lower end of right radius, initial encounter for closed fracture (principal); J44.9 Chronic obstructive pulmonary disease, unspecified; I25.10 Atherosclerotic heart disease of native coronary artery without angina pectoris; I11.0 Hypertensive heart disease with heart failure; I50.9 Heart failure, unspecified; F41.9 Anxiety disorder, unspecified; M19.90 Unspecified osteoarthritis, unspecified site; E78.00 Pure hypercholesterolemia, unspecified; G47.30 Sleep apnea, unspecified; G89.29 Other chronic pain; M54.89 Other dorsalgia; E03.9 Hypothyroidism, unspecified; F32.9 Major depressive disorder, single episode, unspecified; C44.311 Basal cell carcinoma of skin of nose; Z86.2 Personal history of diseases of the blood and blood-forming organs and certain disorders involving the immune mechanism; Z86.711 Personal history of pulmonary embolism; Z87.440 Personal history of urinary (tract) infections; Z99.81 Dependence on supplemental oxygen; Z79.01 Long term (current) use of anticoagulants; Z88.8 Allergy status to other drugs, medicaments and biological substances; Z88.1 Allergy status to other antibiotic agents; Z88.2 Allergy status to sulfonamides; Z88.5 Allergy status to narcotic agent; Z79.51 Long term (current) use of inhaled steroids; W01.0XXA Fall on same level from slipping, tripping and stumbling without subsequent striking against object, initial encounter; Y93.89 Activity, other specified; Y92.89 Other specified places as the place of occurrence of the external cause; Y99.8 Other external cause status
CPT/HCPCS: 25605; 36415; 71045; 73110; 80048; 80076; 80307; 81001; 82550; 83735; 83880; 84484; 85025; 85610; 85730; 87086; 94640; 96372; 99285; J1170; J3010; J7120; J7620; 87186

== ENCOUNTER → 2019-08-05 | Outpatient (CLI) | payer MEDICARE, BC, OTHER ==
--- NOTE | 2019-08-06 10:17 | RAD ---
PQRS Compliance Statement: One or more of the following individualized dose reduction techniques were utilized for this examination: 1. Automated exposure control 2. Adjustment of the mA and/or kV according to patient size 3. Use of iterative reconstruction technique CT CHEST WO CONTRAST Clinical Indication: Follow-up lung nodule. Comparison: CT chest without contrast December 29, 2018. FDG PET/CT, September 25. TECHNIQUE: Helical CT imaging of the chest is performed without IV contrast. Findings: Stable mediastinal lymph node. No adenopathy. The great vessels are stable. Cardiac size normal, no pericardial effusion. There is no pleural effusion. The central airways are patent. There is moderate centrilobular emphysema. Irregular consolidation with air bronchiolograms in the right middle lobe is similar to prior study. Irregular consolidation with a few air bronchiolograms in the anterior right lower lobe is mildly larger posteriorly and laterally. Spiculated nodule in the superior segment of the right lower lobe has increased in size and is now more solid. Nodule measures 2.5 x 1.8 cm, previously 1.9 x 1.3 cm. Stable hypodensities in the liver. There are renal cysts. Some of these lesions are indeterminate but did not demonstrate increased FDG uptake on PET. No follow-up imaging is recommended per consensus recommendations based on imaging criteria. There is stool in the visualized colon. Stable old compression fracture of T7. IMPRESSION: 1. Spiculated nodule in the superior segment of the right lower lobe has increased in size and is more solid, highly suspicious for bronchogenic carcinoma. 2. Moderate centrilobular emphysema. 3. Irregular consolidations with air bronchiolograms in the anterior right lower lobe and right middle lobe are relatively stable. Electronically signed by: Nik Del Rosario MD (08/06/2019 10:14 AM) [id number]
== END | disposition home or self-care (01) ==
LOC: CT 12:31
PROVIDERS: ATTEND Internal Medicine Critical Care Medicine
DX: J43.2 Centrilobular emphysema (principal); R91.1 Solitary pulmonary nodule; N28.1 Cyst of kidney, acquired; M48.54XA Collapsed vertebra, not elsewhere classified, thoracic region, initial encounter for fracture
CPT/HCPCS: 71250

== ENCOUNTER 2020-06-06 13:25 | Inpatient (IN) | payer MEDICARE, BC, OTHER ==
[~2020-06-06] VITALS: Ht 162.6 cm; Wt 89.2 kg
[~2020-06-06 13:25] MED LIST changes: -ACYC-63 PO; +ACYC200C84 PO; -ASPI-612 PO; +ASPI-889 PO; +MELA3TAB4 PO; -MELA3TAB56 PO
[2020-06-06 15:09] VITALS: BP 95/66
[2020-06-06] MEDS: IPRATRPIUM/ALBUTEROL 0.5/2.5MG 3 ML NEBU. NEB SCH ×2 (15:36→21:09)
--- NOTE | 2020-06-06 15:53 | EKG ---
[address] [address] Test Date: 2020-06-06 Test Time: 15:45:14 Pat Name: MICHELLE MARTINEZ Department: Room: 119 A Gender: F [employer]: : 1940 Requested By: JUANIS HERNANDEZ Order Number: [id number] Reading MD: Measurements Intervals [place] Rate: 68 P: 46 CT: 202 QRS: -51 QRSD: 174 T: 118 QT: 420 QTc: 452 Interpretive Statements SINUS RHYTHM ABNORMAL LEFT AXIS DEVIATION NON SPECIFIC INTRAVENTRICULAR BLOCK ABNORMAL ECG RI6.01 No previous ECG available for comparison
[2020-06-06 17:21] LABS: BASO % 1 % (0-3); EOS # 0.1 x10^3/uL (0.0-0.7); EOS % 3 % (0-3); HEMATOCRIT 33.2 % (36.0-47.0); HEMOGLOBIN 11.1 g/dL (12.0-15.5); LYMPH # 0.7 x10^3/uL (1.0-4.8); LYMPH % 16 % (24-48); MEAN CORPUSCULAR HEMOGLOBIN 33 pg (25-35); MEAN CORPUSCULAR HGB CONC 33 g/dL (31-37); MEAN CORPUSCULAR VOLUME 98 fL (79-100); MONO # 0.4 x10^3/uL (0.0-1.1); MONO % 9 % (0-9); NEUT # 3.3 x10^3uL (1.8-7.7); NEUT % 72 % (31-73); PLATELET COUNT 234 x10^3/uL (140-400); RED BLOOD COUNT 3.38 x10^6/uL (3.50-5.40); RED CELL DISTRIBUTION WIDTH 13.4 % (11.5-14.5); WHITE BLOOD COUNT 4.6 x10^3/uL (4.0-11.0)
[2020-06-06 17:45] LABS: ALBUMIN 3.5 g/dL (3.4-5.0); ALBUMIN/GLOBULIN RATIO 0.9 (1.0-1.7); CALCIUM 9.2 mg/dL (8.5-10.1); CREATININE 1.4 mg/dL (0.6-1.0); GFR 36.4; POTASSIUM 4.3 mmol/L (3.5-5.1); TOTAL BILIRUBIN 0.5 mg/dL (0.2-1.0); TOTAL PROTEIN 7.2 g/dL (6.4-8.2)
--- NOTE | 2020-06-06 18:10 | RAD ---
Study: CT abdomen/pelvis without intravenous contrast Indication: Abdominal pain with severe uncontrolled diarrhea. Comparison: CT chest 08/05/2019; CT lumbar spine 02/21/2018; PET/CT 08/14/2019 Technique: Helical CT imaging performed of the abdomen and pelvis without the use of intravenous cont rast. Sagittal and coronal reformats were obtained. One or more of the following individualized dose reduction techniques were utilized for this examinat ion: 1. Automated exposure control 2. Adjustment of the mA and/or kV according to patient size 3. Use of iterative reconstruction technique. Findings: Inherently limited evaluation without intravenous contrast. A right lower lobe mass seen on comparison exams is not included in the field. Scattered atelectasis/ scarring. Unchanged visualized thoracic aorta and mediastinal contents. Several hepatic cystic foci are unchanged. Surgically absent gallbladder. Within normal limits biliar y tree. Unchanged pancreas. The spleen is within normal limits for size. No adrenal gland mass. Numerous renal cystic foci bilaterally. Several cystic foci are intrinsically dense most likely hemor rhagic/proteinaceous cysts. These were not hypermetabolic by PET. No collecting system obstruction. M ildly distended urinary bladder without wall thickening. No uterine mass is identified. No concerning adnexal abnormality. Right adnexal mineralization favored associated with the right ovary but there is no discrete mass. Mineralization to the left of midline on image 135 series 2 is of uncertain etio logy but could represent mineralization within a periurethral or vaginal cyst. Colonic diverticulosis without diverticulitis. No findings to suggest an active colitis. The appendix is normal. Nonobstructed small bowel. Poorly evaluated stomach due to underdistention. Multifocal calcific atherosclerosis. Nonaneurysmal aorta. No lymphadenopathy by size criteria. No daniel e fluid or pneumoperitoneum. No complex body wall hernia. Osteopenia and multifocal degenerative changes. No focally aggressive osseous abnormality. Impression: 1. No acute abnormality seen throughout the abdomen or pelvis to explain the patient's symptoms. No definitive manifestations of active enterocolitis. 2. Numerous hepatic and renal cysts which were seen on the 08/14/2019 PET/CT and were not hypermetabo lic. 3. A known right lower lobe mass is not included in the [id number] on this study. No findings bel ow the diaphragm to suggest metastatic disease. 4. Additional chronic observations detailed in the body the report. Electronically signed by: ZOE TORRES MD (06/06/2020 6:07 PM) [facility]
[2020-06-06] MEDS: CALCIUM CARB/VIT D3 500/200 TABLET PO SCH (18:13)
[2020-06-06] MEDS: CARVEDILOL 6.25 MG TABLET PO SCH (18:14)
[2020-06-06] MEDS: IV NORMAL SALINE 1,000ML 1,000 ML IV SCH (18:14)
--- NOTE | 2020-06-06 18:39 | RAD ---
PA and lateral chest radiographs 06/06/2020 CLINICAL HISTORY: Shortness of breath. PA and lateral digital radiographs of the chest were obtained. Comparison study is dated 04/19/2019. The cardiac silhouette is borderline enlarged. The thoracic aorta is tortuous. Atherosclerotic calcif ication of the thoracic aorta is seen. Emphysematous changes are seen involving both lungs. Areas of scarring are seen involving both lungs essentially unchanged. No acute pulmonary infiltrate is noted. No pneumothorax or pleural effusion is seen. An old appearing compression deformity of a midthoracic vertebral body is noted. There is diffuse osteopenia the visualized bony structures. Degenerative ch anges are seen involving the thoracic spine. IMPRESSION: No acute abnormality is seen. Electronically signed by: Maurizio Martinez MD (06/06/2020 6:37 PM) [id number]
[2020-06-06 19:50] VITALS: BP 102/69
[2020-06-06] MEDS ORDERED: NON FORMULARY ITEM (Fluticasone Propionate (Flovent 110MCG Hfa) 2 PUFF) IH SCH (21:00)
[2020-06-06] MEDS: BUDESONIDE 0.5 MG/2 ML NEBU NEB SCH (21:09)
[2020-06-06] MEDS: ALPRAZolam 0.5 MG TABLET PO SCH (21:30)
[2020-06-06] MEDS: LOSARTAN 50 MG TABLET. PO SCH (21:31)
[2020-06-06] MEDS: QUEtiapine 50 MG TABLET. PO SCH (21:31)
[2020-06-07] VITALS: BP 99/64
[2020-06-07] MEDS: IV NORMAL SALINE 1,000ML 1,000 ML IV SCH ×3 (01:30→17:07)
[2020-06-07] MEDS: IPRATRPIUM/ALBUTEROL 0.5/2.5MG 3 ML NEBU. NEB SCH ×4 (05:24→20:31)
[2020-06-07] MEDS: LEVOTHYROXINE 125 MCG TABLET PO SCH (05:46)
[2020-06-07 06:47] LABS: CREATININE 1.3 mg/dL (0.6-1.0); GFR 39.6; POTASSIUM 4.3 mmol/L (3.5-5.1)
[2020-06-07 06:49] LABS: BASO % 1 % (0-3); EOS # 0.1 x10^3/uL (0.0-0.7); EOS % 3 % (0-3); HEMATOCRIT 31.6 % (36.0-47.0); HEMOGLOBIN 10.7 g/dL (12.0-15.5); LYMPH # 1.2 x10^3/uL (1.0-4.8); LYMPH % 29 % (24-48); MEAN CORPUSCULAR HEMOGLOBIN 33 pg (25-35); MEAN CORPUSCULAR HGB CONC 34 g/dL (31-37); MEAN CORPUSCULAR VOLUME 98 fL (79-100); MONO # 0.4 x10^3/uL (0.0-1.1); MONO % 11 % (0-9); NEUT # 2.3 x10^3uL (1.8-7.7); NEUT % 57 % (31-73); PLATELET COUNT 227 x10^3/uL (140-400); RED BLOOD COUNT 3.22 x10^6/uL (3.50-5.40); RED CELL DISTRIBUTION WIDTH 13.8 % (11.5-14.5); WHITE BLOOD COUNT 4.1 x10^3/uL (4.0-11.0)
[2020-06-07] MEDS: SPIRONOLACTONE 25 MG TABLET PO SCH (08:27)
[2020-06-07] MEDS: CARVEDILOL 6.25 MG TABLET PO SCH ×2 (08:27→17:07)
[2020-06-07] MEDS: CALCIUM CARB/VIT D3 500/200 TABLET PO SCH ×2 (08:28→17:07)
[2020-06-07] MEDS: RIVAROXABAN 10 MG TABLET. PO SCH (08:28)
[2020-06-07] MEDS: ALPRAZolam 0.5 MG TABLET PO SCH ×3 (08:28→20:20)
[2020-06-07] MEDS: predniSONE 10 MG TABLET PO SCH (08:28)
[2020-06-07] MEDS: buPROPion SR 150 MG TABLET.SA PO SCH (08:28)
[2020-06-07] MEDS ORDERED: NON FORMULARY ITEM (Tiotropium Br/Olodaterol HCl (Stiolto Respimat Inhal Spray) 2 PUFF) IH SCH (09:00)
[2020-06-07 10:45] VITALS: BP 104/68
[2020-06-07] MEDS: BUDESONIDE 0.5 MG/2 ML NEBU NEB SCH ×2 (11:07→20:31)
[2020-06-07 17:47] LABS: BACTERIA,URINE FEW /HPF (0-FEW); BILIRUBIN,URINE NEG (NEG); CLARITY,URINE CLEAR; COLOR,URINE YELLOW; GLUCOSE,URINE NEG (NEG); NITRITE,URINE NEG (NEG); SQUAMOUS EPITHELIAL CELL,UR OCC /LPF; UROBILINOGEN,URINE 0.2 mg/dL (0.2 mg/dL)
[2020-06-07 20:17] VITALS: BP 99/49
[2020-06-07] MEDS: LOSARTAN 50 MG TABLET. PO SCH (20:20)
[2020-06-07] MEDS: QUEtiapine 50 MG TABLET. PO SCH (20:20)
--- NOTE | 2020-06-07 21:54 | PN ---
DATE: 06/07/2020 SUBJECTIVE: A 79-year-old female who came in with feeling weak, severe diarrhea and the like. The patient otherwise says she is somewhat still very weak, although improved slightly. Blood pressure did drop down to 99/64, pulse 70, respiratory rate 20. She is afebrile. Her sodium did come up from a low of 122 critical to 129 on normal saline. She has been put on a regular diet. The patient otherwise is alert and oriented. Culture on the urine is still pending and we will evaluate that as that comes in. OBJECTIVE: GENERAL: The patient is alert and oriented. Speech is fluent and spontaneous. LUNGS: Diminished, but clear. CARDIOVASCULAR: Regular sinus rhythm. ABDOMEN: Soft, nontender. EXTREMITIES: No clubbing, cyanosis, or edema. NEUROLOGIC: Stable. ABDOMEN: Soft, diffuse tenderness, still having some cramping. She did take some Imodium before she came in the hospital which slowed her diarrhea down, but her sodium was still at 122, which is of a critical range and she will continue to be monitored. IMPRESSION: Hyponatremia, diarrhea, dehydration, generalized weakness secondary to diarrhea. JUANIS HERNANDEZ MD DR: SABINO/molly JOB#: [id number] / [id number]
[2020-06-07 23:23] VITALS: BP 103/67
[2020-06-08] MEDS: IV NORMAL SALINE 1,000ML 1,000 ML IV SCH ×2 (01:26→09:23)
[2020-06-08 05:01] VITALS: BP 100/57
[2020-06-08] MEDS: IPRATRPIUM/ALBUTEROL 0.5/2.5MG 3 ML NEBU. NEB SCH ×2 (05:18→10:36)
[2020-06-08] MEDS: LEVOTHYROXINE 125 MCG TABLET PO SCH (05:45)
[2020-06-08 06:28] LABS: CALCIUM 7.7 mg/dL (8.5-10.1); CREATININE 1.2 mg/dL (0.6-1.0); GFR 43.4; POTASSIUM 3.6 mmol/L (3.5-5.1)
[2020-06-08] MEDS: SPIRONOLACTONE 25 MG TABLET PO SCH (08:59)
[2020-06-08] MEDS: CARVEDILOL 6.25 MG TABLET PO SCH (08:59)
[2020-06-08] MEDS: CALCIUM CARB/VIT D3 500/200 TABLET PO SCH (08:59)
[2020-06-08] MEDS: buPROPion SR 150 MG TABLET.SA PO SCH (08:59)
[2020-06-08] MEDS: ALPRAZolam 0.5 MG TABLET PO SCH ×2 (08:59→14:11)
[2020-06-08] MEDS: RIVAROXABAN 10 MG TABLET. PO SCH (09:00)
[2020-06-08] MEDS: predniSONE 10 MG TABLET PO SCH (09:03)
[2020-06-08] MEDS: BUDESONIDE 0.5 MG/2 ML NEBU NEB SCH (10:36)
[2020-06-08 11:33] VITALS: BP 117/65
[2020-06-08 11:35] LABS: FECAL OB PT NEGATIVE (NEG)
--- NOTE | 2020-07-05 19:27 | DS ---
DATE OF DISCHARGE: 06/08/2020 HOSPITAL COURSE: A 79-year-old female who came in, she was feeling weak, severe diarrhea. The patient otherwise had been very ill for some time, her sodium was found to be about 122, given normal saline to bring that up. She has been plagued by chronic diarrhea ____ the infection prevention practitioner and had ____ of blood pressure was also on the low side of 95/60, pulse remained at 70. The normal saline helped bring her blood pressure back up into a reasonable range about 120/60. In any case, the patient made excellent progress during the rest of her hospitalization. She made good progress, felt strong enough to go home, will be discharged to home. IMPRESSION: Hyponatremia, diarrhea of unknown etiology, dehydration, generalized weakness secondary to diarrhea. The patient will be placed on a soft diet and continued to be monitored carefully as an outpatient. The patient also has a history of lung cancer. JUANIS HERNANDEZ MD DR: SABINO/molly JOB#: [id number] / [id number]
== END 2020-06-08 14:30 | disposition home or self-care (01) | DRG 392 ==
LOC: 1 SOUTH 14:14
PROVIDERS: ADMIT Family Medicine; ATTEND Family Medicine
DX: K52.89 Other specified noninfective gastroenteritis and colitis (principal); N39.0 Urinary tract infection, site not specified; E87.1 Hypo-osmolality and hyponatremia; E86.0 Dehydration; I11.0 Hypertensive heart disease with heart failure; I50.9 Heart failure, unspecified; I25.10 Atherosclerotic heart disease of native coronary artery without angina pectoris; J44.9 Chronic obstructive pulmonary disease, unspecified; Z98.51 Tubal ligation status; F41.9 Anxiety disorder, unspecified; E78.00 Pure hypercholesterolemia, unspecified; Z79.899 Other long term (current) drug therapy; Z88.8 Allergy status to other drugs, medicaments and biological substances; Z87.440 Personal history of urinary (tract) infections; Z90.49 Acquired absence of other specified parts of digestive tract
CPT/HCPCS: 36415; 71046; 74176; 80048; 80053; 81001; 82274; 85025; 87086; 87177; 87209; 93005; 94640; J7512; J7030

== ENCOUNTER 2020-06-16 15:04 | Inpatient (IN) | payer MEDICARE, BC, OTHER ==
[~2020-06-16] VITALS: Ht 160 cm; Wt 89.1 kg
[2020-06-16] MEDS ORDERED: IV NORMAL SALINE 1,000ML 1,000 ML IV ONE (16:00)
[2020-06-16] MEDS ORDERED: ONDANSETRON PF 4 MG/2 ML VIAL. IVP ONE (16:00)
[2020-06-16] MEDS ORDERED: DICYCLOMINE 20 MG/2 ML VIAL. IM ONE (16:15)
[2020-06-16 16:34] LABS: BASO % 0 % (0-3); EOS % 0 % (0-3); HEMATOCRIT 29.3 % (36.0-47.0); HEMOGLOBIN 9.9 g/dL (12.0-15.5); LYMPH # 0.2 x10^3/uL (1.0-4.8); LYMPH % 8 % (24-48); MEAN CORPUSCULAR HEMOGLOBIN 33 pg (25-35); MEAN CORPUSCULAR HGB CONC 34 g/dL (31-37); MEAN CORPUSCULAR VOLUME 98 fL (79-100); MONO # 0.2 x10^3/uL (0.0-1.1); MONO % 5 % (0-9); NEUT # 2.8 x10^3uL (1.8-7.7); NEUT % 87 % (31-73); PLATELET COUNT 144 x10^3/uL (140-400); RED BLOOD COUNT 3.01 x10^6/uL (3.50-5.40); WHITE BLOOD COUNT 3.2 x10^3/uL (4.0-11.0)
--- NOTE | 2020-06-16 16:36 | RAD ---
EXAM: Chest, single view. HISTORY: Covid 19. COMPARISON: 06/06/2020 FINDINGS: A frontal view of the chest is obtained. There is suspected bilateral lower lobe interstiti al infiltrate superimposed on chronic interstitial changes. There is no consolidation, pleural effusi on or pneumothorax. There is a stable cardiac silhouette. IMPRESSION: Suspected bilateral lower lobe interstitial infiltrate superimposed on chronic interstiti al changes. Electronically signed by: Aicha Murphy MD (06/16/2020 4:34 PM) [id number]
--- NOTE | 2020-06-16 16:37 | PHYS DOC ---
Past History Past Medical History: Anxiety, Arthritis, Cancer, CHF, COPD, High Cholesterol, Hypertension, Other Additional Past Medical Histor: RHEUMATIC FEVER Past Surgical History: Cholecystectomy, Tonsillectomy, Tubal ligation, Other Additional Past Surgical Histo: DEVIATED SEPTUM Alcohol Use: None Drug Use: None General Adult EDM: Chief Complaint: DIARRHEA HPI: HPI: Patient is a 79-year-old female coming in for weakness, fatigue, shortness of breath, and decreased p.o. intake. Patient thinks she is dehydrated she has been having diarrhea for about 6 weeks and was hospitalized for the same prior. Patient was also hypoxic on room air satting 84%. Patient has a history of COPD and uses oxygen at night but not during the day. She was started on steroids by her primary care physician and had 1 dose today. Patient states she has had a productive cough denies any nausea and vomiting. She was exposed to Covid by her daughter who came over for Erasmo. Her daughter and had a test performed prior to the holiday, got the positive results after being at her mother's for the holiday. She denies any loss of taste or smell but says she lives alone and because she has not felt well is lacking motivation to get out and make food. States there is no blood in her stools no tarry looking stools. Review of Systems: Review of Systems: All other systems within normal limits except for as noted in the HPI Current Medications: Current Meds: Current Medications Medications (Trade) Dose Ordered Sig/Miguel Start Time Stop Time Status Last Admin Dose Admin Dicyclomine HCl (Bentyl) 10 mg 1X ONCE 06/16/20 16:15 06/16/20 16:18 DC Ondansetron HCl (Zofran) 4 mg 1X ONCE 06/16/20 16:00 06/16/20 16:01 DC Sodium Chloride 1,000 ml @ 1,000 mls/hr 1X ONCE 06/16/20 16:00 06/16/20 16:59 06/16/20 15:58 1,000 MLS/HR Allergies: Allergies: Allergies Coded Allergies Type Severity Reaction Last Updated Verified fenofibrate Allergy Severe 10/13/14 Yes simvastatin Allergy Severe 10/13/14 Yes amoxicillin Allergy Intermediate 02/22/18 Yes clavulanic acid Allergy Intermediate 02/22/18 Yes morphine Allergy Intermediate Rash 4/29/15 Yes sulfamethoxazole Allergy Intermediate Rash 10/13/14 Yes trimethoprim Allergy Intermediate Rash 10/13/14 Yes Physical Exam: PE: Constitutional: Well developed, well nourished, no acute distress, non-toxic appearance. [] HENT: Normocephalic, atraumatic, bilateral external ears normal, oropharynx moist, no oral exudates, nose normal. [] Eyes: PERRLA, EOMI, conjunctiva normal, no discharge. [] Neck: Normal range of motion, no tenderness, supple, no stridor. [] Cardiovascular:Heart rate regular rhythm, no murmur [] Lungs & Thorax: Bilateral breath sounds clear to auscultation, but diminished [] Abdomen: Bowel sounds normal, soft, no tenderness, no masses, no pulsatile masses. [] Skin: Warm, dry, no erythema, no rash. [] Back: No tenderness, no CVA tenderness. [] Extremities: No tenderness, no cyanosis, no clubbing, ROM intact, no edema. [] Neurologic: Alert and oriented X 3, normal motor function, normal sensory function, no focal deficits noted. [] Psychologic: Affect normal, judgement normal, mood normal. [] Current Patient Data: Vital Signs: Vital Signs Date Time Temp Pulse Resp B/P (MAP) Pulse Ox O2 Delivery O2 Flow Rate FiO2 06/16/20 15:58 71 20 93/58 (70) 98 Nasal Cannula 2.0 06/16/20 15:35 99.3 EKG: EKG: Sinus rhythm, wide complex with left axis deviation, intraventricular block. No ST elevation or depression. [] Radiology/Procedures: Radiology/Procedures: [] Heart Score: Risk Factors: Risk Factors: DM, Current or recent (<one month) smoker, HTN, HLP, family history of CAD, obesity. Risk Scores: Score 0 - 3: 2.5% MACE over next 6 weeks - Discharge Home Score 4 - 6: 20.3% MACE over next 6 weeks - Admit for Clinical Observation Score 7 - 10: 72.7% MACE over next 6 weeks - Early Invasive Strategies Course & Med Decision Making: Course & Med Decision Making Pertinent Labs and Imaging studies reviewed. (See chart for details) Patient is again hyponatremic with bilateral pneumonia. Will test for Covid but treat prophylactically with antibiotics. Patient admitted to Dr. Wilson [] Dragon Disclaimer: Dragon Disclaimer: This electronic medical record was generated, in whole or in part, using a voice recognition dictation system. Departure Departure: Impression: Primary Impression: Acute hyponatremia Additional Impressions: Pneumonia Diarrhea Disposition: ADMITTED INPT THIS HOSP Admitting Physician: Juanis Wilson Condition: STABLE Referrals: JUANIS WILSON MD (PCP) BIMAL LUTZ MD Jun 16, 2020 16:37
[2020-06-16 16:42] LABS: CALCIUM 7.6 mg/dL (8.5-10.1); CREATININE 1.5 mg/dL (0.6-1.0); GFR 33.6; POTASSIUM 4.6 mmol/L (3.5-5.1)
[2020-06-16 16:47] LABS: ALBUMIN 2.9 g/dL (3.4-5.0); ALBUMIN/GLOBULIN RATIO 0.9 (1.0-1.7); MAGNESIUM 1.1 mg/dL (1.8-2.4); PHOSPHORUS 3.3 mg/dL (2.6-4.7); TOTAL BILIRUBIN 0.3 mg/dL (0.2-1.0); TOTAL PROTEIN 6.3 g/dL (6.4-8.2)
[2020-06-16 17:04] LABS: INFLUENZA A PATIENT NEGATIVE (NEGATIVE); INFLUENZA B PATIENT NEGATIVE (NEGATIVE)
[2020-06-16 17:18] LABS: % LYMPHS 11 % (24-48); % MONOS 6 % (0-10); % SEGS 83 % (35-66)
[2020-06-16 17:19] LABS: PLT ESTIMATE ADEQUATE (ADEQUATE)
[2020-06-16] MEDS ORDERED: DEXAMETHASONE SOD PHOS 10 MG/ML VIAL. IV ONE (17:45)
[2020-06-16] MEDS ORDERED: ONDANSETRON PF 4 MG/2 ML VIAL. IVP PRN (17:45)
[2020-06-16] MEDS ORDERED: AZITHROMYCIN 500 MG in IV NORMAL SALINE 250ML 250 ML IV ONE (17:45)
[2020-06-16] MEDS ORDERED: ACETAMINOPHEN 325 MG TABLET PO PRN (17:45)
[2020-06-16] MEDS ORDERED: cefTRIAXone SODIUM 1 GM VIAL ONE (17:47)
[2020-06-16] MEDS ORDERED: IV NORMAL SALINE 50ML 50 ML ONE (17:47)
[2020-06-16 19:44] LABS: BILIRUBIN,URINE NEG (NEG); CLARITY,URINE HAZY; COLOR,URINE YELLOW; GLUCOSE,URINE NEG (NEG)
[2020-06-16 19:45] LABS: NITRITE,URINE NEG (NEG); UROBILINOGEN,URINE 0.2 mg/dL (0.2 mg/dL)
[2020-06-16 19:47] LABS: BACTERIA,URINE FEW /HPF (0-FEW); RBC,URINE OCC /HPF (0-2); SQUAMOUS EPITHELIAL CELL,UR OCC /LPF; WBC,URINE OCC /HPF (0-4)
[2020-06-16] MEDS: IV NORMAL SALINE 1,000ML 1,000 ML IV SCH (20:05)
[2020-06-16 20:37] VITALS: BP 111/90
[2020-06-16] MEDS ORDERED: PSYL0.5215 PO (22:11)
[2020-06-16] MEDS ORDERED: OMEG100021 PO (22:11)
[2020-06-16] MEDS ORDERED: IRBE300T23 PO (22:11)
[2020-06-16] MEDS ORDERED: NITR50CA11 PO (22:11)
[2020-06-16] MEDS ORDERED: RIVA15TA PO (22:11)
[2020-06-16] MEDS ORDERED: CARV12.5 PO (22:11)
[2020-06-16] MEDS ORDERED: ANTI-COAG MONITOR BY PHARMACY. MC PRN (22:30)
[2020-06-16] MEDS: QUEtiapine 50 MG TABLET. PO SCH (22:44)
[2020-06-16] MEDS: RIVAROXABAN 15 MG TABLET. PO SCH (22:44)
[2020-06-16] MEDS: ALPRAZolam 0.5 MG TABLET PO SCH (22:44)
[2020-06-16] MEDS: ATORVASTATIN CALCIUM 20 MG TABLET PO SCH (22:44)
[2020-06-16] MEDS: MELATONIN 3 MG TABLET PO SCH (22:44)
[2020-06-16 23:06] VITALS: BP 103/65
--- NOTE | 2020-06-16 23:16 | NUR ---
PT admitted for diarrhea x6 weeks. PT recently exposed to COVID through daughter, 06/10/20. PT swabbed here, placed in precautions. PT with diarrhea for 6 weeks, 4 times on date of admission, none since admission. Reviewed with PT her PMH, PSH, SH, FH and medications (PT brought list). PT oriented to unit.
[2020-06-17] MEDS: LEVOTHYROXINE 125 MCG TABLET PO SCH (06:14)
[2020-06-17 06:35] VITALS: BP 98/57
[2020-06-17] MEDS: IV NORMAL SALINE 1,000ML 1,000 ML IV SCH (08:52)
[2020-06-17] MEDS: ALPRAZolam 0.5 MG TABLET PO SCH ×3 (08:52→21:21)
[2020-06-17 10:51] VITALS: BP 95/56
[2020-06-17] MEDS ORDERED: IPRATRPIUM/ALBUTEROL 0.5/2.5MG 3 ML NEBU. NEB SCH (12:00)
[2020-06-17] MEDS: LOSARTAN 50 MG TABLET. PO SCH (12:30)
[2020-06-17] MEDS: SPIRONOLACTONE 25 MG TABLET PO SCH (12:30)
[2020-06-17] MEDS: buPROPion SR 150 MG TABLET.SA PO SCH (12:49)
[2020-06-17] MEDS: VANCOMYCIN 125 MG/2.5 ML ORAL SOLUTION. PO SCH ×3 (12:49→21:21)
[2020-06-17] MEDS: IPRATROPIUM/ALBUTEROL 20/100mcg/INH INHALER. INH SCH ×3 (12:53→20:00)
[2020-06-17] MEDS: FLUTICASONE/VILANTEROL 100/25 INHALER. INH SCH (12:53)
[2020-06-17] MEDS: BUDESONIDE 3 MG CAP.ER.24H. PO SCH ×2 (12:53→21:21)
[2020-06-17] MEDS: ESTRADIOL 0.01% VAGINAL CREAM 42.5GM TUBE. VG SCH (12:54)
--- NOTE | 2020-06-17 13:08 | HP ---
ADMIT DATE: 06/16/2020 HISTORY OF PRESENT ILLNESS: A 79-year-old female who has been having severe problems and generalized weakness. She has been having increased fatigue, shortness of breath, decreased oral intake. She has had diarrhea now for 6 weeks, has been hospitalized for such trying to get her into GI Medicine; however, that has been delayed due to everything else going on. She also was hypoxic, down to 84%, history of COPD. She has to use oxygen at night. The patient recently has been told that she was around a COVID individual and the patient was making fairly good progress, but has made a turn for the worse, came in through the Emergency Room. Her sodium was down to 123 and creatinine up to 1.5, BUN 20. The patient also has severe protein malnutrition, severe hypoalbuminemia. The patient was admitted as noted for her pneumonia, hypoxia, increased acute respiratory problems, probably SIADH, severe diarrhea and the like. PAST MEDICAL AND SURGICAL HISTORY: The patient has had thyroid disease, cataract implants, tonsillectomy, adenoidectomy, CHF, left bundle-branch block, rheumatic fever as a child, congestive heart failure, cardiac surgery, cardiac catheterization, anticoagulant therapy, hypertension, respiratory disorder, COPD, bronchitis, lung cancer, chest surgery, oxygen administration 2 liters, diverticulosis, cholecystectomy, obesity, tubal ligation, previous pregnancies, polycystic kidney disease, urinary tract infection, osteoporosis, endocrine disorders, hypothyroidism, steroid therapy. She has had severe depression, panic disorders, anxiety, history of smoking exposure 56-[id number] history, although has quit recently. Denies alcohol or drug use. IMMUNIZATIONS: Up-to-date. She does have a previous history of C. difficile. FAMILY HISTORY: Positive for cancer and hypertension. SOCIAL HISTORY: She is . The patient is a full code. REVIEW OF SYSTEMS: Generalized weakness, fatigue and somnolence, shortness of breath, coughing, diarrhea. She denies any melena, hematochezia with it. Neurologically at baseline except very weak and depressed. OBJECTIVE: VITAL SIGNS: Blood pressure 110/90, respiratory rate 20, pulse 70 and temperature of 100.2, two liters at 92% at best. She was at 86% on room air when she first came in and her blood pressure was down to 78/29. GENERAL: The patient otherwise is an ill-appearing, white female, moderate amount of distress. HEENT: Head: Atraumatic, normocephalic. Eyes: PERRLA without jaundice. The mouth and throat were normal. NECK: Supple, no JVD or thyromegaly. LUNGS: Diminished throughout, but basically clear. CARDIOVASCULAR: Regular sinus rhythm, S1, S2, without murmur, rub, thrill, or extra heart sound. ABDOMEN: Soft, nontender, no rebound or guarding. Positive bowel sounds, no hepatosplenomegaly. EXTREMITIES: No clubbing, cyanosis or edema. NEUROLOGIC: The patient was alert and oriented x 3. LABORATORY DATA: The patient otherwise continued to be monitored carefully, make further evaluation on her. The sodium is noted 123, BUN and creatinine 20 and 1.5. Lactic acid 1. AST elevated at 46. White count 3.2, hemoglobin and hematocrit 9.9 and 29. So far influenza negative. Her COVID-19 pending. IMPRESSION: Sepsis, acute respiratory failure with hypoxia, pneumonia of unspecified etiology, leukopenia, diarrhea of unknown etiology, hyponatremia, probably secondary to the problem of her diarrhea itself, hypotension, COVID-19 contact. We will continue to monitor the patient accordingly, make further evaluation on her as indicated. Gave her additional normal saline, controlled antibiotics oral vancomycin. JUANIS HERNANDEZ MD DR: SABINO/molly JOB#: [id number] / [id number]
[2020-06-17] MEDS: AZITHROMYCIN 500 MG in IV NORMAL SALINE 250ML 250 ML IV SCH (13:43)
[2020-06-17 15:16] VITALS: BP 92/55
--- NOTE | 2020-06-17 16:48 | EKG ---
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
[2020-06-17] MEDS: CARVEDILOL 12.5 MG TABLET PO SCH (16:56)
[2020-06-17 18:44] VITALS: BP 99/54
[2020-06-17] MEDS ORDERED: NON FORMULARY ITEM (Fluticasone Propionate (Flovent 110MCG Hfa) 2 PUFF) IH SCH (21:00)
[2020-06-17] MEDS: RIVAROXABAN 15 MG TABLET. PO SCH (21:21)
[2020-06-17] MEDS: MELATONIN 3 MG TABLET PO SCH (21:21)
[2020-06-17] MEDS: ATORVASTATIN CALCIUM 20 MG TABLET PO SCH (21:21)
[2020-06-17] MEDS: QUEtiapine 50 MG TABLET. PO SCH (21:21)
[2020-06-17 23:33] VITALS: BP 100/57
[2020-06-18] MEDS: LEVOTHYROXINE 125 MCG TABLET PO SCH (05:03)
[2020-06-18 05:49] LABS: CALCIUM 6.9 mg/dL (8.5-10.1); GFR 53.6; POTASSIUM 4.4 mmol/L (3.5-5.1)
[2020-06-18 05:51] VITALS: BP 119/64
[2020-06-18] MEDS: buPROPion SR 150 MG TABLET.SA PO SCH (07:52)
[2020-06-18] MEDS: SPIRONOLACTONE 25 MG TABLET PO SCH (07:53)
[2020-06-18] MEDS: BUDESONIDE 3 MG CAP.ER.24H. PO SCH ×2 (07:53→21:21)
[2020-06-18] MEDS: CARVEDILOL 12.5 MG TABLET PO SCH ×2 (07:53→16:58)
[2020-06-18] MEDS: ALPRAZolam 0.5 MG TABLET PO SCH ×3 (07:53→21:21)
[2020-06-18] MEDS: PSYLLIUM SEED (WITH SUGAR) PACKET. PO SCH (07:54)
[2020-06-18] MEDS: IPRATROPIUM/ALBUTEROL 20/100mcg/INH INHALER. INH SCH ×4 (07:54→21:21)
[2020-06-18] MEDS: VANCOMYCIN 125 MG/2.5 ML ORAL SOLUTION. PO SCH ×4 (07:54→21:20)
[2020-06-18] MEDS: FLUTICASONE/VILANTEROL 100/25 INHALER. INH SCH (07:54)
[2020-06-18] MEDS: LOSARTAN 50 MG TABLET. PO SCH (07:54)
[2020-06-18] MEDS ORDERED: NON FORMULARY ITEM (Tiotropium Br/Olodaterol HCl (Stiolto Respimat Inhal Spray) 2 PUFF) IH SCH (09:00)
[2020-06-18 11:27] VITALS: BP 105/55
[2020-06-18] MEDS: AZITHROMYCIN 500 MG in IV NORMAL SALINE 250ML 250 ML IV SCH (12:55)
[2020-06-18 15:43] VITALS: BP 104/66
[2020-06-18] MEDS: CHOLECALCIFEROL (VITAMIN D3) 1,000 UNIT TABLET PO SCH (19:00)
--- NOTE | 2020-06-18 19:16 | PN ---
DATE: 06/16/2020 SUBJECTIVE: The patient in with severe fatigue, dehydration, diarrhea, COVID-19 positive. The patient is doing better with the vancomycin oral as well as the budesonide. X-ray showed possible pneumonic process. So, we are giving her IV antibiotic carefully. Blood pressure 105/60, respiratory rate 20, pulse 70, she is presently afebrile. She is alert and oriented, feels a little bit better overall and we will continue to pursue the regimen, which seems to be working for her nicely. OBJECTIVE: Otherwise, lungs diminished. CARDIOVASCULAR: Stable. ABDOMEN: Soft, nontender, no rebounding or guarding. Positive bowel sounds, no hepatosplenomegaly. EXTREMITIES: No clubbing, cyanosis, nor edema. NEUROLOGICALLY: Intact. IMPRESSION: Pneumonia, COVID-19, diarrhea, dehydration. PLAN: As above. Continue with present rehydration as well as medications as discussed earlier. JUANIS HERNANDEZ MD DR: SABINO/molly JOB#: [id number] / [id number]
[2020-06-18 19:52] VITALS: BP 119/66
[2020-06-18] MEDS: MELATONIN 3 MG TABLET PO SCH (21:21)
[2020-06-18] MEDS: RIVAROXABAN 15 MG TABLET. PO SCH (21:21)
[2020-06-18] MEDS: QUEtiapine 50 MG TABLET. PO SCH (21:21)
[2020-06-18] MEDS: ATORVASTATIN CALCIUM 20 MG TABLET PO SCH (21:21)
[2020-06-18 22:45] VITALS: BP 110/87
--- NOTE | 2020-06-19 03:22 | NUR ---
Nursing note: Pt stable on 2L NC, rested comfortably in bed throughout much of shift.
[2020-06-19] MEDS: LEVOTHYROXINE 125 MCG TABLET PO SCH (05:09)
[2020-06-19 06:17] VITALS: BP 125/69
[2020-06-19] MEDS: IPRATROPIUM/ALBUTEROL 20/100mcg/INH INHALER. INH SCH ×4 (08:00→20:00)
[2020-06-19] MEDS: LOSARTAN 50 MG TABLET. PO SCH (08:19)
[2020-06-19] MEDS: buPROPion SR 150 MG TABLET.SA PO SCH (08:20)
[2020-06-19] MEDS: BUDESONIDE 3 MG CAP.ER.24H. PO SCH ×2 (08:20→20:17)
[2020-06-19] MEDS: CARVEDILOL 12.5 MG TABLET PO SCH ×2 (08:20→17:00)
[2020-06-19] MEDS: LACTOBACILLUS RHAMNOSUS GG 1 CAPSULE. PO SCH ×2 (08:20→20:17)
[2020-06-19] MEDS: ALPRAZolam 0.5 MG TABLET PO SCH ×3 (08:20→20:17)
[2020-06-19] MEDS: MULTIVITAMIN with MINERAL TABLET. PO SCH (08:20)
[2020-06-19] MEDS: SPIRONOLACTONE 25 MG TABLET PO SCH (08:20)
[2020-06-19] MEDS: CHOLECALCIFEROL (VITAMIN D3) 1,000 UNIT TABLET PO SCH (08:20)
[2020-06-19] MEDS: PSYLLIUM SEED (WITH SUGAR) PACKET. PO SCH (08:21)
[2020-06-19] MEDS: FLUTICASONE/VILANTEROL 100/25 INHALER. INH SCH (08:22)
[2020-06-19] MEDS: VANCOMYCIN 125 MG/2.5 ML ORAL SOLUTION. PO SCH ×4 (08:22→20:17)
[2020-06-19 11:25] VITALS: BP 126/73
[2020-06-19 14:31] VITALS: BP 97/60
[2020-06-19] MEDS: AZITHROMYCIN 500 MG in IV NORMAL SALINE 250ML 250 ML IV SCH (15:16)
[2020-06-19 19:10] VITALS: BP 116/82
[2020-06-19] MEDS: QUEtiapine 50 MG TABLET. PO SCH (20:17)
[2020-06-19] MEDS: RIVAROXABAN 15 MG TABLET. PO SCH (20:17)
[2020-06-19] MEDS: MELATONIN 3 MG TABLET PO SCH (20:17)
[2020-06-19] MEDS: ATORVASTATIN CALCIUM 20 MG TABLET PO SCH (20:17)
[2020-06-19 23:20] VITALS: BP 103/68
--- NOTE | 2020-06-20 00:12 | PN ---
DATE: SUBJECTIVE: A 79-year-old female in with COVID-19 pneumonia. The patient says she is feeling a little better, but still very weak, tired and fatigued. Diarrhea seems to be ____. OBJECTIVE: VITAL SIGNS: Blood pressure on the low side 97/60, respiratory rate 20, pulse 84, low-grade temperature of 99 (NC). GENERAL: The patient otherwise alert and oriented, somewhat depressed appearing. LUNGS: Diminished throughout, poor movement of air. CARDIOVASCULAR: Regular sinus rhythm. ABDOMEN: Soft, nontender. EXTREMITIES: No clubbing, cyanosis or edema. The patient's diarrhea has ceased, but she continues to be very weak and needs some rehabilitation. Still receiving antibiotics for her pneumonia and also some ____. We will adjust on her medications including her blood pressure pills since her blood pressure is dropping probably due to lack of activity. IMPRESSION: COVID-19 pneumonia, generalized weakness, diarrhea and hyponatremia. JUANIS HERNANDEZ MD DR: SABINO/molly JOB#: [id number] / [id number]
[2020-06-20] MEDS: LEVOTHYROXINE 125 MCG TABLET PO SCH (05:10)
[2020-06-20 05:41] VITALS: BP 121/81
[2020-06-20] MEDS: IPRATROPIUM/ALBUTEROL 20/100mcg/INH INHALER. INH SCH ×4 (08:07→20:00)
[2020-06-20] MEDS: FLUTICASONE/VILANTEROL 100/25 INHALER. INH SCH (08:07)
[2020-06-20] MEDS: PSYLLIUM SEED (WITH SUGAR) PACKET. PO SCH (08:07)
[2020-06-20] MEDS: LACTOBACILLUS RHAMNOSUS GG 1 CAPSULE. PO SCH ×2 (08:07→21:23)
[2020-06-20] MEDS: MULTIVITAMIN with MINERAL TABLET. PO SCH (08:09)
[2020-06-20] MEDS: LOSARTAN 50 MG TABLET. PO SCH (08:09)
[2020-06-20] MEDS: CARVEDILOL 6.25 MG TABLET PO SCH ×2 (08:09→18:07)
[2020-06-20] MEDS: buPROPion SR 150 MG TABLET.SA PO SCH (08:09)
[2020-06-20] MEDS: SPIRONOLACTONE 25 MG TABLET PO SCH (08:10)
[2020-06-20] MEDS: ALPRAZolam 0.5 MG TABLET PO SCH ×3 (08:10→21:23)
[2020-06-20] MEDS: VANCOMYCIN 125 MG/2.5 ML ORAL SOLUTION. PO SCH ×2 (08:11→13:00)
[2020-06-20] MEDS: CHOLECALCIFEROL (VITAMIN D3) 1,000 UNIT TABLET PO SCH (08:11)
[2020-06-20] MEDS: BUDESONIDE 3 MG CAP.ER.24H. PO SCH ×2 (08:11→21:23)
[2020-06-20 10:38] VITALS: BP 116/68
[2020-06-20 13:15] VITALS: BP 110/62
[2020-06-20] MEDS: AZITHROMYCIN 500 MG in IV NORMAL SALINE 250ML 250 ML IV SCH (15:00)
[2020-06-20] MEDS: ESTRADIOL 0.01% VAGINAL CREAM 42.5GM TUBE. VG SCH (18:06)
[2020-06-20] MEDS ORDERED: LOPERAMIDE 2 MG CAPSULE PO ONE (18:30)
[2020-06-20 19:20] VITALS: BP 124/72
[2020-06-20] MEDS: ATORVASTATIN CALCIUM 20 MG TABLET PO SCH (21:23)
[2020-06-20] MEDS: RIVAROXABAN 15 MG TABLET. PO SCH (21:23)
[2020-06-20] MEDS: MELATONIN 3 MG TABLET PO SCH (21:23)
[2020-06-20] MEDS: QUEtiapine 50 MG TABLET. PO SCH (21:23)
[2020-06-20 23:15] VITALS: BP 113/75
[2020-06-21] VITALS (7 sets, daily range): BP systolic 87–123; BP diastolic 42–70
[2020-06-21] MEDS: LEVOTHYROXINE 125 MCG TABLET PO SCH (05:36)
[2020-06-21] MEDS: PSYLLIUM SEED (WITH SUGAR) PACKET. PO SCH (09:00)
[2020-06-21] MEDS ORDERED: FUROSEMIDE 40 MG/4 ML VIAL IVP ONE (09:15)
[2020-06-21] MEDS: ALPRAZolam 0.5 MG TABLET PO SCH ×3 (09:35→20:30)
[2020-06-21] MEDS: MULTIVITAMIN with MINERAL TABLET. PO SCH (09:36)
[2020-06-21] MEDS: SPIRONOLACTONE 25 MG TABLET PO SCH (09:36)
[2020-06-21] MEDS: CHOLECALCIFEROL (VITAMIN D3) 1,000 UNIT TABLET PO SCH (09:36)
[2020-06-21] MEDS: BUDESONIDE 3 MG CAP.ER.24H. PO SCH ×2 (09:37→20:30)
[2020-06-21] MEDS: LOPERAMIDE 2 MG CAPSULE PO PRN (09:37)
[2020-06-21] MEDS: buPROPion SR 150 MG TABLET.SA PO SCH (09:37)
[2020-06-21] MEDS: IPRATROPIUM/ALBUTEROL 20/100mcg/INH INHALER. INH SCH ×4 (09:37→20:30)
[2020-06-21] MEDS: CARVEDILOL 6.25 MG TABLET PO SCH ×2 (09:37→18:14)
[2020-06-21] MEDS: LACTOBACILLUS RHAMNOSUS GG 1 CAPSULE. PO SCH ×2 (09:37→20:30)
[2020-06-21] MEDS: LOSARTAN 50 MG TABLET. PO SCH (09:38)
[2020-06-21] MEDS: FLUTICASONE/VILANTEROL 100/25 INHALER. INH SCH (09:39)
--- NOTE | 2020-06-21 09:42 | RAD ---
Single view of the chest. 06/21/2020 9:23 AM Indication: Reason: fever soa / Spl. Instructions: / History: Comparison: Chest radiograph June 16 2020 Findings: Or improvement persistent patchy right-sided infiltrates.. There is left basilar atelectasi s or infiltrate, slightly more prominent on in the interim. No pneumothorax is seen. No definitive ef fusion is identified. Heart is enlarged. Probable aortic tortuosity noted. Emphysematous changes are seen throughout the lungs. No acute osseous changes are noted in the interim. IMPRESSION: 1. Improvement persistent right basilar infiltrates 2. Mild left basilar atelectasis or infiltrate, slightly more prominent. 3. Redemonstration of underlying emphysematous change Electronically signed by: Shad Perez MD (06/21/2020 9:39 AM) [id number]
--- NOTE | 2020-06-21 10:26 | EKG ---
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
[2020-06-21] MEDS ORDERED: REMDESIVIR LOAD in IV NORMAL SALINE 250ML TV IV ONE (10:30)
[2020-06-21] MEDS: ENOXAPARIN 40 MG/0.4 ML SYRINGE. SQ SCH (11:22)
[2020-06-21] MEDS: DEXAMETHASONE SOD PHOS 4 MG/ML VIAL. IVP SCH ×3 (11:23→23:43)
[2020-06-21 13:54] LABS: BGAS PH 7.4 (7.35-7.45)
[2020-06-21] MEDS: AZITHROMYCIN 500 MG in IV NORMAL SALINE 250ML 250 ML IV SCH (14:12)
--- NOTE | 2020-06-21 16:56 | NUR ---
REC'D CALL FROM DR HERNANDEZ, REQUESTING PT BE TRANSFERRED TO ICU. CONTACTED NURSING CAE ENGINEER. PT WILL BE MOVED TO ROOM 6 IN ICU. REPORT GIVEN.
[2020-06-21 20:23] LABS: BASO % 0 % (0-3); EOS % 0 % (0-3); HEMATOCRIT 27.4 % (36.0-47.0); HEMOGLOBIN 9.3 g/dL (12.0-15.5); LYMPH # 0.2 x10^3/uL (1.0-4.8); LYMPH % 11 % (24-48); MEAN CORPUSCULAR HEMOGLOBIN 33 pg (25-35); MEAN CORPUSCULAR HGB CONC 34 g/dL (31-37); MEAN CORPUSCULAR VOLUME 96 fL (79-100); MONO # 0.1 x10^3/uL (0.0-1.1); MONO % 5 % (0-9); NEUT # 1.8 x10^3uL (1.8-7.7); NEUT % 84 % (31-73); PLATELET COUNT 216 x10^3/uL (140-400); RED BLOOD COUNT 2.85 x10^6/uL (3.50-5.40); RED CELL DISTRIBUTION WIDTH 13.7 % (11.5-14.5); WHITE BLOOD COUNT 2.2 x10^3/uL (4.0-11.0)
[2020-06-21] MEDS: ATORVASTATIN CALCIUM 20 MG TABLET PO SCH (20:30)
[2020-06-21] MEDS: QUEtiapine 50 MG TABLET. PO SCH (20:30)
[2020-06-21] MEDS: MELATONIN 3 MG TABLET PO SCH (20:30)
[2020-06-21 21:35] LABS: % LYMPHS 13 % (24-48); % MONOS 2 % (0-10); % SEGS 85 % (35-66)
[2020-06-21 21:36] LABS: PLT ESTIMATE ADEQUATE (ADEQUATE)
[2020-06-21 22:35] LABS: CALCIUM 6.6 mg/dL (8.5-10.1); CREATININE 1.2 mg/dL (0.6-1.0); GFR 43.4; POTASSIUM 3.8 mmol/L (3.5-5.1)
[2020-06-22] VITALS (10 sets, daily range): BP systolic 84–110; BP diastolic 43–72
--- NOTE | 2020-06-22 01:01 | PN ---
DATE: SUBJECTIVE: A 79-year-old female patient had been doing relatively well. Had been afebrile for the last few days; however, this morning, she spiked a temperature up to 101. The patient had been doing reasonably well on oxygen with just nasal cannula at 2 liters or so, but however, needed an increase in her nasal cannula to maintain it at approximately 90% with 5 liters. OBJECTIVE: VITAL SIGNS: Blood pressure 107/70, respiratory rate 18, pulse 80, temperature 101.1. GENERAL: The patient otherwise actually seems to be in relatively good spirits. She is not having any trouble breathing. LUNGS: The patient's lungs are diminished, crackles noted in the bases. CARDIOVASCULAR: Regular sinus rhythm. ABDOMEN: Soft, nontender, no rebounding or guarding. EXTREMITIES: No clubbing, cyanosis, nor edema. LABORATORY DATA: The patient's labs basically have been unchanged; however, her blood gases actually were fairly good at 7.4, pCO2 of 42 and a pO2 of 71 on 40%. The patient because of her drop in her oxygen saturation was started on remdesivir and Decadron, but actually the chest x-ray showed improvement of the right basilar infiltrate, mild left basilar atelectasis or infiltrate, slightly more prominent and of course emphysema, but because of the drop in her oxygenation, she was transferred over here to the unit to continue to be monitored on the medication as indicated as well as continuing on Rocephin and azithromycin for now along with the remdesivir and Decadron. IMPRESSION: Sepsis, COVID-19 pneumonia with respiratory hypoxia. We will continue with IV antibiotic therapy, oral MDIs and make adjustments otherwise of her medications as indicated. JUANIS HERNANDEZ MD DR: SABINO/molly JOB#: [id number] / [id number]
[2020-06-22] MEDS: LEVOTHYROXINE 125 MCG TABLET PO SCH (05:22)
[2020-06-22] MEDS: DEXAMETHASONE SOD PHOS 4 MG/ML VIAL. IVP SCH ×2 (05:22→12:10)
--- NOTE | 2020-06-22 05:47 | NUR ---
Shift Note: Pt a/o x4, VSS (bradycardic during HS, requires 5 liters oxygen to maintain sats >94%), no c/o pain or n/v at this time, pt independent to BSC, pt voiding clear yellow urine, pt has had decreased appetite (refused bedtime snack), pt expressed a desire to return to her home and have her daughter stay with her when she discharges (advised pt to discuss with family/cm/and physician, pt agrees)
[2020-06-22 06:53] LABS: CALCIUM 6.5 mg/dL (8.5-10.1); CREATININE 1.1 mg/dL (0.6-1.0); POTASSIUM 4.5 mmol/L (3.5-5.1)
[2020-06-22 06:56] LABS: BASO % 0 % (0-3); EOS % 0 % (0-3); HEMATOCRIT 25.2 % (36.0-47.0); HEMOGLOBIN 8.6 g/dL (12.0-15.5); LYMPH # 0.3 x10^3/uL (1.0-4.8); LYMPH % 19 % (24-48); MEAN CORPUSCULAR HEMOGLOBIN 33 pg (25-35); MEAN CORPUSCULAR HGB CONC 34 g/dL (31-37); MEAN CORPUSCULAR VOLUME 96 fL (79-100); MONO # 0.1 x10^3/uL (0.0-1.1); MONO % 7 % (0-9); NEUT % 73 % (31-73); PLATELET COUNT 231 x10^3/uL (140-400); RED BLOOD COUNT 2.63 x10^6/uL (3.50-5.40); RED CELL DISTRIBUTION WIDTH 13.9 % (11.5-14.5)
[2020-06-22 07:00] LABS: ALBUMIN 2.2 g/dL (3.4-5.0); DIRECT BILIRUBIN 0.1 mg/dL (0.0-0.2); TOTAL BILIRUBIN 0.2 mg/dL (0.2-1.0); TOTAL PROTEIN 6.1 g/dL (6.4-8.2)
[2020-06-22 07:07] LABS: WHITE BLOOD COUNT 1.3 x10^3/uL (4.0-11.0)
[2020-06-22] MEDS: CHOLECALCIFEROL (VITAMIN D3) 1,000 UNIT TABLET PO SCH (08:54)
[2020-06-22] MEDS: buPROPion SR 150 MG TABLET.SA PO SCH (08:54)
[2020-06-22] MEDS: ALPRAZolam 0.5 MG TABLET PO SCH ×2 (08:54→14:00)
[2020-06-22] MEDS: MULTIVITAMIN with MINERAL TABLET. PO SCH (08:54)
[2020-06-22] MEDS: LACTOBACILLUS RHAMNOSUS GG 1 CAPSULE. PO SCH (08:54)
[2020-06-22] MEDS: SPIRONOLACTONE 25 MG TABLET PO SCH (08:57)
[2020-06-22] MEDS: FLUTICASONE/VILANTEROL 100/25 INHALER. INH SCH (08:58)
[2020-06-22] MEDS: IPRATROPIUM/ALBUTEROL 20/100mcg/INH INHALER. INH SCH ×2 (08:58→12:09)
[2020-06-22] MEDS: PSYLLIUM SEED (WITH SUGAR) PACKET. PO SCH (09:00)
[2020-06-22] MEDS ORDERED: REMDESIVIR 100mg in NORMAL SALINE 250ML X 4 DAYS IV SCH (09:00)
[2020-06-22] MEDS: LOPERAMIDE 2 MG CAPSULE PO PRN (10:05)
[2020-06-22] MEDS ORDERED: IV NORMAL SALINE 1,000ML 1,000 ML IV SCH (11:00)
[2020-06-22] MEDS: ENOXAPARIN 40 MG/0.4 ML SYRINGE. SQ SCH (12:10)
[2020-06-22] MEDS: AZITHROMYCIN 500 MG in IV NORMAL SALINE 250ML 250 ML IV SCH (13:41)
[2020-06-22] MEDS ORDERED: CARVEDILOL 3.125 MG TABLET PO SCH (17:00)
--- NOTE | 2020-06-22 17:00 | NUR ---
Pt transferred to [place] rm 668 via ambulance. Throughout the day pt has required increased oxygen, max 15L NRBR. Family notified of transfer, daughters agree. Pt FaceTimed all children. Vital signs stable with NRBR, SPO2 94-96%. All belongings sent with pt at transfer. Report given to EVERT Overton, all medications and orders received.
--- NOTE | 2020-06-25 19:00 | DS ---
DATE OF DISCHARGE: 06/22/2020 HOSPITAL COURSE: A 79-year-old female initially came in through the Emergency Room with severe generalized weakness. She was markedly hypoxic, in respiratory failure with hypoxia. Her oxygen saturation has gone down to 84%. Her sodium was also low at 123. She had severe protein malnutrition. The patient was placed on IV antibiotic therapy. The patient's labs did demonstrate the fact that the patient was positive for COVID-19. She also had some bad diarrhea, which was fairly constant. Her C. difficile was negative and had use Lomotil there. The patient had also severe neutropenia, which only got worse with time, went from 3.2, down to 1.3. Hemoglobin went down to 8.6 and 25. The patient because of this decrease in her white count and the fact that the patient was not improving on her diarrhea, which was wasting her and the fact that she had the COVID-19, the patient was transferred down to [place] for GI and Infectious Disease consults and make further evaluation on her as indicated. IMPRESSION: Therefore, COVID-19 pneumonia, sepsis, emphysema, neutropenia, leukopenia, acute on chronic respiratory failure with hypoxia, severe protein malnutrition. PLAN: The patient continued to be monitored carefully and be transferred via EMS down to [place] for further evaluation. Hospitalist did accept her in transfer. JUANIS HERNANDEZ MD DR: SABINO/molly JOB#: [id number] / [id number]
== END 2020-06-22 17:00 | disposition short-term general hospital (02) | DRG 871 ==
LOC: ER 15:04 → 1 SOUTH 17:44 → ER 18:45 → ICU 06-21 17:12
PROVIDERS: ADMIT Family Medicine; ATTEND Family Medicine
PROC: XW033E5 Introduction of Remdesivir Anti-infective into Peripheral Vein, Percutaneous Approach, New Technology Group 5 (ICD-10-PCS; principal; 2020-06-21)
DX: A41.89 Other specified sepsis (principal); U07.1 COVID-19; J96.01 Acute respiratory failure with hypoxia; E43 Unspecified severe protein-calorie malnutrition; J12.82 Pneumonia due to coronavirus disease 2019; E87.1 Hypo-osmolality and hyponatremia; J44.0 Chronic obstructive pulmonary disease with (acute) lower respiratory infection; F41.9 Anxiety disorder, unspecified; M19.90 Unspecified osteoarthritis, unspecified site; F32.9 Major depressive disorder, single episode, unspecified; I50.9 Heart failure, unspecified; E86.0 Dehydration; E78.00 Pure hypercholesterolemia, unspecified; D72.819 Decreased white blood cell count, unspecified; I11.0 Hypertensive heart disease with heart failure; Z90.49 Acquired absence of other specified parts of digestive tract; Z98.51 Tubal ligation status; Z87.891 Personal history of nicotine dependence; Z86.19 Personal history of other infectious and parasitic diseases; Z82.49 Family history of ischemic heart disease and other diseases of the circulatory system; Z88.1 Allergy status to other antibiotic agents; Z88.0 Allergy status to penicillin; Z88.8 Allergy status to other drugs, medicaments and biological substances; Z68.34 Body mass index [BMI] 34.0-34.9, adult
CPT/HCPCS: 36415; 71045; 80048; 80053; 80076; 81001; 82803; 83605; 83690; 83735; 83880; 84100; 84484; 85007; 85025; 87040; 87449; 87493; 87505; 87804; 93005; 96361; 96365; 96372; 96375; J0456; J0500; J0696; J1100; J1650; J1940; J2405; J7050; U0003; 99285-25; J7030

== ENCOUNTER 2020-08-11 14:54 | Inpatient (IN) | payer MEDICARE, BC, OTHER ==
[~2020-08-11] VITALS: Ht 165.1 cm; Wt 88.9 kg
[~2020-08-11 14:54] MED LIST changes: +ACYC-63 PO; -ACYC200C84 PO; +IRBE300T23 PO; +OMEG100021 PO
[2020-08-11 17:47] VITALS: BP 99/65
--- NOTE | 2020-08-11 17:48 | NUR ---
PATIENT IS 79 Y O F ARRIVED VIA W/C ACCOMP BY STAFF MEMBER, PATIENT IS A DIRECT ADMIT FROM DR HERNANDEZ OFFICE. PATIENT IS CALM AND COOPERATIVE UPON ASSESSMENT, A/O X 4, DENIED PAIN. PATIENT STATED SHE WAS DIAGNOSED WITH COVID AND WAS DISCHARGED FROM [facility] 3 WEEKS AGO, SHE WEARS O2 AT HOME AT ALL TIMES, SHE IS IS ON 2L OF O2. PATIENT IS CURRENTLY IN A ROOM EATING DINNER, PT WAS ORIENTED TO ROOM AND HOSPITAL POLICIES, WCTM.
[2020-08-11 18:22] LABS: BASO % 1 % (0-3); EOS # 0.2 x10^3/uL (0.0-0.7); EOS % 4 % (0-3); HEMATOCRIT 28.4 % (36.0-47.0); HEMOGLOBIN 8.9 g/dL (12.0-15.5); LYMPH # 1.6 x10^3/uL (1.0-4.8); LYMPH % 35 % (24-48); MEAN CORPUSCULAR HEMOGLOBIN 32 pg (25-35); MEAN CORPUSCULAR HGB CONC 31 g/dL (31-37); MEAN CORPUSCULAR VOLUME 102 fL (79-100); MONO # 0.5 x10^3/uL (0.0-1.1); MONO % 10 % (0-9); NEUT # 2.3 x10^3uL (1.8-7.7); NEUT % 50 % (31-73); PLATELET COUNT 284 x10^3/uL (140-400); RED BLOOD COUNT 2.79 x10^6/uL (3.50-5.40); RED CELL DISTRIBUTION WIDTH 14.7 % (11.5-14.5); WHITE BLOOD COUNT 4.7 x10^3/uL (4.0-11.0)
[2020-08-11 18:38] LABS: ALBUMIN 2.1 g/dL (3.4-5.0); ALBUMIN/GLOBULIN RATIO 0.6 (1.0-1.7); CALCIUM 8.8 mg/dL (8.5-10.1); CREATININE 1.2 mg/dL (0.6-1.0); GFR 43.4; POTASSIUM 3.3 mmol/L (3.5-5.1); TOTAL BILIRUBIN 0.2 mg/dL (0.2-1.0); TOTAL PROTEIN 5.6 g/dL (6.4-8.2)
[2020-08-11] MEDS: FUROSEMIDE 20 MG/2 ML VIAL IVP SCH (18:38)
[2020-08-11 19:54] VITALS: BP 103/67
[2020-08-11] MEDS: IPRATRPIUM/ALBUTEROL 0.5/2.5MG 3 ML NEBU. NEB SCH (20:44)
[2020-08-11] MEDS ORDERED: NON FORMULARY ITEM (Fluticasone Propionate (Flovent 110MCG Hfa) 2 PUFF) IH SCH (21:00)
--- NOTE | 2020-08-11 21:14 | RAD ---
Exam: Chest one view INDICATION: CHF TECHNIQUE: Frontal view of the chest Comparisons: 11/03/2020 FINDINGS: The cardiomediastinal silhouette and pulmonary vessels are within normal limits. Patchy bibasilar airspace disease. No pleural effusion. IMPRESSION: Patchy bilateral airspace disease, may edema or developing infectious process. Electronically signed by: Aiden Kaba MD (08/11/2020 9:12 PM) [facility]
[2020-08-11] MEDS ORDERED: QUEtiapine 50 MG TABLET. PO SCH (21:30)
[2020-08-11] MEDS ORDERED: MAGN500C10 PO (21:44)
[2020-08-11] MEDS: ALPRAZolam 0.5 MG TABLET PO PRN (21:56)
[2020-08-11] MEDS: MELATONIN 3 MG TABLET PO SCH (21:56)
--- NOTE | 2020-08-11 22:12 | EKG ---
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
[2020-08-11 22:18] VITALS: BP 105/67
[2020-08-12 05:23] VITALS: BP 93/57
[2020-08-12] MEDS: IPRATRPIUM/ALBUTEROL 0.5/2.5MG 3 ML NEBU. NEB SCH ×4 (05:25→19:00)
[2020-08-12] MEDS: LEVOTHYROXINE 125 MCG TABLET PO SCH (05:28)
[2020-08-12] MEDS ORDERED: NON FORMULARY ITEM (Tiotropium Br/Olodaterol HCl (Stiolto Respimat Inhal Spray) 2 PUFF) IH SCH (09:00)
[2020-08-12] MEDS: PSYLLIUM SEED (WITH SUGAR) PACKET. PO SCH (09:00)
[2020-08-12] MEDS: LOSARTAN 50 MG TABLET. PO SCH (09:00)
[2020-08-12] MEDS: MULTIVITAMIN with MINERAL TABLET. PO SCH (09:30)
[2020-08-12] MEDS: buPROPion SR 150 MG TABLET.SA PO SCH (09:30)
[2020-08-12] MEDS: CARVEDILOL 12.5 MG TABLET PO SCH ×2 (09:30→17:29)
[2020-08-12] MEDS: SPIRONOLACTONE 25 MG TABLET PO SCH (09:31)
[2020-08-12] MEDS: FUROSEMIDE 20 MG/2 ML VIAL IVP SCH ×2 (09:32→13:03)
[2020-08-12] MEDS: ALPRAZolam 0.5 MG TABLET PO PRN ×2 (09:58→21:35)
[2020-08-12] MEDS: BUDESONIDE 0.5 MG/2 ML NEBU NEB SCH ×2 (10:03→19:00)
[2020-08-12 11:06] VITALS: BP 94/63
[2020-08-12 15:23] VITALS: BP 101/67
[2020-08-12 19:28] VITALS: BP 96/65
[2020-08-12] MEDS ORDERED: RIVAROXABAN 15 MG TABLET. PO SCH (21:00)
[2020-08-12] MEDS: MELATONIN 3 MG TABLET PO SCH (21:10)
[2020-08-12 22:32] VITALS: BP 101/65
--- NOTE | 2020-08-13 01:49 | PN ---
DATE: 08/12/2020 SUBJECTIVE: The patient in with congestive heart failure. The patient had an elevated BNP and imaging showed some possible infectious disease which I think is more likely is from her heart failure. Oxygen vacillates. She continues to make fairly good, good diuresis. OBJECTIVE: VITAL SIGNS: Blood pressure 101/70, respiratory rate 18, pulse 85, afebrile, 1 liter at 95. The patient otherwise seems to be resting fairly comfortably. The patient is alert and oriented, no complaints. LUNGS: Diminished, primarily in the bases. CARDIOVASCULAR: Irregular. ABDOMEN: Soft, nontender. EXTREMITIES: No clubbing, cyanosis, nor there is trace edema noted. IMPRESSION: Acute on top of chronic diastolic heart failure, chronic respiratory distress, anemia of chronic disease, severe protein malnutrition. PLAN: Continue diuresis and make further evaluation on her as adjustments of her medication indicate. JUANIS HERNANDEZ MD DR: SABINO/molly JOB#: [id number] / [id number]
[2020-08-13] MEDS: IPRATRPIUM/ALBUTEROL 0.5/2.5MG 3 ML NEBU. NEB SCH ×2 (05:07→09:09)
[2020-08-13 05:26] VITALS: BP 85/50
[2020-08-13] MEDS: LEVOTHYROXINE 125 MCG TABLET PO SCH (05:46)
[2020-08-13] MEDS: CARVEDILOL 12.5 MG TABLET PO SCH (08:00)
[2020-08-13 08:01] LABS: CREATININE 1.2 mg/dL (0.6-1.0); GFR 43.4; POTASSIUM 3.4 mmol/L (3.5-5.1)
[2020-08-13] MEDS: SPIRONOLACTONE 25 MG TABLET PO SCH (09:00)
[2020-08-13] MEDS: LOSARTAN 50 MG TABLET. PO SCH (09:00)
[2020-08-13] MEDS: BUDESONIDE 0.5 MG/2 ML NEBU NEB SCH (09:09)
[2020-08-13] MEDS: MULTIVITAMIN with MINERAL TABLET. PO SCH (09:39)
[2020-08-13] MEDS: buPROPion SR 150 MG TABLET.SA PO SCH (09:39)
[2020-08-13] MEDS: PSYLLIUM SEED (WITH SUGAR) PACKET. PO SCH (09:39)
[2020-08-13] MEDS: FUROSEMIDE 20 MG/2 ML VIAL IVP SCH (09:43)
[2020-08-13] MEDS: ALPRAZolam 0.5 MG TABLET PO PRN (09:49)
[2020-08-13 09:50] VITALS: BP 107/69
[2020-08-13] MEDS ORDERED: SPIR25TA PO (11:00)
[2020-08-13] MEDS ORDERED: FURO20TA3 PO (11:00)
[2020-08-13] MEDS ORDERED: CARV6.2541 PO (11:00)
[2020-08-13] MEDS ORDERED: LOSA50TA86 PO (11:00)
[2020-08-13] MEDS ORDERED: CARVEDILOL 6.25 MG TABLET PO SCH (17:00)
[2020-08-14] MEDS ORDERED: LOSARTAN 50 MG TABLET. PO SCH (09:00)
--- NOTE | 2020-08-18 18:35 | DS ---
DATE OF DISCHARGE: 08/13/2020 HOSPITAL COURSE: A 79-year-old female who came in with marked swelling and difficulty breathing. The patient was noted to be in heart failure. The patient was brought in, placed on diuresis, and made excellent progress during the rest of her hospitalization. She has a history of chronic anemia and hypokalemia and severe protein malnutrition. In any case, the patient made good progress. Her blood pressures did drop down to as low as 85/50 and patient's medications were adjusted and brought up to 110/70. The patient made good progress. She was discharged home and followed up as an outpatient. IMPRESSION: Acute on top of chronic diastolic heart failure, severe protein malnutrition, hypotension, chronic kidney disease stage 3A, and chronic anemia. The patient will be on a low-sodium heart-healthy diet and decreased activity and have her follow up as an outpatient in 2-3 weeks or sooner as needed. See MRAD. JUANIS HERNANDEZ MD DR: SABINO/molly JOB#: [id number] / [id number]
== END 2020-08-13 15:52 | disposition home health service (06) | DRG 291 ==
LOC: 1 SOUTH 14:54
PROVIDERS: ADMIT Family Medicine; ATTEND Family Medicine
DX: I13.0 Hypertensive heart and chronic kidney disease with heart failure and stage 1 through stage 4 chronic kidney disease, or unspecified chronic kidney disease (principal); I50.33 Acute on chronic diastolic (congestive) heart failure; E43 Unspecified severe protein-calorie malnutrition; D63.8 Anemia in other chronic diseases classified elsewhere; R06.03 Acute respiratory distress; N18.31 Chronic kidney disease, stage 3a; I95.9 Hypotension, unspecified; Z68.32 Body mass index [BMI] 32.0-32.9, adult; J44.9 Chronic obstructive pulmonary disease, unspecified; F41.9 Anxiety disorder, unspecified; Z86.16 Personal history of COVID-19; Z98.51 Tubal ligation status; Z92.3 Personal history of irradiation; I25.10 Atherosclerotic heart disease of native coronary artery without angina pectoris; M81.0 Age-related osteoporosis without current pathological fracture; I06.1 Rheumatic aortic insufficiency; I42.9 Cardiomyopathy, unspecified; E03.9 Hypothyroidism, unspecified; E78.1 Pure hyperglyceridemia; Z87.440 Personal history of urinary (tract) infections
CPT/HCPCS: 36415; 71045; 80048; 80053; 82607; 83540; 83550; 83880; 84484; 85025; 86850; 86870; 86900; 86901; 93005; 94640; 94760; 97116; 97530

== ENCOUNTER → 2020-08-19 | Outpatient (CLI) | payer MEDICARE, BC, OTHER ==
[2020-08-13 09:50] VITALS: BP 107/69
[~2020-08-19] MED LIST changes: +FURO20TA3 PO; +LOSA50TA86 PO; +MAGN500C10 PO
[2020-08-19 14:21] LABS: BILIRUBIN,URINE NEG (NEG); CLARITY,URINE CLEAR; COLOR,URINE YELLOW; GLUCOSE,URINE NEG (NEG); NITRITE,URINE NEG (NEG); UROBILINOGEN,URINE 0.2 mg/dL (0.2 mg/dL)
[2020-08-19 14:22] LABS: BACTERIA,URINE 0 /HPF (0-FEW); HYALINE CASTS, URINE OCC /HPF; SQUAMOUS EPITHELIAL CELL,UR FEW /LPF
== END ==
LOC: LAB 13:08
PROVIDERS: ATTEND Family Medicine
DX: N39.0 Urinary tract infection, site not specified (principal)
CPT/HCPCS: 81001; 87086

== ENCOUNTER → 2020-12-06 | Outpatient (CLI) | payer MEDICARE, BC, OTHER ==
[~2020-12-06] MED LIST changes: -ACYC-63 PO; +ACYC200C84 PO
--- NOTE | 2020-12-07 17:42 | RAD ---
DATE: 12/06/2020 EXAM: DIGITAL SCREEN BILAT W/CAD HISTORY: Screening COMPARISON: Multiple exams dating back to 01/23/2017 This study was interpreted with the benefit of Computerized Aided Detection (CAD). Breast Density: HETERO The breast parenchyma is heterogenously dense, which could reduce sensitivity of mammography. Breast parenchyma level C. FINDINGS: Bilateral asymmetries are stable. There is no suspicious mass, suspicious calcification, or architectural distortion in either breast. IMPRESSION: No evidence of malignancy. BI-RADS CATEGORY: 2 BENIGN FINDING(S) RECOMMENDED FOLLOW-UP: 12M 12 MONTH FOLLOW-UP PQRS compliance statement: Patient information was entered into a reminder system with a target due date for the next mammogram. Mammography is a sensitive method for finding small breast cancers, but it does not detect them all and is not a substitute for careful clinical examination. A negative mammogram does not negate a clinically suspicious finding and should not result in delay in biopsying a clinically suspicious abnormality. "Our facility is accredited by the [employer] Mammography Program."
== END ==
LOC: MAMMO 10:53
PROVIDERS: ATTEND Family Medicine
DX: Z12.31 Encounter for screening mammogram for malignant neoplasm of breast (principal)
CPT/HCPCS: 77067

== ENCOUNTER → 2020-12-06 | Outpatient (CLI) | payer MEDICARE, BC, OTHER ==
[2020-12-06 17:32] LABS: CALCIUM 9.6 mg/dL (8.5-10.1); CREATININE 1.4 mg/dL (0.6-1.0); GFR 36.3
[2020-12-07 11:49] LABS: POTASSIUM 4.6 mmol/L (3.5-5.1)
== END ==
LOC: LAB 10:55
PROVIDERS: ATTEND Internal Medicine Cardiovascular Disease
DX: I42.9 Cardiomyopathy, unspecified (principal); I50.9 Heart failure, unspecified; I35.1 Nonrheumatic aortic (valve) insufficiency
CPT/HCPCS: 36415; 80048

== ENCOUNTER → 2021-09-29 | Outpatient (CLI) | payer MEDICARE, BC, OTHER ==
[~2021-09-29] MED LIST changes: -BUPR150T11 PO; +BUPR150T24 PO; -DOXY100C2 PO; +DOXY100C3 PO; +MAGN500C PO; -MAGN500C10 PO
--- NOTE | 2021-09-29 16:52 | RAD ---
Exam: CT abdomen/pelvis without intravenous contrast Indication: Lower abdominal pain, kidney disease, history diverticulitis Comparison: CT abdomen pelvis 06/06/2020 Technique: Helical CT imaging performed of the abdomen and pelvis without the use of intravenous cont rast. Sagittal and coronal reformats were obtained. One or more of the following individualized dose reduction techniques were utilized for this examinat ion: 1. Automated exposure control 2. Adjustment of the mA and/or kV according to patient size 3. Use of iterative reconstruction technique. Findings: Inherently limited evaluation without intravenous contrast. Lower chest: There is scarring or atelectasis in the lung bases. Mild confluent opacities in the ante rior right lower lobe have decreased. There is an adjacent 6 mm nodule in the is new (image 5, series 2). The heart is normal in size. Liver: Simple hepatic cysts measuring up to 3 cm are unchanged. Gallbladder/Biliary Tree: Gallbladder is surgically absent. Bile ducts are normal. Pancreas: Normal. Spleen: Normal. Adrenal Glands: Normal. Kidneys/Ureters/Bladder: Kidneys are normal in size. No hydronephrosis. There are multiple bilateral simple renal cysts. The largest on the right measures 4.6 cm. The largest on the left measures 5.8 cm . There are multiple intermediate density exophytic cystic lesion in the left kidney with Hounsfield units around 40, the largest measures 3.3 cm. These are also unchanged and likely complicated or prot einaceous cyst. There are several additional complicated cysts with peripheral hyperdensity in the le ft kidney. No nephrolithiasis. Ureters and bladder are normal. Reproductive Organs: Uterus is anteverted. No adnexal mass Stomach, small bowel, and colon: Stomach is normal. There is no small bowel obstruction. Appendix is normal. There is moderate sigmoid diverticulosis. No acute diverticulitis. Vasculature: Abdominal aorta is normal in caliber. There is mild to moderate calcified aortoiliac ath erosclerosis. Lymph Nodes: No lymphadenopathy. Peritoneum and retroperitoneum: No free fluid or free air. Bones: No acute osseous abnormality. There is moderate degenerative disc disease. Grade 1 spondylolis thesis at L5-S1. The bones are diffusely demineralized. Miscellaneous: None. IMPRESSION: 1. No acute abnormality in the abdomen and pelvis. 2. Unchanged simple hepatic cysts. 3. Unchanged renal cysts, some of which are simple and some are likely minimally complicated cysts. 4. Unchanged sigmoid diverticulosis. No acute diverticulitis. 5. New 6 mm nodule in the right lower lobe. Recommend CT of the chest in 6-12 months to ensure stabil ity. Electronically signed by: Adenike Christianson MD (09/29/2021 4:49 PM) [id number]
== END ==
LOC: CT 12:44
PROVIDERS: ATTEND Family Medicine
DX: R91.1 Solitary pulmonary nodule (principal); J98.4 Other disorders of lung; M51.37 Other intervertebral disc degeneration, lumbosacral region; M43.17 Spondylolisthesis, lumbosacral region; N28.1 Cyst of kidney, acquired; K57.32 Diverticulitis of large intestine without perforation or abscess without bleeding; N18.1 Chronic kidney disease, stage 1; I70.0 Atherosclerosis of aorta
CPT/HCPCS: 74176